=== PATIENT | male | born 1955 | race Caucasian/White ===

== ENCOUNTER → 2017-03-26 | Outpatient (CLI) | payer MEDICARE, BC ==
--- NOTE | 2017-03-28 17:43 | US ---
EXAMINATION TYPE: US MSK left shoulder DATE OF EXAM: 03/26/2017 2:33 PM COMPARISON: NONE CLINICAL HISTORY: 61-year-old male M25.512 PAIN LEFT SHOULDER. Pain for 2 months. LROM. No known inju ry. Abduction limited. PT not helpful. Painful to sleep on. Diabetic. TECHNIQUE: Multiple sonographic images of the left shoulder are obtained. FINDINGS: Some images suggest a short segment longitudinal split within the lung and biceps tendon within the u pper bicipital groove. There is mild tenosynovial fluid. Mild heterogeneous echotexture of the subscapularis tendon which remains intact. Moderate degenerative joint space narrowing with marginal spurring and capsular hypertrophy at the ac romioclavicular joint. There is diffuse thickening and heterogeneity of both destructive process Chavez and infraspinatus tendons. There is subtle volume loss along the mid to posterior supraspinatus tendon with irregular areas of h ypoechogenicity which appears to be contiguous with the overlying bursa. These irregular areas extend to the greater tuberosity footprint and some may also extend to the articular surface. Tear is estim ated to measure approximately 1 cm long and 9 mm AP dimension. No didier fluid distention of the subacromial/subdeltoid bursa. The posterior labrum appears satisfactory. No significant effusion within the posterior recess of the glenohumeral joint. Spinoglenoid groove is clear. No significant atrophy of the supraspinatus or infraspinatus muscle bellies. IMPRESSION: 1. Moderate diffuse rotator cuff tendinosis with a 10 x 9 mm high-grade bursal sided versus nondispla ann full-thickness tear of the mid to posterior supraspinatus tendon. No muscle atrophy. 2. There may be a short segment split tear of the long head biceps tendon in the upper bicipital groo ve. 3. Moderate AC joint osteoarthrosis.
== END | disposition home or self-care (01) ==
LOC: RADUSWWP 13:15
PROVIDERS: ATTEND Orthopaedic Surgery Sports Medicine
DX: M19.012 Primary osteoarthritis, left shoulder (principal); M67.814 Other specified disorders of tendon, left shoulder; M75.42 Impingement syndrome of left shoulder; E10.9 Type 1 diabetes mellitus without complications

== ENCOUNTER 2017-08-10 23:44 | Emergency (ER) | payer MEDICARE, BC ==
[2017-08-11 00:21] LABS: Glucose,Whole Blood 91 mg/dL (75-99)
[2017-08-11 00:48] LABS: Basophils # (A) 0.1 k/uL (0-0.2); Basophils % (A) 1 %; CHCM 34.2; Eosinophils # (A) 0.7 k/uL (0-0.7); Eosinophils % (A) 8 %; HCT 45.2 % (39.0-53.0); HDW 3.06; HGB 15.8 gm/dL (13.0-17.5); Luc # (Auto) 0.25; Luc % (Auto) 3; Lymphocytes # (A) 2.6 k/uL (1.0-4.8); Lymphocytes % (A) 30 %; MCH 31.8 pg (25.0-35.0); MCHC 34.9 g/dL (31.0-37.0); MCV 91.2 fL (80.0-100.0); Mean Platelet Volume 7.8; Monocytes # (A) 0.6 k/uL (0-1.0); Monocytes % (A) 7 %; Neutrophils # (A) 4.6 k/uL (1.3-7.7); Neutrophils % (A) 53 %; RBC 4.96 m/uL (4.30-5.90); RDW 13.9 % (11.5-15.5); WBC 8.7 k/uL (3.8-10.6); WBC (Perox) 8.77
[2017-08-11 00:58] LABS: ALT 53 U/L (21-72); AST 32 U/L (17-59); Alkaline Phosphatase 66 U/L (38-126); Anion Gap 12 mmol/L; Blood Urea Nitrogen 19 mg/dL (9-20); Calcium 9.5 mg/dL (8.4-10.2); Carbon Dioxide 23 mmol/L (22-30); Chloride 104 mmol/L (98-107); Glucose 89 mg/dL (74-99); Non-African American GFR(MDRD) >60 (>60 ml/min/1.73 sqM); Potassium 4.2 mmol/L (3.5-5.1); Sodium 139 mmol/L (137-145); Total Bilirubin 0.5 mg/dL (0.2-1.3); Total Protein 7.3 g/dL (6.3-8.2)
[2017-08-11 01:02] LABS: Partial Thromboplastin Time 24.8 sec (22.0-30.0)
[2017-08-11 01:16] LABS: Creatine Kinase 117 U/L (55-170)
[2017-08-11 01:20] LABS: Appearance,Urine Clear (Clear); Bilirubin,Urine Negative (Negative); Glucose,Urine (UA) Negative (Negative); Ketones,Urine Negative (Negative); Leukocyte Esterase,Urine Negative (Negative); Nitrite,Urine Negative (Negative); PH, Urine 5.5 (5.0-8.0); Protein,Urine Negative (Negative); Specific Gravity,Urine 1.001 (1.001-1.035); UA Billing (MACRO vs. MICRO) CHEM; Urobilinogen,Urine <2.0 mg/dL (<2.0)
[2017-08-11 01:28] LABS: Creatine Kinase MB 1.5 ng/mL (0.0-2.4); Troponin I <0.012 ng/mL (0.000-0.034)
--- NOTE | 2017-08-11 01:31 | XR ---
EXAMINATION TYPE: XR chest 2V DATE OF EXAM: 08/11/2017 COMPARISON: 09/20/2015 HISTORY: Hypertension. Altered mental status TECHNIQUE: Frontal and lateral views of the chest are obtained. FINDINGS: There is poor inspiration. There is linear density at the lung bases. There is no gross he art failure. There are sternal wires. Bony thorax appears intact. IMPRESSION: Inspiration appears worse than old exam. Atelectasis at the lung bases. No gross heart f ailure.
--- NOTE | 2017-08-11 01:44 | CT ---
EXAMINATION TYPE: CT brain wo con DATE OF EXAM: 08/11/2017 COMPARISON: To 114 HISTORY: Prior on synapse, hypertension and facial numbness 1090.40 CT DLP: 1090.40 mGycm Automated exposure control for dose reduction was used. FINDINGS: Ventricles have normal size. There is no mass effect nor midline shift. There is no sign of intracran ial hemorrhage. The calvarium is intact. IMPRESSION: NEGATIVE CT SCAN OF THE BRAIN. NO CHANGE COMPARED TO OLD EXAM.
--- NOTE | 2017-08-11 02:11 | ED ---
General Adult HPI - General Chief complaint: Neuro Symptoms/Deficit Stated complaint: high BP, face numbness Time Seen by Provider: 08/11/17 00:02 Source: patient, family, RN notes reviewed, old records reviewed Mode of arrival: ambulatory Limitations: no limitations - History of Present Illness Initial comments: 61-year-old male presents with a one-month history of generalized weakness, numbness on the top of his head, and intermittent amnesia. Patient was seen at [facility] proximal was 2 weeks ago the same symptoms. Patient's and daughter were frustrated with the care he received. They did not receive an answer for cause of his symptoms. Patient denies headache. States he has bandlike numbness or on the top of his head. He also reports bilateral tinnitus which is worse on the left. Complains of bilateral upper and lower extremity weakness. No chest pain or shortness of breath. No fever chills. No nausea vomiting or diarrhea. Patient states symptoms have been present for greater than 1 month. - Related Data Home Medications Medication Instructions Recorded Confirmed Atorvastatin [Lipitor] 80 mg PO HS 08/09/14 08/11/17 Isosorbide Mononitrate [Imdur] 30 mg PO DAILY 08/09/14 08/11/17 Metoprolol Tartrate [Lopressor] 50 mg PO BID 08/09/14 08/11/17 Nitroglycerin Sl Tabs [Nitrostat] 0.4 mg SUBLINGUAL Q5M PRN 08/09/14 08/11/17 Lisinopril [Zestril] 20 mg PO DAILY 09/20/15 08/11/17 Insulin Degludec [Tresiba 50 units INJ BID 03/26/16 08/11/17 Flextouch U-100] Triamterene/Hydrochlorothiazid 1 each PO DAILY 03/26/16 08/11/17 [Triamterene-Hctz 37.5-25 mg Cp] Aspirin 81 mg PO DAILY 08/11/17 08/11/17 Atorvastatin [Lipitor] 80 mg PO HS 08/11/17 08/11/17 glipiZIDE [Glucotrol] 5 mg PO BID 08/11/17 08/11/17 Previous Rx's Medication Instructions Recorded Pantoprazole Sodium [Protonix] 40 mg PO DAILY #30 tablet. 12/12/14 Allergies Allergy/AdvReac Type Severity Reaction Status Date / Time ciprofloxacin Allergy Rash/Hives Verified 08/11/17 00:01 fluticasone propionate Allergy Rash/Hives Verified 08/11/17 00:01 [From Flonase] metformin Allergy Rash/Hives Verified 08/11/17 00:01 metformin HCl Allergy Rash/Hives Verified 08/11/17 00:01 [From Glucophage] Review of Systems ROS Statement: Those systems with pertinent positive or pertinent negative responses have been documented in the HPI. ROS Other: All systems not noted in ROS Statement are negative. Past Medical History Past Medical History: Coronary Artery Disease (CAD), Diabetes Mellitus, GERD/ Reflux, Hyperlipidemia, Hypertension, Myocardial Infarction ([place]), Osteoarthritis (OA) Last Myocardial Infarction Date:: january History of Any Multi-Drug Resistant Organisms: None Reported Past Surgical History: Coronary Bypass/CABG, Hernia Repair, Orthopedic Surgery, Tonsillectomy Additional Past Surgical History / Comment(s): left hand, rt eye surgery, rt shoulder repair x2, bilat hernia repair, rt foot sx, colonoscopy Past Anesthesia/Blood Transfusion Reactions: No Reported Reaction Past Psychological History: No Psychological Hx Reported Smoking Status: Former smoker - Past Family History Mother Family Medical History: Diabetes Mellitus, Hypertension Father Additional Family Medical History / Comment(s): four way bypass General Exam Limitations: no limitations General appearance: alert, in no apparent distress Head exam: Present: atraumatic, normocephalic Eye exam: Present: normal appearance, PERRL, EOMI. Absent: scleral icterus ENT exam: Present: normal exam Neck exam: Present: normal inspection, full ROM. Absent: tenderness, meningismus Respiratory exam: Present: normal lung sounds bilaterally. Absent: respiratory distress, wheezes Cardiovascular Exam: Present: regular rate, normal rhythm GI/Abdominal exam: Present: soft. Absent: distended, tenderness Extremities exam: Present: normal inspection, normal capillary refill. Absent: pedal edema Neurological exam: Present: alert, oriented X3, CN II-XII intact. Absent: motor sensory deficit Psychiatric exam: Present: normal affect, normal mood Skin exam: Present: warm, dry, intact Course Vital Signs 08/10/17 08/11/17 08/11/17 23:58 01:11 02:18 Temperature 97.4 F L 98.1 F Pulse Rate 75 73 68 Respiratory 18 20 16 Rate Blood Pressure 196/83 142/70 132/70 O2 Sat by Pulse 97 100 99 Oximetry - Reevaluation(s) Reevaluation #1: 08/11/17 02:32 Patient is seen sitting at the edge of the bed, when the nurse entered the room , he flops to his back. EKG Findings - EKG Comments: EKG Findings:: EKG shows normal sinus rhythm with right bundle-branch block, ventricular rate 81, MI interval 190, QRS duration 166, QTC 490 Medical Decision Making - Medical Decision Making 61-year-old male with a one month history of intermittent amnesia, generalized weakness, and numbness on the top of his head. Patient had a stroke workup at [facility]. These records were reviewed. He was evaluated by neurology at that time. Patient is unable to get an MRI secondary to foreign body in his eye. Patient was encouraged to follow neurology after his admission. Symptoms are unchanged since the time of this evaluation. Patient' s vital signs are stable, he is well-appearing, no acute distress. Patient moves all 4 extremities symmetrically. He is weak throughout. However his exam is inconsistent. He is seen sitting at the edge of the bed without difficulty, and then flops to the bed when the nurse and his room. I personally reevaluated the patient and he was bouncing his legs with no difficulty. When asked to move his legs he provides only minimal effort. Laboratory studies are reviewed and are unremarkable. Head CT is normal. Chest x-ray shows poor effort but no acute findings. EKG shows right bundle branch block which is compared to old EKGs and unchanged. I discussed with the family at length plan for outpatient neurology follow-up. They are agreeable with this. Observation is discussed with the patient and his family. Diagnosis: Amnesia, general weakness - Lab Data Result diagrams: 08/11/17 00:00 08/11/17 00:00 Lab Results 08/11/17 08/11/17 08/11/17 Range/Units 00:00 00:00 00:00 WBC 8.7 (3.8-10.6) k/uL RBC 4.96 (4.30-5.90) m/uL Hgb 15.8 (13.0-17.5) gm/dL Hct 45.2 (39.0-53.0) % MCV 91.2 (80.0-100.0) fL MCH 31.8 (25.0-35.0) pg MCHC 34.9 (31.0-37.0) g/dL RDW 13.9 (11.5-15.5) % Plt Count 222 (150-450) k/uL Neutrophils % 53 % Lymphocytes % 30 % Monocytes % 7 % Eosinophils % 8 % Basophils % 1 % Neutrophils # 4.6 (1.3-7.7) k/uL Lymphocytes # 2.6 (1.0-4.8) k/uL Monocytes # 0.6 (0-1.0) k/uL Eosinophils # 0.7 (0-0.7) k/uL Basophils # 0.1 (0-0.2) k/uL PT (9.0-12.0) sec INR (<1.2) APTT (22.0-30.0) sec Sodium 139 (137-145) mmol/L Potassium 4.2 (3.5-5.1) mmol/L Chloride 104 (98-107) mmol/L Carbon Dioxide 23 (22-30) mmol/L Anion Gap 12 mmol/L BUN 19 (9-20) mg/dL Creatinine 1.20 (0.66-1.25) mg/dL Est GFR (MDRD) Af Amer >60 (>60 ml/min/1.73 sqM) Est GFR (MDRD) Non-Af >60 (>60 ml/min/1.73 sqM) Glucose 89 (74-99) mg/dL POC Glucose (mg/dL) (75-99) mg/dL POC Glu Digital Tech ID Calcium 9.5 (8.4-10.2) mg/dL Total Bilirubin 0.5 (0.2-1.3) mg/dL AST 32 (17-59) U/L ALT 53 (21-72) U/L Alkaline Phosphatase 66 (38-126) U/L Total Creatine Kinase 117 (55-170) U/L CK-MB (CK-2) 1.5 (0.0-2.4) ng/mL CK-MB (CK-2) Rel Index 1.3 Troponin I <0.012 (0.000-0.034) ng/mL Total Protein 7.3 (6.3-8.2) g/dL Albumin 4.3 (3.5-5.0) g/dL Urine Color Urine Appearance (Clear) Urine pH (5.0-8.0) Ur Specific Hiram (1.001-1.035) Urine Protein (Negative) Urine Glucose (UA) (Negative) Urine Ketones (Negative) Urine Blood (Negative) Urine Nitrite (Negative) Urine Bilirubin (Negative) Urine Urobilinogen (<2.0) mg/dL Ur Leukocyte Esterase (Negative) Urine Opiates Screen (NotDetected) Ur Oxycodone Screen (NotDetected) Urine Methadone Screen (NotDetected) Ur Propoxyphene Screen (NotDetected) Ur Barbiturates Screen (NotDetected) U Tricyclic Antidepress (NotDetected) Ur Phencyclidine Scrn (NotDetected) Ur Amphetamines Screen (NotDetected) U Methamphetamines Scrn (NotDetected) U Benzodiazepines Scrn (NotDetected) Urine Cocaine Screen (NotDetected) U Marijuana (THC) Screen (NotDetected) 08/11/17 08/11/17 08/11/17 Range/Units 00:00 00:05 01:06 WBC (3.8-10.6) k/uL RBC (4.30-5.90) m/uL Hgb (13.0-17.5) gm/dL Hct (39.0-53.0) % MCV (80.0-100.0) fL MCH (25.0-35.0) pg MCHC (31.0-37.0) g/dL RDW (11.5-15.5) % Plt Count (150-450) k/uL Neutrophils % % Lymphocytes % % Monocytes % % Eosinophils % % Basophils % % Neutrophils # (1.3-7.7) k/uL Lymphocytes # (1.0-4.8) k/uL Monocytes # (0-1.0) k/uL Eosinophils # (0-0.7) k/uL Basophils # (0-0.2) k/uL PT 10.0 (9.0-12.0) sec INR 1.0 (<1.2) APTT 24.8 (22.0-30.0) sec Sodium (137-145) mmol/L Potassium (3.5-5.1) mmol/L Chloride (98-107) mmol/L Carbon Dioxide (22-30) mmol/L Anion Gap mmol/L BUN (9-20) mg/dL Creatinine (0.66-1.25) mg/dL Est GFR (MDRD) Af Amer (>60 ml/min/1.73 sqM) Est GFR (MDRD) Non-Af (>60 ml/min/1.73 sqM) Glucose (74-99) mg/dL POC Glucose (mg/dL) 91 (75-99) mg/dL POC Glu Digital Tech ID Vanessa Tracy Calcium (8.4-10.2) mg/dL Total Bilirubin (0.2-1.3) mg/dL AST (17-59) U/L ALT (21-72) U/L Alkaline Phosphatase (38-126) U/L Total Creatine Kinase (55-170) U/L CK-MB (CK-2) (0.0-2.4) ng/mL CK-MB (CK-2) Rel Index Troponin I (0.000-0.034) ng/mL Total Protein (6.3-8.2) g/dL Albumin (3.5-5.0) g/dL Urine Color Colorless Urine Appearance Clear (Clear) Urine pH 5.5 (5.0-8.0) Ur Specific Hiram 1.001 (1.001-1.035) Urine Protein Negative (Negative) Urine Glucose (UA) Negative (Negative) Urine Ketones Negative (Negative) Urine Blood Negative (Negative) Urine Nitrite Negative (Negative) Urine Bilirubin Negative (Negative) Urine Urobilinogen <2.0 (<2.0) mg/dL Ur Leukocyte Esterase Negative (Negative) Urine Opiates Screen Not Detected (NotDetected) Ur Oxycodone Screen Not Detected (NotDetected) Urine Methadone Screen Not Detected (NotDetected) Ur Propoxyphene Screen Not Detected (NotDetected) Ur Barbiturates Screen Not Detected (NotDetected) U Tricyclic Antidepress Not Detected (NotDetected) Ur Phencyclidine Scrn Not Detected (NotDetected) Ur Amphetamines Screen Not Detected (NotDetected) U Methamphetamines Scrn Not Detected (NotDetected) U Benzodiazepines Scrn Not Detected (NotDetected) Urine Cocaine Screen Not Detected (NotDetected) U Marijuana (THC) Screen Not Detected (NotDetected) Disposition Clinical Impression: Amnesia Disposition: HOME SELF-CARE Condition: Good Instructions: Transient Global Amnesia (ED) Referrals: Marilia Sharma DO [Primary Care Provider] - 1-2 days Rafy Gordon MD [STAFF PHYSICIAN] - 1-2 days Time of Disposition: 02:11
[2017-08-11 02:20] VITALS: BP 132/70; PULSE 68; RESP 16; TEMP 98.1
== END 2017-08-11 02:25 | disposition home or self-care (01) ==
LOC: EC 23:44
DX: R41.3 Other amnesia (principal); R53.1 Weakness; R20.0 Anesthesia of skin; I25.10 Atherosclerotic heart disease of native coronary artery without angina pectoris; E11.9 Type 2 diabetes mellitus without complications; E78.5 Hyperlipidemia, unspecified; I10 Essential (primary) hypertension; I25.2 Old myocardial infarction; Z95.1 Presence of aortocoronary bypass graft; Z87.891 Personal history of nicotine dependence; Z79.4 Long term (current) use of insulin; Z79.82 Long term (current) use of aspirin; Z79.899 Other long term (current) drug therapy; Z88.1 Allergy status to other antibiotic agents; Z88.8 Allergy status to other drugs, medicaments and biological substances
CPT/HCPCS: 36415; 70450; 71020; 80053; 80306; 81003; 82550; 82553; 84484; 85025; 85610; 85730; 93005; 99285

== ENCOUNTER 2018-02-14 18:06 | Emergency (ER) | payer MEDICARE, BC ==
--- NOTE | 2018-02-14 18:40 | ED ---
General Adult HPI - General Chief complaint: Seizure Stated complaint: Seizure Time Seen by Provider: 02/14/18 18:26 Source: patient, EMS, RN notes reviewed, old records reviewed Mode of arrival: EMS Limitations: no limitations - History of Present Illness Initial comments: 62-year-old male presenting for evaluation of generalized shaking. Patient has history of tinnitus, he's been dealing with this for the past one year. He told his about this and that it has been bothering him and then he presented from the bedroom with generalized shaking. He was awake and alert during this episode. He states that the "left side of his brain is , and he believes that the right side today". Denies any complaints at the time of my evaluation. No headache. No vision changes. No focal weakness or numbness. No chest pain or abdominal pain. Patient's states that he has had some intermittent suicidal thoughts no plan. Patient currently denies any suicidal ideation. - Related Data Home Medications Medication Instructions Recorded Confirmed Atorvastatin [Lipitor] 80 mg PO HS 08/09/14 08/11/17 Isosorbide Mononitrate [Imdur] 30 mg PO DAILY 08/09/14 08/11/17 Metoprolol Tartrate [Lopressor] 50 mg PO BID 08/09/14 08/11/17 Nitroglycerin Sl Tabs [Nitrostat] 0.4 mg SUBLINGUAL Q5M PRN 08/09/14 08/11/17 Lisinopril [Zestril] 20 mg PO DAILY 09/20/15 08/11/17 Insulin Degludec [Tresiba 50 units INJ BID 03/26/16 08/11/17 Flextouch U-100] Triamterene/Hydrochlorothiazid 1 each PO DAILY 03/26/16 08/11/17 [Triamterene-Hctz 37.5-25 mg Cp] Aspirin 81 mg PO DAILY 08/11/17 08/11/17 Atorvastatin [Lipitor] 80 mg PO HS 08/11/17 08/11/17 glipiZIDE [Glucotrol] 5 mg PO BID 08/11/17 08/11/17 Previous Rx's Medication Instructions Recorded Pantoprazole Sodium [Protonix] 40 mg PO DAILY #30 tablet. 10/20/14 Allergies Allergy/AdvReac Type Severity Reaction Status Date / Time ciprofloxacin Allergy Rash/Hives Verified 02/14/18 18:17 fluticasone propionate Allergy Rash/Hives Verified 02/14/18 18:17 [From Flonase] metformin Allergy Rash/Hives Verified 02/14/18 18:17 metformin HCl Allergy Rash/Hives Verified 02/14/18 18:17 [From Glucophage] Review of Systems ROS Statement: Those systems with pertinent positive or pertinent negative responses have been documented in the HPI. ROS Other: All systems not noted in ROS Statement are negative. Past Medical History Past Medical History: Coronary Artery Disease (CAD), Diabetes Mellitus, GERD/ Reflux, Hyperlipidemia, Hypertension, Myocardial Infarction ([place]), Osteoarthritis (OA) Last Myocardial Infarction Date:: january History of Any Multi-Drug Resistant Organisms: None Reported Past Surgical History: Coronary Bypass/CABG, Hernia Repair, Orthopedic Surgery, Tonsillectomy Additional Past Surgical History / Comment(s): left hand, rt eye surgery, rt shoulder repair x2, bilat hernia repair, rt foot sx, colonoscopy Past Anesthesia/Blood Transfusion Reactions: No Reported Reaction Past Psychological History: No Psychological Hx Reported Smoking Status: Former smoker Past Alcohol Use History: None Reported Past Drug Use History: None Reported - Past Family History Mother Family Medical History: Diabetes Mellitus, Hypertension Father Additional Family Medical History / Comment(s): four way bypass General Exam Limitations: no limitations General appearance: alert, in no apparent distress Head exam: Present: atraumatic, normocephalic Eye exam: Present: normal appearance, PERRL, EOMI. Absent: nystagmus ENT exam: Present: normal exam, mucous membranes dry Respiratory exam: Present: normal lung sounds bilaterally. Absent: respiratory distress, wheezes Cardiovascular Exam: Present: regular rate, normal rhythm GI/Abdominal exam: Present: soft. Absent: distended, tenderness, guarding Extremities exam: Present: normal inspection, full ROM, tenderness. Absent: normal capillary refill, pedal edema Back exam: Present: normal inspection Neurological exam: Present: alert, oriented X3, CN II-XII intact. Absent: motor sensory deficit Psychiatric exam: Present: flat affect. Absent: suicidal ideation Skin exam: Present: warm, dry, intact. Absent: cyanosis, diaphoretic Course Vital Signs 02/14/18 02/14/18 02/14/18 18:10 18:25 19:41 Temperature 98 F Pulse Rate 72 65 68 Respiratory 15 18 16 Rate Blood Pressure 217/90 177/79 142/69 O2 Sat by Pulse 97 98 93 L Oximetry - Reevaluation(s) Reevaluation #1: 02/14/18 20:22 On reevaluation, neurologic exam continues to be nonfocal, vital signs are stable. Patient believes his symptoms may be due to teeth pushing up into his brain. He denies any auditory or visual hallucinations. He has been told to follow-up with neurology in the past, and his has wanted him to see a psychiatrist or therapist for several of these ongoing issues. Patient was evaluated in the emergency department by EPS nurse who gave the patient outpatient follow-up information. 02/14/18 20:58 EKG Findings - EKG Comments: EKG Findings:: EKG, normal sinus rhythm right bundle branch block rate of 66, WI interval 142, QRS duration 168, QTC 467, no significant change compared to EKG obtained in August 2017 Medical Decision Making - Medical Decision Making 62-year-old male presenting with generalized shaking and concern for seizure. Patient was awake and alert, he has no known seizure disorder. On examination patient is well-appearing, normal vital signs, nonfocal neurologic exam. Patient is frustrated with the ongoing nature of his symptoms. Uncertain if this episode today was related to focal seizure or partial seizure. Head CT is obtained, this is negative for acute intracranial pathology. CBC and CMP within normal limits. EKG shows normal sinus rhythm with right bundle. Patient is offered observation for neurology evaluation, he declines. He wishes to be discharged. He will return with worsening or changing symptoms. - Lab Data Result diagrams: 02/14/18 18:23 02/14/18 18:23 Lab Results 02/14/18 02/14/18 Range/Units 18:23 18:23 WBC 6.2 (3.8-10.6) k/uL RBC 4.80 (4.30-5.90) m/uL Hgb 14.9 (13.0-17.5) gm/dL Hct 42.6 (39.0-53.0) % MCV 88.6 (80.0-100.0) fL MCH 31.0 (25.0-35.0) pg MCHC 35.0 (31.0-37.0) g/dL RDW 13.3 (11.5-15.5) % Plt Count 199 (150-450) k/uL Neutrophils % 52 % Lymphocytes % 28 % Monocytes % 7 % Eosinophils % 9 % Basophils % 1 % Neutrophils # 3.2 (1.3-7.7) k/uL Lymphocytes # 1.7 (1.0-4.8) k/uL Monocytes # 0.5 (0-1.0) k/uL Eosinophils # 0.6 (0-0.7) k/uL Basophils # 0.0 (0-0.2) k/uL Sodium 143 (137-145) mmol/L Potassium 4.4 (3.5-5.1) mmol/L Chloride 104 (98-107) mmol/L Carbon Dioxide 26 (22-30) mmol/L Anion Gap 13 mmol/L BUN 23 H (9-20) mg/dL Creatinine 1.21 (0.66-1.25) mg/dL Est GFR (CKD-EPI)AfAm 74 (>60 ml/min/1.73 sqM) Est GFR (CKD-EPI)NonAf 64 (>60 ml/min/1.73 sqM) Glucose 84 (74-99) mg/dL Calcium 9.4 (8.4-10.2) mg/dL Total Bilirubin 0.4 (0.2-1.3) mg/dL AST 27 (17-59) U/L ALT 35 (21-72) U/L Alkaline Phosphatase 45 (38-126) U/L Total Protein 6.8 (6.3-8.2) g/dL Albumin 4.0 (3.5-5.0) g/dL Disposition Clinical Impression: Tremor Disposition: HOME SELF-CARE Condition: Good Instructions: Tremors (ED) Referrals: Marilia Sharma DO [Primary Care Provider] - 1-2 days Brittany Gordon MD [STAFF PHYSICIAN] - 1-2 days Time of Disposition: 21:05
[2018-02-14 18:55] LABS: Basophils % (A) 1 %; Eosinophils # (A) 0.6 k/uL (0-0.7); Eosinophils % (A) 9 %; HCT 42.6 % (39.0-53.0); HGB 14.9 gm/dL (13.0-17.5); Lymphocytes # (A) 1.7 k/uL (1.0-4.8); Lymphocytes % (A) 28 %; MCV 88.6 fL (80.0-100.0); Mean Platelet Volume 7.8; Monocytes # (A) 0.5 k/uL (0-1.0); Monocytes % (A) 7 %; Neutrophils # (A) 3.2 k/uL (1.3-7.7); Neutrophils % (A) 52 %; Platelet Count 199 k/uL (150-450); RDW 13.3 % (11.5-15.5); WBC 6.2 k/uL (3.8-10.6)
[2018-02-14 19:06] LABS: Calcium 9.4 mg/dL (8.4-10.2); Potassium 4.4 mmol/L (3.5-5.1); Total Bilirubin 0.4 mg/dL (0.2-1.3); Total Protein 6.8 g/dL (6.3-8.2)
--- NOTE | 2018-02-14 19:20 | CT ---
EXAMINATION TYPE: CT brain wo con DATE OF EXAM: 02/14/2018 COMPARISON: 08/11/2017 INDICATION: Seizure activity DLP: 1041.50 mGycm, Automated exposure control for dose reduction was used. CONTRAST: None CT of the brain is performed utilizing 3 mm thick sections through the posterior fossa and 3 mm thick sections through the remaining calvarium. Study is performed within 24 hours of arrival to the hosp [facility]. No abnormal hyperdensity is present to suggest an acute intracranial hemorrhage. No mass lesion is evident. No acute infarcts are evident. Ventricles and sulci are appropriate for the patient age. Paranasal sinuses and mastoid air cells within the [id number] are clear. IMPRESSIONS: 1. No acute intracranial process. 2. Exam is stable from 08/11/2017
[2018-02-14 21:33] VITALS: BP 135/63; PULSE 66; RESP 18; TEMP 97.3
== END 2018-02-14 21:33 | disposition home or self-care (01) ==
LOC: EC 18:06
DX: R25.1 Tremor, unspecified (principal); I25.10 Atherosclerotic heart disease of native coronary artery without angina pectoris; E11.9 Type 2 diabetes mellitus without complications; I10 Essential (primary) hypertension; I25.2 Old myocardial infarction; E78.5 Hyperlipidemia, unspecified; Z95.1 Presence of aortocoronary bypass graft; Z87.891 Personal history of nicotine dependence; Z79.4 Long term (current) use of insulin; Z79.82 Long term (current) use of aspirin; Z79.899 Other long term (current) drug therapy; Z88.1 Allergy status to other antibiotic agents; Z88.8 Allergy status to other drugs, medicaments and biological substances
CPT/HCPCS: 36415; 70450; 80053; 85025; 93005; 99285

== ENCOUNTER 2018-05-01 13:36 | Observation (INO) | payer MEDICARE, BC ==
[2018-05-01] MEDS ORDERED: NITROGLYCERIN OINT 1 INCH/GM PACKET TOPICAL STA (13:52)
[2018-05-01] MEDS ORDERED: ASPIRIN 81 MG PO STA (13:52)
--- NOTE | 2018-05-01 13:56 | ED ---
General Adult HPI - General Chief complaint: Chest Pain Stated complaint: Chest pain Time Seen by Provider: 05/01/18 13:45 Source: patient, EMS, RN notes reviewed, old records reviewed Mode of arrival: EMS Limitations: no limitations - History of Present Illness Initial comments: Patient is a pleasant 62-year-old male presenting to the emergency department with complaints of chest discomfort. Patient states symptoms started a couple of days ago. Symptoms worsened last night and then again this morning. Patient describes discomfort as pressure in the left chest. There is some associated dyspnea. Symptoms do worsen with exertion. Patient does have a history of cardiac problems however this feels different. No associated nausea or diaphoresis. Discomfort is currently rated 4/10. Patient was seen at [facility] and had reported negative troponin and transferred here for further evaluation. Patient states he has had some memory problems over the past year and a half. [facility] did also report that they did a computed tomography scan prior to transfer that was reported as negative. - Related Data Home Medications Medication Instructions Recorded Confirmed Isosorbide Mononitrate [Imdur] 30 mg PO DAILY 08/09/14 05/01/18 Nitroglycerin Sl Tabs [Nitrostat] 0.4 mg SUBLINGUAL Q5M PRN 08/09/14 05/01/18 Lisinopril [Zestril] 20 mg PO BID 09/20/15 05/01/18 Insulin Degludec [Tresiba 36 units SQ 03/26/16 05/01/18 Flextouch U-100] Aspirin 81 mg PO DAILY 08/11/17 05/01/18 Albuterol Inhaler [Ventolin Hfa 2 puff INHALATION RT-Q6H PRN 05/01/18 05/01/18 Inhaler] Cyanocobalamin (Vitamin B-12) 1,000 mcg PO DAILY 05/01/18 05/01/18 [Vitamin B-12] Docusate [Colace] 100 mg PO DAILY 05/01/18 05/01/18 Metoprolol Tartrate [Lopressor] 25 mg PO DAILY 05/01/18 05/01/18 Pyridoxine [Vitamin B-6] 50 mg PO DAILY 05/01/18 05/01/18 traZODone HCL 25 mg PO HS 05/01/18 05/01/18 Allergies Allergy/AdvReac Type Severity Reaction Status Date / Time ciprofloxacin Allergy Rash/Hives Verified 05/01/18 14:27 fluticasone propionate Allergy Rash/Hives Verified 05/01/18 14:27 [From Flonase] metformin Allergy Rash/Hives Verified 05/01/18 14:27 metformin HCl Allergy Rash/Hives Verified 05/01/18 14:27 [From Glucophage] Mushroom Allergy Unknown Verified 05/01/18 14:27 Review of Systems ROS Statement: Those systems with pertinent positive or pertinent negative responses have been documented in the HPI. ROS Other: All systems not noted in ROS Statement are negative. Constitutional: Denies: fever Eyes: Denies: eye pain ENT: Denies: ear pain Respiratory: Reports: dyspnea. Denies: cough Cardiovascular: Reports: chest pain Endocrine: Denies: fatigue Gastrointestinal: Denies: abdominal pain Genitourinary: Denies: dysuria Musculoskeletal: Denies: back pain Skin: Denies: rash Neurological: Reports: confusion. Denies: headache Past Medical History Past Medical History: Coronary Artery Disease (CAD), Diabetes Mellitus, GERD/ Reflux, Hyperlipidemia, Hypertension, Myocardial Infarction (VT), Osteoarthritis (OA) Last Myocardial Infarction Date:: january History of Any Multi-Drug Resistant Organisms: None Reported Past Surgical History: Coronary Bypass/CABG, Hernia Repair, Orthopedic Surgery, Tonsillectomy Additional Past Surgical History / Comment(s): left hand, rt eye surgery, rt shoulder repair x2, bilat hernia repair, rt foot sx, colonoscopy Past Anesthesia/Blood Transfusion Reactions: No Reported Reaction Past Psychological History: No Psychological Hx Reported Smoking Status: Former smoker Past Alcohol Use History: None Reported Past Drug Use History: None Reported - Past Family History Mother Family Medical History: Diabetes Mellitus, Hypertension Father Additional Family Medical History / Comment(s): four way bypass General Exam Limitations: no limitations General appearance: alert, in no apparent distress Head exam: Present: atraumatic Eye exam: Present: normal appearance, PERRL ENT exam: Present: normal oropharynx Neck exam: Present: normal inspection Respiratory exam: Present: normal lung sounds bilaterally. Absent: chest wall tenderness Cardiovascular Exam: Present: regular rate, normal rhythm Expanded Peripheral pulses: 2+: Radial (R), Radial (L), Dorsalis Pedis (R), Dorsalis Pedis (L) GI/Abdominal exam: Present: soft. Absent: tenderness Extremities exam: Present: normal inspection. Absent: pedal edema, calf tenderness Neurological exam: Present: alert, oriented X3, CN II-XII intact. Absent: motor sensory deficit Expanded Neurological exam: Present: protecting the airway Patient oriented to: Present: person, place, time Speech: Present: fluid speech Cranial nerves: EOM's Intact: Normal, Facial Sensation: Normal Motor strength exam: RUE: 5, LUE: 5, RLE: 5, LLE: 5 Eye Response: (4) open spontaneously Motor Response: (6) obeys commands Verbal Response: (5) oriented Psychiatric exam: Present: normal affect, normal mood Skin exam: Present: normal color Course Vital Signs 05/01/18 05/01/18 05/01/18 13:39 14:27 15:14 Temperature 97.7 F Pulse Rate 71 88 66 Respiratory 18 18 18 Rate Blood Pressure 143/74 146/68 146/68 O2 Sat by Pulse 98 96 98 Oximetry - Reevaluation(s) Reevaluation #1: 05/01/18 13:55 Chart reviewed from [facility]. EKG Findings - EKG Comments: EKG Findings:: Normal sinus rhythm 68. TN 146. QRS 168. QT 442. QTC 469. Normal axis. Right bundle branch block. No acute ST change. Medical Decision Making - Medical Decision Making Patient was updated on plan. Case was discussed in detail with Dr. coronel, who will admit for Dr. nicholson, who admits for Dr. Sharma. - Lab Data Lab Results 05/01/18 05/01/18 Range/Units 13:50 13:50 PT 10.3 (9.0-12.0) sec INR 1.1 (<1.2) APTT 24.9 (22.0-30.0) sec Total Creatine Kinase 64 (55-170) U/L CK-MB (CK-2) 0.7 (0.0-2.4) ng/mL CK-MB (CK-2) Rel Index 1.1 Troponin I <0.012 (0.000-0.034) ng/mL - Radiology Data Radiology results: image reviewed (Chest x-ray shows chronic changes. No acute cardiopulmonary process.) Disposition Clinical Impression: Chest pain Disposition: ADMITTED IP TO THIS HOSP Is patient prescribed a controlled substance at d/c from ED?: No Referrals: Marilia Sharma DO [Primary Care Provider] - 1-2 days Decision Time: 15:27
--- NOTE | 2018-05-01 14:41 | XR ---
EXAMINATION TYPE: XR chest 2V DATE OF EXAM: 05/01/2018 COMPARISON: 08/11/2017 HISTORY: 62-year-old male with chest pain TECHNIQUE: AP and lateral views FINDINGS: Heart normal size. Atherosclerotic arch calcifications. Diffuse interstitial prominence is unchanged. Median sternotomy wires are present. No consolidation or pleural effusion. IMPRESSION: Chronic changes, possible bronchitis or asthma. No acute cardiopulmonary process.
[2018-05-01 14:56] LABS: INR 1.1 (<1.2); Partial Thromboplastin Time 24.9 sec (22.0-30.0); Prothrombin Time 10.3 sec (9.0-12.0)
[2018-05-01 15:06] LABS: Creatine Kinase 64 U/L (55-170)
[2018-05-01 15:19] LABS: Creatine Kinase MB 0.7 ng/mL (0.0-2.4); Troponin I <0.012 ng/mL (0.000-0.034)
[2018-05-01] MEDS ORDERED: NITROGLYCERIN SL TABS 0.4 MG TAB SUBLINGUAL PRN (15:27)
[2018-05-01] MEDS ORDERED: TEMAZEPAM 15 MG CAP PO PRN (18:06)
[2018-05-01] MEDS ORDERED: ALBUTEROL NEBULIZED 2.5 MG/3 ML INHALATION PRN (18:06)
[2018-05-01] MEDS ORDERED: ALPRAZolam 0.25 MG TAB PO PRN (18:06)
[2018-05-01] MEDS ORDERED: HYDROcodone/APAP 5-325MG 1 EACH TAB PO PRN (18:06)
[2018-05-01 18:09] LABS: Glucose,Whole Blood 156 mg/dL (75-99)
--- NOTE | 2018-05-01 20:28 | P.CNNES ---
History of Present Illness Consult date: 05/01/18 Reason for Consult: Patient admitted for chest pain and altered mental status. History of Present Illness: This patient is a 62-year-old right-handed white male who apparently for the last 2 days has been suffering with recurrent chest pain. Patient states the pain was quite severe yesterday and was retrosternal in location. He decided to go to the local emergency room and was seen at [facility] for initial evaluation. He was given nitroglycerin which did seem to help somewhat but his chest pressure remained quite elevated. He was sent for a computed tomography scan of the brain at the hospital which came back negative for any acute changes. Patient does have a history of coronary artery bypass grafting which he underwent 5 vessel graft in 2008. He follows in the cardiology clinic with Dr. Cuevas. Apparently he was advised to come to [facility] for further cardiology evaluation and treatment. Patient was seen in the ER by Dr. Elder. He did seem to complain of memory difficulties to the ER physician. Apparently this is been ongoing for the past year. As noted his CAT scan of the brain done at the outside hospital was reviewed and is negative for any acute changes. Patient states he is also more confused because of his history of tinnitus involving both ears. He has been evaluated in the ENT clinic about 4 months ago and there was no further treatment that can be given. He has been evaluated at the [place] [facility] and they also have no further options for him. He was told he will have to live with this type of tinnitus as there is no specific treatment. The patient states that with the tinnitus he does becomes sometimes confused and disoriented. He is on medical disability and is limited on what he can and cannot do at home. He was treated for his chest pain with nitroglycerin patch and apparently did help relieve much of his chest pain symptoms but it took about 2 hours for him to feel the improvement. Patient is now been admitted and neurology has been consulted for further evaluation and recommendations. Review of Systems Constitutional: Denies chills, Denies fever Eyes: denies blurred vision, denies pain Ears: bilateral: tinnitus Ears, nose, mouth and throat: Denies headache, Denies sore throat Cardiovascular: Denies chest pain, Denies shortness of breath Respiratory: Denies cough Gastrointestinal: Denies abdominal pain, Denies diarrhea, Denies nausea, Denies vomiting Musculoskeletal: Denies myalgias Integumentary: Denies pruritus, Denies rash Neurological: Reports change in mentation, Reports confusion, Denies numbness, Denies weakness Psychiatric: Reports memory loss, Reports mood swings, Denies anxiety, Denies depression Endocrine: Denies fatigue, Denies weight change Past Medical History Past Medical History: Coronary Artery Disease (CAD), Diabetes Mellitus, GERD/ Reflux, Hyperlipidemia, Hypertension, Memory Impairment, Myocardial Infarction ( IA), Osteoarthritis (OA), Pneumonia Additional Past Medical History / Comment(s): PT STATES RINGING IN EARS FROM RECENT "BLOW TO THE EAR" R/T LOUD NOISE, STATES THIS IS WHEN HIS MEMORY PROBLEMS BEGAN WELL, PT STATES HE MAY HAVE HAD A CLOT IN HIS HEART ACCORDING TO DR. CUEVAS?? ALSO STATES RECENT 30LB WEIGHT LOSS Last Myocardial Infarction Date:: january History of Any Multi-Drug Resistant Organisms: None Reported Past Surgical History: Coronary Bypass/CABG, Hernia Repair, Orthopedic Surgery, Tonsillectomy Additional Past Surgical History / Comment(s): left hand, rt eye surgery, rt shoulder repair x2, bilat hernia repair, rt foot sx, colonoscopy, 5 VESSEL CABG IN 2009, LOST 4 FINGERS ON LEFT HAND AT 15 YEARS OF AGE. Past Anesthesia/Blood Transfusion Reactions: No Reported Reaction Past Psychological History: No Psychological Hx Reported Smoking Status: Former smoker Past Alcohol Use History: None Reported Additional Past Alcohol Use History / Comment(s): quit smoking 37 yrs ago Past Drug Use History: None Reported - Past Family History Mother Family Medical History: Diabetes Mellitus, Hypertension Father Additional Family Medical History / Comment(s): four way bypass Medications and Allergies Home Medications Medication Instructions Recorded Confirmed Type Isosorbide Mononitrate [Imdur] 30 mg PO DAILY 08/09/14 05/01/18 History Nitroglycerin Sl Tabs [Nitrostat] 0.4 mg SUBLINGUAL Q5M PRN 08/09/14 05/01/18 History Lisinopril [Zestril] 20 mg PO BID 09/20/15 05/01/18 History Insulin Degludec [Tresiba 36 units SQ HS 03/26/16 05/01/18 History Flextouch U-100] Aspirin 81 mg PO DAILY 08/11/17 05/01/18 History Albuterol Inhaler [Ventolin Hfa 2 puff INHALATION RT-Q6H PRN 05/01/18 05/01/18 History Inhaler] Cyanocobalamin (Vitamin B-12) 1,000 mcg PO DAILY 05/01/18 05/01/18 History [Vitamin B-12] Docusate [Colace] 100 mg PO DAILY 05/01/18 05/01/18 History Metoprolol Tartrate [Lopressor] 25 mg PO DAILY 05/01/18 05/01/18 History Pyridoxine [Vitamin B-6] 50 mg PO DAILY 05/01/18 05/01/18 History traZODone HCL 25 mg PO HS 05/01/18 05/01/18 History Allergies Allergy/AdvReac Type Severity Reaction Status Date / Time ciprofloxacin Allergy Rash/Hives Verified 05/01/18 14:27 fluticasone propionate Allergy Rash/Hives Verified 05/01/18 14:27 [From Flonase] metformin Allergy Rash/Hives Verified 05/01/18 14:27 metformin HCl Allergy Rash/Hives Verified 05/01/18 14:27 [From Glucophage] Mushroom Allergy Unknown Verified 05/01/18 14:27 Physical Examination - Vital Signs Vital Signs: Vital Signs Temp Pulse Pulse Resp BP BP Pulse Ox 05/01/18 16:31 97.9 F 68 16 153/76 93 L 05/01/18 15:14 66 18 146/68 98 05/01/18 14:27 88 18 146/68 96 05/01/18 13:39 97.7 F 71 18 143/74 98 Intake and Output 05/01/18 05/01/18 05/01/18 06:59 14:59 22:59 Other: Weight 72.575 kg 70.7 kg - Constitutional General appearance: average body habitus, cooperative - EENT EENT: PERRL, mucous membranes moist - Respiratory Respiratory: lungs clear, normal breath sounds - Cardiovascular Cardiovascular: regular rate, normal S1, normal S2 Extremities: no peripheral edema bilaterally - Gastrointestinal Gastrointestinal: normoactive bowel sounds - Integumentary Integumentary: normal - Neurologic Cranial nerve examination: PERRL, EOMI, VFF, V1/V2/V3 grossly intact, face symmetric, tongue midline, intact gag reflex, intact corneal reflex, normal palatal elevation Speech examination: intact Sensorimotor examination: intact Motor examination - right side: 4/5: biceps, triceps, wrist flexion, wrist extension, brand attendant, hip flexors, knee extensors, dorsiflexion, toe extension (EHL) , plantarflexion Motor examination - left side: 4/5: biceps, triceps, wrist flexion, wrist extension, brand attendant, hip flexors, knee extensors, dorsiflexion, toe extension (EHL) , plantarflexion Detailed sensory examination: intact Reflex and gait examination: intact Reflexes: 1+: ankle, bicep, knee, tricep - Musculoskeletal Musculoskeletal: no pain - Psychiatric Psychiatric: mood/affect appropriate, cooperative Results - Laboratory Findings Abnormal Lab Findings: Abnormal Labs 05/01/18 17:49 POC Glucose (mg/dL) 156 H Assessment and Plan (1) Altered mental status Current Visit: Yes Status: Acute Code(s): R41.82 - ALTERED MENTAL STATUS, UNSPECIFIED SNOMED Code(s): 527245974 (2) Bilateral tinnitus Current Visit: Yes Status: Acute Code(s): H93.13 - TINNITUS, BILATERAL SNOMED Code(s): 6627893122014 (3) Coronary artery disease involving coronary bypass graft of [place] heart Current Visit: Yes Status: Acute Code(s): I25.810 - ATHEROSCLEROSIS OF CABG W/O ANGINA PECTORIS SNOMED Code(s): 895932890 (4) Chest pain Current Visit: Yes Status: Acute Code(s): R07.9 - CHEST PAIN, UNSPECIFIED SNOMED Code(s): 02215973 Plan: This patient is a 62-year-old male being evaluated for acute onset of chest pain and altered mental status. Patient states he has been having difficulty with memory and cognition over the last year due to bilateral tinnitus. He has been evaluated in the ENT clinic by Dr. Garza and was sent to the [place] [facility]. There is no further intervention that can be done for him for treatment of the tinnitus as per the patient's recommendations. Patient states that when he gets tinnitus he becomes more confused and hard to concentrate on his day-to-day activities. He did undergo a computed tomography scan of the brain at [facility] which was reported completely normal with no acute changes. We have recommended a routine EEG for further evaluation. His neurological examination is otherwise nonfocal. We will continue to follow along with cardiology in regards to his chest pain symptoms. His overall prognosis at this time remains guarded. Time with Patient: Greater than 30
[2018-05-01] MEDS: INSULIN ASPART 100 UNIT/ML 1 ML 10 ML VIAL SQ SCH (20:29)
[2018-05-01 20:31] LABS: Glucose,Whole Blood 128 mg/dL (75-99)
[2018-05-01] MEDS: LISINOPRIL 20 MG TAB PO SCH (20:46)
[2018-05-01] MEDS ORDERED: INSULIN DETEMIR 100 UNIT/ML 10 ML VIAL SQ SCH (21:00)
[2018-05-01] MEDS ORDERED: traZODone HCL 50 MG TAB PO SCH (21:00)
[2018-05-01 21:03] LABS: Creatine Kinase 63 U/L (55-170)
[2018-05-01] MEDS: NITROGLYCERIN OINT 1 INCH/GM PACKET TOPICAL SCH (21:10)
[2018-05-01 21:13] LABS: Creatine Kinase MB 0.6 ng/mL (0.0-2.4); Troponin I <0.012 ng/mL (0.000-0.034)
[2018-05-02 02:15] LABS: Creatine Kinase 62 U/L (55-170)
[2018-05-02 02:28] LABS: Creatine Kinase MB 0.7 ng/mL (0.0-2.4); Troponin I <0.012 ng/mL (0.000-0.034)
[2018-05-02 06:58] LABS: Basophils # (A) 0.1 k/uL (0-0.2); Basophils % (A) 1 %; Eosinophils # (A) 0.6 k/uL (0-0.7); Eosinophils % (A) 9 %; HCT 44.6 % (39.0-53.0); HGB 15.6 gm/dL (13.0-17.5); Lymphocytes # (A) 1.7 k/uL (1.0-4.8); Lymphocytes % (A) 26 %; MCH 32.4 pg (25.0-35.0); MCHC 34.9 g/dL (31.0-37.0); MCV 92.7 fL (80.0-100.0); Mean Platelet Volume 7.6; Monocytes # (A) 0.4 k/uL (0-1.0); Monocytes % (A) 6 %; Neutrophils # (A) 3.9 k/uL (1.3-7.7); Neutrophils % (A) 57 %; Platelet Count 166 k/uL (150-450); RBC 4.81 m/uL (4.30-5.90); RDW 13.8 % (11.5-15.5); WBC 6.8 k/uL (3.8-10.6)
[2018-05-02 07:01] LABS: Glucose,Whole Blood 125 mg/dL (75-99)
[2018-05-02 07:12] LABS: Calcium 9.4 mg/dL (8.4-10.2)
[2018-05-02] MEDS ORDERED: PANTOPRAZOLE 40 MG TABLET PO SCH (07:30)
[2018-05-02] MEDS: INSULIN ASPART 100 UNIT/ML 1 ML 10 ML VIAL SQ SCH ×2 (08:02→14:20)
--- NOTE | 2018-05-02 08:07 | HP ---
HISTORY AND PHYSICAL DATE OF SERVICE: 05/01/2018 CHIEF COMPLAINT: Chest pain. HISTORY OF PRESENT ILLNESS: This 62-year-old gentleman with a past medical history of multiple medical problems including history of CAD, CABG, diabetes, GERD, hypertension, hyperlipidemia being followed by Dr. Sharma and as well as Dr. Armstrong in the outpatient setting had a CABG several years ago. The patient is complaining of left precordial pain, which is pressure type of pain which is mild to moderate in severity, radiating to the back, not associated with palpitation and sweating and patient came to [facility], admitted for further evaluation and treatment. The pain is mild to moderate intensity. Patient initially was sent to [facility] and the patient had negative troponin and was transferred here. There is no history of fever, rigors or chills at this time. The EKG which was scanned showed right bundle branch block. Dr. Gordon has seen the patient for some change in mental status and memory problems. PAST MEDICAL HISTORY: History of CAD, history of diabetes type 2, hypertension, hyperlipidemia, memory impairment, myocardial infarction, DJD and pneumonia, CAD, CABG. MEDICATIONS: Prior to admission include home medications include: 1.Vitamin B6 50 mg p.o. daily. 2. Nitrostat 0.4 mg sublingual p.r.n. 3. Insulin Degludec 36 units subcu q.h.s. 4. Colace 100 mg p.o. daily. 5. Ventolin HFA 2 puffs q.6h p.r.n. 6. Trazodone 25 mg q.h.s. 7. Vitamin B12 1000 mcg p.o. daily. 8. Lopressor 25 mg p.o. daily. 9. Zestril 20 mg p.o. b.i.d. 10.Imdur 30 mg. 11.Aspirin 81 mg p.o. daily. ALLERGIES: ARE CIPRO, FLUTICASONE, METFORMIN, MUSHROOMS. FAMILY HISTORY: History of diabetes mellitus, hypertension. SOCIAL HISTORY: Previous history of smoking. No history of current smoking or alcohol intake. REVIEW OF SYSTEMS: ENT: No diminished vision or diminished hearing. CARDIOVASCULAR as mentioned earlier. RESPIRATORY: No cough or hemoptysis. GI: No nausea or vomiting. : No dysuria or hematuria. NERVOUS SYSTEM: No numbness or weakness. ALLERGY/IMMUNOLOGY: No asthma or hayfever. MUSCULOSKELETAL: As mentioned earlier. HEMATOLOGY/ONCOLOGY: No history of anemia. ENDOCRINE: Diabetes. CONSTITUTIONAL: As mentioned earlier. DERMATOLOGY: Negative. RHEUMATOLOGY: Negative. PSYCHIATRIC: As mentioned earlier. PHYSICAL EXAMINATION: The patient is alert and oriented times three. Pulse 81, blood pressure 109/63, respiration 18, temperature 97.9, pulse ox 98% on room air. HEENT: Conjunctivae normal. Oral mucosa moist. NECK is no jugular venous distention. No carotid bruit. No thyroid enlargement. CARDIOVASCULAR S1-S2 muffled. No S3, no S4. RESPIRATORY: Breath sounds diminished in the bases. No rhonchi. No crackles. ABDOMEN: Soft, nontender. No mass palpable. LEGS: No edema and no swelling. NERVOUS SYSTEM: Higher functions as mentioned earlier. Moves all four limbs. No focal motor or sensory deficits. Lymphatics: No lymph nodes palpable in the neck, axillae or groin. SKIN: No ulcer, rash or bleeding. LABS: At this time shows glucose 140, other labs noted. ASSESSMENT: 1. Chest pain possible unstable angina. 2. History of coronary artery disease, coronary artery bypass grafting. 3. History of diabetes type 2. tinnitus rbbb in ekg 4. History of gastroesophageal reflux disease. 5. Hypertension. 6. Hyperlipidemia. 7. History of pneumonia. 8. History of hernia surgery. 9. History of nicotine dependence. RECOMMENDATIONS AND DISCUSSION: In this 62-year-old gentleman who presented with multiple complex medical issues , we will monitor the patient closely. Unstable angina protocol, rule out myocardial infarction. Closely follow with Cardiology. Possible stress test or other further evaluation. Resume the home medication. Monitor blood sugars closely. Prognosis guarded because of multiple complex medical issues. Discussed with the patient, understands and agrees. A copy of dictation being forwarded to Dr. Marilia Sharma who is the primary care physician. Further recommendations to follow. MMODL / IJN: [id number] / MTDD
[2018-05-02] MEDS: LISINOPRIL 20 MG TAB PO SCH (08:25)
[2018-05-02] MEDS ORDERED: METOPROLOL TARTRATE 25 MG TAB PO SCH (09:00)
[2018-05-02] MEDS ORDERED: ISOSORBIDE MONONITRATE ER 30 MG TAB.ER.24H PO SCH (09:00)
[2018-05-02] MEDS ORDERED: PYRIDOXINE 50 MG TAB PO SCH (09:00)
[2018-05-02] MEDS ORDERED: CYANOCOBALAMIN 500 MCG TAB PO SCH (09:00)
[2018-05-02] MEDS ORDERED: DOCUSATE 100 MG CAP PO SCH (09:00)
[2018-05-02] MEDS ORDERED: ASPIRIN 325 MG TAB PO SCH (09:00)
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
[2018-05-02 11:53] LABS: Glucose,Whole Blood 173 mg/dL (75-99)
[2018-05-02 12:11] VITALS: BP 145/70; PULSE 57; RESP 18; TEMP 97.4
[2018-05-02] MEDS: NITROGLYCERIN OINT 1 INCH/GM PACKET TOPICAL SCH (14:20)
--- NOTE | 2018-05-03 00:46 | DS ---
DISCHARGE SUMMARY DATE OF SERVICE: 05/02/2018. FINAL DIAGNOSES: 1. Chest pain, myocardial infarction ruled out, possible unstable angina. 2. History of coronary artery disease, coronary artery bypass grafting. 3. History of diabetes type 2. 5. Right bundle branch block on the EKG. 6. History of gastroesophageal reflux disease. 7. Hypertension. 8. Hyperlipidemia. 9. History of pneumonia. 10.History of hernia surgery. 11.History of nicotine dependence. DISCHARGE DISPOSITION: The patient is being discharged in stable condition with guarded prognosis. HISTORY OF PRESENT ILLNESS: This 62-year-old gentleman with past medical history of multiple medical problems, was admitted with chest pain. Myocardial infarction ruled out. Cardiology evaluated the patient and the patient had a recent stress test about 8 months ago. Cardiology recommended the patient to be discharged and follow up in the outpatient setting. On exam vitals are stable. Cardiovascular: S1, S2. Abdomen soft. Nervous system: Patient is asymptomatic. The patient is followed by Dr. Marilia Sharma in the outpatient setting. DISCHARGE ADVICE AND MEDICATIONS: 1. Discharge diet is cardiac diet. 2. Activity limited until followup. 3. Follow up with Dr. Marilia Sharma in 2-3 days. 4. Follow up with Cardiology as recommended. MEDICATIONS: Medications will be as follows: 1. Ventolin 2 puffs p.r.n. 2. Aspirin 81 mg p.o. daily. 3. Lipitor 10 mg q.h.s. 4. Vitamin B12 1000 mg p.o. daily. 5. Colace 100 mg p.o. daily. 6. Insulin Degludec 30 mL subcu q.h.s. 7. Imdur 30 mg p.o. daily. 8. Zestril 20 mg p.o. b.i.d. 9. Lopressor 25 mg. 10.Nitrostat 0.4 sublingual p.r.n. 11.Vitamin B6 50 mg p.o. daily. 12.Trazodone 25 mg p.o. q.h.s. Once again, the patient will be discharged in stable condition with guarded prognosis. MMODL / IJN: [id number] / MTDD
[2018-05-03 11:45] LABS: Hemoglobin A1C 6.5 % (4.0-6.0)
== END 2018-05-02 14:30 | disposition home or self-care (01) ==
LOC: EC 13:36 → 3OBS 15:28
PROVIDERS: ADMIT Internal Medicine; ATTEND Internal Medicine
DX: R07.89 Other chest pain (principal); R07.2 Precordial pain; H93.13 Tinnitus, bilateral; R06.02 Shortness of breath; R06.00 Dyspnea, unspecified; R41.82 Altered mental status, unspecified; E11.9 Type 2 diabetes mellitus without complications; I45.10 Unspecified right bundle-branch block; I10 Essential (primary) hypertension; E78.5 Hyperlipidemia, unspecified; K21.9 Gastro-esophageal reflux disease without esophagitis; I25.2 Old myocardial infarction; I25.10 Atherosclerotic heart disease of native coronary artery without angina pectoris; M19.90 Unspecified osteoarthritis, unspecified site; R41.3 Other amnesia; R63.4 Abnormal weight loss; Z91.19 Patient's noncompliance with other medical treatment and regimen; Z95.1 Presence of aortocoronary bypass graft; Z87.01 Personal history of pneumonia (recurrent); Z87.891 Personal history of nicotine dependence; Z79.899 Other long term (current) drug therapy; Z79.4 Long term (current) use of insulin; Z79.82 Long term (current) use of aspirin; Z88.1 Allergy status to other antibiotic agents; Z88.8 Allergy status to other drugs, medicaments and biological substances; Z91.018 Allergy to other foods
CPT/HCPCS: 99285 ×2; 36415; 94760; 93005; 80061; 80048; 82550 ×2; 82553 ×2; 84484 ×2; 85025; 85610; 85730; 83036; 71046; G0378 ×2

== ENCOUNTER 2018-05-06 22:05 | Observation (INO) | payer MEDICARE, BC ==
[2018-05-06] MEDS ORDERED: LORazepam 2 MG/ML INJ IV STA (22:24)
[2018-05-06 22:38] LABS: Basophils % (A) 0 %; Eosinophils # (A) 0.6 k/uL (0-0.7); Eosinophils % (A) 9 %; HCT 40.4 % (39.0-53.0); HGB 13.7 gm/dL (13.0-17.5); Lymphocytes # (A) 2.2 k/uL (1.0-4.8); Lymphocytes % (A) 32 %; MCH 30.9 pg (25.0-35.0); MCHC 33.9 g/dL (31.0-37.0); MCV 91.2 fL (80.0-100.0); Mean Platelet Volume 7.4; Monocytes # (A) 0.4 k/uL (0-1.0); Monocytes % (A) 6 %; Neutrophils # (A) 3.5 k/uL (1.3-7.7); Neutrophils % (A) 52 %; Platelet Count 189 k/uL (150-450); RBC 4.43 m/uL (4.30-5.90); RDW 12.9 % (11.5-15.5); WBC 6.8 k/uL (3.8-10.6)
[2018-05-06 22:53] LABS: Albumin 3.8 g/dL (3.5-5.0); Calcium 8.6 mg/dL (8.4-10.2); Potassium 4.4 mmol/L (3.5-5.1); Total Bilirubin 0.6 mg/dL (0.2-1.3)
--- NOTE | 2018-05-06 23:17 | CT ---
EXAMINATION TYPE: CT brain wo con DATE OF EXAM: 05/06/2018 COMPARISON: 02/14/2018 HISTORY: seizure today CT DLP: 1108.40 mGycm Automated exposure control for dose reduction was used. FINDINGS: There is some cerebral cortical atrophy. There is no mass effect nor midline shift. There is no sign of intracranial hemorrhage. The calvarium is intact. IMPRESSION: MINIMAL ATROPHY. OTHERWISE NEGATIVE CT SCAN OF THE BRAIN. NO CHANGE.
--- NOTE | 2018-05-07 00:06 | ED ---
General Adult HPI - General Chief complaint: Seizure Stated complaint: Seizure Time Seen by Provider: 05/06/18 22:13 Source: EMS Mode of arrival: EMS - History of Present Illness Initial comments: 62 years old male brought in by ambulance family felt that he had a seizure today on arrival I feel that the he was quite confused but I'm not sure how different is saying he was from his baseline no much review of system is available from him. Review of system is not quite term unreliable I believe but on arrival he did see term post ictal history eyes were open but he wouldn' t follow any commands he looked confused then later had a chest WITH the and she said that his memory has been quite heavily affect. He is not able to remember anything him other times he doesn't talk much - Related Data Home Medications Medication Instructions Recorded Confirmed Isosorbide Mononitrate [Imdur] 30 mg PO DAILY 08/09/14 05/06/18 Nitroglycerin Sl Tabs [Nitrostat] 0.4 mg SUBLINGUAL Q5M PRN 08/09/14 05/06/18 Lisinopril [Zestril] 20 mg PO BID 09/20/15 05/06/18 Insulin Degludec [Tresiba 36 units SQ HS 03/26/16 05/06/18 Flextouch U-100] Aspirin 81 mg PO DAILY 08/11/17 05/06/18 Albuterol Inhaler [Ventolin Hfa 2 puff INHALATION RT-Q6H PRN 05/01/18 05/06/18 Inhaler] Cyanocobalamin (Vitamin B-12) 1,000 mcg PO DAILY 05/01/18 05/06/18 [Vitamin B-12] Docusate [Colace] 100 mg PO DAILY 05/01/18 05/06/18 Metoprolol Tartrate [Lopressor] 25 mg PO BID 05/01/18 05/06/18 Pyridoxine [Vitamin B-6] 100 mg PO DAILY 05/01/18 05/06/18 traZODone HCL 25 mg PO HS 05/01/18 05/06/18 Cholecalciferol [Vitamin D3] 1,000 unit PO DAILY 05/06/18 05/06/18 Previous Rx's Medication Instructions Recorded Atorvastatin Calcium [Lipitor] 10 mg PO HS #30 tab 05/02/18 Allergies Allergy/AdvReac Type Severity Reaction Status Date / Time ciprofloxacin Allergy Rash/Hives Verified 05/06/18 22:19 fluticasone propionate Allergy Rash/Hives Verified 05/06/18 22:19 [From Flonase] metformin Allergy Rash/Hives Verified 05/06/18 22:19 metformin HCl Allergy Rash/Hives Verified 05/06/18 22:19 [From Glucophage] Mushroom Allergy Unknown Verified 05/06/18 22:19 Review of Systems ROS Statement: Those systems with pertinent positive or pertinent negative responses have been documented in the HPI. ROS Other: All systems not noted in ROS Statement are negative. Past Medical History Past Medical History: Coronary Artery Disease (CAD), Diabetes Mellitus, GERD/ Reflux, Hyperlipidemia, Hypertension, Memory Impairment, Myocardial Infarction ( [place]), Osteoarthritis (OA), Pneumonia, Seizure Disorder Additional Past Medical History / Comment(s): PT STATES RINGING IN EARS FROM RECENT "BLOW TO THE EAR" R/T LOUD NOISE, STATES THIS IS WHEN HIS MEMORY PROBLEMS BEGAN WELL, PT STATES HE MAY HAVE HAD A CLOT IN HIS HEART ACCORDING TO DR. CUEVAS?? ALSO STATES RECENT 30LB WEIGHT LOSS Last Myocardial Infarction Date:: january History of Any Multi-Drug Resistant Organisms: None Reported Past Surgical History: Coronary Bypass/CABG, Hernia Repair, Orthopedic Surgery, Tonsillectomy Additional Past Surgical History / Comment(s): left hand, rt eye surgery, rt shoulder repair x2, bilat hernia repair, rt foot sx, colonoscopy, 5 VESSEL CABG IN 2009, LOST 4 FINGERS ON LEFT HAND AT 15 YEARS OF AGE. Past Anesthesia/Blood Transfusion Reactions: No Reported Reaction Past Psychological History: No Psychological Hx Reported Smoking Status: Former smoker Past Alcohol Use History: None Reported Past Drug Use History: None Reported - Past Family History Mother Family Medical History: Diabetes Mellitus, Hypertension Father Additional Family Medical History / Comment(s): four way bypass General Exam - General Exam Comments Initial Comments: General: The patient is awake and seems postictal eyes open but not following the commands Skin: Skin is warm and dry and no rashes or lesions are noted. Eye: Pupils are equal, round and reactive to light, extra-ocular movements are intact; there is normal conjunctiva bilaterally. Ears, nose, mouth and throat: Noticed some inflammation around the premolar area. Neck: The neck is supple, there is no tenderness or JVD. Cardiovascular: There is a regular rate and rhythm. No murmur, rub or gallop is appreciated. Respiratory: To auscultation bilateral, no wheezing no rhonchi no distress respiratory morrow noticed Gastrointestinal: Soft, non-distended, non-tender abdomen without masses or organomegaly noted. There is no rebound or guarding present. Bowel sounds are unremarkable. Back: There is no tenderness to palpation in the midline. There is no obvious deformity. Musculoskeletal: Normal ROM, no tenderness, There is no pedal edema. There is no calf tenderness or swelling. No cords were appreciated. Neurological: CN II-XII intact, Cranial nerves III through XII are intact. There are no obvious motor or sensory deficits. Coordination appears grossly intact. Speech is normal. Psychiatric: Cooperative, appropriate mood & affect, normal judgment. Course Vital Signs 05/06/18 22:08 Temperature 97.4 F L Pulse Rate 61 Respiratory 18 Rate Blood Pressure 161/65 O2 Sat by Pulse 97 Oximetry CBC, CMP are unremarkable except mild mildly elevated creatinine of 1.[address] is normal, patient still looks post ictal he is confused family feels that he is more confused than usual today and High witnessed a postictal stage which was quite prolonged was almost 2 hours ago at an admit him observation consult neurology Medical Decision Making - Lab Data Result diagrams: 05/06/18 22:27 05/06/18 22:27 Lab Results 05/06/18 05/06/18 Range/Units 22:27 22:27 WBC 6.8 (3.8-10.6) k/uL RBC 4.43 (4.30-5.90) m/uL Hgb 13.7 (13.0-17.5) gm/dL Hct 40.4 (39.0-53.0) % MCV 91.2 (80.0-100.0) fL MCH 30.9 (25.0-35.0) pg MCHC 33.9 (31.0-37.0) g/dL RDW 12.9 (11.5-15.5) % Plt Count 189 (150-450) k/uL Neutrophils % 52 % Lymphocytes % 32 % Monocytes % 6 % Eosinophils % 9 % Basophils % 0 % Neutrophils # 3.5 (1.3-7.7) k/uL Lymphocytes # 2.2 (1.0-4.8) k/uL Monocytes # 0.4 (0-1.0) k/uL Eosinophils # 0.6 (0-0.7) k/uL Basophils # 0.0 (0-0.2) k/uL Sodium 135 L (137-145) mmol/L Potassium 4.4 (3.5-5.1) mmol/L Chloride 99 (98-107) mmol/L Carbon Dioxide 25 (22-30) mmol/L Anion Gap 11 mmol/L BUN 29 H (9-20) mg/dL Creatinine 1.30 H (0.66-1.25) mg/dL Est GFR (CKD-EPI)AfAm 67 (>60 ml/min/1.73 sqM) Est GFR (CKD-EPI)NonAf 58 (>60 ml/min/1.73 sqM) Glucose 134 H (74-99) mg/dL Calcium 8.6 (8.4-10.2) mg/dL Total Bilirubin 0.6 (0.2-1.3) mg/dL AST 24 (17-59) U/L ALT 31 (21-72) U/L Alkaline Phosphatase 39 (38-126) U/L Total Protein 6.0 L (6.3-8.2) g/dL Albumin 3.8 (3.5-5.0) g/dL Disposition Clinical Impression: Seizure disorder Disposition: ADMITTED IP TO THIS HOSP Condition: Good Referrals: Marilia Sharma DO [Primary Care Provider] - 1-2 days
[2018-05-07] MEDS ORDERED: ONDANSETRON 4 MG/2 ML VIAL IVP PRN (00:15)
[2018-05-07] MEDS ORDERED: NALOXONE 0.4 MG/ML 1 ML VIAL IV PRN (00:15)
[2018-05-07] MEDS ORDERED: NITROGLYCERIN SL TABS 0.4 MG TAB SUBLINGUAL PRN (00:18)
[2018-05-07] MEDS ORDERED: ALBUTEROL NEBULIZED 2.5 MG/3 ML INHALATION PRN (00:18)
[2018-05-07 00:19] LABS: Appearance,Urine Clear (Clear); Bilirubin,Urine Negative (Negative); Blood,Urine Negative (Negative); Color,Urine Light Yellow; Glucose,Urine (UA) Negative (Negative); Ketones,Urine Negative (Negative); Leukocyte Esterase,Urine Negative (Negative); Nitrite,Urine Negative (Negative); PH, Urine 5.5 (5.0-8.0); Protein,Urine Negative (Negative); Specific Gravity,Urine 1.005 (1.001-1.035); Urobilinogen,Urine <2.0 mg/dL (<2.0)
[2018-05-07] MEDS ORDERED: AMOXIC-POT CLAV 875-125MG 1 EACH TAB PO STA (00:19)
[2018-05-07 00:34] LABS: Amphetamine Screen,Urine Not Detected (NotDetected); Barbiturate Screen,Urine Not Detected (NotDetected); Benzodiazepines Screen,Urine Not Detected (NotDetected); Cocaine Screen,Urine Not Detected (NotDetected); Methadone Screen, Urine Not Detected (NotDetected); Opiate Screen,Urine Not Detected (NotDetected); Oxycodone Screen, Urine Not Detected (NotDetected); Phencyclidine Screen,Urine Not Detected (NotDetected); Tricyclic Antidepressant,Urine Not Detected (NotDetected); Urn Cannabinoid Scrn Not Detected (NotDetected)
--- NOTE | 2018-05-07 01:35 | XR ---
EXAMINATION TYPE: XR KUB DATE OF EXAM: 05/07/2018 COMPARISON: 08/09/2014 HISTORY: Abdominal pain TECHNIQUE: 2 views FINDINGS: Supine views of the abdomen show no sign of intestinal obstruction or pneumoperitoneum. Fec al pattern is normal. There is a 1 mm calcification over the left renal pelvis. IMPRESSION: Nonacute abdomen. No change compared to old exam.
[2018-05-07 07:20] LABS: Glucose,Whole Blood 118 mg/dL (75-99)
[2018-05-07] MEDS: METOPROLOL TARTRATE 25 MG TAB PO SCH ×2 (07:52→23:33)
[2018-05-07] MEDS: ISOSORBIDE MONONITRATE ER 30 MG TAB.ER.24H PO SCH (07:52)
[2018-05-07] MEDS: DOCUSATE 100 MG CAP PO SCH (07:52)
[2018-05-07] MEDS: PYRIDOXINE 50 MG TAB PO SCH (07:52)
[2018-05-07] MEDS: CHOLECALCIFEROL 1,000 UNIT TAB PO SCH (07:52)
[2018-05-07] MEDS: CYANOCOBALAMIN 500 MCG TAB PO SCH (07:52)
[2018-05-07] MEDS: AMOXIC-POT CLAV 875-125MG 1 EACH TAB PO SCH ×2 (07:52→23:34)
[2018-05-07] MEDS: ASPIRIN 81 MG PO SCH (07:52)
[2018-05-07] MEDS ORDERED: LISINOPRIL 20 MG TAB PO SCH (09:00)
[2018-05-07 09:14] VITALS: BMI 26.6
[2018-05-07 12:19] LABS: Glucose,Whole Blood 129 mg/dL (75-99)
[2018-05-07] MEDS: SODIUM CHLORIDE 0.9% 1,000 ML IV SCH (15:19)
--- NOTE | 2018-05-07 15:44 | P.HPIM ---
History of Present Illness 62-year-old gentleman was sent in here for possibly a seizure patient appears to have some [id number] dementia. Patient although is able to provide good history to me. Family is not available at this time. Patient is alert oriented times close to 3. Patient denied any fever chills nausea vomiting abdominal pain. Patient was recently discharged from the hospital after he was evaluated for chest pain. I'm unable to reach any of the family members at this time. Patient apparently was confused yesterday. There are no signs or symptoms of sepsis patient complains about fullness in the ears and ringing sensation in the ears patient is already in Augmentin from his last admission which will be continued. Neurology was consulted and will obtain a sleep and awake EEG and if that is negative patient probably can be discharged without any antiseizure medications. Review of Systems REVIEW OF SYSTEMS: CONSTITUTIONAL: No fever, no malaise, no fatigue. HEENT: No recent visual problems. Ringing in the ears as mentioned above. Denied any sore throat. CARDIOVASCULAR: No chest pain, orthopnea, PND, no palpitations, no syncope. PULMONARY: No shortness of breath, no cough, no hemoptysis. GASTROINTESTINAL: No diarrhea, no nausea, no vomiting, no abdominal pain. Normoactive bowel sounds. NEUROLOGICAL: No headaches, no weakness, no numbness. HEMATOLOGICAL: Denies any bleeding or petechiae. GENITOURINARY: Denies any burning micturition, frequency, or urgency. MUSCULOSKELETAL/RHEUMATOLOGICAL: Denies any joint pain, swelling, or any muscle pain. ENDOCRINE: Denies any polyuria or polydipsia. The rest of the 14-point review of systems is negative. Past Medical History Past Medical History: Coronary Artery Disease (CAD), Diabetes Mellitus, GERD/ Reflux, Hyperlipidemia, Hypertension, Memory Impairment, Myocardial Infarction ( [place]), Osteoarthritis (OA), Pneumonia, Seizure Disorder Additional Past Medical History / Comment(s): PT STATES RINGING IN EARS FROM RECENT "BLOW TO THE EAR" R/T LOUD NOISE, STATES THIS IS WHEN HIS MEMORY PROBLEMS BEGAN WELL, PT STATES HE MAY HAVE HAD A CLOT IN HIS HEART ACCORDING TO DR. CUEVAS?? ALSO STATES RECENT 30LB WEIGHT LOSS Last Myocardial Infarction Date:: january History of Any Multi-Drug Resistant Organisms: None Reported Past Surgical History: Coronary Bypass/CABG, Hernia Repair, Orthopedic Surgery, Tonsillectomy Additional Past Surgical History / Comment(s): left hand, rt eye surgery, rt shoulder repair x2, bilat hernia repair, rt foot sx, colonoscopy, 5 VESSEL CABG IN 2009, LOST 4 FINGERS ON LEFT HAND AT 15 YEARS OF AGE. Past Anesthesia/Blood Transfusion Reactions: No Reported Reaction Past Psychological History: No Psychological Hx Reported Smoking Status: Former smoker Past Alcohol Use History: None Reported Additional Past Alcohol Use History / Comment(s): quit smoking 37 yrs ago Past Drug Use History: None Reported - Past Family History Mother Family Medical History: Diabetes Mellitus, Hypertension Father Additional Family Medical History / Comment(s): four way bypass Medications and Allergies Home Medications Medication Instructions Recorded Confirmed Type Isosorbide Mononitrate [Imdur] 30 mg PO DAILY 08/09/14 05/06/18 History Nitroglycerin Sl Tabs [Nitrostat] 0.4 mg SUBLINGUAL Q5M PRN 08/09/14 05/06/18 History Lisinopril [Zestril] 20 mg PO BID 09/20/15 05/06/18 History Insulin Degludec [Tresiba 36 units SQ HS 03/26/16 05/06/18 History Flextouch U-100] Aspirin 81 mg PO DAILY 08/11/17 05/06/18 History Albuterol Inhaler [Ventolin Hfa 2 puff INHALATION RT-Q6H PRN 05/01/18 05/06/18 History Inhaler] Cyanocobalamin (Vitamin B-12) 1,000 mcg PO DAILY 05/01/18 05/06/18 History [Vitamin B-12] Docusate [Colace] 100 mg PO DAILY 05/01/18 05/06/18 History Metoprolol Tartrate [Lopressor] 25 mg PO BID 05/01/18 05/06/18 History Pyridoxine [Vitamin B-6] 100 mg PO DAILY 05/01/18 05/06/18 History traZODone HCL 25 mg PO HS 05/01/18 05/06/18 History Atorvastatin Calcium [Lipitor] 10 mg PO HS #30 tab 05/02/18 05/06/18 Rx Cholecalciferol [Vitamin D3] 1,000 unit PO DAILY 05/06/18 05/06/18 History Allergies Allergy/AdvReac Type Severity Reaction Status Date / Time ciprofloxacin Allergy Rash/Hives Verified 05/06/18 22:19 fluticasone propionate Allergy Rash/Hives Verified 05/06/18 22:19 [From Flonase] metformin Allergy Rash/Hives Verified 05/06/18 22:19 metformin HCl Allergy Rash/Hives Verified 05/06/18 22:19 [From Glucophage] Mushroom Allergy Unknown Verified 05/06/18 22:19 Physical Exam Vitals: Vital Signs Temp Pulse Pulse Resp BP BP Pulse Ox 05/07/18 08:15 97 05/07/18 06:19 97.7 F 61 16 137/73 94 L 05/07/18 02:22 97.6 F 52 L 20 117/64 95 05/07/18 00:14 56 L 18 116/62 94 L 05/06/18 23:14 58 L 18 133/64 97 05/06/18 22:08 97.4 F L 61 18 161/65 97 Intake and Output 05/07/18 05/07/18 05/07/18 06:59 14:59 22:59 Intake Total 480 Balance 480 Intake: Oral 480 Other: Voiding Method Toilet # Voids 2 3 # Bowel Movements 0 Weight 79.379 kg PHYSICAL EXAMINATION: GENERAL: The patient is alert and oriented x3, not in any acute distress. Well developed, well nourished. HEENT: Pupils are round and equally reacting to light. EOMI. No scleral icterus. No conjunctival pallor. Normocephalic, atraumatic. No pharyngeal erythema. No thyromegaly. CARDIOVASCULAR: S1 and S2 present. No murmurs, rubs, or gallops. PULMONARY: Chest is clear to auscultation, no wheezing or crackles. ABDOMEN: Soft, nontender, nondistended, normoactive bowel sounds. No palpable organomegaly. MUSCULOSKELETAL: No joint swelling or deformity. EXTREMITIES: No cyanosis, clubbing, or pedal edema. NEUROLOGICAL: Gross neurological examination did not reveal any focal deficits. SKIN: No rashes. Results CBC & Chem 7: 05/06/18 22:27 05/06/18 22:27 Labs: Abnormal Lab Results - Last 24 Hours (Table) 05/06/18 05/07/18 05/07/18 Range/Units 22:27 07:14 12:14 Sodium 135 L (137-145) mmol/L BUN 29 H (9-20) mg/dL Creatinine 1.30 H (0.66-1.25) mg/dL Glucose 134 H (74-99) mg/dL POC Glucose (mg/dL) 118 H 129 H (75-99) mg/dL Total Protein 6.0 L (6.3-8.2) g/dL Thrombosis Risk Factor Assmnt - Choose All That Apply Any of the Below Risk Factors Present?: Yes Each Factor Represents 1 point: Obesity (BMI >25) Other Risk Factors: Yes Each Risk Factor Represents 2 Points: Age 61-74 years Other congenital or acquired thrombophilia - If yes, enter type in comment: No Thrombosis Risk Factor Assessment Total Risk Factor Score: 3 Thrombosis Risk Factor Assessment Level: Moderate Risk Assessment and Plan Plan: -Altered mental status and possibility of seizure: Patient mental status improved now when I valid the patient. Patient is bit dehydrated beyond which I do not see any reason for toxic and metabolic encephalopathy. Patient was started on IV fluids hold off on lisinopril. Patient baseline creatinine is around 1.2. Now around 1.3. Patient will be evaluated for seizure disorder sleep and awake EEG will be a obtained. Seizure precautions. -Type 2 diabetes mellitus patient will be resumed on home regimen depending on the blood sugars here will titrate the insulin -Gastric esophageal reflux disease -Hypertension -Moderate dementia: Dementia of Alzheimer's type
--- NOTE | 2018-05-07 17:15 | EEG ---
ELECTROENCEPHALOGRAM REPORT DATE OF SERVICE: 05/07/2018 REASON FOR TESTING: Seizure. DESCRIPTION OF THE PROCEDURE: This EEG was performed using a 21-channel digital electroencephalograph, following international 10-20 system. DESCRIPTION OF THE RECORDING: From the beginning of the tracing, and with the patient's eyes closed, the background rhythm was mostly consisting of 8 Hz alpha frequency in the posterior occipital leads. No obvious asymmetry is seen. Frequent muscle and occasional lead artifacts are seen. Photic stimulation was performed with a minimal driving response seen. No pathological waves were elicited. Hyperventilation was not performed. The patient remains awake throughout the tracing. No epileptiform discharges were seen. His EKG lead showed a regular rate and rhythm. INTERPRETATION: This awake EEG can be considered within normal limits. There was no asymmetry seen. No epileptiform discharges were noticed. The absence of epileptiform discharges does not rule out the diagnosis of epilepsy; therefore clinical correlation is recommended. MMJOHNL / IJLindsay: [id number] /
[2018-05-07 17:48] LABS: Glucose,Whole Blood 163 mg/dL (75-99)
[2018-05-07 18:46] LABS: Hemoglobin A1C 6.4 % (4.0-6.0)
--- NOTE | 2018-05-07 20:23 | P.CNNES ---
History of Present Illness Consult date: 05/07/18 Requesting physician: Antoni Waddell Reason for Consult: Seizure History of Present Illness: Patient is a pleasant 62-year-old male who is being evaluated by the neurology service on 05/07/2018 per the request of Dr. Waddell for possible seizure activity. Patient was recently discharged from the hospital after his being evaluated for chest pain. Patient's is at the bedside and is not a reliable historian. Patient is not a reliable historian. states patient was confused yesterday at home and started shaking his whole body. She states he would shake at 5 minute intervals for approximately 30 minutes. Patient was brought to [facility] via ambulance for further evaluation. states patient was seen by Dr. Gordon approximately 2 months ago for the same thing. No seizure medication was started. No seizure activity has been witnessed except by the . Patient seemed to be post ictal on admission to emergency room. Patient does state loss of time. He denies any tongue biting or loss of sphincter control. Patient had CT of the brain done on admission which shows minimal atrophy and no sign of intracranial hemorrhage. EEG was done and is normal. Vital signs on admission were temperature 97.4 pulse 61, respiratory rate 18, blood pressure 161/65, and O2 saturation was 97% on room air. Labs on admission showed BUN 29 with creatinine of 1.3. At the time of my evaluation, patient's resting comfortably in bed and appears to be in no acute distress. Review of Systems REVIEW OF SYSTEMS: Otherwise unremarkable and noncontributory. Past Medical History Past Medical History: Coronary Artery Disease (CAD), Diabetes Mellitus, GERD/ Reflux, Hyperlipidemia, Hypertension, Memory Impairment, Myocardial Infarction ( [place]), Osteoarthritis (OA), Pneumonia, Seizure Disorder Additional Past Medical History / Comment(s): PT STATES RINGING IN EARS FROM RECENT "BLOW TO THE EAR" R/T LOUD NOISE, STATES THIS IS WHEN HIS MEMORY PROBLEMS BEGAN WELL, PT STATES HE MAY HAVE HAD A CLOT IN HIS HEART ACCORDING TO DR. CUEVAS?? ALSO STATES RECENT 30LB WEIGHT LOSS Last Myocardial Infarction Date:: january History of Any Multi-Drug Resistant Organisms: None Reported Past Surgical History: Coronary Bypass/CABG, Hernia Repair, Orthopedic Surgery, Tonsillectomy Additional Past Surgical History / Comment(s): left hand, rt eye surgery, rt shoulder repair x2, bilat hernia repair, rt foot sx, colonoscopy, 5 VESSEL CABG IN 2009, LOST 4 FINGERS ON LEFT HAND AT 15 YEARS OF AGE. Past Anesthesia/Blood Transfusion Reactions: No Reported Reaction Past Psychological History: No Psychological Hx Reported Smoking Status: Former smoker Past Alcohol Use History: None Reported Additional Past Alcohol Use History / Comment(s): quit smoking 37 yrs ago Past Drug Use History: None Reported - Past Family History Mother Family Medical History: Diabetes Mellitus, Hypertension Father Additional Family Medical History / Comment(s): four way bypass Medications and Allergies Home Medications Medication Instructions Recorded Confirmed Type Isosorbide Mononitrate [Imdur] 30 mg PO DAILY 08/09/14 05/06/18 History Nitroglycerin Sl Tabs [Nitrostat] 0.4 mg SUBLINGUAL Q5M PRN 08/09/14 05/06/18 History Lisinopril [Zestril] 20 mg PO BID 09/20/15 05/06/18 History Insulin Degludec [Tresiba 36 units SQ HS 03/26/16 05/06/18 History Flextouch U-100] Aspirin 81 mg PO DAILY 08/11/17 05/06/18 History Albuterol Inhaler [Ventolin Hfa 2 puff INHALATION RT-Q6H PRN 05/01/18 05/06/18 History Inhaler] Cyanocobalamin (Vitamin B-12) 1,000 mcg PO DAILY 05/01/18 05/06/18 History [Vitamin B-12] Docusate [Colace] 100 mg PO DAILY 05/01/18 05/06/18 History Metoprolol Tartrate [Lopressor] 25 mg PO BID 05/01/18 05/06/18 History Pyridoxine [Vitamin B-6] 100 mg PO DAILY 05/01/18 05/06/18 History traZODone HCL 25 mg PO HS 05/01/18 05/06/18 History Atorvastatin Calcium [Lipitor] 10 mg PO HS #30 tab 05/02/18 05/06/18 Rx Cholecalciferol [Vitamin D3] 1,000 unit PO DAILY 05/06/18 05/06/18 History Allergies Allergy/AdvReac Type Severity Reaction Status Date / Time ciprofloxacin Allergy Rash/Hives Verified 05/06/18 22:19 fluticasone propionate Allergy Rash/Hives Verified 05/06/18 22:19 [From Flonase] metformin Allergy Rash/Hives Verified 05/06/18 22:19 metformin HCl Allergy Rash/Hives Verified 05/06/18 22:19 [From Glucophage] Mushroom Allergy Unknown Verified 05/06/18 22:19 Physical Examination - Vital Signs Vital Signs: Vital Signs Temp Pulse Pulse Resp BP BP BP 05/07/18 15:00 96.6 F L 70 18 101/47 05/07/18 08:15 05/07/18 06:19 97.7 F 61 16 137/73 05/07/18 02:22 97.6 F 52 L 20 117/64 05/07/18 00:14 56 L 18 116/62 05/06/18 23:14 58 L 18 133/64 05/06/18 22:08 97.4 F L 61 18 161/65 Pulse Ox 05/07/18 15:00 95 05/07/18 08:15 97 05/07/18 06:19 94 L 05/07/18 02:22 95 05/07/18 00:14 94 L 05/06/18 23:14 97 05/06/18 22:08 97 Intake and Output 05/07/18 05/07/18 05/07/18 06:59 14:59 22:59 Intake Total 480 Balance 480 Intake: Oral 480 Other: Voiding Method Toilet # Voids 2 3 # Bowel Movements 0 Weight 79.379 kg PHYSICAL EXAM: GENERAL APPEARANCE: Patient is a well-developed, male who appears to be in no acute distress. HEENT: Normocephalic, atraumatic, no facial asymmetry is seen. Neck is supple with no masses felt. CARDIOVASCULAR: Regular rate and rhythm. ABDOMEN: Nontender, nondistended. EXTREMITIES: Show no edema or clubbing. NEUROLOGICAL EXAM: Patient is awake, alert, and oriented 3. Speech and language are normal. Strength is full in all 4 extremities. Sensory exam to light touch is normal in all 4 extremities. No facial asymmetry seen on cranial nerve testing. No tremors or seizure-like activity noted. Results - Laboratory Findings CBC and BMP: 05/06/18 22:27 05/06/18 22:27 Abnormal Lab Findings: Abnormal Labs 05/06/18 05/07/18 05/07/18 22:27 07:14 12:14 Sodium 135 L BUN 29 H Creatinine 1.30 H Glucose 134 H POC Glucose (mg/dL) 118 H 129 H Total Protein 6.0 L 05/07/18 17:24 Sodium BUN Creatinine Glucose POC Glucose (mg/dL) 163 H Total Protein Assessment and Plan Plan: Impression: 1. Seizure disorder 2. Renal insufficiency 3. Diabetes mellitus 4. Hypertension 5. Dementia Recommendation: It is not clear if patient had a true tonic-clonic seizure but it is concerning that he has a loss of time. This is the second episode of reported seizure. Questionable postictal state per emergency room notes. Patient denies tongue biting or loss of sphincter control. Patient does not have history of seizures. Computed tomography scan was unremarkable. EEG was normal. No further seizure activity was noted since admission. Patient does follow as an outpatient with Dr. Gordon. Patient does report history of Parkinson's disease in his family. Patient may need workup for Parkinson's dementia as an outpatient. Patient is on trazodone in the home setting and I recommend to discontinue trazodone as this may contribute to seizure activity. Because this is his second episode, I will start the patient on Depakote 500 mg twice a day. I recommend IV fluids for his renal insufficiency. Continue neurological checks. Continue seizure precautions. Continue medical management. Patient needs to follow-up with Dr. Gordon on discharge. Patient is stable for discharge from a neurological standpoint. I will continue to follow with you. Further recommendations to follow. Thank you for allowing me to participate in the care of your patient. Feel free to call with any questions or concerns.
[2018-05-07] MEDS ORDERED: traZODone HCL 50 MG TAB PO SCH (21:00)
[2018-05-07] MEDS ORDERED: ATORVASTATIN 10 MG TAB PO SCH (21:00)
[2018-05-07] MEDS ORDERED: INSULIN DETEMIR 100 UNIT/ML 10 ML VIAL SQ SCH (21:00)
[2018-05-07 21:38] LABS: Glucose,Whole Blood 126 mg/dL (75-99)
[2018-05-07] MEDS: DIVALPROEX 500 MG TABLET.DR PO SCH (23:34)
[2018-05-08] MEDS: SODIUM CHLORIDE 0.9% 1,000 ML IV SCH ×2 (00:50→09:04)
[2018-05-08 07:11] LABS: Glucose,Whole Blood 81 mg/dL (75-99)
[2018-05-08] MEDS: ISOSORBIDE MONONITRATE ER 30 MG TAB.ER.24H PO SCH (09:03)
[2018-05-08] MEDS: DIVALPROEX 500 MG TABLET.DR PO SCH (09:03)
[2018-05-08] MEDS: PYRIDOXINE 50 MG TAB PO SCH (09:03)
[2018-05-08] MEDS: ASPIRIN 81 MG PO SCH (09:03)
[2018-05-08] MEDS: CYANOCOBALAMIN 500 MCG TAB PO SCH (09:03)
[2018-05-08] MEDS: DOCUSATE 100 MG CAP PO SCH (09:03)
[2018-05-08] MEDS: CHOLECALCIFEROL 1,000 UNIT TAB PO SCH (09:03)
[2018-05-08] MEDS: METOPROLOL TARTRATE 25 MG TAB PO SCH (09:03)
[2018-05-08] MEDS: AMOXIC-POT CLAV 875-125MG 1 EACH TAB PO SCH (09:03)
[2018-05-08 13:02] LABS: Glucose,Whole Blood 120 mg/dL (75-99)
[2018-05-08 14:59] LABS: Calcium 8.7 mg/dL (8.4-10.2); Potassium 4.7 mmol/L (3.5-5.1)
[2018-05-08 15:50] VITALS: BP 119/55; PULSE 63; RESP 16; TEMP 98.6
--- NOTE | 2018-05-16 23:47 | DS ---
DISCHARGE SUMMARY DATE OF ADMISSION: 05/07/2018. DATE OF DISCHARGE: 05/08/2018. FINAL DIAGNOSES: 1. 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 2. Coronary artery disease with prior history of coronary bypass. 3. Diabetes mellitus type 2. 4. Gastroesophageal reflux disease. 5. Hyperlipidemia. 6. Essential hypertension. 7. Primary osteoarthritis. HOSPITAL COURSE: This patient presented what appeared to be tonic-clonic seizure. Seen by Dr. Pinto. The patient has followed with Dr. Gordon in the past. It is not entirely clear at this point if this was a seizure or not, but the patient was put on Depakote and will be followed by Dr. Matos who will make a further determination. On examination, lungs are clear. Cardiovascular, 1st and 2nd sounds normal. Consultation with Dr. Pinto. CT scan of the brain, minimal atrophy. DISCHARGE MEDICATIONS: 1. Imdur 30 mg a day. 2. Nitrostat 0.4 sublingual every 5 p.r.n. 3. Zestril 20 mg p.o. b.i.d. 4. Tresiba 36 units subcu at bedtime. 5. Aspirin 81 mg a day. 6. Ventolin HFA 2 puffs every 6 hours p.r.n. 7. Vitamin B12, 1000 mcg p.o. daily. 8. Lopressor 25 p.o. b.i.d. 9. Vitamin B6, 100 mg p.o. daily. 10.Trazodone 25 mg at bedtime. 11.Lipitor 10 mg at bedtime. 12.Vitamin D3, 1000 units p.o. daily. 13.Depakote 500 mg p.o. b.i.d. FOLLOWUP: 1. Follow up with Dr. Meera Gordon in 1 week. 2. Follow up with Dr. Marilia Sharma in 3 days. DISCHARGE INSTRUCTIONS: 1. No driving. 2. Seizure precautions. MMODL / IJN: [id number] /
== END 2018-05-08 16:17 | disposition home or self-care (01) ==
LOC: EC 22:05 → 4MS4W 05-07 00:15
PROVIDERS: ADMIT Hospitalist; ATTEND Hospitalist
DX: R41.82 Altered mental status, unspecified (principal); E86.0 Dehydration; G40.909 Epilepsy, unspecified, not intractable, without status epilepticus; G30.9 Alzheimer's disease, unspecified; F02.80 Dementia in other diseases classified elsewhere, unspecified severity, without behavioral disturbance, psychotic disturbance, mood disturbance, and anxiety; K21.9 Gastro-esophageal reflux disease without esophagitis; I25.10 Atherosclerotic heart disease of native coronary artery without angina pectoris; I10 Essential (primary) hypertension; E78.5 Hyperlipidemia, unspecified; E11.9 Type 2 diabetes mellitus without complications; M19.90 Unspecified osteoarthritis, unspecified site; H93.13 Tinnitus, bilateral; E66.9 Obesity, unspecified; Z68.26 Body mass index [BMI] 26.0-26.9, adult; N28.9 Disorder of kidney and ureter, unspecified; I25.2 Old myocardial infarction; Z79.4 Long term (current) use of insulin; Z79.82 Long term (current) use of aspirin; Z79.899 Other long term (current) drug therapy; Z95.1 Presence of aortocoronary bypass graft; Z87.01 Personal history of pneumonia (recurrent); Z87.891 Personal history of nicotine dependence; Z88.1 Allergy status to other antibiotic agents; Z88.8 Allergy status to other drugs, medicaments and biological substances; Z91.018 Allergy to other foods; Z83.3 Family history of diabetes mellitus; Z82.49 Family history of ischemic heart disease and other diseases of the circulatory system
CPT/HCPCS: 36415; 70450; 74018; 80048; 80053; 80306; 81003; 83036; 85025; 93005; 94760; 95816; 96361; 96374; 99285

== ENCOUNTER → 2019-07-27 | Outpatient (CLI) | payer MEDICARE, BC ==
[2019-07-27 17:31] LABS: African American GFR (CKD) 61.1 (60.0-200.0); Albumin 4.4 g/dL (3.80-4.90); Albumin/Globulin Ratio 2.2 (1.60-3.17); Anion Gap 8.4 mmol/L (4.00-12.00); BUN/Creat Ratio 12.86 Ratio (12.00-20.00); Calcium 9.2 mg/dL (8.7-10.3); Carbon Dioxide 26.6 mmol/L (21.6-31.8); LDL Cholesterol,Calculated 68.8 mg/dL (0.0-131.0); Potassium 4.8 mmol/L (3.5-5.5); Total Bilirubin 0.6 mg/dL (0.3-1.2); Total Protein 6.4 g/dL (6.2-8.2); VLDL Calculation 51.2 mg/dL (5.00-40.00)
== END | disposition home or self-care (01) ==
LOC: LABWHC1 08:17
PROVIDERS: ATTEND Internal Medicine Endocrinology, Diabetes & Metabolism
DX: E11.65 Type 2 diabetes mellitus with hyperglycemia (principal)
CPT/HCPCS: 36415; 80053; 80061; 82043; 82570; 83036; 84443

== ENCOUNTER 2021-01-28 06:02 | Day surgery (SDC) | payer MEDICARE, OTHER ==
[2021-01-24 10:50] VITALS: BMI 29.2
[~2021-01-28 06:02] MED LIST: ALPRAZolam 0.25 MG TAB PO PRN; ALPRAZolam 0.5 MG TAB PO PRN; NITROGLYCERIN SL TABS 0.4 MG TAB SUBLINGUAL PRN; SODIUM CHLORIDE 0.9% 1,000 ML in EMPTY BAG 1 BAG IV ONE
[2021-01-28] MEDS ORDERED: SODIUM CHLORIDE 0.9% 1,000 ML IV ONE (06:37)
[2021-01-28] MEDS ORDERED: ASPIRIN 325 MG TAB PO ONE (07:00)
[2021-01-28] MEDS ORDERED: ATORVASTATIN 80 MG TAB PO ONE (07:00)
[2021-01-28 07:03] LABS: Glucose,Whole Blood 161 mg/dL (75-99)
[2021-01-28 07:10] LABS: Basophils # (A) 0.1 k/uL (0-0.2); Basophils % (A) 1 %; Eosinophils # (A) 0.6 k/uL (0-0.7); Eosinophils % (A) 7 %; HCT 42.4 % (39.0-53.0); HGB 14.8 gm/dL (13.0-17.5); Lymphocytes # (A) 2.3 k/uL (1.0-4.8); Lymphocytes % (A) 27 %; MCH 32.7 pg (25.0-35.0); MCHC 34.9 g/dL (31.0-37.0); MCV 93.7 fL (80.0-100.0); Mean Platelet Volume 7.9; Monocytes # (A) 0.7 k/uL (0-1.0); Monocytes % (A) 8 %; Neutrophils # (A) 4.7 k/uL (1.3-7.7); Neutrophils % (A) 55 %; Platelet Count 203 k/uL (150-450); RBC 4.53 m/uL (4.30-5.90); WBC 8.5 k/uL (3.8-10.6)
[2021-01-28] MEDS ORDERED: fentaNYL (PF) 50 MCG/ML 2 ML AMP ONE (07:12)
[2021-01-28] MEDS ORDERED: LIDOCAINE 1% INJ 10MG/ML (20 ML MDV) ONE (07:12)
[2021-01-28 07:19] LABS: Calcium 9.2 mg/dL (8.4-10.2); Potassium 4.5 mmol/L (3.5-5.1)
[2021-01-28] MEDS ORDERED: fentaNYL (PF) 50 MCG/ML 2 ML AMP IV ONE (07:40)
[2021-01-28] MEDS ORDERED: MIDAZOLAM 2 MG/2 ML VIAL IV ONE (07:40)
[2021-01-28] MEDS ORDERED: LIDOCAINE 1% INJ 10MG/ML (20 ML MDV) SQ ONE (07:44)
[2021-01-28] MEDS ORDERED: BIVALIRUDIN BOLUS 250 MG/50 ML IV ONE (08:39)
[2021-01-28] MEDS ORDERED: niCARdipine 25 MG/10 ML VIAL ONE (08:39)
[2021-01-28] MEDS ORDERED: CLOPIDOGREL 75 MG TAB ONE (08:41)
[2021-01-28] MEDS ORDERED: BIVALIRUDIN 250 MG in SODIUM CHLORIDE 0.9% 50 ML IV ONE (08:41)
[2021-01-28] MEDS ORDERED: niCARdipine Syringe (1,000 mcg/10 mL) INTRACORON ONE (08:42)
[2021-01-28] MEDS ORDERED: CLOPIDOGREL 75 MG TAB PO ONE (08:43)
[2021-01-28] MEDS ORDERED: HEPARIN SODIUM 1,000 UN/ML (10ML VL) ONE (08:49)
[2021-01-28] MEDS ORDERED: NITROGLYCERIN SL TABS 0.4 MG TAB SUBLINGUAL PRN (09:31)
[2021-01-28] MEDS ORDERED: ALBUTEROL HFA INHALER INHALATION PRN (09:31)
[2021-01-28] MEDS ORDERED: HYDROmorphone 0.5 MG/0.5 ML SYRINGE IVP PRN (09:40)
[2021-01-28] MEDS ORDERED: ATROPINE SULFATE 0.1 MG/ML 10ML SYRINGE IV PRN (09:40)
[2021-01-28] MEDS ORDERED: ZOLPIDEM 5 MG TAB PO PRN (09:40)
[2021-01-28] MEDS ORDERED: HYDROcodone/APAP 5-325MG 1 EACH TAB PO PRN (09:40)
[2021-01-28] MEDS ORDERED: MAG HYDROX/AL HYDROX/SIMETH 30 ML CUP PO PRN (09:40)
[2021-01-28] MEDS ORDERED: RX INFO: IV CONTRAST WAS GIVEN 1 EACH MISC MISCELLANE PRN (09:40)
[2021-01-28] MEDS: SODIUM CHLORIDE 0.9% 1,000 ML IV SCH ×2 (10:10→20:23)
--- NOTE | 2021-01-28 10:47 | CC ---
CARDIAC CATHETERIZATION REPORT INDICATION: Unstable angina. PROCEDURE NOTE: After obtaining informed consent, left heart catheterization, coronary angiogram and selective injection of the bypass grafts was performed via the right femoral artery using standard Malathi catheters. Patient tolerated the procedure well without any obvious immediate complications. Patient received moderate conscious sedation. Total sedation time was 28 minutes. FINDINGS: 1. HEMODYNAMICS: Left ventricular end-diastolic pressure is 16 mm. There is no significant gradient across the aortic valve. 2. LEFT VENTRICULOGRAM: Left ventriculogram is not performed. 3. ANGIOGRAPHIC DATA: Left main coronary artery has a significant stenosis in the distal left main. It divides into LAD and circumflex coronary artery. LAD appears occluded. The circumflex coronary artery shows a 70% to 80% proximal stenosis. Right coronary artery is totally occluded in the proximal part. SELECTIVE INJECTION OF THE BYPASS GRAFTS: 1. SILVER to LAD appears patent. Proximal and distal anastomotic sites are free of significant disease. [place] LAD is free of significant stenotic lesion. 2. Radial artery graft to OM 1 appears occluded. 3. Venous graft to OM 3 appears patent and it is supplying the entire circumflex coronary artery territory. 4. Venous graft to diagonal appears patent. The proximal and distal anastomotic sites are free of significant disease. Middle portion of the graft shows a 70% focal stenosis. 5. Venous graft to the PDA appears patent. Proximal and distal anastomotic sites are free of disease and the body of the graft is free of significant disease. CONCLUSIONS: 1. [place] 3-vessel coronary artery disease as described above. 2. Patent SILVER to LAD, patent venous graft to diagonal, OM 3 and PDA. 3. A 70% stenosis involving the venous graft to the diagonal. 4. Occluded radial artery graft to OM 1. PLAN: Angiographic data was reviewed by Dr. Bowman the on-call salesperson recreational vehicles who will attempt angioplasty of the venous graft to the diagonal. MMODL / IJN: [id number] /
--- NOTE | 2021-01-28 10:53 | LTR ---
January 28, 2021 Re: Jose Eduardo Fariaser Dear Dr. Shamra: I performed cardiac catheterization on Jose Eduardo Rodriguez. A detailed catheterization note is enclosed for your records. In brief, the cardiac catheterization revealed [place] 3 vessel coronary artery disease with an occluded radial artery graft to OM 1 and significant stenosis involving venous graft to the diagonal. The patient will undergo angioplasty of the diagonal graft and hopefully will be discharged home tomorrow. Thank you for giving me the privilege to participate in the care of this pleasant gentleman. Sincerely, MD OLMAN Haro / MAYELA: [id number] /
--- NOTE | 2021-01-28 15:21 | PTCA ---
PERCUTANEOUSTRANS CORORONARY ANGIOGRAPHY DATE OF SERVICE: 01/28/2021 PERFORMING PHYSICIAN: Jax Bowman M.D. PROCEDURE PERFORMED: Successful stenting of the saphenous vein graft to diagonal using a 3.25 x 12 mm Xience drug-eluting stent with good angiographic results and reduction of stenosis from 80% to 10%. INDICATION: This is a 65-year-old gentleman who sees Dr. Armstrong in the office on a regular basis. He was experiencing symptoms of chest discomfort concerning for angina. He underwent a heart catheterization by Dr. Armstrong and that revealed severe triple-vessel CAD with severe disease involving the SVG to diagonal. APPROACH: Right common femoral artery. COMPLICATIONS: None. LEVEL OF SEDATION: Moderate, with sedation length of 15 minutes. PROCEDURE DESCRIPTION: Please refer to diagnostic heart catheterization that was performed by Dr. Armstrong. Anticoagulation was achieved with Angiomax with bolus and drip per protocol. After that, I did engage the SVG to diagonal using a left bypass guide. I did wire it using a run-through wire. I did direct stenting of the lesion using a 3.25 x 12 mm Xience drug-eluting stent where the stent was positioned under fluoroscopic guidance and deployed under 16 atmospheres for 20 seconds. The following angiogram showed good angiographic results and the procedure was completed without any complication. POST-PROCEDURE MANAGEMENT: 1. Dual anti-platelet therapy. 2. Risk factor modifications. 3. Aggressive cholesterol control. 4. Follow up with the patient. MMODL / IJN: [id number] /
[2021-01-28] MEDS: glipiZIDE 10 MG TAB PO SCH (20:17)
[2021-01-28] MEDS: METOPROLOL TARTRATE 50 MG TAB PO SCH (20:17)
[2021-01-28] MEDS: DIVALPROEX 500 MG TABLET.DR PO SCH (20:17)
[2021-01-28] MEDS: lisinopriL 20 MG TAB PO SCH (20:17)
[2021-01-28 20:44] LABS: Glucose,Whole Blood 266 mg/dL (75-99)
[2021-01-28] MEDS ORDERED: ATORVASTATIN 40 MG TAB PO SCH (21:00)
[2021-01-28] MEDS ORDERED: traZODone HCL 100 MG TAB PO SCH (21:00)
[2021-01-29 05:01] VITALS: RESP 18
[2021-01-29 06:15] LABS: Glucose,Whole Blood 141 mg/dL (75-99)
[2021-01-29] MEDS ORDERED: LEVOTHYROXINE 112 MCG TAB PO SCH (06:30)
[2021-01-29 08:01] LABS: Calcium 8.6 mg/dL (8.4-10.2); Potassium 4.3 mmol/L (3.5-5.1)
[2021-01-29 08:23] LABS: Basophils % (A) 1 %; Eosinophils # (A) 0.3 k/uL (0-0.7); Eosinophils % (A) 5 %; HCT 39.3 % (39.0-53.0); HGB 13.4 gm/dL (13.0-17.5); Lymphocytes # (A) 0.9 k/uL (1.0-4.8); Lymphocytes % (A) 15 %; MCHC 34.1 g/dL (31.0-37.0); MCV 93.7 fL (80.0-100.0); Mean Platelet Volume 8.2; Monocytes # (A) 0.6 k/uL (0-1.0); Monocytes % (A) 10 %; Neutrophils # (A) 3.9 k/uL (1.3-7.7); Neutrophils % (A) 68 %; Platelet Count 156 k/uL (150-450); RDW 13.6 % (11.5-15.5); WBC 5.8 k/uL (3.8-10.6)
[2021-01-29] MEDS: lisinopriL 20 MG TAB PO SCH (08:29)
[2021-01-29] MEDS: METOPROLOL TARTRATE 50 MG TAB PO SCH (08:29)
[2021-01-29] MEDS: glipiZIDE 10 MG TAB PO SCH (08:29)
[2021-01-29] MEDS: DIVALPROEX 500 MG TABLET.DR PO SCH (08:29)
[2021-01-29] MEDS ORDERED: ASPIRIN 81 MG PO SCH (09:00)
[2021-01-29] MEDS ORDERED: CLOPIDOGREL 75 MG TAB PO SCH (09:00)
--- NOTE | 2021-01-29 10:52 | DS ---
DISCHARGE SUMMARY DATE OF ADMISSION: 01/28/2021 DATE OF DISCHARGE: 01/29/2021 FINAL DIAGNOSIS: Unstable angina. PROCEDURES PERFORMED: 1. Left heart catheterization. 2. Angioplasty with stent placement of venous graft to the diagonal. HOSPITAL COURSE: This is a 65-year-old gentleman with history of known coronary artery disease, status post prior bypass surgery, who presented to [facility] with unstable angina and was to undergo cardiac catheterization. On the cardiac catheterization I performed, his bypass graft to OM 1 branch was occluded and he had a significant stenosis in the graft to the diagonal for which he underwent angioplasty with stent placement. He has had a fairly uneventful course in the hospital. At the time of my evaluation this morning, he appears comfortable at rest. Blood pressure is elevated, but he just got his morning medications. Otherwise, vital signs are stable. O2 saturation is 96% on room air. There is no jugular venous distention. Chest is clear to auscultation. Heart exam reveals first and second heart sounds. No gallop. Abdomen is soft. Examination of extremities did not reveal any edema. Right groin exam is free of bleeding, bruit, hematoma. Foot pulses are intact. EKG showed sinus rhythm with right bundle branch block. LABS: Labs show that the hemoglobin is 13.4, potassium is 4.3, creatinine is 1.2. DISCHARGE MEDICATIONS: Discharge medications include: 1. Lopressor 50 b.i.d. 2. Imdur 30 daily. 3. Lipitor 40 daily. 4. Zestril 20 b.i.d. 5. Glucotrol. 6. Trazodone. 7. Aspirin. 8. Albuterol. 9. Sublingual nitroglycerin. 10.Plavix 75 mg daily. FOLLOWUP: He will be followed up in my office in a week's time. MMODL / IJN: [id number] /
[2021-01-29 11:26] LABS: Glucose,Whole Blood 222 mg/dL (75-99)
[2021-01-29 12:21] VITALS: BP 171/72; PULSE 69; TEMP 98
== END 2021-01-29 12:21 | disposition home or self-care (01) ==
LOC: CATHCVL 06:02 → 3SCARD 08:46 → CATHCVL 01-29 12:21
PROVIDERS: ATTEND Internal Medicine Cardiovascular Disease
DX: I25.110 Atherosclerotic heart disease of native coronary artery with unstable angina pectoris (principal); I25.720 Atherosclerosis of autologous artery coronary artery bypass graft(s) with unstable angina pectoris; I10 Essential (primary) hypertension; E11.9 Type 2 diabetes mellitus without complications; E78.2 Mixed hyperlipidemia; Z72.0 Tobacco use; Z79.84 Long term (current) use of oral hypoglycemic drugs; Z79.82 Long term (current) use of aspirin; Z79.890 Hormone replacement therapy; Z79.899 Other long term (current) drug therapy; Z88.1 Allergy status to other antibiotic agents; Z88.8 Allergy status to other drugs, medicaments and biological substances
CPT/HCPCS: 93459; 80048 ×2; 85025 ×2; C9604; C1769 ×4; C1887; C1894; C1874; J2250; J2001; J3010; J0583

== ENCOUNTER 2021-05-23 18:28 | Observation (INO) | payer MEDICARE, OTHER ==
[2021-05-23] MEDS ORDERED: ASPIRIN 81 MG PO STA (19:05)
[2021-05-23] MEDS: MORPHINE SULFATE 4 MG/ML SYRINGE IV STA ×2 (19:40→19:47)
[2021-05-23] MEDS ORDERED: MORPHINE SULFATE 4 MG/ML SYRINGE IVP STA (19:41)
--- NOTE | 2021-05-23 19:43 | XR ---
EXAMINATION TYPE: XR chest 1V portable DATE OF EXAM: 05/23/2021 COMPARISON: 05/01/2018 HISTORY: Chest pain TECHNIQUE: FINDINGS: There is some minimal linear density left lung base. There are sternal wires. There is no h eart failure. Chest leads. IMPRESSION: There is some mild subsegmental atelectasis left lung base that appears new compared to o ld exam. No heart failure.
[2021-05-23 19:47] LABS: Basophils # (A) 0.1 k/uL (0-0.2); Basophils % (A) 1 %; Eosinophils # (A) 0.4 k/uL (0-0.7); Eosinophils % (A) 5 %; HCT 40.1 % (39.0-53.0); HGB 14.2 gm/dL (13.0-17.5); Lymphocytes % (A) 23 %; MCH 31.9 pg (25.0-35.0); MCHC 35.3 g/dL (31.0-37.0); MCV 90.2 fL (80.0-100.0); Mean Platelet Volume 8.4; Monocytes # (A) 0.6 k/uL (0-1.0); Monocytes % (A) 7 %; Neutrophils # (A) 5.3 k/uL (1.3-7.7); Neutrophils % (A) 61 %; Platelet Count 228 k/uL (150-450); RBC 4.45 m/uL (4.30-5.90); RDW 13.2 % (11.5-15.5); WBC 8.6 k/uL (3.8-10.6)
[2021-05-23 19:58] LABS: Albumin 4.1 g/dL (3.5-5.0); Calcium 9.4 mg/dL (8.4-10.2); Magnesium 1.9 mg/dL (1.6-2.3); Potassium 4.3 mmol/L (3.5-5.1); Total Bilirubin 0.4 mg/dL (0.2-1.3); Total Protein 6.5 g/dL (6.3-8.2)
--- NOTE | 2021-05-23 19:58 | ED ---
General Adult HPI - General Chief complaint: Chest Pain Stated complaint: Chest pain, head pain Time Seen by Provider: 05/23/21 19:05 Source: patient, family, RN notes reviewed, old records reviewed Mode of arrival: wheelchair Limitations: physical limitation - History of Present Illness Initial comments: Patient is a 65-year-old male with past medical history remarkable for CAD, chest pain, hypertension, prior coronary bypass surgery, VA, seizures, thyroid disorder who just discharged from an outside hospital for a TIA yesterday who presents emergency Department complaining of acute onset of substernal chest pain as well as lower sternal chest pain with radiation to the back that is improving. This started approximately one hour ago. She states he also had back pain bad earlier today. He does not know what his blood pressure was yesterday when he presented to the hospital for TIA. Yesterday he was unable to communicate and had weakness generally, that self resolved. Currently has no symptoms and denies any weakness or numbness. Denies any abdominal pain otherwise. Denies any nausea or vomiting. Denies any urinary complaints. De nies any headache, blurry vision. He is hard of hearing. He denies any fevers, chills, cough. He otherwise has no acute complaints at this time. Discussed the pain as a sharp sensation that is resolving on its own. He endorses no acute complaints at this time. Patient presents for his chest pain. He previously was a persistent alcohol user, however he is since quit. - Related Data Home Medications Medication Instructions Recorded Confirmed Isosorbide Mononitrate [Imdur] 30 mg PO DAILY 08/09/14 05/23/21 Nitroglycerin Sl Tabs [Nitrostat] 0.4 mg SUBLINGUAL Q5M PRN 08/09/14 05/23/21 lisinopriL [Zestril] 20 mg PO BID 09/20/15 05/23/21 Aspirin 81 mg PO DAILY 08/11/17 05/23/21 Metoprolol Tartrate [Lopressor] 25 mg PO BID 05/01/18 05/23/21 traZODone HCL 100 mg PO HS 05/01/18 05/23/21 Levothyroxine Sodium [Synthroid] 112 mcg PO DAILY 01/24/21 05/23/21 glipiZIDE [Glucotrol] 10 mg PO BID 01/24/21 05/23/21 Atorvastatin Calcium [Lipitor] 10 mg PO DAILY 05/23/21 05/23/21 Previous Rx's Medication Instructions Recorded Clopidogrel [Plavix] 75 mg PO DAILY tab 01/29/21 Allergies Allergy/AdvReac Type Severity Reaction Status Date / Time ciprofloxacin Allergy Rash/Hives Verified 05/23/21 20:18 fluticasone propionate Allergy Rash/Hives Verified 05/23/21 20:18 [From Flonase] metformin Allergy Rash/Hives Verified 05/23/21 20:18 metformin HCl Allergy Rash/Hives Verified 05/23/21 20:18 [From Glucophage] Review of Systems ROS Statement: Those systems with pertinent positive or pertinent negative responses have been documented in the HPI. Review of Systems: CONST: Denies fever EYES: Denies blurry vision ENT: Denies nasal congestion C/V: Endorses chest pain RESP: Denies shortness of breath GI: Endorses epigastric abdominal pain : Denies dysuria SKIN: Denies rash. MSK: Denies joint pain. NEURO: Denies headache ROS Other: All systems not noted in ROS Statement are negative. Past Medical History Past Medical History: Asthma, Coronary Artery Disease (CAD), Chest Pain / Angina, Diabetes Mellitus, GERD/Reflux, Hearing Disorder / Deafness, Hyperlipidemia, Hypertension, Memory Impairment, Myocardial Infarction (VA), Osteoarthritis (OA), Pneumonia, Seizure Disorder, Thyroid Disorder Additional Past Medical History / Comment(s): tinnitus, recent chest pain & admission to [facility] on Thursday, last seizures 3-4 yrs ago Last Myocardial Infarction Date:: january History of Any Multi-Drug Resistant Organisms: None Reported Past Surgical History: Coronary Bypass/CABG, Heart Catheterization With Stent, Hernia Repair, Orthopedic Surgery, Tonsillectomy Additional Past Surgical History / Comment(s): left hand, rt eye surgery, rt shoulder repair x2, bilat hernia repair, rt foot sx, colonoscopy, 5 VESSEL CABG IN 2009, LOST 4 FINGERS ON LEFT HAND AT 15 YEARS OF AGE, arthroscopic right knee surg. Past Anesthesia/Blood Transfusion Reactions: No Reported Reaction Past Psychological History: No Psychological Hx Reported Smoking Status: Former smoker Past Alcohol Use History: None Reported Past Drug Use History: None Reported - Past Family History Mother Family Medical History: Diabetes Mellitus, Hypertension Father Additional Family Medical History / Comment(s): four way bypass General Exam - General Exam Comments Initial Comments: General: Appears in mild distress secondary to chest pain. HEAD: Normal with no signs of head trauma. EYES: PERRLA, EOMI, conjunctiva normal, no discharge. ENT: Hearing grossly intact, normal oropharynx. RESPIRATORY: Clear breath sounds bilaterally. No wheezes, rales, or rhonchi. C/V: Regular rate and rhythm. S1 and S2 auscultated, no edema, peripheral pulses 2+ and intact throughout. patient has reproducible inferius substernal chest pain to palpation. ABD: Abdomen soft, nondistended. Patient is tender to palpation epigastric region. He has no CVA tenderness to percussion. There is no guarding. There are no peritoneal signs. EXT: Normal range of motion, no obvious deformity SKIN: No rashes or lesions observed on exposed skin. NEURO: Alert and oriented 4. Cranial nerves II through XII are intact except for chronic hearing loss. No focal sensory or strength deficits. Limitations: physical limitation Course Vital Signs 05/23/21 05/23/21 05/23/21 18:34 19:22 21:17 Temperature 97.9 F Pulse Rate 72 72 67 Respiratory 20 12 18 Rate Blood Pressure 138/69 119/71 119/64 O2 Sat by Pulse 97 100 94 L Oximetry Medical Decision Making - Medical Decision Making Based on the patient's presentation and physical exam, I'm concerned for possible cardiac etiology for his current symptoms, but cannot rule out the possibility of abdominal etiology either. Due to his chest pain with radiation to the back, as well as his recent TIA yesterday, I am highly concerned for possible aortic dissection. Therefore CTA of the thorax and abdomen will be ordered in addition to a cardiac and abdominal pain workup. Chest x-ray and EKG will be obtained. She'll be admission and IV morphine as well as aspirin for pain management. He'll be connected to continuous cardiac monitoring while he is here in the emergency department. Patient was in agreement with this plan. Patient's EKG shows no acute changes. There is a chronic right bundle branch block. Patient's chest x-ray reveals mild atelectasis but no acute cardiac primary process otherwise. CTA revealed cholelithiasis, with 50% stenosis of the superior mesenteric artery however no arterial aneurysm or dissection. After studies were remarkable for a negative troponin, as well as an elevated lipase of 308. The remainder of his labs are unremarkable. Reevaluation, patient's chest pain is improved. He is still complaining however of mild chest pain as well as epigastric abdominal pain. He denies any nausea. I did expand him that due to his cardiac history, with a heart score that is elevated, I would like him into cardiac observations to telemetry bed to changes troponins. He was in agreement with this plan. I spoke with the admitting physician, Dr. Chao, who was in agreement this plan. He requested that I consult GI for spank otitis as well as cardiology for his chest pain. Consults were placed to be evaluated in the morning by on-call GI as well as the patient's tower air traffic control specialist, Dr. Armstrong. Patient was therefore a dmitted to observation on telemetry in serious condition. - Lab Data Result diagrams: 05/23/21 19:12 05/23/21 19:12 Lab Results 05/23/21 05/23/21 05/23/21 Range/Units 19:12 19:12 19:12 WBC 8.6 (3.8-10.6) k/uL RBC 4.45 (4.30-5.90) m/uL Hgb 14.2 (13.0-17.5) gm/dL Hct 40.1 (39.0-53.0) % MCV 90.2 (80.0-100.0) fL MCH 31.9 (25.0-35.0) pg MCHC 35.3 (31.0-37.0) g/dL RDW 13.2 (11.5-15.5) % Plt Count 228 (150-450) k/uL MPV 8.4 Neutrophils % 61 % Lymphocytes % 23 % Monocytes % 7 % Eosinophils % 5 % Basophils % 1 % Neutrophils # 5.3 (1.3-7.7) k/uL Lymphocytes # 2.0 (1.0-4.8) k/uL Monocytes # 0.6 (0-1.0) k/uL Eosinophils # 0.4 (0-0.7) k/uL Basophils # 0.1 (0-0.2) k/uL PT 10.3 (9.0-12.0) sec INR 1.0 (<1.2) APTT 24.0 (22.0-30.0) sec Sodium 136 L (137-145) mmol/L Potassium 4.3 (3.5-5.1) mmol/L Chloride 105 (98-107) mmol/L Carbon Dioxide 21 L (22-30) mmol/L Anion Gap 10 mmol/L BUN 19 (9-20) mg/dL Creatinine 1.24 (0.66-1.25) mg/dL Est GFR (CKD-EPI)AfAm 70 (>60 ml/min/1.73 sqM) Est GFR (CKD-EPI)NonAf 61 (>60 ml/min/1.73 sqM) Glucose 181 H (74-99) mg/dL Calcium 9.4 (8.4-10.2) mg/dL Magnesium 1.9 (1.6-2.3) mg/dL Total Bilirubin 0.4 (0.2-1.3) mg/dL AST 30 (17-59) U/L ALT 24 (4-49) U/L Alkaline Phosphatase 54 (38-126) U/L Troponin I (0.000-0.034) ng/mL Total Protein 6.5 (6.3-8.2) g/dL Albumin 4.1 (3.5-5.0) g/dL Lipase 308 H (23-300) U/L 05/23/21 Range/Units 19:12 WBC (3.8-10.6) k/uL RBC (4.30-5.90) m/uL Hgb (13.0-17.5) gm/dL Hct (39.0-53.0) % MCV (80.0-100.0) fL MCH (25.0-35.0) pg MCHC (31.0-37.0) g/dL RDW (11.5-15.5) % Plt Count (150-450) k/uL MPV Neutrophils % % Lymphocytes % % Monocytes % % Eosinophils % % Basophils % % Neutrophils # (1.3-7.7) k/uL Lymphocytes # (1.0-4.8) k/uL Monocytes # (0-1.0) k/uL Eosinophils # (0-0.7) k/uL Basophils # (0-0.2) k/uL PT (9.0-12.0) sec INR (<1.2) APTT (22.0-30.0) sec Sodium (137-145) mmol/L Potassium (3.5-5.1) mmol/L Chloride (98-107) mmol/L Carbon Dioxide (22-30) mmol/L Anion Gap mmol/L BUN (9-20) mg/dL Creatinine (0.66-1.25) mg/dL Est GFR (CKD-EPI)AfAm (>60 ml/min/1.73 sqM) Est GFR (CKD-EPI)NonAf (>60 ml/min/1.73 sqM) Glucose (74-99) mg/dL Calcium (8.4-10.2) mg/dL Magnesium (1.6-2.3) mg/dL Total Bilirubin (0.2-1.3) mg/dL AST (17-59) U/L ALT (4-49) U/L Alkaline Phosphatase (38-126) U/L Troponin I <0.012 (0.000-0.034) ng/mL Total Protein (6.3-8.2) g/dL Albumin (3.5-5.0) g/dL Lipase (23-300) U/L - EKG Data -: EKG Interpreted by Me EKG Comments: 12-lead Electrocardiogram Interpretation Note EKG was reviewed and interpreted by myself. 12-lead ECG performed at 1846 is interpreted by me as revealing normal sinus rhythm with a chronic right bundle branch block at a rate of 66 beats per minute. [place] is normal. AL interval is AN 64 ms, QRS duration is 170 ms, QTc is 457 ms.. There are chronic T-wave inversions seen in the leads V1 and V2.. He has a chronic right bundle branch block.. By my interpretation this EKG is non-diagnostic for acute ischemia. On comparison to prior EKGs, this EKG is remarkable for similar without any acute changes. Disposition Clinical Impression: Chest pain of unknown etiology, Pancreatitis, chronic, Bilateral tinnitus Disposition: ADMITTED IP TO THIS HOSP Condition: Serious
[2021-05-23 20:00] LABS: Prothrombin Time 10.3 sec (9.0-12.0)
--- NOTE | 2021-05-23 20:13 | CT ---
EXAMINATION TYPE: CT angio thor/abd pel aorta DATE OF EXAM: 05/23/2021 COMPARISON: None HISTORY: Chest pain, head pain concern for dissection CT DLP: 1078.2 mGycm Automated exposure control for dose reduction was used. CONTRAST: Performed with IV Contrast, patient injected with 100 mL of Isovue 370. Images obtained from the thoracic inlet to the diaphragm with no contrast. Images obtained from the t horacic inlet to the floor the pelvis with IV contrast. There are 3-D post processed images. There is some interstitial density in subsegmental atelectasis posterior lung bases. There is no pleu ral effusion. Heart appears normal. There is no pericardial effusion. There are multiple calcified gallstones. Liver spleen pancreas stomach appear intact. The bile ducts are not dilated. There is no adrenal mass. Kidneys show satisfactory contrast opacification. There is no hydronephrosi s. There is some fullness of the left ureter. I see no ureteral calculus. Bladder has high attenuatio n consistent with previous contrast. There is no pelvic mass. There is no free fluid in the pelvis. Thoracic aorta is atheromatous. There is no thoracic aortic aneurysm. The ascending aorta measures 3. 1 cm. I see no filling defects in the pulmonary arteries. There is contrast opacification of the abdominal aorta without evidence of aneurysm. There is variabl e plaque formation. There is arterial flow in the celiac artery and superior mesenteric artery. There is arterial flow in the renal and iliac and femoral arteries. There is moderate plaque at the origin of the superior mesenteric artery and approximate 50% stenosis. There is no evidence of arterial dis section. Appendix is posterior and appears normal. There is no mesenteric edema. There is no ascites or free air. There is no evidence of a bowel obstru ction. The thoracic and lumbar vertebra appear intact without evidence of compression fracture. There are st ernal wires. The bony pelvis and hip joints are intact. IMPRESSION: Atherosclerotic vascular disease. 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 No arterial aneurysm or dissection. No evidence of pulmonary embolism. Interstitial infiltrates and atelectasis a t the lung bases. No suspicious pulmonary mass. Cholelithiasis.
[2021-05-23] MEDS ORDERED: NITROGLYCERIN SL TABS 0.4 MG TAB SUBLINGUAL PRN (21:11)
[2021-05-23] MEDS ORDERED: MAGNESIUM HYDROXIDE 2,400 MG/10 ML CUP PO PRN (21:12)
[2021-05-23] MEDS ORDERED: ONDANSETRON 4 MG/2 ML VIAL IVP PRN (21:12)
[2021-05-23] MEDS ORDERED: MELATONIN 3 MG TABLET PO PRN (21:12)
[2021-05-23] MEDS ORDERED: NALOXONE 0.4 MG/ML 1 ML VIAL IV PRN ×2 (21:12→21:16)
[2021-05-23] MEDS ORDERED: MAG HYDROX/AL HYDROX/SIMETH 30 ML CUP PO PRN (21:12)
[2021-05-23] MEDS ORDERED: LACTULOSE 20 GM/30 ML CUP PO PRN (21:12)
[2021-05-23] MEDS ORDERED: ALPRAZolam 0.25 MG TAB PO PRN (21:12)
[2021-05-23] MEDS ORDERED: CALCIUM CARBONATE 500 MG CHEWABLE PO PRN (21:12)
[2021-05-23] MEDS ORDERED: ACETAMINOPHEN TAB 325 MG TAB PO PRN (21:12)
[2021-05-23] MEDS ORDERED: traZODone HCL 50 MG TAB PO SCH (21:15)
[2021-05-23] MEDS ORDERED: MORPHINE SULFATE 4 MG/ML SYRINGE IV PRN (21:16)
[2021-05-23 22:21] LABS: Glucose,Whole Blood 128 mg/dL (75-99)
[2021-05-23] MEDS: INSULIN ASPART (NovoLOG) 100 UNIT/ML VIAL SQ SCH (22:25)
[2021-05-23] MEDS: METOPROLOL TARTRATE 25 MG TAB PO SCH (22:32)
[2021-05-23] MEDS: lisinopriL 20 MG TAB PO SCH (22:32)
[2021-05-24] MEDS ORDERED: LEVOTHYROXINE 112 MCG TAB PO SCH (06:30)
[2021-05-24 06:44] LABS: Glucose,Whole Blood 141 mg/dL (75-99)
[2021-05-24] MEDS: INSULIN ASPART (NovoLOG) 100 UNIT/ML VIAL SQ SCH ×2 (06:52→11:40)
[2021-05-24] MEDS ORDERED: CLOPIDOGREL 75 MG TAB PO SCH (09:00)
[2021-05-24] MEDS ORDERED: ASPIRIN 81 MG PO SCH (09:00)
[2021-05-24] MEDS ORDERED: glipiZIDE 10 MG TAB PO SCH (09:00)
[2021-05-24] MEDS ORDERED: ISOSORBIDE MONONITRATE ER 30 MG TAB.ER.24H PO SCH (09:00)
[2021-05-24] MEDS ORDERED: ATORVASTATIN 10 MG TAB PO SCH (09:00)
[2021-05-24] MEDS: METOPROLOL TARTRATE 25 MG TAB PO SCH (09:54)
[2021-05-24] MEDS: lisinopriL 20 MG TAB PO SCH (09:54)
--- NOTE | 2021-05-24 10:36 | P.CRDCN ---
History of Present Illness History of present illness: HISTORY OF PRESENTING ILLNESS This is a pleasant 65-year-old male past medical history significant for coronary artery disease status post bypass grafting with SILVER to LAD, SVG to diagonal, OM1, OM 3 and PDA in 2008, diabetes mellitus, hypertension and dyslipidemia. He follows in the office with Dr. Armstrong. We have been asked to see in consultation for chest pain. According to the patient he was just discharged from [facility] secondary to a suspected TIA. He was dis charged on . His initial presenting symptoms at that time were inability to talk and facial numbness. After arriving home on he was sitting down doing nothing in particular when he felt a pressure in the left precordial region prompting him to come to the hospital for further evaluation. There was no radiation to the back, neck, arm or jaw. He had no associated shortness of breath, dizziness, palpitations, nausea, vomiting or diaphoresis. He is currently chest pain-free. DIAGNOSTICS EKG reveals sinus mechanism with right bundle branch block. Telemetry tracings indicate sinus mechanism. Chest xray mild subsegmental atelectasis at the left lung base with no overt heart failure. CT of the thoracic aorta reveals atherosclerotic vascular disease with a 50% stenosis of the mesenteric artery, no aneurysm or dissection, no PE and no suspicious pulmonary mass. Laboratory reviewed, CBC unremarkable, sodium 136, potassium 4.3, creatinine 1.24, magnesium 1.9, cardiac enzymes negative 3. Current cardiac medications include aspirin 81 mg daily, Plavix 75 mg daily, Imdur 30 mg daily, lisinopril 20 mg twice a day, atorvastatin 10 mg daily and Lopressor 25 mg twice a day. Most recent echocardiogram obtained in the office November 2020 revealed preserved LV systolic function with ejection fraction 55% with mild tricuspid regurgitation and mildly elevated RVSP at 38 mmHg. Most recent stress test performed in the office October 2020 with a Lexiscan stress test that was negative for reversible cardiac ischemia. Most recent catheterization performed in 2013 revealed [place] multivessel disease with a patent SILVER to LAD, patent SVG to diet, OM1, OM 3 and PDA. REVIEW OF SYSTEMS At the time of my exam: CONSTITUTIONAL: Denies fever or chills. CARDIOVASCULAR: Denies chest pain, shortness of breath, orthopnea, PND or palpitations. RESPIRATORY: Denies cough. GASTROINTESTINAL: Denies abdominal pain, diarrhea, constipation, nausea or vomiting. MUSCULOSKELETAL: Denies myalgias. NEUROLOGIC: Denies numbness, tingling, headacbe or weakness. ENDOCRINE: Denies fatigue, weight change, polydipsia or polyurina. GENITOURINARY: Denies burning, hematuria or urgency with micturation. HEMATOLOGIC: Denies history of anemia or bleeding. PHYSICAL EXAMINATION Blood pressure 131/68 heart rate 67 afebrile and maintaining oxygen saturation on room air. CONSTITUTIONAL: No apparent distress. HEENT: Head is normocephalic. Pupils are equal, round. Sclerae anicteric. Mucous membranes of the mouth are moist. No JVD. No carotid bruit. CHEST EXAMINATION: Lungs are clear to auscultation. No chest wall tenderness is noted on palpation or with deep breathing. HEART EXAMINATION: Regular rate and rhythm. S1, S2 heard. No murmurs, gallops or rub. ABDOMEN: Soft, nontender. Positive bowel sounds. EXTREMITIES: 2+ peripheral pulses, no lower extremity edema and no calf tenderness. NEUROLOGIC EXAMINATION: Patient is awake, alert and oriented x3. ASSESSMENT Chest pain Recent TIA Coronary artery disease status post bypass grafting Diabetes mellitus Hypertension Dyslipidemia PLAN An acute coronary event has been ruled out. Recent stress testing in the office was unremarkable and negative for reversibility. No EKG evidence of ischemia. He is appropriately medically managed, continue current cardiac medications. Stable for discharge from a cardiac perspective, follow-up in the office with Dr. Armstrong upon discharge. Thank you kindly for this consultation. Nurse Practitioner note has been reviewed, I agree with a documented findings and plan of care. Patient was seen and examined. Past Medical History Past Medical History: Asthma, Coronary Artery Disease (CAD), Chest Pain / Angina, Diabetes Mellitus, GERD/Reflux, Hearing Disorder / Deafness, Hyperlipidemia, Hypertension, Memory Impairment, Myocardial Infarction ([place]), Osteoarthritis (OA), Pneumonia, Seizure Disorder, Thyroid Disorder Additional Past Medical History / Comment(s): tinnitus, recent chest pain & admission to [facility] on Thursday, last seizures 3-4 yrs ago Last Myocardial Infarction Date:: january History of Any Multi-Drug Resistant Organisms: None Reported Past Surgical History: Coronary Bypass/CABG, Heart Catheterization With Stent, Hernia Repair, Orthopedic Surgery, Tonsillectomy Additional Past Surgical History / Comment(s): left hand, rt eye surgery, rt shoulder repair x2, bilat hernia repair, rt foot sx, colonoscopy, 5 VESSEL CABG IN 2009, LOST 4 FINGERS ON LEFT HAND AT 15 YEARS OF AGE, arthroscopic right knee surg. Past Anesthesia/Blood Transfusion Reactions: No Reported Reaction Date of Last Stent Placement:: 2020 Past Psychological History: No Psychological Hx Reported Smoking Status: Former smoker Past Alcohol Use History: None Reported Additional Past Alcohol Use History / Comment(s): quit smoking 37 yrs ago Past Drug Use History: None Reported - Past Family History Mother Family Medical History: Diabetes Mellitus, Hypertension Father Additional Family Medical History / Comment(s): four way bypass Medications and Allergies Home Medications Medication Instructions Recorded Confirmed Type Isosorbide Mononitrate [Imdur] 30 mg PO DAILY 08/09/14 05/23/21 History Nitroglycerin Sl Tabs [Nitrostat] 0.4 mg SUBLINGUAL Q5M PRN 08/09/14 05/23/21 History lisinopriL [Zestril] 20 mg PO BID 09/20/15 05/23/21 History Aspirin 81 mg PO DAILY 08/11/17 05/23/21 History Metoprolol Tartrate [Lopressor] 25 mg PO BID 05/01/18 05/23/21 History traZODone HCL 100 mg PO HS 05/01/18 05/23/21 History Levothyroxine Sodium [Synthroid] 112 mcg PO DAILY 01/24/21 05/23/21 History glipiZIDE [Glucotrol] 10 mg PO BID 01/24/21 05/23/21 History Clopidogrel [Plavix] 75 mg PO DAILY tab 01/29/21 05/23/21 Rx Atorvastatin Calcium [Lipitor] 10 mg PO DAILY 05/23/21 05/23/21 History Allergies Allergy/AdvReac Type Severity Reaction Status Date / Time ciprofloxacin Allergy Rash/Hives Verified 05/23/21 20:18 fluticasone propionate Allergy Rash/Hives Verified 05/23/21 20:18 [From Flonase] metformin Allergy Rash/Hives Verified 05/23/21 20:18 metformin HCl Allergy Rash/Hives Verified 05/23/21 20:18 [From Glucophage] Physical Exam Vitals: Vital Signs Temp Pulse Pulse Resp BP BP Pulse Ox 05/24/21 07:36 97.3 F L 71 18 112/72 98 05/24/21 02:00 96.9 F L 57 L 16 114/57 95 05/24/21 00:06 59 L 16 132/64 95 05/23/21 23:25 60 18 118/67 93 L 05/23/21 21:17 67 18 119/64 94 L 05/23/21 19:22 72 12 119/71 100 05/23/21 18:34 97.9 F 72 20 138/69 97 Intake and Output 05/23/21 05/24/21 05/24/21 22:59 06:59 14:59 Other: Weight 77.111 kg 77.111 kg Results 05/23/21 19:12 05/23/21 19:12 Cardiac Enzymes 05/23/21 05/23/21 05/23/21 Range/Units 19:12 19:12 22:20 AST 30 (17-59) U/L Troponin I <0.012 <0.012 (0.000-0.034) ng/mL 05/24/21 Range/Units 01:07 AST (17-59) U/L Troponin I <0.012 (0.000-0.034) ng/mL Coagulation 05/23/21 Range/Units 19:12 PT 10.3 (9.0-12.0) sec APTT 24.0 (22.0-30.0) sec CBC 05/23/21 Range/Units 19:12 WBC 8.6 (3.8-10.6) k/uL RBC 4.45 (4.30-5.90) m/uL Hgb 14.2 (13.0-17.5) gm/dL Hct 40.1 (39.0-53.0) % Plt Count 228 (150-450) k/uL Comprehensive Metabolic Panel 05/23/21 Range/Units 19:12 Sodium 136 L (137-145) mmol/L Potassium 4.3 (3.5-5.1) mmol/L Chloride 105 (98-107) mmol/L Carbon Dioxide 21 L (22-30) mmol/L BUN 19 (9-20) mg/dL Creatinine 1.24 (0.66-1.25) mg/dL Glucose 181 H (74-99) mg/dL Calcium 9.4 (8.4-10.2) mg/dL AST 30 (17-59) U/L ALT 24 (4-49) U/L Alkaline Phosphatase 54 (38-126) U/L Total Protein 6.5 (6.3-8.2) g/dL Albumin 4.1 (3.5-5.0) g/dL Current Medications Generic Name Dose Route Start Last Admin Trade Name Freq PRN Reason Stop Dose Admin Acetaminophen 650 mg 05/23/21 21:12 Acetaminophen Tab 325 Mg Tab PO Q6HR PRN Mild Pain or Fever > 100.5 Al Hydroxide/Mg Hydroxide 15 ml 05/23/21 21:12 Mag Hydrox/Al Hydrox/Simeth 30 Ml Cup PO Q6HR PRN Indigestion Alprazolam 0.25 mg 05/23/21 21:12 Alprazolam 0.25 Mg Tab PO Q6HR PRN Anxiety Aspirin 81 mg 05/24/21 09:00 Aspirin 81 Mg PO DAILY [facility] Atorvastatin Calcium 10 mg 05/24/21 09:00 Atorvastatin 10 Mg Tab PO DAILY [facility] Calcium Carbonate/Glycine 1,000 mg 05/23/21 21:12 Calcium Carbonate 500 Mg Chewable PO Q4HR PRN Dyspepsia Clopidogrel Bisulfate 75 mg 05/24/21 09:00 Clopidogrel 75 Mg Tab PO DAILY [facility] Glipizide 10 mg 05/24/21 09:00 Glipizide 10 Mg Tab PO BID [facility] Insulin Aspart 0 unit 05/23/21 21:15 05/24/21 06:52 Insulin Aspart (Novolog) 100 Unit/Ml Vial SQ Not Given ACHS [facility] Protocol Isosorbide Mononitrate 30 mg 05/24/21 09:00 Isosorbide Mononitrate Er 30 Mg Tab.Er.24h PO DAILY [facility] Lactulose 20 gm 05/23/21 21:12 Lactulose 20 Gm/30 Ml Cup PO DAILY PRN Constipation Levothyroxine Sodium 112 mcg 05/24/21 06:30 05/24/21 07:30 Levothyroxine 112 Mcg Tab PO 112 mcg DAILY@0630 [facility] Administration Lisinopril 20 mg 05/23/21 21:15 05/23/21 22:32 Lisinopril 20 Mg Tab PO 20 mg BID JEVON Administration Magnesium Hydroxide 2,400 mg 05/23/21 21:12 Magnesium Hydroxide 2,400 Mg/10 Ml Cup PO DAILY PRN Constipation Melatonin 3 mg 05/23/21 21:12 Melatonin 3 Mg Tablet PO HS PRN Insomnia Metoprolol Tartrate 25 mg 05/23/21 21:15 05/23/21 22:32 Metoprolol Tartrate 25 Mg Tab PO 25 mg BID JEVON Administration Morphine Sulfate 4 mg 05/23/21 21:16 Morphine Sulfate 4 Mg/Ml Syringe IV Q4HR PRN Severe Pain Naloxone HCl 0.2 mg 05/23/21 21:12 Naloxone 0.4 Mg/Ml 1 Ml Vial IV Q2M PRN Opioid Reversal Naloxone HCl 0.2 mg 05/23/21 21:16 Naloxone 0.4 Mg/Ml 1 Ml Vial IV Q2M PRN Opioid Reversal Nitroglycerin 0.4 mg 05/23/21 21:11 Nitroglycerin Sl Tabs 0.4 Mg Tab SUBLINGUAL Q5M PRN Chest Pain Ondansetron HCl 4 mg 05/23/21 21:12 Ondansetron 4 Mg/2 Ml Vial IVP Q8HR PRN Nausea And Vomiting Trazodone HCl 100 mg 05/23/21 21:15 05/23/21 22:32 Trazodone Hcl 50 Mg Tab PO 100 mg HS JEVON Administration Intake and Output 05/23/21 05/24/21 05/24/21 22:59 06:59 14:59 Other: Weight 77.111 kg 77.111 kg 05/23/21 19:12 05/23/21 19:12
[2021-05-24 11:39] LABS: Glucose,Whole Blood 278 mg/dL (75-99)
[2021-05-24 12:04] VITALS: RESP 17
[2021-05-24 13:49] LABS: Glucose,Whole Blood 226 mg/dL (75-99)
[2021-05-24 14:01] LABS: Chol/HDL Ratio 6.14
[2021-05-24 14:54] VITALS: BP 167/81; PULSE 56; TEMP 97.6
--- NOTE | 2021-05-24 20:40 | P.HPIM ---
History of Present Illness H&P Date: 05/24/21 Chief Complaint: Chest pain History of presenting complaint: This is a pleasant 65-year-old patient who follows with . [employer] is Dr. Cristin Díaz. Patient 2 days ago had presented to [facility], and he was diagnosed with a TIA. Was transferred to [facility]. He was diagnosed and discharge her the diagnoses of mini stroke. Patient came home. His symptoms had been started drinking, confused, weak in the arms and legs. Upon coming home patient developed central chest pressure in the middle distal sternum and is somebody was sitting that. No radiation. No dizziness, lightheadedness. No perspiration. Patient was short of breath. Symptoms lasted for good 12 hours. Upon arrival to the ER he was given 4 baby aspirin and then the pain currently settled down.. In January of this year, patient underwent a cardiac catheterization followed by successful stenting of the SVG to diagonal with a drug-eluting stent. Patient's had no other cardiac symptoms since then. Not too long ago patient also apparently had a stress test. That was apparently negative. This morning patient is symptom free. Laying in bed. at the bedside. Review of systems: GEN.: Tired EYES: None HEENT: Slight hard of hearing NECK: None RESPIRATORY: As above CARDIOVASCULAR: As above GASTROINTESTINAL: Heartburn GENITOURINARY: None MUSCULOSKELETAL: Joint pains LYMPHATICS: None HEMATOLOGICAL: None PSYCHIATRY: None NEUROLOGICAL: None Past medical history to include: Asthma, coronary artery disease with stent last one being January 2021, diabetes m ellitus, GERD, hard of hearing, hypertension, hyperlipidemia, mild cognitive impairment, osteoarthritis, seizure disorder, hypothyroid, tinnitus. Last seizure was about 3-4 years ago. Patient is also had a previous coronary bypass. Social history: . Stopped smoking 37 years ago. No alcohol. Family history: Hypertension, diabetes, coronary bypass Physical examination: VITAL SIGNS: 97.9, 72, 20, 1 38 /69, 97% room air GENERAL: BMI 29.2, reclining in bed, comfortable. EYES: Pupils equal. Conjunctiva normal. HEENT: External appearance of nose and ears normal, oral cavity grossly normal. NECK: JVD not raised; masses not palpable. HEART: First and second heart sounds are normal; no edema. LUNGS: Respiratory rate normal; clear to auscultation. ABDOMEN: Soft, nontender, liver spleen not palpable, no masses palpable. PSYCH: Alert and oriented x3; mood and affect normal. MUSCULAR skeletal: Evidence of OA. Distal part of the left forefingers lost at the age of 15 excluding the thumb NEUROLOGICAL: Cranial nerves grossly intact; no facial asymmetry, power and sensation grossly intact. LYMPHATICS: No lymph nodes palpable in the axilla and neck INVESTIGATIONS, reviewed in the clinical context: WBC 8.6 hemoglobin 14.2 platelets 228 potassium 4.3 creatinine 1.24 Troponin I: Less than 0.0123 LDL 53 EKG tracing personally reviewed by me-normal sinus rhythm, right bundle taylor block Chest x-ray film personally reviewed by me-no obvious infiltrate CT angiogram of the thorax, abdomen, pelvis, and aotra: Atherosclerotic vascular disease. No PE. No arterial aneurysm. Or dissection. Gallstones Assessment plan: -Central chest pressure lasting for 2 hours on and like summary sitting on the chest. Associated with shortness of breath. Troponin is negative. EKG unremarkable. Possible unstable angina. Note patient had a negative stress test not too long ago. -Coronary artery disease with stent in January 2021 Continue with Lopressor, Lipitor, Zestril, nitrates,, aspirin, Plavix -Diabetes mellitus type 2, on oral hypoglycemic Continue Glucotrol. Follow Accu-Cheks -GERD Pepcid when necessary -Hard of hearing -Hyperlipidemia Lipitor -Essential hypertension Lopressor, Zestril -Mild cognitive impairment -Primary osteoarthritis Pain medications as needed -Epilepsy disorder with the last episode about 3-4 years ago Patient not any seizure medications Home medications resumed. Follow Accu-Cheks. Cardiology was consulted. Care was discussed with the patient and family at the bedside. Past Medical History Past Medical History: Asthma, Coronary Artery Disease (CAD), Chest Pain / Angina, Diabetes Mellitus, GERD/Reflux, Hearing Disorder / Deafness, Hyperlipidemia, Hypertension, Memory Impairment, Myocardial Infarction ([place]), Osteoarthritis ([place]), Pneumonia, Seizure Disorder, Thyroid Disorder Additional Past Medical History / Comment(s): tinnitus, recent chest pain & admission to [facility] on Thursday, last seizures 3-4 yrs ago Last Myocardial Infarction Date:: january History of Any Multi-Drug Resistant Organisms: None Reported Past Surgical History: Coronary Bypass/CABG, Heart Catheterization With Stent, Hernia Repair, Orthopedic Surgery, Tonsillectomy Additional Past Surgical History / Comment(s): left hand, rt eye surgery, rt shoulder repair x2, bilat hernia repair, rt foot sx, colonoscopy, 5 VESSEL CABG IN 2009, LOST 4 FINGERS ON LEFT HAND AT 15 YEARS OF AGE, arthroscopic right knee surg. Past Anesthesia/Blood Transfusion Reactions: No Reported Reaction Date of Last Stent Placement:: 2020 Past Psychological History: No Psychological Hx Reported Smoking Status: Former smoker Past Alcohol Use History: None Reported Additional Past Alcohol Use History / Comment(s): quit smoking 37 yrs ago Past Drug Use History: None Reported - Past Family History Mother Family Medical History: Diabetes Mellitus, Hypertension Father Additional Family Medical History / Comment(s): four way bypass Medications and Allergies Home Medications Medication Instructions Recorded Confirmed Type Isosorbide Mononitrate [Imdur] 30 mg PO DAILY 08/09/14 05/23/21 History Nitroglycerin Sl Tabs [Nitrostat] 0.4 mg SUBLINGUAL Q5M PRN 08/09/14 05/23/21 History lisinopriL [Zestril] 20 mg PO BID 09/20/15 05/23/21 History Aspirin 81 mg PO DAILY 08/11/17 05/23/21 History Metoprolol Tartrate [Lopressor] 25 mg PO BID 05/01/18 05/23/21 History traZODone HCL 100 mg PO HS 05/01/18 05/23/21 History Levothyroxine Sodium [Synthroid] 112 mcg PO DAILY 01/24/21 05/23/21 History glipiZIDE [Glucotrol] 10 mg PO BID 01/24/21 05/23/21 History Clopidogrel [Plavix] 75 mg PO DAILY tab 01/29/21 05/23/21 Rx Atorvastatin Calcium [Lipitor] 10 mg PO DAILY 05/23/21 05/23/21 History Allergies Allergy/AdvReac Type Severity Reaction Status Date / Time ciprofloxacin Allergy Rash/Hives Verified 05/23/21 20:18 fluticasone propionate Allergy Rash/Hives Verified 05/23/21 20:18 [From Flonase] metformin Allergy Rash/Hives Verified 05/23/21 20:18 metformin HCl Allergy Rash/Hives Verified 05/23/21 20:18 [From Glucophage] Physical Exam Vitals: Vital Signs Temp Pulse Pulse Resp BP BP Pulse Ox 05/24/21 09:52 67 18 131/68 96 05/24/21 07:36 97.3 F L 71 18 112/72 98 05/24/21 02:00 96.9 F L 57 L 16 114/57 95 05/24/21 00:06 59 L 16 132/64 95 05/23/21 23:25 60 18 118/67 93 L 05/23/21 21:17 67 18 119/64 94 L 05/23/21 19:22 72 12 119/71 100 05/23/21 18:34 97.9 F 72 20 138/69 97 Intake and Output 05/23/21 05/24/21 05/24/21 22:59 06:59 14:59 Other: Weight 77.111 kg 77.111 kg Results CBC & Chem 7: 05/23/21 19:12 05/23/21 19:12 Labs: Abnormal Lab Results - Last 24 Hours (Table) 05/23/21 05/23/21 05/24/21 Range/Units 19:12 22:20 06:43 Sodium 136 L (137-145) mmol/L Carbon Dioxide 21 L (22-30) mmol/L Glucose 181 H (74-99) mg/dL POC Glucose (mg/dL) 128 H 141 H (75-99) mg/dL Lipase 308 H (23-300) U/L Thrombosis Risk Factor Assmnt - Choose All That Apply Any of the Below Risk Factors Present?: Yes Each Factor Represents 1 point: Obesity (BMI >25) Other Risk Factors: Yes Each Risk Factor Represents 2 Points: Age 61-74 years Thrombosis Risk Factor Assessment Total Risk Factor Score: 3 Thrombosis Risk Factor Assessment Level: Moderate Risk
--- NOTE | 2021-05-24 20:44 | P.DS ---
Providers Date of admission: 05/23/21 21:19 Expected date of discharge: 05/24/21 Attending physician: Jaspal Chao Consults: 05/23/21 21:16 Consult Physician Stat Consulting Provider: Hola Armstrong Consult Reason/Comments: chest pain Do you want consulting provider notified?: Yes, Notify in am Consult Physician Stat Consulting Provider: Elizabeth Armstrong Consult Reason/Comments: pancreatitis Do you want consulting provider notified?: Yes, Notify in am Primary care physician: Marilia Sharma [place] [facility] Course: Chief Complaint: Chest pain History of presenting complaint: This is a pleasant 65-year-old patient who follows with . Choke Reamer is Dr. Cristin Díaz. Patient 2 days ago had presented to [facility], and he was diagnosed with a TIA. Was transferred to [facility]. He was diagnosed and discharge her the diagnoses of mini stroke. Patient came home. His symptoms had been started drinking, confused, weak in the arms and legs. Upon coming home patient developed central chest pressure in the middle distal sternum and is somebody was sitting that. No radiation. No dizziness, lightheadedness. No perspiration. Patient was short of breath. Symptoms lasted for good 12 hours. Upon arrival to the ER he was given 4 baby aspirin and then the pain currently settled down.. In January of this year, patient un derwent a cardiac catheterization followed by successful stenting of the SVG to diagonal with a drug-eluting stent. Patient's had no other cardiac symptoms since then. Not too long ago patient also apparently had a stress test. That was apparently negative. This morning patient is symptom free. Laying in bed. at the bedside. Troponin is negative. EKG unremarkable. Patient had a [facility] test [facility] in October 2020 with a negative x-ray can stress test. Patient was cleared by cardiology to go home. Also seen by Dr. Chacon from GI and cleared to go home. Consultation: Dr. Marlon Pickard from cardiology Dr. arias from GI Past medical history to include: Asthma, coronary artery disease with stent last one being January 2021, diabetes mellitus, GERD, hard of hearing, hypertension, hyperlipidemia, mild cognitive impairment, osteoarthritis, seizure disorder, hypothyroid, tinnitus. Last seizure was about 3-4 years ago. Patient is also had a previous coronary bypass. Social history: . Stopped smoking 37 years ago. No alcohol. Family history: Hypertension, diabetes, coronary bypass Physical examination: VITAL SIGNS: 97.6, 56, 17, 167 was 81, 98% room air GENERAL: BMI 29.2, reclining in bed, comfortable. EYES: Pupils equal. Conjunctiva normal. HEENT: External appearance of nose and ears normal, oral cavity grossly normal. NECK: JVD not raised; masses not palpable. HEART: First and second heart sounds are normal; no edema. LUNGS: Respiratory rate normal; clear to auscultation. ABDOMEN: Soft, nontender, liver spleen not palpable, no masses palpable. PSYCH: Alert and oriented x3; mood and affect normal. MUSCULAR skeletal: Evidence of OA. Distal part of the left forefingers lost at the age of 15 excluding the thumb NEUROLOGICAL: Cranial nerves grossly intact; no facial asymmetry, power and sensation grossly intact. LYMPHATICS: No lymph nodes palpable in the axilla and neck INVESTIGATIONS, reviewed in the clinical context: WBC 8.6 hemoglobin 14.2 platelets 228 potassium 4.3 creatinine 1.24 Troponin I: Less than 0.0123 LDL 53 EKG tracing personally reviewed by me-normal sinus rhythm, right bundle taylor block Chest x-ray film personally reviewed by me-no obvious infiltrate CT angiogram of the thorax, abdomen, pelvis, and aotra: Atherosclerotic vascular disease. No PE. No arterial aneurysm. Or dissection. Gallstones Assessment plan: -Central chest pressure lasting for 2 hours on and like summary sitting on the chest. Associated with shortness of breath. Troponin is negative. EKG unrema rkable. Seen by currently. Cleared for discharge. No further change in medications. Patient followed by Dr. Cristin Díaz -Coronary artery disease with stent in January 2021 Continue with Lopressor, Lipitor, Zestril, nitrates,, aspirin, Plavix -Diabetes mellitus type 2, on oral hypoglycemic Continue Glucotrol. Follow Accu-Cheks -GERD Pepcid when necessary -Hard of hearing -Hyperlipidemia Lipitor -Essential hypertension Lopressor, Zestril -Mild cognitive impairment -Primary osteoarthritis Pain medications as needed -Epilepsy disorder with the last episode about 3-4 years ago Patient not any seizure medications Disposition: Home Plan - Discharge Summary Discharge Rx Participant: No New Discharge Prescriptions: Continue Nitroglycerin Sl Tabs [Nitrostat] 0.4 mg SUBLINGUAL Q5M PRN PRN Reason: Chest Pain Isosorbide Mononitrate [Imdur] 30 mg PO DAILY lisinopriL [Zestril] 20 mg PO BID Aspirin 81 mg PO DAILY traZODone HCL 100 mg PO HS Metoprolol Tartrate [Lopressor] 25 mg PO BID glipiZIDE [Glucotrol] 10 mg PO BID Levothyroxine Sodium [Synthroid] 112 mcg PO DAILY Clopidogrel [Plavix] 75 mg PO DAILY tab Atorvastatin Calcium [Lipitor] 10 mg PO DAILY Discharge Medication List Isosorbide Mononitrate [Imdur] 30 mg PO DAILY 08/09/14 [History] Nitroglycerin Sl Tabs [Nitrostat] 0.4 mg SUBLINGUAL Q5M PRN 08/09/14 [History] lisinopriL [Zestril] 20 mg PO BID 09/20/15 [History] Aspirin 81 mg PO DAILY 08/11/17 [History] Metoprolol Tartrate [Lopressor] 25 mg PO BID 05/01/18 [History] traZODone HCL 100 mg PO HS 05/01/18 [History] Levothyroxine Sodium [Synthroid] 112 mcg PO DAILY 01/24/21 [History] glipiZIDE [Glucotrol] 10 mg PO BID 01/24/21 [History] Clopidogrel [Plavix] 75 mg PO DAILY tab 01/29/21 [Rx] Atorvastatin Calcium [Lipitor] 10 mg PO DAILY 05/23/21 [History] Follow up Appointment(s)/Referral(s): Marilia Sharma DO [Primary Care Provider] - 1-2 days Hola Armstrong MD [STAFF PHYSICIAN] - 2 Weeks Patient Instructions/Handouts: Pancreatitis (GEN), Clear Liquid Diet (GEN) Discharge Disposition: HOME SELF-CARE
== END 2021-05-24 16:12 | disposition home or self-care (01) ==
LOC: EC 18:28 → 6NMEDSUR 21:19
PROVIDERS: ADMIT Hospitalist; ATTEND Hospitalist
DX: R07.89 Other chest pain (principal); K86.1 Other chronic pancreatitis; I10 Essential (primary) hypertension; I25.810 Atherosclerosis of coronary artery bypass graft(s) without angina pectoris; I70.0 Atherosclerosis of aorta; K55.1 Chronic vascular disorders of intestine; K80.20 Calculus of gallbladder without cholecystitis without obstruction; E11.9 Type 2 diabetes mellitus without complications; G31.84 Mild cognitive impairment of uncertain or unknown etiology; E03.9 Hypothyroidism, unspecified; M19.91 Primary osteoarthritis, unspecified site; I07.1 Rheumatic tricuspid insufficiency; I45.10 Unspecified right bundle-branch block; G40.909 Epilepsy, unspecified, not intractable, without status epilepticus; J98.11 Atelectasis; H93.13 Tinnitus, bilateral; J45.909 Unspecified asthma, uncomplicated; E78.5 Hyperlipidemia, unspecified; I25.2 Old myocardial infarction; H91.90 Unspecified hearing loss, unspecified ear; K21.9 Gastro-esophageal reflux disease without esophagitis; E66.9 Obesity, unspecified; Z68.29 Body mass index [BMI] 29.0-29.9, adult; Z79.82 Long term (current) use of aspirin; Z79.84 Long term (current) use of oral hypoglycemic drugs; Z79.890 Hormone replacement therapy; Z79.02 Long term (current) use of antithrombotics/antiplatelets; Z79.899 Other long term (current) drug therapy; Z88.1 Allergy status to other antibiotic agents; Z88.8 Allergy status to other drugs, medicaments and biological substances; Z87.891 Personal history of nicotine dependence; Z95.1 Presence of aortocoronary bypass graft; Z86.73 Personal history of transient ischemic attack (TIA), and cerebral infarction without residual deficits; Z87.01 Personal history of pneumonia (recurrent); Z95.5 Presence of coronary angioplasty implant and graft; Z89.022 Acquired absence of left finger(s); Z98.890 Other specified postprocedural states; Z82.49 Family history of ischemic heart disease and other diseases of the circulatory system; Z83.3 Family history of diabetes mellitus
CPT/HCPCS: 99285; 36415; 93005; 80061; 80053; 83690; 83735; 84484 ×2; 85025; 85610; 85730; 71045; 71275; 74174; G0378 ×2; Q9967

== ENCOUNTER 2021-06-11 12:39 | Observation (INO) | payer MEDICARE, OTHER ==
[2021-06-11] MEDS ORDERED: SODIUM CHLORIDE 0.9% 500 ML 500 ML IV STA (13:35)
[2021-06-11] MEDS ORDERED: ONDANSETRON 4 MG/2 ML VIAL IVP STA (13:35)
--- NOTE | 2021-06-11 13:42 | ED ---
Abdominal Pain HPI - General Chief Complaint: Abdominal Pain Stated Complaint: vomiting Source: patient, family, RN notes reviewed, old records reviewed Mode of arrival: wheelchair Limitations: no limitations - History of Present Illness Initial Comments: 65-year-old white male alert and oriented 4, presents to the emergency room with 2 family members. Patient states he's been having abdominal pain for over 3 weeks and has been seen by Dr. Díaz on Thursday and told that they need to schedule an appointment for endoscopy. Patient was told that it is not his gallbladder and he is not pancreatitis. He has had multiple CAT scans per family here and at [facility] 2 weeks ago. They do have an appointment with Dr. Flores July 05. Patient states that the pain has been significantly worse today. He is nauseated but no current vomiting. He has no fevers. He states that the pain goes into his chest and also makes him feel short of breath. Family states that he has had black stools in the past. MD Complaint: abdominal pain (3) Location: LUQ, LLQ Severity: severe Severity scale (1-10): 10 Quality: fullness Consistency: constant Improves With: nothing Worsens With: other (Palpation) - Related Data Home Medications Medication Instructions Recorded Confirmed Isosorbide Mononitrate [Imdur] 30 mg PO DAILY 08/09/14 06/11/21 Nitroglycerin Sl Tabs [Nitrostat] 0.4 mg SUBLINGUAL Q5M PRN 08/09/14 06/11/21 lisinopriL [Zestril] 20 mg PO BID 09/20/15 06/11/21 Aspirin 81 mg PO DAILY 08/11/17 06/11/21 Metoprolol Tartrate [Lopressor] 25 mg PO BID 05/01/18 06/11/21 Levothyroxine Sodium [Synthroid] 112 mcg PO DAILY 01/24/21 06/11/21 glipiZIDE [Glucotrol] 10 mg PO BID 01/24/21 06/11/21 Atorvastatin Calcium [Lipitor] 10 mg PO HS 05/23/21 06/11/21 Cholecalciferol [Vitamin D3 (25 25 mcg PO DAILY 06/11/21 06/11/21 Mcg = 1000 Iu)] Escitalopram [Lexapro] 10 mg PO DAILY 06/11/21 06/11/21 [place]-3 Fatty Acids/Fish Oil [Fish 1 cap PO DAILY 06/11/21 06/11/21 Oil 1,000 mg Softgel] Pantoprazole Sodium 40 mg PO DAILY 06/11/21 06/11/21 Vitamin B Complex 1 cap PO DAILY 06/11/21 06/11/21 hydrOXYzine HCL [Atarax] 50 mg PO HS PRN 06/11/21 06/11/21 traZODone HCL 100 mg PO HS 06/11/21 06/11/21 Previous Rx's Medication Instructions Recorded Clopidogrel [Plavix] 75 mg PO DAILY tab 01/29/21 Allergies Allergy/AdvReac Type Severity Reaction Status Date / Time ciprofloxacin Allergy Rash/Hives Verified 06/11/21 13:16 fluticasone propionate Allergy Rash/Hives Verified 06/11/21 13:16 [From Flonase] metformin Allergy Rash/Hives Verified 06/11/21 13:16 metformin HCl Allergy Rash/Hives Verified 06/11/21 13:16 [From Glucophage] morphine Allergy Unknown Verified 06/11/21 13:16 Review of Systems ROS Statement: Those systems with pertinent positive or pertinent negative responses have been documented in the HPI. ROS Other: All systems not noted in ROS Statement are negative. Past Medical History Past Medical History: Asthma, Coronary Artery Disease (CAD), Chest Pain / Angina, Diabetes Mellitus, GERD/Reflux, Hearing Disorder / Deafness, Hyperlipidemia, Hypertension, Memory Impairment, Myocardial Infarction ([place]), Osteoarthritis (OA), Pneumonia, Seizure Disorder, Thyroid Disorder Additional Past Medical History / Comment(s): tinnitus, recent chest pain & admission to [facility] on Thursday, last seizures 3-4 yrs ago Last Myocardial Infarction Date:: january History of Any Multi-Drug Resistant Organisms: None Reported Past Surgical History: Coronary Bypass/CABG, Heart Catheterization With Stent, Hernia Repair, Orthopedic Surgery, Tonsillectomy Additional Past Surgical History / Comment(s): left hand, rt eye surgery, rt shoulder repair x2, bilat hernia repair, rt foot sx, colonoscopy, 5 VESSEL CABG IN 2008, LOST 4 FINGERS ON LEFT HAND AT 15 YEARS OF AGE, arthroscopic right knee surg. Past Anesthesia/Blood Transfusion Reactions: No Reported Reaction Date of Last Stent Placement:: 2020 Past Psychological History: No Psychological Hx Reported Smoking Status: Former smoker Past Alcohol Use History: None Reported Past Drug Use History: None Reported - Past Family History Mother Family Medical History: Diabetes Mellitus, Hypertension Father Additional Family Medical History / Comment(s): four way bypass General Exam Limitations: no limitations General appearance: alert, in no apparent distress Head exam: Present: atraumatic, normocephalic, normal inspection Eye exam: Present: normal appearance, PERRL, EOMI. Absent: scleral icterus, conjunctival injection, periorbital swelling ENT exam: Present: normal exam, normal oropharynx, mucous membranes moist Neck exam: Present: normal inspection, full ROM. Absent: tenderness, meningismus, lymphadenopathy, thyromegaly Respiratory exam: Present: normal lung sounds bilaterally. Absent: respiratory distress, wheezes, rales, rhonchi, stridor, chest wall tenderness, accessory mu scle use, decreased breath sounds, prolonged expiratory Cardiovascular Exam: Present: regular rate, normal rhythm, normal heart sounds. Absent: systolic murmur, diastolic murmur, rubs, gallop, clicks GI/Abdominal exam: Present: soft, tenderness, normal bowel sounds. Absent: guarding, rebound, rigid, mass, pulsatile mass, hernia Extremities exam: Present: normal inspection, full ROM, normal capillary refill. Absent: tenderness, pedal edema, joint swelling, calf tenderness Back exam: Present: full ROM. Absent: tenderness, CVA tenderness (R), CVA tenderness (L), muscle spasm, paraspinal tenderness, vertebral tenderness Neurological exam: Present: alert, oriented X3, CN II-XII intact Psychiatric exam: Present: normal affect, normal mood Skin exam: Present: warm, dry, intact, normal color. Absent: rash, cyanosis, diaphoretic, erythema, petechiae, pallor, mottled Course Vital Signs 06/11/21 06/11/21 13:12 16:06 Temperature 97.8 F Pulse Rate 63 65 Respiratory 18 18 Rate Blood Pressure 148/78 148/62 O2 Sat by Pulse 98 96 Oximetry Medical Decision Making - Medical Decision Making X-ray KUB shows no evidence of free air or bowel obstruction, there is mild stool burden. There is a 2 mm calcification in the left paramedian mid abdomen unchanged from 2018. Coils in the left lower pelvs from prior mesh repair. Case discussed with Dr. Schmid. Patient will be admitted with persistent abdominal pain. He has been seen in multiple emergency rooms for this same complaint of abdominal pain in the past month. He states his appointment with Dr. Flores isn't until July 05. Family concerned about increasing pain. - Lab Data Result diagrams: 06/11/21 13:53 06/11/21 13:53 Lab Results 06/11/21 06/11/21 06/11/21 Range/Units 13:53 13:53 13:53 WBC 6.1 (3.8-10.6) k/uL RBC 4.55 (4.30-5.90) m/uL Hgb 14.6 (13.0-17.5) gm/dL Hct 42.3 (39.0-53.0) % MCV 93.1 (80.0-100.0) fL MCH 32.2 (25.0-35.0) pg MCHC 34.6 (31.0-37.0) g/dL RDW 13.5 (11.5-15.5) % Plt Count 208 (150-450) k/uL MPV 8.9 Neutrophils % 51 % Lymphocytes % 29 % Monocytes % 9 % Eosinophils % 8 % Basophils % 1 % Neutrophils # 3.1 (1.3-7.7) k/uL Lymphocytes # 1.8 (1.0-4.8) k/uL Monocytes # 0.5 (0-1.0) k/uL Eosinophils # 0.5 (0-0.7) k/uL Basophils # 0.1 (0-0.2) k/uL Sodium 138 (137-145) mmol/L Potassium 4.5 (3.5-5.1) mmol/L Chloride 105 (98-107) mmol/L Carbon Dioxide 26 (22-30) mmol/L Anion Gap 7 mmol/L BUN 14 (9-20) mg/dL Creatinine 1.04 (0.66-1.25) mg/dL Est GFR (CKD-EPI)AfAm 87 (>60 ml/min/1.73 sqM) Est GFR (CKD-EPI)NonAf 75 (>60 ml/min/1.73 sqM) Glucose 110 H (74-99) mg/dL POC Glucose (mg/dL) (75-99) mg/dL POC Glu Sports Medicine Coordinator ID Calcium 9.4 (8.4-10.2) mg/dL Total Bilirubin 0.5 (0.2-1.3) mg/dL AST 27 (17-59) U/L ALT 21 (4-49) U/L Alkaline Phosphatase 42 (38-126) U/L Troponin I (0.000-0.034) ng/mL Total Protein 6.7 (6.3-8.2) g/dL Albumin 4.1 (3.5-5.0) g/dL Amylase 97 (30-110) U/L Lipase 269 (23-300) U/L Urine Color Light Yellow Urine Appearance Clear (Clear) Urine pH 5.5 (5.0-8.0) Ur Specific [place] 1.005 (1.001-1.035) Urine Protein Negative (Negative) Urine Glucose (UA) Trace H (Negative) Urine Ketones Negative (Negative) Urine Blood Negative (Negative) Urine Nitrite Negative (Negative) Urine Bilirubin Negative (Negative) Urine Urobilinogen <2.0 (<2.0) mg/dL Ur Leukocyte Esterase Negative (Negative) 06/11/21 06/11/21 Range/Units 13:53 17:02 WBC (3.8-10.6) k/uL RBC (4.30-5.90) m/uL Hgb (13.0-17.5) gm/dL Hct (39.0-53.0) % MCV (80.0-100.0) fL MCH (25.0-35.0) pg MCHC (31.0-37.0) g/dL RDW (11.5-15.5) % Plt Count (150-450) k/uL MPV Neutrophils % % Lymphocytes % % Monocytes % % Eosinophils % % Basophils % % Neutrophils # (1.3-7.7) k/uL Lymphocytes # (1.0-4.8) k/uL Monocytes # (0-1.0) k/uL Eosinophils # (0-0.7) k/uL Basophils # (0-0.2) k/uL Sodium (137-145) mmol/L Potassium (3.5-5.1) mmol/L Chloride (98-107) mmol/L Carbon Dioxide (22-30) mmol/L Anion Gap mmol/L BUN (9-20) mg/dL Creatinine (0.66-1.25) mg/dL Est GFR (CKD-EPI)AfAm (>60 ml/min/1.73 sqM) Est GFR (CKD-EPI)NonAf (>60 ml/min/1.73 sqM) Glucose (74-99) mg/dL POC Glucose (mg/dL) 66 L (75-99) mg/dL POC Glu Sports Medicine Coordinator ID Janice Moffett Calcium (8.4-10.2) mg/dL Total Bilirubin (0.2-1.3) mg/dL AST (17-59) U/L ALT (4-49) U/L Alkaline Phosphatase (38-126) U/L Troponin I <0.012 (0.000-0.034) ng/mL Total Protein (6.3-8.2) g/dL Albumin (3.5-5.0) g/dL Amylase (30-110) U/L Lipase (23-300) U/L Urine Color Urine Appearance (Clear) Urine pH (5.0-8.0) Ur Specific [place] (1.001-1.035) Urine Protein (Negative) Urine Glucose (UA) (Negative) Urine Ketones (Negative) Urine Blood (Negative) Urine Nitrite (Negative) Urine Bilirubin (Negative) Urine Urobilinogen (<2.0) mg/dL Ur Leukocyte Esterase (Negative) - EKG Data EKG shows normal: sinus rhythm (Ventricular rate of 55, MN interval 0.16, QRS of 0.172, QT sees 0.443) When compared to previous EKG there are: no significant change (05/23/2021) Disposition Clinical Impression: Abdominal pain Disposition: ADMITTED IP TO THIS [facility] Referrals: Marilia Sharma DO [Primary Care Provider] - 1-2 days Decision Date: 06/11/21 Decision Time: 17:09
--- NOTE | 2021-06-11 14:06 | XR ---
EXAMINATION TYPE: XR KUB DATE OF EXAM: 06/11/2021 Comparison: 05/07/2018 Clinical History: 65-year-old male abdominal pain Findings: Lung bases are clear. And median sternotomy wires and post-CABG clips. No evidence for free intraperitoneal air. No dilated small bowel or air-fluid levels. Scattered mild stool burden. Coils in the lower left side of the pelvis from prior mesh repair. Punctate 2 mm calcification left paramedian mid abdomen unchanged from 2018 and probably vascular. Impression: No evidence for free air or bowel obstruction. Mild scattered stool burden.
[2021-06-11 14:11] LABS: Appearance,Urine Clear (Clear); Bilirubin,Urine Negative (Negative); Blood,Urine Negative (Negative); Color,Urine Light Yellow; Glucose,Urine (UA) Trace (Negative); Ketones,Urine Negative (Negative); Leukocyte Esterase,Urine Negative (Negative); Nitrite,Urine Negative (Negative); PH, Urine 5.5 (5.0-8.0); Protein,Urine Negative (Negative); Specific Gravity,Urine 1.005 (1.001-1.035); Urobilinogen,Urine <2.0 mg/dL (<2.0)
[2021-06-11 14:14] LABS: Basophils # (A) 0.1 k/uL (0-0.2); Basophils % (A) 1 %; Eosinophils # (A) 0.5 k/uL (0-0.7); Eosinophils % (A) 8 %; HCT 42.3 % (39.0-53.0); HGB 14.6 gm/dL (13.0-17.5); Lymphocytes # (A) 1.8 k/uL (1.0-4.8); Lymphocytes % (A) 29 %; MCH 32.2 pg (25.0-35.0); MCHC 34.6 g/dL (31.0-37.0); MCV 93.1 fL (80.0-100.0); Mean Platelet Volume 8.9; Monocytes # (A) 0.5 k/uL (0-1.0); Monocytes % (A) 9 %; Neutrophils # (A) 3.1 k/uL (1.3-7.7); Neutrophils % (A) 51 %; Platelet Count 208 k/uL (150-450); RBC 4.55 m/uL (4.30-5.90); RDW 13.5 % (11.5-15.5); WBC 6.1 k/uL (3.8-10.6)
[2021-06-11 14:21] LABS: Albumin 4.1 g/dL (3.5-5.0); Calcium 9.4 mg/dL (8.4-10.2); Potassium 4.5 mmol/L (3.5-5.1); Total Bilirubin 0.5 mg/dL (0.2-1.3); Total Protein 6.7 g/dL (6.3-8.2)
[2021-06-11] MEDS ORDERED: LACTULOSE 20 GM/30 ML CUP PO ONE (15:44)
[2021-06-11] MEDS ORDERED: fentaNYL (PF) 50 MCG/ML 2 ML AMP IVP STA (16:01)
[2021-06-11] MEDS ORDERED: NALOXONE 0.4 MG/ML 1 ML VIAL IV PRN (16:10)
[2021-06-11] MEDS ORDERED: ACETAMINOPHEN TAB 325 MG TAB PO PRN (16:10)
[2021-06-11 17:03] LABS: Glucose,Whole Blood 66 mg/dL (75-99)
[2021-06-11] MEDS ORDERED: DEXTROSE 50% SYRINGE 50 ML IVP STA (17:05)
[2021-06-11 18:14] LABS: Glucose,Whole Blood 113 mg/dL (75-99)
[2021-06-11] MEDS: SODIUM CHLORIDE 0.9% 1,000 ML IV SCH (18:15)
[2021-06-11] MEDS ORDERED: NITROGLYCERIN SL TABS 0.4 MG TAB SUBLINGUAL PRN (18:33)
[2021-06-11] MEDS ORDERED: hydrOXYzine HCL 25 MG TAB PO PRN (18:33)
[2021-06-11] MEDS ORDERED: MAG HYDROX/AL HYDROX/SIMETH 30 ML CUP PO PRN (18:34)
[2021-06-11] MEDS ORDERED: MELATONIN 3 MG TABLET PO PRN (18:34)
[2021-06-11] MEDS ORDERED: ALPRAZolam 0.25 MG TAB PO PRN (18:34)
[2021-06-11] MEDS ORDERED: CALCIUM CARBONATE 500 MG CHEWABLE PO PRN (18:34)
[2021-06-11 19:18] LABS: Glucose,Whole Blood 104 mg/dL (75-99)
[2021-06-11] MEDS ORDERED: ATORVASTATIN 10 MG TAB PO SCH (21:00)
[2021-06-11] MEDS ORDERED: traZODone HCL 100 MG TAB PO SCH (21:00)
[2021-06-11 21:16] LABS: Glucose,Whole Blood 134 mg/dL (75-99)
[2021-06-11] MEDS: INSULIN ASPART (NovoLOG) 100 UNIT/ML VIAL SQ SCH (21:23)
[2021-06-11] MEDS: METOPROLOL TARTRATE 25 MG TAB PO SCH (21:23)
[2021-06-11] MEDS: lisinopriL 20 MG TAB PO SCH (21:23)
--- NOTE | 2021-06-11 22:05 | P.HPIM ---
History of Present Illness H&P Date: 06/11/21 Chief Complaint: Abdominal pain History of presenting complaint: This is a pleasant 65-year-old patient who follows with . Ground Crewman is Dr. Cristin Armstrong. In January of this year, patient underwent a cardiac catheterization followed by successful stenting of the SVG to diagonal with a drug-eluting stent. Patient now presents with left-sided abdominal pain discomfort. Feels a fullness. For a few hours. Some nausea. Patient been complaining of hard stools. Had a hard stool this morning. Appetite is okay. Review of systems: GEN.: Tired EYES: None HEENT: Slight hard of hearing NECK: None RESPIRATORY: As above CARDIOVASCULAR: As above GASTROINTESTINAL: Heartburn, as above GENITOURINARY: None MUSCULOSKELETAL: Joint pains LYMPHATICS: None HEMATOLOGICAL: None PSYCHIATRY: None NEUROLOGICAL: None Past medical history to include: Asthma, coronary artery disease with stent last one being January 2021, diabetes mellitus, GERD, hard of hearing, hypertension, hyperlipidemia, mild cognitive impairment, osteoarthritis, seizure disorder, hypothyroid, tinnitus. Last seizure was about 3-4 years ago. coronary bypass. Social history: . Stopped smoking 37 years ago. No alcohol. Family history: Hypertension, diabetes, coronary bypass Physical examination: VITAL SIGNS: 97.8, 63, 18, 148/78, 98% room air GENERAL: BMI 28.5, reclining in bed, comfortable EYES: Pupils equal. Conjunctiva normal. HEENT: External appearance of nose and ears normal, oral cavity grossly normal. NECK: JVD not raised; masses not palpable. HEART: First and second heart sounds are normal; no edema. LUNGS: Respiratory rate normal; clear to auscultation. ABDOMEN: Soft, minimal left-sided tenderness, no guarding rigidity, liver spleen not palpable, no masses palpable. PSYCH: Alert and oriented x3; mood and affect normal. MUSCULAR skeletal: Evidence of OA. Distal part of the left forefingers lost at the age of 15 excluding the thumb NEUROLOGICAL: Cranial nerves grossly intact; no facial asymmetry, power and sensation grossly intact. LYMPHATICS: No lymph nodes palpable in the axilla and neck INVESTIGATIONS, reviewed in the clinical context: White count 6.1 hemoglobin 14.6 platelets 208 potassium 4.5 creatinine 1.04 amylase 97 lipase 269 UA unremarkable EKG tracing personally reviewed by me-sinus rhythm. 55, right bundle branch block KUB x-ray/personally reviewed by me: Some stool burden CT angiogram of the thorax, abdomen, pelvis, and aotra: Atherosclerotic vascular disease. No PE. No arterial aneurysm. Or dissection. Gallstones Assessment plan: -Left-sided acute abdominal pain. No fever. Appetite fair. Patient denies having hard stools. Likely from constipation. Add Metamucil twice daily. High-fiber diet -Coronary artery disease with stent in January 2021 Lopressor, Lipitor, Zestril, nitrates,, aspirin, Plavix -Diabetes mellitus type 2, on oral hypoglycemic Continue Glucotrol. Follow Accu-Cheks -GERD Pepcid when necessary -Hard of hearing -Hyperlipidemia Lipitor -Essential hypertension Lopressor, Zestril -Mild cognitive impairment -Primary osteoarthritis Pain medications as needed -Epilepsy disorder with the last episode about 3-4 years ago Patient not any seizure medications Care was discussed with the patient. Add Metamucil. High-fiber diet. Follow Accu-Cheks Past Medical History Past Medical History: Asthma, Coronary Artery Disease (CAD), Chest Pain / Angina, Diabetes Mellitus, GERD/Reflux, Hearing Disorder / Deafness, Hyperlipidemia, Hypertension, Memory Impairment, Myocardial Infarction ([place]), Osteoarthritis (OA), Pneumonia, Seizure Disorder, Thyroid Disorder Additional Past Medical History / Comment(s): tinnitus, recent chest pain & admission to [facility] on Thursday, last seizures 3-4 yrs ago Last Myocardial Infarction Date:: january History of Any Multi-Drug Resistant Organisms: None Reported Past Surgical History: Coronary Bypass/CABG, Heart Catheterization With Stent, Hernia Repair, Orthopedic Surgery, Tonsillectomy Additional Past Surgical History / Comment(s): left hand, rt eye surgery, rt shoulder repair x2, bilat hernia repair, rt foot sx, colonoscopy, 5 VESSEL CABG IN 2008, LOST 4 FINGERS ON LEFT HAND AT 15 YEARS OF AGE, arthroscopic right knee surg. Past Anesthesia/Blood Transfusion Reactions: No Reported Reaction Date of Last Stent Placement:: 2020 Past Psychological History: No Psychological Hx Reported Smoking Status: Former smoker Past Alcohol Use History: None Reported Past Drug Use History: None Reported - Past Family History Mother Family Medical History: Diabetes Mellitus, Hypertension Father Additional Family Medical History / Comment(s): four way bypass Medications and Allergies Home Medications Medication Instructions Recorded Confirmed Type Isosorbide Mononitrate [Imdur] 30 mg PO DAILY 08/09/14 06/11/21 History Nitroglycerin Sl Tabs [Nitrostat] 0.4 mg SUBLINGUAL Q5M PRN 08/09/14 06/11/21 History lisinopriL [Zestril] 20 mg PO BID 09/20/15 06/11/21 History Aspirin 81 mg PO DAILY 08/11/17 06/11/21 History Metoprolol Tartrate [Lopressor] 25 mg PO BID 05/01/18 06/11/21 History Levothyroxine Sodium [Synthroid] 112 mcg PO DAILY 01/24/21 06/11/21 History glipiZIDE [Glucotrol] 10 mg PO BID 01/24/21 06/11/21 History Clopidogrel [Plavix] 75 mg PO DAILY tab 01/29/21 06/11/21 Rx Atorvastatin Calcium [Lipitor] 10 mg PO HS 05/23/21 06/11/21 History Cholecalciferol [Vitamin D3 (25 25 mcg PO DAILY 06/11/21 06/11/21 History Mcg = 1000 Iu)] Escitalopram [Lexapro] 10 mg PO DAILY 06/11/21 06/11/21 History [place]-3 Fatty Acids/Fish Oil [Fish 1 cap PO DAILY 06/11/21 06/11/21 History Oil 1,000 mg Softgel] Pantoprazole Sodium 40 mg PO DAILY 06/11/21 06/11/21 History Vitamin B Complex 1 cap PO DAILY 06/11/21 06/11/21 History hydrOXYzine HCL [Atarax] 50 mg PO HS PRN 06/11/21 06/11/21 History traZODone HCL 100 mg PO HS 06/11/21 06/11/21 History Allergies Allergy/AdvReac Type Severity Reaction Status Date / Time ciprofloxacin Allergy Rash/Hives Verified 06/11/21 13:16 fluticasone propionate Allergy Rash/Hives Verified 06/11/21 13:16 [From Flonase] metformin Allergy Rash/Hives Verified 06/11/21 13:16 metformin HCl Allergy Rash/Hives Verified 06/11/21 13:16 [From Glucophage] morphine Allergy Unknown Verified 06/11/21 13:16 Physical Exam Vitals: Vital Signs Temp Pulse Resp BP Pulse Ox 06/11/21 16:06 65 18 148/62 96 06/11/21 13:12 97.8 F 63 18 148/78 98 Intake and Output 06/11/21 06/11/21 06/11/21 06:59 14:59 22:59 Other: Weight 75.296 kg Results CBC & Chem 7: 06/11/21 13:53 06/11/21 13:53 Labs: Abnormal Lab Results - Last 24 Hours (Table) 06/11/21 06/11/21 06/11/21 Range/Units 13:53 13:53 17:02 Glucose 110 H (74-99) mg/dL POC Glucose (mg/dL) 66 L (75-99) mg/dL Urine Glucose (UA) Trace H (Negative) 06/11/21 06/11/21 06/11/21 Range/Units 18:13 19:16 21:15 Glucose (74-99) mg/dL POC Glucose (mg/dL) 113 H 104 H 134 H (75-99) mg/dL Urine Glucose (UA) (Negative)
[2021-06-11] MEDS ORDERED: ENOXAPARIN 40 MG/0.4 ML SYRINGE SQ SCH (22:15)
[2021-06-11 23:04] LABS: Glucose,Whole Blood 103 mg/dL (75-99)
[2021-06-12] MEDS: PSYLLIUM HUSK 100% 6 GM PACKET PO SCH ×2 (01:01→09:21)
[2021-06-12] MEDS: SODIUM CHLORIDE 0.9% 1,000 ML IV SCH (05:39)
[2021-06-12] MEDS ORDERED: LEVOTHYROXINE 112 MCG TAB PO SCH (06:30)
[2021-06-12 07:25] LABS: Glucose,Whole Blood 96 mg/dL (75-99)
[2021-06-12] MEDS: INSULIN ASPART (NovoLOG) 100 UNIT/ML VIAL SQ SCH ×2 (07:44→12:52)
[2021-06-12] MEDS ORDERED: ISOSORBIDE MONONITRATE ER 30 MG TAB.ER.24H PO SCH (09:00)
[2021-06-12] MEDS ORDERED: ESCITALOPRAM 10 MG TAB PO SCH (09:00)
[2021-06-12] MEDS ORDERED: PANTOPRAZOLE 40 MG TABLET PO SCH (09:00)
[2021-06-12] MEDS ORDERED: CLOPIDOGREL 75 MG TAB PO SCH (09:00)
[2021-06-12] MEDS ORDERED: ASPIRIN 81 MG PO SCH (09:00)
[2021-06-12] MEDS: METOPROLOL TARTRATE 25 MG TAB PO SCH (09:20)
[2021-06-12] MEDS: lisinopriL 20 MG TAB PO SCH (09:20)
[2021-06-12 11:57] LABS: Glucose,Whole Blood 133 mg/dL (75-99)
[2021-06-12 14:26] VITALS: BP 132/71; PULSE 58; RESP 16; TEMP 97.7
--- NOTE | 2021-06-12 18:26 | P.DS ---
Providers Date of admission: 06/11/21 16:11 Expected date of discharge: 06/12/21 Attending physician: Jaspal Chao Primary care physician: Marilia Sharma [facility] Course: Chief Complaint: Abdominal pain History of presenting complaint: This is a pleasant 65-year-old patient who follows with . 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 Cristin Armstrong. In January of this year, patient underwent a cardiac catheterization followed by successful stenting of the SVG to diagonal with a drug-eluting stent. Patient now presents with left-sided abdominal pain discomfort. Feels a fullness. For a few hours. Some nausea. Patient been complaining of hard stools. Had a hard stool this morning. Appetite is okay. Patient is felt to have symptoms from constipation. From having hard stools. Patient did have a bowel movement. Metamucil added. Told to increase fluid intake. No white count or fever. June 12: Patient feeling well. Diet advanced. Discussed with the patient. Follow-up outpatient with GI if needed. Past medical history to include: Asthma, coronary artery disease with stent last one being January 2021, diabetes mellitus, GERD, hard of hearing, hypertension, hyperlipidemia, mild cognitive impairment, osteoarthritis, seizure disorder, hypothyroid, tinnitus. Last seizure was about 3-4 years ago. coronary bypass. Social history: . Stopped smoking 37 years ago. No alcohol. Family history: Hypertension, diabetes, coronary bypass Physical examination: VITAL SIGNS: 97.7, 58, 16, 132/71, 97% room air GENERAL: BMI 28.5, reclining in bed, comfortable EYES: Pupils equal. Conjunctiva normal. HEENT: External appearance of nose and ears normal, oral cavity grossly normal. NECK: JVD not raised; masses not palpable. HEART: First and second heart sounds are normal; no edema. LUNGS: Respiratory rate normal; clear to auscultation. ABDOMEN: Soft, no tenderness, no guarding rigidity, liver spleen not palpable, no masses palpable. PSYCH: Alert and oriented x3; mood and affect normal. MUSCULAR skeletal: Evidence of OA. Distal part of the left forefingers lost at the age of 15 excluding the thumb INVESTIGATIONS, reviewed in the clinical context: White count 6.1 hemoglobin 14.6 platelets 208 potassium 4.5 creatinine 1.04 amylase 97 lipase 269 UA unremarkable EKG tracing personally reviewed by nc-sinus rhythm. 55, right bundle branch block KUB x-ray/personally reviewed by me: Some stool burden CT angiogram of the thorax, abdomen, pelvis, and aotra: Atherosclerotic vascular disease. No PE. No arterial aneurysm. Or dissection. Gallstones Assessment plan: -Left-sided acute abdominal pain. from constipation. Metamucil twice daily. High-fiber diet. -Coronary artery disease with stent in January 2021 Lopressor, Lipitor, Zestril, nitrates,, aspirin, Plavix -Diabetes mellitus type 2, on oral hypoglycemic Continue Glucotrol. Follow Accu-Cheks -GERD Pepcid when necessary -Hard of hearing -Hyperlipidemia Lipitor -Essential hypertension Lopressor, Zestril -Mild cognitive impairment -Primary osteoarthritis Pain medications as needed -Epilepsy disorder with the last episode about 3-4 years ago Patient not any seizure medications Disposition: Home Plan - Discharge Summary Discharge Rx Participant: No New Discharge Prescriptions: New Psyllium Husk 100% [Metamucil Packet] 6 gm PO BID #60 packet Continue Nitroglycerin Sl Tabs [Nitrostat] 0.4 mg SUBLINGUAL Q5M PRN PRN Reason: Chest Pain Isosorbide Mononitrate [Imdur] 30 mg PO DAILY lisinopriL [Zestril] 20 mg PO BID Aspirin 81 mg PO DAILY Metoprolol Tartrate [Lopressor] 25 mg PO BID glipiZIDE [Glucotrol] 10 mg PO BID Levothyroxine Sodium [Synthroid] 112 mcg PO DAILY Clopidogrel [Plavix] 75 mg PO DAILY tab Atorvastatin Calcium [Lipitor] 10 mg PO HS hydrOXYzine HCL [Atarax] 50 mg PO HS PRN PRN Reason: Anxiety Bailey-3 Fatty Acids/Fish Oil [Fish Oil 1,000 mg Softgel] 1 cap PO DAILY Escitalopram [Lexapro] 10 mg PO DAILY Cholecalciferol [Vitamin D3 (25 Mcg = 1000 Iu)] 25 mcg PO DAILY Vitamin B Complex 1 cap PO DAILY traZODone HCL 100 mg PO HS Pantoprazole Sodium 40 mg PO DAILY Discharge Medication List Isosorbide Mononitrate [Imdur] 30 mg PO DAILY 08/09/14 [History] Nitroglycerin Sl Tabs [Nitrostat] 0.4 mg SUBLINGUAL Q5M PRN 08/09/14 [History] lisinopriL [Zestril] 20 mg PO BID 09/20/15 [History] Aspirin 81 mg PO DAILY 08/11/17 [History] Metoprolol Tartrate [Lopressor] 25 mg PO BID 05/01/18 [History] Levothyroxine Sodium [Synthroid] 112 mcg PO DAILY 01/24/21 [History] glipiZIDE [Glucotrol] 10 mg PO BID 01/24/21 [History] Clopidogrel [Plavix] 75 mg PO DAILY tab 01/29/21 [Rx] Atorvastatin Calcium [Lipitor] 10 mg PO HS 05/23/21 [History] Cholecalciferol [Vitamin D3 (25 Mcg = 1000 Iu)] 25 mcg PO DAILY 06/11/21 [History] Escitalopram [Lexapro] 10 mg PO DAILY 06/11/21 [History] Bailey-3 Fatty Acids/Fish Oil [Fish Oil 1,000 mg Softgel] 1 cap PO DAILY 06/11/21 [History] Pantoprazole Sodium 40 mg PO DAILY 06/11/21 [History] Vitamin B Complex 1 cap PO DAILY 06/11/21 [History] hydrOXYzine HCL [Atarax] 50 mg PO HS PRN 06/11/21 [History] traZODone HCL 100 mg PO HS 06/11/21 [History] Psyllium Husk 100% [Metamucil Packet] 6 gm PO BID #60 packet 06/12/21 [Rx] Follow up Appointment(s)/Referral(s): Marilia Sharma DO [Primary Care Provider] - 1-2 days Patient Instructions/Handouts: High Fiber Diet (GEN) Activity/Diet/Wound Care/Special Instructions: high fiber diet Discharge Disposition: HOME SELF-CARE
== END 2021-06-12 15:27 | disposition home or self-care (01) ==
LOC: EC 12:39 → 6NMEDSUR 16:11
PROVIDERS: ADMIT Hospitalist; ATTEND Hospitalist
DX: K59.00 Constipation, unspecified (principal); I25.10 Atherosclerotic heart disease of native coronary artery without angina pectoris; E11.9 Type 2 diabetes mellitus without complications; Z79.84 Long term (current) use of oral hypoglycemic drugs; K21.9 Gastro-esophageal reflux disease without esophagitis; H91.90 Unspecified hearing loss, unspecified ear; E78.5 Hyperlipidemia, unspecified; I10 Essential (primary) hypertension; G31.84 Mild cognitive impairment of uncertain or unknown etiology; G40.909 Epilepsy, unspecified, not intractable, without status epilepticus; E03.9 Hypothyroidism, unspecified; H93.19 Tinnitus, unspecified ear; I25.2 Old myocardial infarction; J45.909 Unspecified asthma, uncomplicated; M19.90 Unspecified osteoarthritis, unspecified site; Z87.01 Personal history of pneumonia (recurrent); Z79.02 Long term (current) use of antithrombotics/antiplatelets; Z79.82 Long term (current) use of aspirin; Z79.890 Hormone replacement therapy; Z79.899 Other long term (current) drug therapy; Z88.5 Allergy status to narcotic agent; Z88.1 Allergy status to other antibiotic agents; Z89.022 Acquired absence of left finger(s); Z88.8 Allergy status to other drugs, medicaments and biological substances; Z87.891 Personal history of nicotine dependence; Z95.1 Presence of aortocoronary bypass graft; Z95.5 Presence of coronary angioplasty implant and graft; Z83.3 Family history of diabetes mellitus; Z82.49 Family history of ischemic heart disease and other diseases of the circulatory system
CPT/HCPCS: 96372; 96361; 96374; 99284; 36415; 93005; 80053; 82150; 83690; 84484; 85025; 81003; 74018; G0378 ×2; J2405; J1650

== ENCOUNTER 2021-07-05 06:02 | Day surgery (SDC) | payer MEDICARE, OTHER ==
[2021-07-04 09:14] VITALS: BMI 28.5
[~2021-07-05 06:02] MED LIST changes: -ALPRAZolam 0.25 MG TAB PO PRN; -ALPRAZolam 0.5 MG TAB PO PRN; +LACTATED RINGERS 1,000 ML IV SCH; +LIDOCAINE 1% (10MG/ML) FOR IV START INTRADERMA PRN; -NITROGLYCERIN SL TABS 0.4 MG TAB SUBLINGUAL PRN; -SODIUM CHLORIDE 0.9% 1,000 ML in EMPTY BAG 1 BAG IV ONE
[2021-07-05 06:57] VITALS: RESP 18; TEMP 96.7
[2021-07-05] MEDS ORDERED: PROPOFOL 10 MG/ML 20 ML VIAL IV ONE (07:01)
[2021-07-05 07:13] LABS: Glucose,Whole Blood 116 mg/dL (75-99)
--- NOTE | 2021-07-05 07:13 | P.PCN ---
Date of Procedure: 07/05/21 Procedure(s) Performed: BRIEF HISTORY: Patient is a 65-year-old, pleasant, white male scheduled for an upper endoscopy as a part of evaluation of intermittent black tarry stools for the last 6 weeks duration. He has been taking Aleve on an off for the last 3 months for shoulder pain. Has coronary artery disease and stent placement and March of this year and is been on aspirin and Plavix. PROCEDURE PERFORMED: Esophagogastroduodenoscopy with biopsy. PREOPERATIVE DIAGNOSIS: Epigastric pain and melena of 3 weeks' duration. IV sedation per anesthesia. PROCEDURE: After informed consent was obtained, the patient was brought into the endoscopy unit. IV sedation was administered by Anesthesia under continuous monitoring. Initially the Olympus GIF-140 video endoscope was inserted into the mouth. Esophagus intubated without any difficulty. It was gradually advanced into the stomach and duodenum and carefully examined. The bulb and the second part of the duodenum appeared normal. The scope at this time was withdrawn to the stomach, adequately insufflated with air, and upon careful examination, mucosa of the antrum, had erosive gastritis and biopsies were done from this area. The body, cardia and the fundus appeared normal. The scope was then withdrawn into the esophagus. The GE junction was located at 39 cm from the incisors. Small sliding-type well hernia noted The esophagus appeared normal. There were no erosions or ulcerations seen and the patient tolerated the procedure well. IMPRESSION: 1. Antral erosive gastritis. 2. No evidence of peptic ulcer disease. 3. Small hiatal hernia RECOMMENDATIONS: The findings of this examination were discussed with the patient as his family. He was advised to follow with the biopsy results. In the meantime he will continue on Protonix 40 mg daily and he was advised to resume aspirin and Plavix today..
[2021-07-05 07:38] VITALS: BP 136/88; PULSE 66
== END 2021-07-05 08:12 | disposition home or self-care (01) ==
LOC: ORWHC2ENDO 06:02
PROVIDERS: ATTEND Internal Medicine Gastroenterology
DX: K92.1 Melena (principal); K44.9 Diaphragmatic hernia without obstruction or gangrene; K31.9 Disease of stomach and duodenum, unspecified; K29.60 Other gastritis without bleeding; I25.10 Atherosclerotic heart disease of native coronary artery without angina pectoris; Z79.82 Long term (current) use of aspirin; Z79.02 Long term (current) use of antithrombotics/antiplatelets; Z95.5 Presence of coronary angioplasty implant and graft
CPT/HCPCS: 43239; 88305; J2704

== ENCOUNTER 2021-07-14 04:51 | Observation (INO) | payer MEDICARE, OTHER ==
--- NOTE | 2021-07-14 04:57 | ED ---
Chest Pain HPI - General Stated Complaint: Chest Pain,Headache Time Seen by Provider: 07/14/21 04:53 Source: RN notes reviewed, old records reviewed - History of Present Illness Initial Comments: This is a 65-year-old male to the emergency department for evaluation patient's a poor strain secondary to inability to communicate and hearing. states patient is having multiple issues lately altered mental status not acting ap propriately complaining of chest pain as well as abdominal pain. Patient states he currently does have chest pain and abdominal pain. MD Complaint: chest pain, other (AVILA, Weakness) -: week(s) Onset: during exertion Pain Location: left chest Pain Radiation: none Severity: moderate Severity scale (1-10): 5 Quality: tightness Consistency: constant, intermittent Improves With: nothing Worsens With: nothing Other Symptoms: cough Treatments Prior to Arrival: none - Related Data Home Medications Medication Instructions Recorded Confirmed Isosorbide Mononitrate [Imdur] 30 mg PO DAILY 08/09/14 07/05/21 Nitroglycerin Sl Tabs [Nitrostat] 0.4 mg SUBLINGUAL Q5M PRN 08/09/14 07/05/21 lisinopriL [Zestril] 20 mg PO BID 09/20/15 07/05/21 Aspirin 81 mg PO DAILY 08/11/17 07/04/21 Metoprolol Tartrate [Lopressor] 25 mg PO BID 05/01/18 07/05/21 Levothyroxine Sodium [Synthroid] 112 mcg PO DAILY 01/24/21 07/05/21 glipiZIDE [Glucotrol] 5 mg PO BID 01/24/21 07/05/21 Atorvastatin Calcium [Lipitor] 10 mg PO HS 05/23/21 07/05/21 Cholecalciferol [Vitamin D3 (25 25 mcg PO DAILY 06/11/21 07/05/21 Mcg = 1000 Iu)] Escitalopram [Lexapro] 10 mg PO DAILY 06/11/21 07/05/21 Gideon-3 Fatty Acids/Fish Oil [Fish 1 cap PO DAILY 06/11/21 07/05/21 Oil 1,000 mg Softgel] Pantoprazole Sodium 40 mg PO DAILY 06/11/21 07/05/21 Vitamin B Complex 1 cap PO DAILY 06/11/21 07/05/21 hydrOXYzine HCL [Atarax] 50 mg PO HS PRN 06/11/21 07/05/21 traZODone HCL 100 mg PO HS 06/11/21 07/05/21 Albuterol Inhaler [Ventolin Hfa 1 puff INHALATION DAILY PRN 07/04/21 07/05/21 Inhaler] Valproic Acid [Depakene] 500 mg PO BID 07/04/21 07/05/21 Previous Rx's Medication Instructions Recorded Clopidogrel [Plavix] 75 mg PO DAILY tab 01/29/21 Psyllium Husk 100% [Metamucil 6 gm PO BID #60 packet 06/12/21 Packet] Allergies Allergy/AdvReac Type Severity Reaction Status Date / Time ciprofloxacin Allergy Rash/Hives Verified 07/05/21 06:44 fluticasone propionate Allergy Rash/Hives Verified 07/05/21 06:44 [From Flonase] metformin Allergy Rash/Hives Verified 07/05/21 06:44 metformin HCl Allergy Rash/Hives Verified 07/05/21 06:44 [From Glucophage] morphine Allergy Unknown Verified 07/05/21 06:44 Review of Systems ROS Statement: Those systems with pertinent positive or pertinent negative responses have been documented in the HPI. ROS Other: All systems not noted in ROS Statement are negative. EKG Findings - EKG Comments: EKG Findings:: EKG shows sinus rhythm 77 IA 186 QRS 172 QTC 513 Past Medical History Past Medical History: Asthma, Coronary Artery Disease (CAD), Chest Pain / Angina, Diabetes Mellitus, GERD/Reflux, Hearing Disorder / Deafness, Hyperlipidemia, Hypertension, Memory Impairment, Myocardial Infarction (NE), Osteoarthritis (OA), Pneumonia, Seizure Disorder, Thyroid Disorder Additional Past Medical History / Comment(s): tinnitus, recent chest pain & admission to [facility] on Thursday, last seizures 3-4 yrs ago Last Myocardial Infarction Date:: january History of Any Multi-Drug Resistant Organisms: None Reported Past Surgical History: Coronary Bypass/CABG, Heart Catheterization With Stent, Hernia Repair, Orthopedic Surgery, Tonsillectomy Additional Past Surgical History / Comment(s): left hand, rt eye surgery, rt s houlder repair x2, bilat hernia repair, rt foot sx, colonoscopy, 5 VESSEL CABG IN 2009, LOST 4 FINGERS ON LEFT HAND AT 15 YEARS OF AGE, arthroscopic right knee surg. Past Anesthesia/Blood Transfusion Reactions: No Reported Reaction Date of Last Stent Placement:: 2020 Smoking Status: Former smoker - Past Family History Mother Family Medical History: Diabetes Mellitus, Hypertension Father Additional Family Medical History / Comment(s): four way bypass General Exam Limitations: altered mental status General appearance: alert, in no apparent distress Head exam: Present: atraumatic, normocephalic, normal inspection Eye exam: Present: normal appearance, PERRL, EOMI. Absent: scleral icterus, conjunctival injection, periorbital swelling ENT exam: Present: normal exam, mucous membranes moist Neck exam: Present: normal inspection. Absent: tenderness, meningismus, lymph adenopathy Respiratory exam: Present: normal lung sounds bilaterally. Absent: respiratory distress, wheezes, rales, rhonchi, stridor Cardiovascular Exam: Present: regular rate, normal rhythm, normal heart sounds. Absent: systolic murmur, diastolic murmur, rubs, gallop, clicks GI/Abdominal exam: Present: soft, normal bowel sounds. Absent: distended, tenderness, guarding, rebound, rigid Extremities exam: Present: normal inspection, full ROM, normal capillary refill. Absent: tenderness, pedal edema, joint swelling, calf tenderness Back exam: Present: normal inspection Neurological exam: Present: alert, oriented X3, CN II-XII intact Psychiatric exam: Present: normal affect, normal mood Skin exam: Present: warm, dry, intact, normal color. Absent: rash Course Vital Signs 07/14/21 04:58 Temperature 97.6 F Pulse Rate 74 Respiratory 16 Rate Blood Pressure 163/62 O2 Sat by Pulse 99 Oximetry - Reevaluation(s) Reevaluation #1: 07/14/21 06:08 Medical record is reviewed Reevaluation #2: 07/14/21 06:08 Patient remains with some confusion here in the ER with persistent chest pain Disposition Clinical Impression: Altered mental status, Chest pain, Acute exacerbation of chronic obstructive airways disease Disposition: ADMITTED IP TO THIS HOSP Condition: Undetermined Is patient prescribed a controlled substance at d/c from ED?: No Referrals: Marilia Sharma DO [Primary Care Provider] - 1-2 days
[2021-07-14 05:13] LABS: Glucose,Whole Blood 150 mg/dL (75-99)
[2021-07-14 05:24] LABS: Basophils # (A) 0.1 k/uL (0-0.2); Basophils % (A) 1 %; Eosinophils # (A) 0.7 k/uL (0-0.7); Eosinophils % (A) 10 %; HCT 43.8 % (39.0-53.0); Lymphocytes # (A) 1.9 k/uL (1.0-4.8); Lymphocytes % (A) 28 %; MCH 31.6 pg (25.0-35.0); MCHC 34.2 g/dL (31.0-37.0); MCV 92.5 fL (80.0-100.0); Monocytes # (A) 0.5 k/uL (0-1.0); Monocytes % (A) 7 %; Neutrophils # (A) 3.4 k/uL (1.3-7.7); Neutrophils % (A) 51 %; Platelet Count 179 k/uL (150-450); RBC 4.73 m/uL (4.30-5.90); RDW 13.8 % (11.5-15.5); WBC 6.7 k/uL (3.8-10.6)
[2021-07-14 05:33] LABS: Partial Thromboplastin Time 24.4 sec (22.0-30.0); Prothrombin Time 10.5 sec (9.0-12.0)
[2021-07-14 05:34] LABS: Albumin 3.7 g/dL (3.5-5.0); Calcium 8.9 mg/dL (8.4-10.2); Magnesium 1.9 mg/dL (1.6-2.3); Total Bilirubin 0.3 mg/dL (0.2-1.3); Total Protein 6.3 g/dL (6.3-8.2)
--- NOTE | 2021-07-14 05:35 | XR ---
EXAMINATION TYPE: XR chest 2V DATE OF EXAM: 07/14/2021 COMPARISON: 05/23/2021 HISTORY: Chest pain TECHNIQUE: FINDINGS: Heart is normal. Lungs are clear of consolidation. There are no hilar masses. There are charlie rnal wires. Costophrenic angles are clear. Bony thorax is intact. IMPRESSION: No active cardiopulmonary disease. No adverse change.
--- NOTE | 2021-07-14 06:03 | CT ---
EXAMINATION TYPE: CT brain wo con DATE OF EXAM: 07/14/2021 COMPARISON: 05/06/2018 HISTORY: AMS CT DLP: 1131.4 mGycm Automated exposure control for dose reduction was used. There is cerebral cortical atrophy. There is no mass effect nor midline shift. There is no sign of in tracranial hemorrhage. The calvarium is intact. Skull base is intact. IMPRESSION: Cerebral atrophy. No acute intracranial abnormality. No change.
[2021-07-14] MEDS ORDERED: ASPIRIN 81 MG PO STA (06:05)
[2021-07-14] MEDS ORDERED: NITROGLYCERIN SL TABS 0.4 MG TAB SUBLINGUAL PRN (06:05)
[2021-07-14] MEDS ORDERED: HYDROmorphone 1 MG/ML 1 ML SYRINGE IVP PRN (06:06)
[2021-07-14] MEDS ORDERED: ONDANSETRON 4 MG/2 ML VIAL IVP PRN (06:06)
[2021-07-14] MEDS: SODIUM CHLORIDE 0.9% 1,000 ML IV SCH ×7 (06:30→18:34)
--- NOTE | 2021-07-14 08:06 | US ---
EXAMINATION TYPE: US gallbladder DATE OF EXAM: 07/14/2021 COMPARISON: CT May 23, 2021 CLINICAL HISTORY: pain. Pain. Hx gallstones. EXAM MEASUREMENTS: Liver Length: 12.2 cm Gallbladder Wall: 0.27 cm Right Kidney: 10.4 x 5.2 x 5.4 cm Limited due to body habitus and overlying bowel gas. Pancreas: Obscured. Liver: Limited due to gas. Most images taken intercostally. Appears coarse in echotexture. Gallbladder: Seen best in LLD. Hyperechoic area seen within measurin.9 x 2.0 x 0.9 cm. Evidence for sonographic Junior's sign: Patient feels pain while scanning over the gallbladder. CBD: Not visualized. Right Kidney: No hydronephrosis or masses seen. Prominent pyramids. IMPRESSION: 1. Limited exam due to body habitus and overlying bowel gas. 2. Cholelithiasis without other sonographic evidence of acute cholecystitis. If there is ongoing cli nical concern a nuclear medicine HIDA scan may be obtained.
[2021-07-14 09:17] LABS: Glucose,Whole Blood 108 mg/dL (75-99)
[2021-07-14 10:45] LABS: Appearance,Urine Clear (Clear); Bilirubin,Urine Negative (Negative); Blood,Urine Negative (Negative); Color,Urine Yellow; Glucose,Urine (UA) Negative (Negative); Ketones,Urine Negative (Negative); Leukocyte Esterase,Urine Negative (Negative); Nitrite,Urine Negative (Negative); Protein,Urine Negative (Negative); Specific Gravity,Urine 1.007 (1.001-1.035); Urobilinogen,Urine <2.0 mg/dL (<2.0)
[2021-07-14] MEDS: VALPROIC ACID ORAL SOLN 250 MG/5 ML CUP PO SCH ×2 (11:15→19:48)
[2021-07-14] MEDS: PANTOPRAZOLE 40 MG TABLET PO SCH (11:15)
[2021-07-14] MEDS: ESCITALOPRAM 10 MG TAB PO SCH (11:15)
[2021-07-14] MEDS: ISOSORBIDE MONONITRATE ER 30 MG TAB.ER.24H PO SCH (11:15)
[2021-07-14] MEDS: LEVOTHYROXINE 112 MCG TAB PO SCH (11:15)
[2021-07-14] MEDS: CLOPIDOGREL 75 MG TAB PO SCH (11:15)
[2021-07-14] MEDS: lisinopriL 20 MG TAB PO SCH ×2 (11:15→19:48)
[2021-07-14] MEDS: METOPROLOL TARTRATE 25 MG TAB PO SCH ×2 (11:15→19:47)
--- NOTE | 2021-07-14 11:16 | P.CNNES ---
History of Present Illness Consult date: 07/14/21 Requesting physician: Castro Caicedo Reason for Consult: altered mental status History of Present Illness: This is a 65-year-old gentleman with medical history of seizure, dementia, deafness over left ear and very hard of hearing of right ear, hypertension, hyperlipidemia, diabetes mellitus, coronary artery disease status post stent, CABG presented emergency department on 07/14/2021 because of altered mental sta tus and chest pain as well as abdominal pain. According to the patient yesterday he stated that his sugar was as low as 60s and then he had an episode of confusion and was having abdominal pain that's what made him come to the hospital. Patient stated that his sugar level has been bile for last several weeks and denies take in more medication than he had 2 or any recent the modification of his medication. He denied any jerk in of any extremities, urinary or bowel incontinence or tongue bite. He stated that he hasn't had a seizure in a while. He denies of any fevers. He follows up with Dr. Gordon (neurologist) and was last seen about a month ago according to the patient. Patient is compliant with Depakote 500 mg 1 tablet twice a day for seizures. Patient stated that he continues to have abdominal pain. I spoke to the patient's daughter via phone (Jelena), stated that the patient the was confused for 10 minutes after taking a nap in which he didn't know the patient's daughters name as well as and his computer last for 10 minutes and then resolved. She did state that the he notified them that his sugar was low at in the morning and it was in the 70s but he notified me it was in the 60s and she thinks that he took candy. During the episode of confusion she denied to the patient had any jerk in of any extremities, urinary or bowel incontinence or tongue bite foaming around the mouth. She did state that the patient has a episodes in the past of also similar to this where he was confused. They did not check his sugar yesterday and the she stated that the patient the checks his sugar on his own in his room. Patient daughter that denied to the patient had any focal deficits. She stated that the patient has gallstones and he supposed to have surgery on 07/25/2021. Some of the patient's home medication consist of: Valproic acid 500 mg 1 tablet twice a day, aspirin 81 mg daily, Plavix 75 mg daily, Lipitor 10 mg daily at bedtime, vitamin B complex, Synthroid, Lexapro, lisinopril, Protonix, metoprolol, trazodone, glipizide, vitamin D3. Some other workup in the hospital consisted of: Initial vital signs was blood pressure 163/62, heart rate of 74, respiratory of 16, temperature of 97.6 Fahrenheit oral and pulse ox of 99% room air. Since the patient has been the hospital the patient has been afebrile. CBC with differential is unremarkable. Chemistry panel is initial POC glucose is 150 which is slightly elevated and sodium is 136 which is just minimally decreased but not remarkable otherwise rest of the chemistry panel is unremarkable. Creatinine is 1.24, calcium is 8.9, magnesium 1.9, AST of 25 ALT of 14 which is within normal limits. CT of the head is reported as cerebral atrophy. No acute intracranial abnormality. No change. I personally reviewed the CT of the head and there is no intraparenchymal bleed, acute or subacute ischemia or mass effect. Feathers the patient has a minor atrophy over the bilateral frontal region and that this was seen last in 2018 and there is no change. He was seen by Dr. iPnto (neuro-hospitalist) in our facility on 05/07/2018 and was consulted for seizure. In his impression and he stated the patient has seizure disorder as well as dementia. He stated that that it's unclear the patient had true tonic-clonic seizure but concerning the that he had loss of time and this is the second episode of reported seizure. Questionable post ictal state. And he did not have any seizure activity in the past. Therefore the patient was started on Depakote 500 mg 1 tablet twice a day by him. Please refer to his note for further details. Patient had an EEG in our facility on 04/2018 for seizure and it's reported that it's within normal limits. Review of Systems Review of system: The 12 point system was reviewed and apparent positive and negative per HPI. Past Medical History Past Medical History: Asthma, Coronary Artery Disease (CAD), Chest Pain / Angina, Diabetes Mellitus, GERD/Reflux, Hearing Disorder / Deafness, Hyperlipidemia, Hypertension, Memory Impairment, Myocardial Infarction ([place]), Osteoarthritis (OA), Pneumonia, Seizure Disorder, Thyroid Disorder Additional Past Medical History / Comment(s): tinnitus, recent chest pain & admission to [facility] on Thursday, last seizures 3-4 yrs ago Last Myocardial Infarction Date:: january History of Any Multi-Drug Resistant Organisms: None Reported Past Surgical History: Coronary Bypass/CABG, Heart Catheterization With Stent, Hernia Repair, Orthopedic Surgery, Tonsillectomy Additional Past Surgical History / Comment(s): left hand, rt eye surgery, rt shoulder repair x2, bilat hernia repair, rt foot sx, colonoscopy, 5 VESSEL CABG IN 2009, LOST 4 FINGERS ON LEFT HAND AT 15 YEARS OF AGE, arthroscopic right knee surg. Past Anesthesia/Blood Transfusion Reactions: No Reported Reaction Date of Last Stent Placement:: 2020 Smoking Status: Former smoker - Past Family History Mother Family Medical History: Diabetes Mellitus, Hypertension Father Additional Family Medical History / Comment(s): four way bypass Medications and Allergies Home Medications Medication Instructions Recorded Confirmed Type Isosorbide Mononitrate [Imdur] 30 mg PO DAILY 08/09/14 07/14/21 History Nitroglycerin Sl Tabs [Nitrostat] 0.4 mg SUBLINGUAL Q5M PRN 08/09/14 07/14/21 History lisinopriL [Zestril] 20 mg PO BID 09/20/15 07/14/21 History Aspirin 81 mg PO DAILY 08/11/17 07/14/21 History Metoprolol Tartrate [Lopressor] 25 mg PO BID 05/01/18 07/14/21 History Levothyroxine Sodium [Synthroid] 112 mcg PO DAILY 01/24/21 07/14/21 History glipiZIDE [Glucotrol] 5 mg PO BID 01/24/21 07/14/21 History Clopidogrel [Plavix] 75 mg PO DAILY tab 01/29/21 07/14/21 Rx Atorvastatin Calcium [Lipitor] 10 mg PO HS 05/23/21 07/14/21 History Cholecalciferol [Vitamin D3 (25 25 mcg PO DAILY 06/11/21 07/14/21 History Mcg = 1000 Iu)] Escitalopram [Lexapro] 10 mg PO DAILY 06/11/21 07/14/21 History [place]-3 Fatty Acids/Fish Oil [Fish 1 cap PO DAILY 06/11/21 07/14/21 History Oil 1,000 mg Softgel] Pantoprazole Sodium 40 mg PO DAILY 06/11/21 07/14/21 History Vitamin B Complex 1 cap PO DAILY 06/11/21 07/14/21 History hydrOXYzine HCL [Atarax] 50 mg PO HS PRN 06/11/21 07/14/21 History traZODone HCL 100 mg PO HS 06/11/21 07/14/21 History Valproic Acid [Depakene] 500 mg PO BID 07/04/21 07/14/21 History Allergies Allergy/AdvReac Type Severity Reaction Status Date / Time ciprofloxacin Allergy Rash/Hives Verified 07/05/21 06:44 fluticasone propionate Allergy Rash/Hives Verified 07/05/21 06:44 [From Flonase] metformin Allergy Rash/Hives Verified 07/05/21 06:44 metformin HCl Allergy Rash/Hives Verified 07/05/21 06:44 [From Glucophage] morphine Allergy Unknown Verified 07/05/21 06:44 Physical Examination - Vital Signs Vital Signs: Vital Signs Temp Pulse Pulse Resp BP BP Pulse Ox 07/14/21 08:25 67 18 07/14/21 08:05 98.1 F 67 18 160/99 98 07/14/21 06:28 64 16 129/65 97 07/14/21 04:58 97.6 F 74 16 163/62 99 Intake and Output 07/13/21 07/14/21 07/14/21 22:59 06:59 14:59 Other: Voiding Method Toilet Weight 75.296 kg GENERAL: The patient is lying in bed and is not in acute distress. CHEST: The heart rate is regular rate rhythm. No murmurs to auscultation. LUNG: Clear to auscultation bilaterally no wheezing noted throughout. Not labored breathing. ABDOMEN/GI: Bowel sounds present in all 4 quadrants. No tenderness to palpation throughout. NEUROLOGICAL: Higher mental function: The patient is awake, alert, oriented to self, place and time. Patient is following commands. No aphasia and no neglect. Cranial nerves: The pupils are round, equal and reactive to light and accommodation. Visual hurley are full to confrontation throughout. Extraocular movement is intact no nystagmus is noted. Facial sensation is normal to touch throughout. The facial strength is normal throughout. Hearing is severely decreased over the right and deaf over left (old) to hand rub. Tongue is midline and moved [id number] without any difficulty. No dysarthria is noted. Shoulder shrug is normal bilaterally. Motor: The strength is 5 over 5 throughout. Normal tone and bulk. Cerebellum: Normal finger to nose bilaterally. Sensation: Sensation is normal to touch throughout. Reflexes (right/left): 2+ throughout except ankles are 1+ bilaterally. Plantars are mute bilaterally. Results - Laboratory Findings CBC and BMP: 07/14/21 04:49 07/14/21 05:17 Abnormal Lab Findings: Abnormal Labs 07/14/21 07/14/21 05:11 05:17 Sodium 136 L Glucose 164 H POC Glucose (mg/dL) 150 H Assessment and Plan Assessment: Transient encephalopathy (per daughter lasting 10 minutes) seems metabolic. Seems likely due to episode of hypoglycemia (per patient it was in 60's but according to daughter he had few episode similar to this but he checks his sugars on his own). History of seizure (on Depakote since 2018 and is compliant with medication) Dementia Abdominal pain with history of gall stones Deafness over the left ear and very hard of hearing over the right. Diabetes Mellitus with a sugar slightly elevated in our facility (per according to patient it has been labile for several weeks) Hypertension that is controlled currently History of coronary artery disease status post stent and history of CABG History of hyperlipidemia Plan: I a routine ordered an EEG. Continue patient's home medication Depakote 500 mg 1 tablet twice a day. Ordered TSH, vitamin B12, folate level, hemoglobin A1c. Lipid panel is ordered by the ED team is pending MRI cannot be obtained since patient has a clip according to the daughter behind his eye. From a neurologic perspective the this episode does not seem like a stroke. Every 4 hours neuro checks. Placed on seizure precautions seizure pad. On cardiac monitoring Cardiology is consulted. We'll defer the rest of the medical management to primary team. Upon discharge the patient and needs to follow-up with his neurologist as an outpatient within 2-3 weeks (Dr. Gordon). Plan was discussed with the patient and his daughter (Jelena via phone). Thank you for the consultation. Dr. Lara will provide neurology coverage starting tomorrow AM. Roderick Sherman M.D. Neuro-hospitalist Time with Patient: Greater than 30
--- NOTE | 2021-07-14 11:40 | P.CRDCN ---
History of Present Illness Consult date: 07/14/21 History of present illness: This is a 65-year-old gentleman with history of coronary artery disease with a previous bypass surgery with the SILVER graft to the LAD, vein graft to the diagonal, OM1 and OM 2 and PDA in 2008. Patient also has diabetes hypertension and dyslipidemia. He follows with Dr. Armstrong. This patient was brought into the hospital with concern for episodes of confusion. Patient was also complaining of some chest pain on the left side which last only a few seconds. Patient has extreme deafness and also dementia hydrolyze the information is reliable. He also complains of nausea and abdominal discomfort. At the time of my examination is not having significant pain, chest pains. His EKG showed right bundle branch block. His cardiac enzymes 2 are negative at this point I don't think we are dealing with any acute ischemic syndrome. He is being evaluated by neurology for periods of confusion. Patient apparently had an endoscopy by gastroenterology for symptoms of abdominal pain. The details are not available. May need a follow-up with gastroenterology as surgical colleagues regarding his abdominal pain. No further cardiac workup at this time. If patient remains stable he could be discharged home and have follow-up with Dr. Armstrong Review of Systems As per the chart Past Medical History Past Medical History: Asthma, Coronary Artery Disease (CAD), Chest Pain / Angina, Diabetes Mellitus, GERD/Reflux, Hearing Disorder / Deafness, Hyperlipidemia, Hypertension, Memory Impairment, Myocardial Infarction ([place]), Osteoarthritis (OA), Pneumonia, Seizure Disorder, Thyroid Disorder Additional Past Medical History / Comment(s): tinnitus, recent chest pain & admission to [facility] on Thursday, last seizures 3-4 yrs ago Last Myocardial Infarction Date:: january History of Any Multi-Drug Resistant Organisms: None Reported Past Surgical History: Coronary Bypass/CABG, Heart Catheterization With Stent, Hernia Repair, Orthopedic Surgery, Tonsillectomy Additional Past Surgical History / Comment(s): left hand, rt eye surgery, rt shoulder repair x2, bilat hernia repair, rt foot sx, colonoscopy, 5 VESSEL CABG IN 2008, LOST 4 FINGERS ON LEFT HAND AT 15 YEARS OF AGE, arthroscopic right knee surg. Past Anesthesia/Blood Transfusion Reactions: No Reported Reaction Date of Last Stent Placement:: 2020 Smoking Status: Former smoker - Past Family History Mother Family Medical History: Diabetes Mellitus, Hypertension Father Additional Family Medical History / Comment(s): four way bypass Medications and Allergies Home Medications Medication Instructions Recorded Confirmed Type Isosorbide Mononitrate [Imdur] 30 mg PO DAILY 08/09/14 07/14/21 History Nitroglycerin Sl Tabs [Nitrostat] 0.4 mg SUBLINGUAL Q5M PRN 08/09/14 07/14/21 History lisinopriL [Zestril] 20 mg PO BID 09/20/15 07/14/21 History Aspirin 81 mg PO DAILY 08/11/17 07/14/21 History Metoprolol Tartrate [Lopressor] 25 mg PO BID 05/01/18 07/14/21 History Levothyroxine Sodium [Synthroid] 112 mcg PO DAILY 01/24/21 07/14/21 History glipiZIDE [Glucotrol] 5 mg PO BID 01/24/21 07/14/21 History Clopidogrel [Plavix] 75 mg PO DAILY tab 01/29/21 07/14/21 Rx Atorvastatin Calcium [Lipitor] 10 mg PO HS 05/23/21 07/14/21 History Cholecalciferol [Vitamin D3 (25 25 mcg PO DAILY 06/11/21 07/14/21 History Mcg = 1000 Iu)] Escitalopram [Lexapro] 10 mg PO DAILY 06/11/21 07/14/21 History [place]-3 Fatty Acids/Fish Oil [Fish 1 cap PO DAILY 06/11/21 07/14/21 History Oil 1,000 mg Softgel] Pantoprazole Sodium 40 mg PO DAILY 06/11/21 07/14/21 History Vitamin B Complex 1 cap PO DAILY 06/11/21 07/14/21 History hydrOXYzine HCL [Atarax] 50 mg PO HS PRN 06/11/21 07/14/21 History traZODone HCL 100 mg PO HS 06/11/21 07/14/21 History Valproic Acid [Depakene] 500 mg PO BID 07/04/21 07/14/21 History Allergies Allergy/AdvReac Type Severity Reaction Status Date / Time ciprofloxacin Allergy Rash/Hives Verified 07/05/21 06:44 fluticasone propionate Allergy Rash/Hives Verified 07/05/21 06:44 [From Flonase] metformin Allergy Rash/Hives Verified 07/05/21 06:44 metformin HCl Allergy Rash/Hives Verified 07/05/21 06:44 [From Glucophage] morphine Allergy Unknown Verified 07/05/21 06:44 Physical Exam Vitals: Vital Signs Temp Pulse Pulse Resp BP BP Pulse Ox 07/14/21 08:25 67 18 07/14/21 08:05 98.1 F 67 18 160/99 98 07/14/21 06:28 64 16 129/65 97 07/14/21 04:58 97.6 F 74 16 163/62 99 Intake and Output 07/13/21 07/14/21 07/14/21 22:59 06:59 14:59 Other: Voiding Method Toilet Weight 75.296 kg 75.296 kg GENERAL EXAM: Patient is alert and oriented and doesn't appear to be in any acute distress HEENT: Normocephalic. Normal reaction of pupils, equal size, normal range of extraocular motion. No erythema or exudates in the throat. NECK: No masses, no nuchal rigidity. CHEST: No chest wall deformity. LUNGS: Equal air entry with no crackles or wheeze. HEART: S1 and S2 normal with no audible mumurs or gallops. Regular rhythm, femorals equal on both sides.. ABDOMEN: No hepatosplenomegaly, normal bowel sounds, no guarding or rigidity. SKIN: No rashes CENTRAL NERVOUS SYSTEM: No focal deficits. EXTREMITIES: No cyanosis, clubbing or edema. Results 07/14/21 04:49 07/14/21 05:17 Cardiac Enzymes 07/14/21 07/14/21 07/14/21 Range/Units 05:17 05:17 08:41 AST 25 (17-59) U/L Troponin I <0.012 <0.012 (0.000-0.034) ng/mL Coagulation 07/14/21 Range/Units 05:17 PT 10.5 (9.0-12.0) sec APTT 24.4 (22.0-30.0) sec CBC 07/14/21 Range/Units 04:49 WBC 6.7 (3.8-10.6) k/uL RBC 4.73 (4.30-5.90) m/uL Hgb 15.0 (13.0-17.5) gm/dL Hct 43.8 (39.0-53.0) % Plt Count 179 (150-450) k/uL Comprehensive Metabolic Panel 07/14/21 Range/Units 05:17 Sodium 136 L (137-145) mmol/L Potassium 4.0 (3.5-5.1) mmol/L Chloride 104 (98-107) mmol/L Carbon Dioxide 22 (22-30) mmol/L BUN 14 (9-20) mg/dL Creatinine 1.24 (0.66-1.25) mg/dL Glucose 164 H (74-99) mg/dL Calcium 8.9 (8.4-10.2) mg/dL AST 25 (17-59) U/L ALT 14 (4-49) U/L Alkaline Phosphatase 47 (38-126) U/L Total Protein 6.3 (6.3-8.2) g/dL Albumin 3.7 (3.5-5.0) g/dL Current Medications Generic Name Dose Route Start Last Admin Trade Name Freq PRN Reason Stop Dose Admin Albuterol/Ipratropium 3 ml 07/14/21 06:09 Ipratropium-Albuterol 3 Ml Neb INHALATION RT-QID PRN Shortness Of Breath Or Wheezing Aspirin 325 mg 07/15/21 09:00 Aspirin 325 Mg Tab PO DAILY JEVON Atorvastatin Calcium 10 mg 07/14/21 21:00 Atorvastatin 10 Mg Tab PO HS JEVON Clopidogrel Bisulfate 75 mg 07/14/21 11:00 07/14/21 11:15 Clopidogrel 75 Mg Tab PO 75 mg DAILY JEVON Administration Escitalopram Oxalate 10 mg 07/14/21 11:00 07/14/21 11:15 Escitalopram 10 Mg Tab PO 10 mg DAILY JEVON Administration Hydromorphone HCl 1 mg 07/14/21 06:06 Hydromorphone 1 Mg/Ml 1 Ml Syringe IVP Q3HR PRN Severe Pain Sodium Chloride 1,000 mls @ 100 mls/hr 07/14/21 06:15 07/14/21 06:30 Saline 0.9% IV Not Given .Q10H JEVON Sodium Chloride 1,000 mls @ 130 mls/hr 07/14/21 06:15 07/14/21 06:33 Saline 0.9% IV 130 mls/hr .Q7H42M JEVON Administration Insulin Aspart 0 unit 07/14/21 12:30 Insulin Aspart (Novolog) 100 Unit/Ml Vial SQ ACHS JEVON Protocol Isosorbide Mononitrate 30 mg 07/14/21 11:00 07/14/21 11:15 Isosorbide Mononitrate Er 30 Mg Tab.Er.24h PO 30 mg DAILY JEVON Administration Levothyroxine Sodium 112 mcg 07/14/21 11:00 07/14/21 11:15 Levothyroxine 112 Mcg Tab PO 112 mcg 0630 JEVON Administration Lisinopril 20 mg 07/14/21 11:00 07/14/21 11:15 Lisinopril 20 Mg Tab PO 20 mg BID JEVON Administration Metoprolol Tartrate 25 mg 07/14/21 11:00 07/14/21 11:15 Metoprolol Tartrate 25 Mg Tab PO 25 mg BID JEVON Administration Naloxone HCl 0.2 mg 07/14/21 06:06 Naloxone 0.4 Mg/Ml 1 Ml Vial IV Q2M PRN Opioid Reversal Nitroglycerin 0.4 mg 07/14/21 06:05 Nitroglycerin Sl Tabs 0.4 Mg Tab SUBLINGUAL Q5M PRN Chest Pain Ondansetron HCl 4 mg 07/14/21 06:06 Ondansetron 4 Mg/2 Ml Vial IVP Q8HR PRN Nausea And Vomiting Pantoprazole Sodium 40 mg 07/14/21 11:00 07/14/21 11:15 Pantoprazole 40 Mg Tablet PO 40 mg DAILY JEVON Administration Valproic Acid 500 mg 07/14/21 11:00 07/14/21 11:15 Valproic Acid Oral Soln 250 Mg/5 Ml Cup PO 500 mg BID JEVON Administration Intake and Output 07/13/21 07/14/21 07/14/21 22:59 06:59 14:59 Other: Voiding Method Toilet Weight 75.296 kg 75.296 kg Patient Weight 07/15/21 06:59 Weight 75.296 kg 07/14/21 04:49 07/14/21 05:17 EKG Interpretations (text) Sinus rhythm with right bundle-branch block Assessment and Plan (1) Chest pain Current Visit: Yes Status: Acute Code(s): R07.9 - CHEST PAIN, UNSPECIFIED SNOMED Code(s): 58119485 (2) Abdominal pain Current Visit: No Status: Acute Code(s): R10.9 - UNSPECIFIED ABDOMINAL PAIN SNOMED Code(s): 76568640 (3) Coronary artery disease involving coronary bypass graft of [place] heart Current Visit: No Status: Acute Code(s): I25.810 - ATHEROSCLEROSIS OF CABG W/O ANGINA PECTORIS SNOMED Code(s): 684771687 (4) Seizure disorder Current Visit: No Status: Acute Code(s): G40.909 - EPILEPSY, UNSP, NOT INTRACTABLE, WITHOUT STATUS EPILEPTICUS SNOMED Code(s): 389363055 Plan: His main concern now seemed of abdominal pain and nausea. Patient has history of pancreatitis. Consider GI surgical consult. His chest pain was transient and is free of any chest pain at this time. Enzymes are negative and EKG did not show any acute changes. Unless patient has any recurrence of typical chest pain, no further cardiac workup at this time. Follow-up with Dr. Armstrong
[2021-07-14 11:58] LABS: Glucose,Whole Blood 95 mg/dL (75-99)
[2021-07-14] MEDS: INSULIN ASPART (NovoLOG) 100 UNIT/ML VIAL SQ SCH ×3 (12:14→21:39)
[2021-07-14 13:36] LABS: T4, Free (Free Thyroxine) 1.86 ng/dL (0.78-2.19)
[2021-07-14 16:13] LABS: Glucose,Whole Blood 159 mg/dL (75-99)
--- NOTE | 2021-07-14 17:00 | CT ---
EXAMINATION TYPE: CT abdomen wo con DATE OF EXAM: 07/14/2021 COMPARISON: 08/09/2014 HISTORY: abd pain CT DLP: 468.5 mGycm Automated exposure control for dose reduction was used. There is some mild atelectasis at the posterior lung bases. Heart size is normal. There is coronary a rtery calcification. There is no pleural effusion. There is no pericardial effusion. Liver spleen sto mach pancreas appear intact. There are numerous calcified gallstones. The bile ducts are not dilated. There is no adrenal mass. Kidneys have normal size. There is left side mild hydronephrosis and hydrou reter. No definite ureteral calculus seen. Urinary bladder is large and measures almost 16 cm in magen th. There is no free fluid in the pelvis. There is no inguinal hernia. Prostate measures 5 cm. There is no mesenteric edema. There is no ascites or free air. There is no bowel obstruction. Appendi x appears normal. Right kidney shows no sign of obstruction. The lumbar vertebra have normal alignment. There is multilevel spondylotic changes with spur formatio n. Facet joints are intact. The bony pelvis is intact. Hip joints are intact. IMPRESSION: There is left-sided hydronephrosis and hydroureter. No obstructing calculus seen. This could relate t o chronic bladder outlet obstruction. There is dilated urinary bladder. Bladder increased compared to old exam. No renal stone seen. Nonopaque stone or recently passed stone is possible. There is some atelectasis and fibrotic changes at the lung bases similar to old exam.
[2021-07-14 17:05] LABS: Folate, Serum 18.5 ng/mL
--- NOTE | 2021-07-14 18:17 | P.HPIM ---
History of Present Illness H&P Date: 07/14/21 Chief Complaint: Chest pain Patient is a 65-year-old male with a known history of coronary artery disease status post CABG, stent placement, hypertension, hyperlipidemia, diabetes type 2 [id number], memory impairment, history of [place], hypothyroidism and face history of smoking presents to ER with complaints of chest pain, abdominal pain. Patient states that he has been having intermittent chest pains mainly in the lower retrosternal and epigastric region and also left lower quadrant abdominal pains. Chest pain feels like tightness and someone sitting on the chest. Associated with mild shortness of breath. No nausea vomiting or diaphoresis. No radiation of the pain. No headache or dizziness or lightheadedness. According to his patient has been having altered mental status. His blood pressure is getting low to 62 at home. Patient feels shaky at the time. Denied any loss of consciousness. No prior history of seizures. Denied any fever or chills. No cough or sputum production. No leg swelling. No headache or dizziness or lightheadedness. Denied any diarrhea or bloody stools. Patient was admitted to hospital for evaluation. EKG showed sinus rhythm right bundle branch block. Chest x-ray showed no active cardiopulmonary disease. No adverse change. CT head showed cerebral atrophy. No acute intracranial abnormality. No change. Laboratory data showed WBC 6.7 hemoglobin 15.0 and platelets 179 Sodium 136 potassium 4.0 chloride 104 BUN 14 and creatinine 1.24 and blood sugar is 164 on admission. AST 25 ALT 14 alk phos 47 troponin 2 negative and lipase level 250 ProBNP 68 Ultrasound of the abdomen showed cholelithiasis without other sonographic evidence of acute cholecystitis. Review of Systems Constitutional: Patient denies any fever or chills . No generalized weakness or weight loss. Abdomen: Patient denied nausea vomiting and diarrhea. Patient does have abdominal pain abdominal pain. Cardiovascular: He does complain of retrosternal chest pain, mild shortness breath. No palpitations no leg swelling. Respiratory: patient denied any cough is from production. No shortness of breath Neurologic: Patient denied any numbness or tingling headache. Musculoskeletal: Patient denies any complaints of joint swelling or deformity. Skin: Negative Psychiatric: Negative Endocrine: No heat or cold intolerance. No recent weight gain. Genitourinary: No dysuria or hematuria. All other 14 point ROS negative except the above Past Medical History Past Medical History: Asthma, Coronary Artery Disease (CAD), Chest Pain / Angina, Diabetes Mellitus, GERD/Reflux, Hearing Disorder / Deafness, Hyperlipidemia, Hypertension, Memory Impairment, Myocardial Infarction ([place]), Osteoarthritis (OA), Pneumonia, Seizure Disorder, Thyroid Disorder Additional Past Medical History / Comment(s): tinnitus, recent chest pain & admission to [facility] on Thursday, last seizures 3-4 yrs ago Last Myocardial Infarction Date:: january History of Any Multi-Drug Resistant Organisms: None Reported Past Surgical History: Coronary Bypass/CABG, Heart Catheterization With Stent, Hernia Repair, Orthopedic Surgery, Tonsillectomy Additional Past Surgical History / Comment(s): left hand, rt eye surgery, rt shoulder repair x2, bilat hernia repair, rt foot sx, colonoscopy, 5 VESSEL CABG IN 2008, LOST 4 FINGERS ON LEFT HAND AT 15 YEARS OF AGE, arthroscopic right knee surg. Past Anesthesia/Blood Transfusion Reactions: No Reported Reaction Date of Last Stent Placement:: 2020 Smoking Status: Former smoker - Past Family History Mother Family Medical History: Diabetes Mellitus, Hypertension Father Additional Family Medical History / Comment(s): four way bypass Medications and Allergies Home Medications Medication Instructions Recorded Confirmed Type Isosorbide Mononitrate [Imdur] 30 mg PO DAILY 08/09/14 07/14/21 History Nitroglycerin Sl Tabs [Nitrostat] 0.4 mg SUBLINGUAL Q5M PRN 08/09/14 07/14/21 History lisinopriL [Zestril] 20 mg PO BID 09/20/15 07/14/21 History Aspirin 81 mg PO DAILY 08/11/17 07/14/21 History Metoprolol Tartrate [Lopressor] 25 mg PO BID 05/01/18 07/14/21 History Levothyroxine Sodium [Synthroid] 112 mcg PO DAILY 01/24/21 07/14/21 History glipiZIDE [Glucotrol] 5 mg PO BID 01/24/21 07/14/21 History Clopidogrel [Plavix] 75 mg PO DAILY tab 01/29/21 07/14/21 Rx Atorvastatin Calcium [Lipitor] 10 mg PO HS 05/23/21 07/14/21 History Cholecalciferol [Vitamin D3 (25 25 mcg PO DAILY 06/11/21 07/14/21 History Mcg = 1000 Iu)] Escitalopram [Lexapro] 10 mg PO DAILY 06/11/21 07/14/21 History [place]-3 Fatty Acids/Fish Oil [Fish 1 cap PO DAILY 06/11/21 07/14/21 History Oil 1,000 mg Softgel] Pantoprazole Sodium 40 mg PO DAILY 06/11/21 07/14/21 History Vitamin B Complex 1 cap PO DAILY 06/11/21 07/14/21 History hydrOXYzine HCL [Atarax] 50 mg PO HS PRN 06/11/21 07/14/21 History traZODone HCL 100 mg PO HS 06/11/21 07/14/21 History Valproic Acid [Depakene] 500 mg PO BID 07/04/21 07/14/21 History Allergies Allergy/AdvReac Type Severity Reaction Status Date / Time ciprofloxacin Allergy Rash/Hives Verified 07/05/21 06:44 fluticasone propionate Allergy Rash/Hives Verified 07/05/21 06:44 [From Flonase] metformin Allergy Rash/Hives Verified 07/05/21 06:44 metformin HCl Allergy Rash/Hives Verified 07/05/21 06:44 [From Glucophage] morphine Allergy Unknown Verified 07/05/21 06:44 Physical Exam Vitals: Vital Signs Temp Pulse Pulse Resp BP BP Pulse Ox 07/14/21 08:25 67 18 07/14/21 08:05 98.1 F 67 18 160/99 98 07/14/21 06:28 64 16 129/65 97 07/14/21 04:58 97.6 F 74 16 163/62 99 Intake and Output 07/13/21 07/14/21 07/14/21 22:59 06:59 14:59 Other: Voiding Method Toilet Weight 75.296 kg 75.296 kg PHYSICAL EXAMINATION: Patient is lying in the bed comfortably, no acute distress, awake alert and oriented.. HEENT: Normocephalic. Neck is supple. Pupils reactive. Nostrils clear. Oral cavity is moist. Neck reveals no JVD, carotid bruits, or thyromegaly. CHEST EXAMINATION: Trachea is central. Symmetrical expansion. Lung hurley clear to auscultation and percussion. CARDIAC: Normal S1, S2 with no gallops. No murmurs ABDOMEN: Soft. Bowel sounds normal. No organomegaly. No abdominal bruits. Extremities: reveal no edema. No clubbing or cyanosis Neurologically awake, alert, oriented x3 with well-coordinated movements. No focal deficits noted Skin: No rash or skin lesions. Psychiatric: Coperative. Nonsuicidal Musculoskeletal: No joint swelling or deformity. Normal range of motion. Results CBC & Chem 7: 07/14/21 04:49 07/14/21 05:17 Labs: Abnormal Lab Results - Last 24 Hours (Table) 07/14/21 07/14/21 07/14/21 Range/Units 05:11 05:17 09:13 Sodium 136 L (137-145) mmol/L Glucose 164 H (74-99) mg/dL POC Glucose (mg/dL) 150 H 108 H (75-99) mg/dL Thrombosis Risk Factor Assmnt - DVT/VTE Prophylaxis DVT/VTE Prophylaxis: Pharmacologic Prophylaxis ordered - Choose All That Apply Any of the Below Risk Factors Present?: Yes Each Factor Represents 1 point: Obesity (BMI >25) Other Risk Factors: Yes Each Risk Factor Represents 2 Points: Age 61-74 years Other congenital or acquired thrombophilia - If yes, enter type in comment: No Thrombosis Risk Factor Assessment Total Risk Factor Score: 3 Thrombosis Risk Factor Assessment Level: Moderate Risk Assessment and Plan Assessment: Atypical chest pain. Likely GI related. Ruled out ACS. Mild acute pancreatitis with lipase level 250 Transient altered mental status likely due to episodes of hypoglycemia. Blood sugar dropping down to 62 at home. Likely due to poor oral intake and glipizide History of seizures Left lower quadrant abdominal pain. Cholelithiasis and patient was supposed to follow as an outpatient for cholecystectomy. Diabetes type 2 [id number] Hearing disorder/deafness Hypertension Hyperlipidemia Hypothyroidism Coronary artery disease history of CABG DVT prophylaxis with heparin subcu Plan: Patient will be continued on telemetry monitoring. Serial EKG and troponin 3 negative. Chest pain is unlikely cardiac origin. Due to complaints of left lower quadrant abdominal pain CT of abdomen pelvis was ordered. Altered mental status at home is likely due to hypoglycemic episodes. Glipizide will be on hold and patient will be started on different hypoglycemic agent if continues to be hyperglycemic. Follow-up A1c level. EEG was ordered as per neurology recommendations rule seizures.. Patient had a prior history of seizures. Continue with neuro checks. Continue with aspirin, statins, Plavix improved, lisinopril and metoprolol. Continue with PPI and symptomatic management for nausea. Gentle IV hydration. Follow up closely. Time with Patient: Greater than 30
[2021-07-14] MEDS: TAMSULOSIN 0.4 MG CAP.ER.24H PO SCH (18:30)
[2021-07-14 19:10] LABS: Hemoglobin A1C 6.8 % (4.0-6.0)
[2021-07-14] MEDS: ATORVASTATIN 10 MG TAB PO SCH (19:47)
[2021-07-14 20:09] LABS: Glucose,Whole Blood 120 mg/dL (75-99)
[2021-07-14] MEDS: NALOXONE 0.4 MG/ML 1 ML VIAL IV PRN ×3 (20:28→21:11)
[2021-07-14] MEDS ORDERED: SODIUM CHLORIDE 0.9% 500 ML 500 ML IV ONE (21:35)
--- NOTE | 2021-07-14 21:42 | P.EN ---
A team note RN found this patient hypotensive. A team called upon evaluating patient , he is asymptomatic, Alert oriented to time place and person. denies any chest pain or trouble breathing, denies feeling dizzy . he is getting ready to sleep as its getting close to his regular bed time. he is concerned about his kidneys though. vital signs, BP 79/64 right arm, HR 64, oxygen sat 96% lungs fine inspiartory rales at lung bases. no leg edema patient is fully awake and appropriate. hypotension, asymptomatic monitor vital sings NS 0.9% 500 cc bolus IV supportive care
[2021-07-15] MEDS: LEVOTHYROXINE 112 MCG TAB PO SCH (05:38)
[2021-07-15 07:19] LABS: Glucose,Whole Blood 107 mg/dL (75-99)
[2021-07-15] MEDS: PANTOPRAZOLE 40 MG TABLET PO SCH (07:36)
[2021-07-15] MEDS: ISOSORBIDE MONONITRATE ER 30 MG TAB.ER.24H PO SCH (07:36)
[2021-07-15] MEDS: CLOPIDOGREL 75 MG TAB PO SCH (07:36)
[2021-07-15] MEDS: ESCITALOPRAM 10 MG TAB PO SCH (07:36)
[2021-07-15] MEDS: ASPIRIN 325 MG TAB PO SCH (07:36)
[2021-07-15] MEDS: INSULIN ASPART (NovoLOG) 100 UNIT/ML VIAL SQ SCH ×4 (07:37→22:01)
[2021-07-15] MEDS: METOPROLOL TARTRATE 25 MG TAB PO SCH ×2 (07:37→20:18)
[2021-07-15] MEDS: lisinopriL 20 MG TAB PO SCH ×2 (07:37→20:18)
[2021-07-15] MEDS: VALPROIC ACID ORAL SOLN 250 MG/5 ML CUP PO SCH ×2 (07:37→20:17)
[2021-07-15 08:54] LABS: Basophils # (A) 0.05 X 10*3/uL (0.00-0.10); Basophils % (A) 0.6 %; Eosinophils # (A) 0.11 X 10*3/uL (0.04-0.35); Eosinophils % (A) 1.4 %; HCT 41.2 % (39.6-50.0); HGB 13.5 g/dL (13.0-17.0); Lymphocytes % (A) 17.5 %; MCH 30.6 pg (27.0-32.0); MCHC 32.8 g/dL (32.0-37.0); MCV 93.4 fL (80.0-97.0); Mean Platelet Volume 11.4 fL (9.5-12.2); Monocytes # (A) 0.49 X 10*3/uL (0.20-1.00); Monocytes % (A) 6.1 %; Neutrophils # (A) 5.88 X 10*3/uL (1.80-7.70); Neutrophils % (A) 73.8 %; Platelet Count 180 X 10*3/uL (140-440); RBC 4.41 X 10*6/uL (4.40-5.60); RDW 13.2 % (11.5-14.5); WBC 7.98 X 10*3/uL (4.50-10.00)
[2021-07-15 09:35] LABS: African American GFR (CKD) 51.3 (60.0-200.0); Albumin 3.8 g/dL (3.80-4.90); Albumin/Globulin Ratio 1.81 (1.60-3.17); Anion Gap 10.8 mmol/L (4.00-12.00); BUN/Creat Ratio 11.25 Ratio (12.00-20.00); Calcium 8.6 mg/dL (8.7-10.3); Carbon Dioxide 23.2 mmol/L (21.6-31.8); Chol/HDL Ratio 6.13; Globulin 2.1 g/dL (1.6-3.3); LDL Cholesterol,Calculated 88.2 mg/dL (0.0-131.0); Magnesium 1.6 mg/dL (1.5-2.4); Non-African American GFR(CKD) 44.2 (60.0-200.0); Phosphorus 4.4 mg/dL (2.4-5.1); Potassium 4.6 mmol/L (3.5-5.5); Total Bilirubin 0.5 mg/dL (0.2-1.2); Total Protein 5.9 g/dL (6.2-8.2); VLDL Calculation 29.8 mg/dL (5.00-40.00)
--- NOTE | 2021-07-15 09:37 | P.PN ---
Subjective Progress Note Date: 07/15/21 This gentleman was admitted to the hospital mainly with abdominal discomfort and nausea and also brief episodes of chest pain. Patient still complains of abdominal pain, nausea. Patient had a computed tomography scan of the abdomen yesterday and was noted to have hydronephrosis. Patient also had calcified gallstones which are multiple without any evidence of dilatation of the common bile duct. He denies any chest pain or shortness of breath. Last night patient had an episode of hypotension requiring some IV fluids. His vital signs are stable. This morning. Lungs are clear. Heart is regular. From cardiac standpoint patient seems to be stable. May need further evaluation of abdominal pain. Objective - Vital Signs Vital signs: Vital Signs Temp 97.7 F 07/15/21 07:00 Pulse 62 07/15/21 07:00 Resp 18 07/15/21 07:00 BP 144/70 07/15/21 07:00 Pulse Ox 97 07/15/21 07:00 Intake & Output 07/14/21 07/15/21 07/15/21 18:59 06:59 18:59 Intake Total 150 Output Total 300 Balance -150 Weight 75.296 kg Intake: Oral 150 Output: Urine 300 Other: Voiding Method Toilet Urinal Urinal # Voids 3 1 - Exam GENERAL EXAM: Patient is alert and oriented and doesn't appear to be in any acute distress HEENT: Normocephalic. Normal reaction of pupils, equal size, normal range of extraocular motion. No erythema or exudates in the throat. NECK: No masses, no nuchal rigidity. CHEST: No chest wall deformity. LUNGS: Equal air entry with no crackles or wheeze. HEART: S1 and S2 normal with no audible mumurs or gallops. Regular rhythm, femorals equal on both sides.. ABDOMEN: Soft SKIN: No rashes CENTRAL NERVOUS SYSTEM: No focal deficits. EXTREMITIES: No cyanosis, clubbing or edema. - Labs CBC & Chem 7: 07/15/21 03:57 07/15/21 03:57 Labs: Abnormal Lab Results - Last 24 Hours (Table) 07/14/21 07/14/21 07/14/21 Range/Units 12:00 12:00 16:07 Immature Gran # (0.00-0.04) X 10*3/uL Creatinine (0.6-1.5) mg/dL Est GFR (CKD-EPI)AfAm (60.0-200.0) Est GFR (CKD-EPI)NonAf (60.0-200.0) BUN/Creatinine Ratio (12.00-20.00) Ratio Glucose (70-110) mg/dL POC Glucose (mg/dL) 159 H (75-99) mg/dL Hemoglobin A1c 6.8 H (4.0-6.0) % Calcium (8.7-10.3) mg/dL Total Protein (6.2-8.2) g/dL HDL Cholesterol (40.0-60.0) mg/dL TSH 0.256 L (0.465-4.680) mIU/L 07/14/21 07/15/21 07/15/21 Range/Units 20:08 03:57 03:57 Immature Gran # 0.05 H (0.00-0.04) X 10*3/uL Creatinine 1.6 H (0.6-1.5) mg/dL Est GFR (CKD-EPI)AfAm 51.3 L (60.0-200.0) Est GFR (CKD-EPI)NonAf 44.2 L (60.0-200.0) BUN/Creatinine Ratio 11.25 L (12.00-20.00) Ratio Glucose 146 H (70-110) mg/dL POC Glucose (mg/dL) 120 H (75-99) mg/dL Hemoglobin A1c (4.0-6.0) % Calcium 8.6 L (8.7-10.3) mg/dL Total Protein 5.9 L (6.2-8.2) g/dL HDL Cholesterol 23.0 L (40.0-60.0) mg/dL TSH (0.465-4.680) mIU/L 07/15/21 Range/Units 07:05 Immature Gran # (0.00-0.04) X 10*3/uL Creatinine (0.6-1.5) mg/dL Est GFR (CKD-EPI)AfAm (60.0-200.0) Est GFR (CKD-EPI)NonAf (60.0-200.0) BUN/Creatinine Ratio (12.00-20.00) Ratio Glucose (70-110) mg/dL POC Glucose (mg/dL) 107 H (75-99) mg/dL Hemoglobin A1c (4.0-6.0) % Calcium (8.7-10.3) mg/dL Total Protein (6.2-8.2) g/dL HDL Cholesterol (40.0-60.0) mg/dL TSH (0.465-4.680) mIU/L Assessment and Plan (1) Chest pain Current Visit: Yes Status: Acute Code(s): R07.9 - CHEST PAIN, UNSPECIFIED SNOMED Code(s): 77718501 (2) Abdominal pain Current Visit: No Status: Acute Code(s): R10.9 - UNSPECIFIED ABDOMINAL PAIN SNOMED Code(s): 17523380 (3) Coronary artery disease involving coronary bypass graft of [place] heart Current Visit: No Status: Acute Code(s): I25.810 - ATHEROSCLEROSIS OF CABG W/O ANGINA PECTORIS SNOMED Code(s): 652536840 (4) Seizure disorder Current Visit: No Status: Acute Code(s): G40.909 - EPILEPSY, UNSP, NOT INTRACTABLE, WITHOUT STATUS EPILEPTICUS SNOMED Code(s): 853572355 Plan: His main concern now seemed of abdominal pain and nausea. Patient has history of pancreatitis. Consider GI surgical consult. His chest pain was transient and is free of any chest pain at this time. Enzymes are negative and EKG did not show any acute changes. Unless patient has any recurrence of typical chest pain, no further cardiac workup at this time. Follow-up with Dr. Armstrong. 07/15/2021: Patient remains stable from cardiac standpoint. Patient had an unexplained hypotension episode last night. Seemed to be responded to fluids. Still complaining of abdominal pain with findings of hydronephrosis on the computed tomography scan. Patient also has multiple calcified gallstones. May need further evaluation for abdominal pain.
--- NOTE | 2021-07-15 12:24 | P.GSCN ---
History of Present Illness Consult date: 07/15/21 Reason for Consult: Left hydronephrosis Requesting physician: Jaspal Chao History of present illness: The patient is a 65-year-old white male admitted with atypical chest pain. CT of the abdomen and pelvis is shown mild left hydroureteronephrosis, along with bladder distention up to the umbilicus. The patient denies any prior history of UTIs or urolithiasis. However, he states that he has experienced difficulty voiding since 2008, and that this has worsened in the past year. Specifically, he reports hesitancy and a weak urinary stream. He occasionally experiences intermittency and strains to void. He occasionally experiences dysuria. He denies hematuria. He occasionally experiences urge incontinence. He reports nocturia 2-3. Review of Systems - Cardiovascular Reports chest pain - Respiratory Reports dyspnea - Gastrointestinal Denies nausea, Denies vomiting - Genitourinary Reports as per HPI Past Medical History Past Medical History: Asthma, Coronary Artery Disease (CAD), Chest Pain / Angina, Diabetes Mellitus, GERD/Reflux, Hearing Disorder / Deafness, Hyperlipidemia, Hypertension, Memory Impairment, Myocardial Infarction ([place]), Osteoarthritis (OA), Pneumonia, Seizure Disorder, Thyroid Disorder Additional Past Medical History / Comment(s): tinnitus, recent chest pain & admission to [facility] on Thursday, last seizures 3-4 yrs ago Last Myocardial Infarction Date:: january History of Any Multi-Drug Resistant Organisms: None Reported Past Surgical History: Coronary Bypass/CABG, Heart Catheterization With Stent, Hernia Repair, Orthopedic Surgery, Tonsillectomy Additional Past Surgical History / Comment(s): left hand, rt eye surgery, rt shoulder repair x2, bilat hernia repair, rt foot sx, colonoscopy, 5 VESSEL CABG IN 2008, LOST 4 FINGERS ON LEFT HAND AT 15 YEARS OF AGE, arthroscopic right knee surg. Past Anesthesia/Blood Transfusion Reactions: No Reported Reaction Date of Last Stent Placement:: 2020 Smoking Status: Former smoker - Past Family History Mother Family Medical History: Diabetes Mellitus, Hypertension Father Additional Family Medical History / Comment(s): four way bypass Medications and Allergies Home Medications Medication Instructions Recorded Confirmed Type Isosorbide Mononitrate [Imdur] 30 mg PO DAILY 08/09/14 07/14/21 History Nitroglycerin Sl Tabs [Nitrostat] 0.4 mg SUBLINGUAL Q5M PRN 08/09/14 07/14/21 History lisinopriL [Zestril] 20 mg PO BID 09/20/15 07/14/21 History Aspirin 81 mg PO DAILY 08/11/17 07/14/21 History Metoprolol Tartrate [Lopressor] 25 mg PO BID 05/01/18 07/14/21 History Levothyroxine Sodium [Synthroid] 112 mcg PO DAILY 01/24/21 07/14/21 History glipiZIDE [Glucotrol] 5 mg PO BID 01/24/21 07/14/21 History Clopidogrel [Plavix] 75 mg PO DAILY tab 01/29/21 07/14/21 Rx Atorvastatin Calcium [Lipitor] 10 mg PO HS 05/23/21 07/14/21 History Cholecalciferol [Vitamin D3 (25 25 mcg PO DAILY 06/11/21 07/14/21 History Mcg = 1000 Iu)] Escitalopram [Lexapro] 10 mg PO DAILY 06/11/21 07/14/21 History [place]-3 Fatty Acids/Fish Oil [Fish 1 cap PO DAILY 06/11/21 07/14/21 History Oil 1,000 mg Softgel] Pantoprazole Sodium 40 mg PO DAILY 06/11/21 07/14/21 History Vitamin B Complex 1 cap PO DAILY 06/11/21 07/14/21 History hydrOXYzine HCL [Atarax] 50 mg PO HS PRN 06/11/21 07/14/21 History traZODone HCL 100 mg PO HS 06/11/21 07/14/21 History Valproic Acid [Depakene] 500 mg PO BID 07/04/21 07/14/21 History Allergies Allergy/AdvReac Type Severity Reaction Status Date / Time ciprofloxacin Allergy Rash/Hives Verified 07/05/21 06:44 fluticasone propionate Allergy Rash/Hives Verified 07/05/21 06:44 [From Flonase] metformin Allergy Rash/Hives Verified 07/05/21 06:44 metformin HCl Allergy Rash/Hives Verified 07/05/21 06:44 [From Glucophage] morphine Allergy Unknown Verified 07/05/21 06:44 Surgical - Exam Vital Signs Temp Pulse Resp BP Pulse Ox 97.6 F 74 16 163/62 99 07/14/21 04:58 07/14/21 04:58 07/14/21 04:58 07/14/21 04:58 07/14/21 04:58 - General well developed, well nourished, no distress - Respiratory normal respiratory effort - Abdomen Abdomen: soft, non tender, no guarding, no rigid, no rebound - Genitourinary normal penis with no external lesions, testicles non-tender - Rectum Rectum: normal sphincter tone, no masses, other (Prostate mildly enlarged and smooth) - Psychiatric oriented to time, oriented to person, oriented to place, speech is normal, memory intact Results - Labs 07/15/21 03:57 07/15/21 03:57 Abnormal Lab Results - Last 24 Hours (Table) 07/14/21 07/14/21 07/14/21 Range/Units 12:00 12:00 16:07 Immature Gran # (0.00-0.04) X 10*3/uL Creatinine (0.6-1.5) mg/dL Est GFR (CKD-EPI)AfAm (60.0-200.0) Est GFR (CKD-EPI)NonAf (60.0-200.0) BUN/Creatinine Ratio (12.00-20.00) Ratio Glucose (70-110) mg/dL POC Glucose (mg/dL) 159 H (75-99) mg/dL Hemoglobin A1c 6.8 H (4.0-6.0) % Calcium (8.7-10.3) mg/dL Total Protein (6.2-8.2) g/dL HDL Cholesterol (40.0-60.0) mg/dL TSH 0.256 L (0.465-4.680) mIU/L 07/14/21 07/15/21 07/15/21 Range/Units 20:08 03:57 03:57 Immature Gran # 0.05 H (0.00-0.04) X 10*3/uL Creatinine 1.6 H (0.6-1.5) mg/dL Est GFR (CKD-EPI)AfAm 51.3 L (60.0-200.0) Est GFR (CKD-EPI)NonAf 44.2 L (60.0-200.0) BUN/Creatinine Ratio 11.25 L (12.00-20.00) Ratio Glucose 146 H (70-110) mg/dL POC Glucose (mg/dL) 120 H (75-99) mg/dL Hemoglobin A1c (4.0-6.0) % Calcium 8.6 L (8.7-10.3) mg/dL Total Protein 5.9 L (6.2-8.2) g/dL HDL Cholesterol 23.0 L (40.0-60.0) mg/dL TSH (0.465-4.680) mIU/L 07/15/21 Range/Units 07:05 Immature Gran # (0.00-0.04) X 10*3/uL Creatinine (0.6-1.5) mg/dL Est GFR (CKD-EPI)AfAm (60.0-200.0) Est GFR (CKD-EPI)NonAf (60.0-200.0) BUN/Creatinine Ratio (12.00-20.00) Ratio Glucose (70-110) mg/dL POC Glucose (mg/dL) 107 H (75-99) mg/dL Hemoglobin A1c (4.0-6.0) % Calcium (8.7-10.3) mg/dL Total Protein (6.2-8.2) g/dL HDL Cholesterol (40.0-60.0) mg/dL TSH (0.465-4.680) mIU/L Diabetes panel 07/14/21 07/15/21 Range/Units 12:00 03:57 Sodium 137 (135-145) mmol/L Potassium 4.6 (3.5-5.5) mmol/L Chloride 103 (96-109) mmol/L Carbon Dioxide 23.2 (21.6-31.8) mmol/L BUN 18.0 (9.0-27.0) mg/dL Creatinine 1.6 H (0.6-1.5) mg/dL Glucose 146 H (70-110) mg/dL Hemoglobin A1c 6.8 H (4.0-6.0) % Calcium 8.6 L (8.7-10.3) mg/dL AST 19 (14-35) U/L ALT 14 (10-49) U/L Alkaline Phosphatase 47 (41-126) U/L Total Protein 5.9 L (6.2-8.2) g/dL Albumin 3.80 (3.80-4.90) g/dL Triglycerides 149.0 (0.0-149.0) mg/dL HDL Cholesterol 23.0 L (40.0-60.0) mg/dL Thyroid panel 07/14/21 Range/Units 12:00 TSH 0.256 L (0.465-4.680) mIU/L Calcium panel 07/15/21 Range/Units 03:57 Calcium 8.6 L (8.7-10.3) mg/dL Phosphorus 4.4 (2.4-5.1) mg/dL Albumin 3.80 (3.80-4.90) g/dL Pituitary panel 07/14/21 07/15/21 Range/Units 12:00 03:57 Sodium 137 (135-145) mmol/L Potassium 4.6 (3.5-5.5) mmol/L Chloride 103 (96-109) mmol/L Carbon Dioxide 23.2 (21.6-31.8) mmol/L BUN 18.0 (9.0-27.0) mg/dL Creatinine 1.6 H (0.6-1.5) mg/dL Glucose 146 H (70-110) mg/dL Calcium 8.6 L (8.7-10.3) mg/dL TSH 0.256 L (0.465-4.680) mIU/L Adrenal panel 07/15/21 Range/Units 03:57 Sodium 137 (135-145) mmol/L Potassium 4.6 (3.5-5.5) mmol/L Chloride 103 (96-109) mmol/L Carbon Dioxide 23.2 (21.6-31.8) mmol/L BUN 18.0 (9.0-27.0) mg/dL Creatinine 1.6 H (0.6-1.5) mg/dL Glucose 146 H (70-110) mg/dL Calcium 8.6 L (8.7-10.3) mg/dL Total Bilirubin 0.5 (0.2-1.2) mg/dL AST 19 (14-35) U/L ALT 14 (10-49) U/L Alkaline Phosphatase 47 (41-126) U/L Total Protein 5.9 L (6.2-8.2) g/dL Albumin 3.80 (3.80-4.90) g/dL - Imaging CT scan - abdomen: report reviewed, image reviewed Assessment and Plan (1) Unspecified hydronephrosis Current Visit: Yes Status: Acute Code(s): N13.30 - UNSPECIFIED HYDRONEPHROSIS SNOMED Code(s): 40206801 Plan: I had a lengthy discussion with the patient regarding his mild left hydronephrosis, voiding symptoms, and possible incomplete bladder emptying. If indeed he is confirmed to be emptying his bladder incompletely, I would consider this the likely cause of the hydronephrosis. A postvoid residual will be checked, and if excessive a Campbell catheter will be placed. If this turns out to be the case, renal ultrasound can be obtained later this week to determine whether or not the hydronephrosis resolves. Time with Patient: Greater than 30
[2021-07-15 12:30] LABS: Glucose,Whole Blood 100 mg/dL (75-99)
[2021-07-15 17:27] LABS: Glucose,Whole Blood 115 mg/dL (75-99)
--- NOTE | 2021-07-15 17:34 | P.PN ---
Subjective Progress Note Date: 07/15/21 Patient was initially seen by Dr. Roderick Sherman. Please refer to his note for details. 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 Patient has history of seizure disorder, currently on Depakote, follows up with Dr. Gordon. Patient had an episode of hypoglycemia with blood sugars of 70s. Patient is hard of hearing. He was seen by Dr. Pinto (neuro-hospitalist) in our facility on 05/07/2018 and was consulted for seizure. In his impression and he stated the patient has seizure disorder as well as dementia. He stated that that it's unclear the patient had true tonic-clonic seizure but concerning the that he had loss of time and this is the second episode of reported seizure. Questionable post ictal state. And he did not have any seizure activity in the past. Therefore the patient was started on Depakote 500 mg 1 tablet twice a day by him. Please refer to his note for further details. Patient had an EEG in our facility on 04/2018 for seizure and it's reported that it's within normal limits. Objective - Vital Signs Vital signs: Vital Signs Temp 98.4 F 07/15/21 14:57 Pulse 63 07/15/21 14:57 Resp 18 07/15/21 14:57 BP 122/64 07/15/21 14:57 Pulse Ox 93 L 07/15/21 14:57 Intake & Output 07/14/21 07/15/21 07/15/21 18:59 06:59 18:59 Intake Total 150 Output Total 300 Balance -150 Weight 75.296 kg Intake: Oral 150 Output: Urine 300 Other: Voiding Method Toilet Urinal Urinal # Voids 3 1 1 - Exam GENERAL: The patient is lying in bed and is not in acute distress. CHEST: The heart rate is regular rate rhythm. No murmurs to auscultation. LUNG: Clear to auscultation bilaterally no wheezing noted throughout. Not labored breathing. ABDOMEN/GI: Bowel sounds present in all 4 quadrants. No tenderness to palpation throughout. NEUROLOGICAL: Higher mental function: The patient is awake, alert, oriented to self, place and time. Patient is following commands. No aphasia and no neglect. Cranial nerves: The pupils are round, equal and reactive to light and accommodation. Visual hurley are full to confrontation throughout. Extraocular movement is intact no nystagmus is noted. Facial sensation is normal to touch throughout. The facial strength is normal throughout. Hearing is severely decreased over the right and deaf over left (old) to hand rub. Tongue is midline and moved [id number] without any difficulty. No dysarthria is noted. Shoulder shrug is normal bilaterally. Motor: The strength is 5 over 5 throughout. Normal tone and bulk. Patient has lost forefingers from work-related injury since age 15 years of age. Cerebellum: Normal finger to nose bilaterally. Sensation: Sensation is normal to touch throughout. Reflexes (right/left): 1+ in the upper limbs, 2+ in the lower limbs . Plantars are mute bilaterally. - Labs CBC & Chem 7: 07/15/21 03:57 07/15/21 03:57 Labs: Abnormal Lab Results - Last 24 Hours (Table) 07/14/21 07/14/21 07/14/21 Range/Units 12:00 16:07 20:08 Immature Gran # (0.00-0.04) X 10*3/uL Creatinine (0.6-1.5) mg/dL Est GFR (CKD-EPI)AfAm (60.0-200.0) Est GFR (CKD-EPI)NonAf (60.0-200.0) BUN/Creatinine Ratio (12.00-20.00) Ratio Glucose (70-110) mg/dL POC Glucose (mg/dL) 159 H 120 H (75-99) mg/dL Hemoglobin A1c 6.8 H (4.0-6.0) % Calcium (8.7-10.3) mg/dL Total Protein (6.2-8.2) g/dL HDL Cholesterol (40.0-60.0) mg/dL 07/15/21 07/15/21 07/15/21 Range/Units 03:57 03:57 07:05 Immature Gran # 0.05 H (0.00-0.04) X 10*3/uL Creatinine 1.6 H (0.6-1.5) mg/dL Est GFR (CKD-EPI)AfAm 51.3 L (60.0-200.0) Est GFR (CKD-EPI)NonAf 44.2 L (60.0-200.0) BUN/Creatinine Ratio 11.25 L (12.00-20.00) Ratio Glucose 146 H (70-110) mg/dL POC Glucose (mg/dL) 107 H (75-99) mg/dL Hemoglobin A1c (4.0-6.0) % Calcium 8.6 L (8.7-10.3) mg/dL Total Protein 5.9 L (6.2-8.2) g/dL HDL Cholesterol 23.0 L (40.0-60.0) mg/dL 07/15/21 Range/Units 12:29 Immature Gran # (0.00-0.04) X 10*3/uL Creatinine (0.6-1.5) mg/dL Est GFR (CKD-EPI)AfAm (60.0-200.0) Est GFR (CKD-EPI)NonAf (60.0-200.0) BUN/Creatinine Ratio (12.00-20.00) Ratio Glucose (70-110) mg/dL POC Glucose (mg/dL) 100 H (75-99) mg/dL Hemoglobin A1c (4.0-6.0) % Calcium (8.7-10.3) mg/dL Total Protein (6.2-8.2) g/dL HDL Cholesterol (40.0-60.0) mg/dL Assessment and Plan Assessment: Transient encephalopathy (per daughter lasting 10 minutes) seems metabolic. Seems likely due to episode of hypoglycemia (per patient it was in 60's but according to daughter he had few episode similar to this but he checks his sugars on his own). History of seizure (on Depakote since 2018 and is compliant with medication) Dementia per electronic records Abdominal pain with history of gall stones Deafness over the left ear and very hard of hearing over the right. Diabetes Mellitus with a sugar slightly elevated in our facility (per according to patient it has been labile for several weeks) Hypertension that is controlled currently History of coronary artery disease status post stent and history of CABG History of hyperlipidemia Plan: Await EEG. Continue patient's home medication Depakote 500 mg 1 tablet twice a day. TSH 0.256 which is slightly low, and free T4 is normal 1.86. Will defer IM to manage abnormal thyroid functions. Vitamin B12 675, folate 18.5, hemoglobin A1c 6.8. Lipid panel revealed cholesterol 141, LDL 88.2, HDL 23.0 and triglycerides 149 MRI cannot be obtained since patient has a clip according to the daughter behind his eye. From a neurologic perspective the this episode does not seem like a stroke. Every 4 hours neuro checks. Placed on seizure precautions seizure pad. On cardiac monitoring Cardiology is consulted. We'll defer the rest of the medical management to primary team. Upon discharge the patient and needs to follow-up with his neurologist as an outpatient within 2-3 weeks (Dr. Gordon).
[2021-07-15] MEDS: TAMSULOSIN 0.4 MG CAP.ER.24H PO SCH (18:04)
[2021-07-15] MEDS: ATORVASTATIN 10 MG TAB PO SCH (20:17)
[2021-07-15 21:31] LABS: Glucose,Whole Blood 181 mg/dL (75-99)
--- NOTE | 2021-07-15 23:19 | P.PN ---
Subjective Progress Note Date: 07/15/21 Principal diagnosis: Epigastric abdominal pain Left lower quadrant abdominal pain due to hydroureter Patient is a 65-year-old male with a known history of coronary artery disease status post CABG, stent placement, hypertension, hyperlipidemia, diabetes type 2 [id number], memory impairment, history of [place], hypothyroidism and face history of smoking presents to ER with complaints of chest pain, abdominal pain. Patient states that he has been having intermittent chest pains mainly in the lower retrosternal and epigastric region and also left lower quadrant abdominal pains. Chest pain feels like tightness and someone sitting on the chest. Associated with mild shortness of breath. No nausea vomiting or diaphoresis. No radiation of the pain. No headache or dizziness or lightheadedness. According to his patient has been having altered mental status. His blood pressure is getting low to 62 at home. Patient feels shaky at the time. Denied any loss of consciousness. No prior history of seizures. Denied any fever or chills. No cough or sputum production. No leg swelling. No headache or dizziness or lightheadedness. Denied any diarrhea or bloody stools. Patient was admitted to hospital for evaluation. EKG showed sinus rhythm right bundle branch block. Chest x-ray showed no active cardiopulmonary disease. No adverse change. CT head showed cerebral atrophy. No acute intracranial abnormality. No change. Laboratory data showed WBC 6.7 hemoglobin 15.0 and platelets 179 Sodium 136 potassium 4.0 chloride 104 BUN 14 and creatinine 1.24 and blood sugar is 164 on admission. AST 25 ALT 14 alk phos 47 troponin 2 negative and lipase level 250 ProBNP 68 07/15/2021 Patient is currently lying in the bed awake alert 1x3. Left lower quadrant ab dominal pain is better. Patient was seen by urology due to left hydroureter and recommends post void residual and repeat ultrasound later this week for resolution of hydronephrosis. Patient did have episode of hypotension with blood pressure upper 70s. Rapid response team was called.: Patient was given 500 cc fluid bolus. Blood pressure is improved now and currently blood pressure is 122/61 pulse 63 respiration 18 pulse ox 93% on 2 L oxygen via nasal cannula. Laboratory data showed WBC 7.9, globin 13.5 and platelets 180 BUN 89 creatinine 1.6 Blood sugar is controlled. Patient does have history of gallstones. Ultrasound showed no evidence of acute cholecystitis. Active Medications Generic Name Dose Route Start Last Admin Trade Name Freq PRN Reason Stop Dose Admin Albuterol/Ipratropium 3 ml 07/14/21 06:09 Ipratropium-Albuterol 3 Ml Neb INHALATION RT-QID PRN Shortness Of Breath Or Wheezing Aspirin 325 mg 07/15/21 09:00 07/15/21 07:36 Aspirin 325 Mg Tab PO 325 mg DAILY JEVON Administration Atorvastatin Calcium 10 mg 07/14/21 21:00 07/15/21 20:17 Atorvastatin 10 Mg Tab PO 10 mg HS JEVON Administration Clopidogrel Bisulfate 75 mg 07/14/21 11:00 07/15/21 07:36 Clopidogrel 75 Mg Tab PO 75 mg DAILY JEVON Administration Escitalopram Oxalate 10 mg 07/14/21 11:00 07/15/21 07:36 Escitalopram 10 Mg Tab PO 10 mg DAILY JEVON Administration Hydromorphone HCl 1 mg 07/14/21 06:06 07/14/21 19:48 Hydromorphone 1 Mg/Ml 1 Ml Syringe IVP 1 mg Q3HR PRN Administration Severe Pain Sodium Chloride 1,000 mls @ 75 mls/hr 07/14/21 06:15 07/14/21 18:34 Saline 0.9% IV 75 mls/hr .[id number] JEVON Administration Insulin Aspart 0 unit 07/14/21 12:30 07/15/21 22:01 Insulin Aspart (Novolog) 100 Unit/Ml Vial SQ 2 unit ACHS JEVON Administration Protocol Isosorbide Mononitrate 30 mg 07/14/21 11:00 07/15/21 07:36 Isosorbide Mononitrate Er 30 Mg Tab.Er.24h PO 30 mg DAILY JEVON Administration Levothyroxine Sodium 112 mcg 07/14/21 11:00 07/15/21 05:38 Levothyroxine 112 Mcg Tab PO 112 mcg 0630 JEVON Administration Lisinopril 20 mg 07/14/21 11:00 07/15/21 20:18 Lisinopril 20 Mg Tab PO 20 mg BID JEVON Administration Metoprolol Tartrate 25 mg 07/14/21 11:00 07/15/21 20:18 Metoprolol Tartrate 25 Mg Tab PO 25 mg BID JEVON Administration Naloxone HCl 0.2 mg 07/14/21 06:06 07/14/21 21:11 Naloxone 0.4 Mg/Ml 1 Ml Vial IV 0.2 mg Q2M PRN Administration Opioid Reversal Nitroglycerin 0.4 mg 07/14/21 06:05 Nitroglycerin Sl Tabs 0.4 Mg Tab SUBLINGUAL Q5M PRN Chest Pain Ondansetron HCl 4 mg 07/14/21 06:06 07/14/21 20:23 Ondansetron 4 Mg/2 Ml Vial IVP 4 mg Q8HR PRN Administration Nausea And Vomiting Pantoprazole Sodium 40 mg 07/14/21 11:00 07/15/21 07:36 Pantoprazole 40 Mg Tablet PO 40 mg DAILY JEVON Administration Tamsulosin HCl 0.4 mg 07/14/21 18:30 07/15/21 18:04 Tamsulosin 0.4 Mg Cap.Er.24h PO 0.4 mg PC-SUPPER JEVON Administration Valproic Acid 500 mg 07/14/21 11:00 07/15/21 20:17 Valproic Acid Oral Soln 250 Mg/5 Ml Cup PO 500 mg BID JEVON Administration Objective - Vital Signs Vital signs: Vital Signs Temp 97.5 F L 07/15/21 20:06 Pulse 72 07/15/21 20:06 Resp 20 07/15/21 20:06 BP 158/69 07/15/21 20:06 Pulse Ox 95 07/15/21 20:33 Intake & Output 07/15/21 07/15/21 07/16/21 06:59 18:59 06:59 Intake Total 150 Output Total 300 Balance -150 Intake: Oral 150 Output: Urine 300 Other: Voiding Method Urinal Urinal Toilet # Voids 1 1 1 - Exam PHYSICAL EXAMINATION: Patient is lying in the bed comfortably, no acute distress, awake alert and oriented.. HEENT: Normocephalic. Neck is supple. Pupils reactive. Nostrils clear. Oral cavity is moist. Neck reveals no JVD, carotid bruits, or thyromegaly. CHEST EXAMINATION: Trachea is central. Symmetrical expansion. Lung hurley clear to auscultation and percussion. CARDIAC: Normal S1, S2 with no gallops. No murmurs ABDOMEN: Soft. Bowel sounds normal. No organomegaly. No abdominal bruits. Extremities: reveal no edema. No clubbing or cyanosis Neurologically awake, alert, oriented x3 with well-coordinated movements. No focal deficits noted Skin: No rash or skin lesions. Psychiatric: Coperative. Nonsuicidal Musculoskeletal: No joint swelling or deformity. Normal range of motion. - Labs CBC & Chem 7: 07/15/21 03:57 07/15/21 03:57 Labs: Abnormal Lab Results - Last 24 Hours (Table) 07/15/21 07/15/21 07/15/21 Range/Units 03:57 03:57 07:05 Immature Gran # 0.05 H (0.00-0.04) X 10*3/uL Creatinine 1.6 H (0.6-1.5) mg/dL Est GFR (CKD-EPI)AfAm 51.3 L (60.0-200.0) Est GFR (CKD-EPI)NonAf 44.2 L (60.0-200.0) BUN/Creatinine Ratio 11.25 L (12.00-20.00) Ratio Glucose 146 H (70-110) mg/dL POC Glucose (mg/dL) 107 H (75-99) mg/dL Calcium 8.6 L (8.7-10.3) mg/dL Total Protein 5.9 L (6.2-8.2) g/dL HDL Cholesterol 23.0 L (40.0-60.0) mg/dL 07/15/21 07/15/21 07/15/21 Range/Units 12:29 17:26 21:30 Immature Gran # (0.00-0.04) X 10*3/uL Creatinine (0.6-1.5) mg/dL Est GFR (CKD-EPI)AfAm (60.0-200.0) Est GFR (CKD-EPI)NonAf (60.0-200.0) BUN/Creatinine Ratio (12.00-20.00) Ratio Glucose (70-110) mg/dL POC Glucose (mg/dL) 100 H 115 H 181 H (75-99) mg/dL Calcium (8.7-10.3) mg/dL Total Protein (6.2-8.2) g/dL HDL Cholesterol (40.0-60.0) mg/dL Assessment and Plan Assessment: Atypical chest pain. Likely GI related. Ruled out ACS. Mild acute pancreatitis with lipase level 250 Transient altered mental status likely due to episodes of hypoglycemia. Blood sugar dropping down to 62 at home. Likely due to poor oral intake and glipizide History of seizures Left lower quadrant abdominal pain. Cholelithiasis and patient was supposed to follow as an outpatient for cholecystectomy. Diabetes type 2 [id number] Hearing disorder/deafness Hypertension Hyperlipidemia Hypothyroidism Coronary artery disease history of CABG DVT prophylaxis with heparin subcu Plan: Patient will be continued on telemetry monitoring. Serial EKG and troponin 3 negative. Chest pain is unlikely cardiac origin. Due to complaints of left lower quadrant abdominal pain CT of abdomen pelvis was ordered. CT angiogram abdomen showed left-sided hydronephrosis and hydroureter. Serial bladder scans were ordered and urology has seen the patient. Altered mental status at home is likely due to hypoglycemic episodes. Glipizide will be on hold and patient will be started on different hypoglycemic agent if continues to be hyperglycemic. Follow-up A1c level. EEG was ordered as per neurology recommendations rule seizures.. Patient had a prior history of seizures. Continue with neuro check s. Continue with aspirin, statins, Plavix improved, lisinopril and metoprolol. Continue with PPI and symptomatic management for nausea. Gentle IV hydration. Follow up closely. Time with Patient: Greater than 30
[2021-07-15] MEDS ORDERED: traZODone HCL 100 MG TAB PO SCH (23:30)
[2021-07-16 02:35] VITALS: RESP 18
[2021-07-16] MEDS: LEVOTHYROXINE 112 MCG TAB PO SCH (05:01)
[2021-07-16] MEDS: SODIUM CHLORIDE 0.9% 1,000 ML IV SCH (05:01)
[2021-07-16 05:20] LABS: Glucose,Whole Blood 114 mg/dL (75-99)
[2021-07-16 07:02] LABS: Glucose,Whole Blood 97 mg/dL (75-99)
[2021-07-16] MEDS: INSULIN ASPART (NovoLOG) 100 UNIT/ML VIAL SQ SCH (07:20)
[2021-07-16] MEDS: VALPROIC ACID ORAL SOLN 250 MG/5 ML CUP PO SCH (07:23)
[2021-07-16] MEDS: METOPROLOL TARTRATE 25 MG TAB PO SCH (07:24)
[2021-07-16] MEDS: ISOSORBIDE MONONITRATE ER 30 MG TAB.ER.24H PO SCH (07:24)
[2021-07-16] MEDS: PANTOPRAZOLE 40 MG TABLET PO SCH (07:24)
[2021-07-16] MEDS: ESCITALOPRAM 10 MG TAB PO SCH (07:24)
[2021-07-16] MEDS: CLOPIDOGREL 75 MG TAB PO SCH (07:24)
[2021-07-16] MEDS: ASPIRIN 325 MG TAB PO SCH (07:24)
[2021-07-16] MEDS: lisinopriL 20 MG TAB PO SCH (07:24)
[2021-07-16] MEDS: IPRATROPIUM-ALBUTEROL 3 ML NEB INHALATION PRN ×2 (07:39→11:20)
[2021-07-16 07:40] VITALS: BP 171/75; TEMP 97.6
[2021-07-16 09:21] LABS: Basophils # (A) 0.07 X 10*3/uL (0.00-0.10); Basophils % (A) 0.9 %; Eosinophils # (A) 0.77 X 10*3/uL (0.04-0.35); Eosinophils % (A) 9.6 %; HCT 38.6 % (39.6-50.0); Lymphocytes # (A) 1.95 X 10*3/uL (0.90-5.00); Lymphocytes % (A) 24.3 %; MCH 30.7 pg (27.0-32.0); MCHC 33.7 g/dL (32.0-37.0); Mean Platelet Volume 11.5 fL (9.5-12.2); Monocytes # (A) 0.89 X 10*3/uL (0.20-1.00); Monocytes % (A) 11.1 %; Neutrophils # (A) 4.31 X 10*3/uL (1.80-7.70); Neutrophils % (A) 53.7 %; Platelet Count 164 X 10*3/uL (140-440); RBC 4.24 X 10*6/uL (4.40-5.60); RDW 13.1 % (11.5-14.5); WBC 8.02 X 10*3/uL (4.50-10.00)
[2021-07-16 09:52] LABS: African American GFR (CKD) 65.9 (60.0-200.0); Anion Gap 6.9 mmol/L (4.00-12.00); BUN/Creat Ratio 12.31 Ratio (12.00-20.00); Calcium 8.5 mg/dL (8.7-10.3); Carbon Dioxide 25.1 mmol/L (21.6-31.8); Non-African American GFR(CKD) 56.9 (60.0-200.0); Potassium 4.6 mmol/L (3.5-5.5)
[2021-07-16 11:29] VITALS: PULSE 62
--- NOTE | 2021-07-16 13:28 | P.PN ---
Subjective Progress Note Date: 07/16/21 04/15/2021: Patient is laying comfortably in the bed. Offers no complaints. Denies any focal numbness tingling. Denies headache or any problem with the vision. 04/14/2021: Patient was initially seen by Dr. Roderick Sherman. Please refer to his note for details. 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 Patient has history of seizure disorder, currently on Depakote, follows up with Dr. Gordon. Patient had an episode of hypoglycemia with blood sugars of 70s. Patient is hard of hearing. He was seen by Dr. Pinto (neuro-hospitalist) in our facility on 05/07/2018 and was consulted for seizure. In his impression and he stated the patient has seizure disorder as well as dementia. He stated that that it's unclear the patient had true tonic-clonic seizure but concerning the that he had loss of time and this is the second episode of reported seizure. Questionable post ictal state. And he did not have any seizure activity in the past. Therefore the patient was started on Depakote 500 mg 1 tablet twice a day by him. Please refer to his note for further details. Patient had an EEG in our facility on 04/2018 for seizure and it's reported that it's within normal limits. Objective - Vital Signs Vital signs: Vital Signs Temp 97.6 F 07/16/21 07:00 Pulse 64 07/16/21 11:20 Resp 18 07/16/21 07:00 BP 171/75 07/16/21 07:00 Pulse Ox 97 07/16/21 07:42 Intake & Output 07/15/21 07/16/21 07/16/21 18:59 06:59 18:59 Output Total 200 700 Balance -200 -700 Output: Urine 200 700 Uretheral (Campbell) 500 Other: Voiding Method Urinal Toilet Toilet # Voids 1 3 3 - Exam GENERAL: The patient is lying in bed and is not in acute distress. NEUROLOGICAL: Higher mental function: The patient is awake, alert, oriented to self, place and time. Patient is following commands. No aphasia and no neglect. Detailed examination deferred. - Labs CBC & Chem 7: 07/16/21 04:58 07/16/21 04:58 Labs: Abnormal Lab Results - Last 24 Hours (Table) 07/15/21 07/15/21 07/15/21 Range/Units 12:29 17:26 21:30 RBC (4.40-5.60) X 10*6/uL Hct (39.6-50.0) % Eosinophils # (0.04-0.35) X 10*3/uL Est GFR (CKD-EPI)NonAf (60.0-200.0) POC Glucose (mg/dL) 100 H 115 H 181 H (75-99) mg/dL Calcium (8.7-10.3) mg/dL 07/16/21 07/16/21 07/16/21 Range/Units 04:58 04:58 05:18 RBC 4.24 L (4.40-5.60) X 10*6/uL Hct 38.6 L (39.6-50.0) % Eosinophils # 0.77 H (0.04-0.35) X 10*3/uL Est GFR (CKD-EPI)NonAf 56.9 L (60.0-200.0) POC Glucose (mg/dL) 114 H (75-99) mg/dL Calcium 8.5 L (8.7-10.3) mg/dL Assessment and Plan Assessment: Transient encephalopathy (per daughter lasting 10 minutes) seems metabolic. Seems likely due to episode of hypoglycemia (per patient it was in 60's but according to daughter he had few episode similar to this but he checks his sugars on his own). History of seizure (on Depakote since 2018 and is compliant with medication) Dementia per electronic records Abdominal pain with history of gall stones Deafness over the left ear and very hard of hearing over the right. Diabetes Mellitus with a sugar slightly elevated in our facility (per according to patient it has been labile for several weeks) Hypertension that is controlled currently History of coronary artery disease status post stent and history of CABG History of hyperlipidemia Plan: Patient's mentation is back to baseline. Suspect altered mentation from metabolic reasons like hypoglycemia. Continue patient's home medication Depakote 500 mg 1 tablet twice a day. TSH 0.256 which is slightly low, and free T4 is normal 1.86. Will defer IM to manage abnormal thyroid functions. Vitamin B12 675, folate 18.5, hemoglobin A1c 6.8. Lipid panel revealed cholesterol 141, LDL 88.2, HDL 23.0 and triglycerides 149 MRI cannot be obtained since patient has a clip according to the daughter behind his eye. From a neurologic perspective the this episode does not seem like a stroke. Every 4 hours neuro checks. Placed on seizure precautions seizure pad. We'll defer the rest of the medical management to primary team. Upon discharge the patient and needs to follow-up with his neurologist as an outpatient within 2-3 weeks (Dr. Gordon). Neurologically clear.
--- NOTE | 2021-07-16 16:31 | P.PN ---
Progress Note - Text Progress Note Date: 07/16/21 No acute overnight events, indicates he's been able to void. But unsure if he is voiding to completion. Denies any gross hematuria or dysuria. Denies any flank pain. Discussed with him given his hydronephrosis, and previous urinary symptoms I do recommend obtaining a bladder scan, and if elevated he will need a catheter. -We'll obtain a PVR, greater than 300 mL, inserted Campbell catheter. -Can F/U with Dr Hu in 1-2 weeks
--- NOTE | 2021-07-17 23:03 | P.DS ---
Providers Date of admission: 07/14/21 06:05 Expected date of discharge: 07/16/21 Attending physician: Jaspal Chao Consults: 07/14/21 06:05 Consult Physician Routine Consulting Provider: Roderick Sherman Consult Reason/Comments: ams Do you want consulting provider notified?: Yes 07/14/21 18:20 Consult Physician Routine Consulting Provider: Jenaro Hu Consult Reason/Comments: Left-sided hydronephrosis. Do you want consulting provider notified?: Yes Primary care physician: Marilia Sharma [facility] Course: Epigastric abdominal pain Left lower quadrant abdominal pain due to hydroureter Patient is a 65-year-old male, of with a known history of coronary artery disease status post CABG, stent placement, hypertension, hyperlipidemia, diabetes type 2 [id number], memory impairment, history of AK, hypothyroidism and face history of smoking presents to ER with complaints of chest pain, abdominal pain. Patient states that he has been having intermittent chest pains mainly in the lower retrosternal and epigastric region and also left lower quadrant abdominal pains. Chest pain feels like tightness and someone sitting on the chest. Associated with mild shortness of breath. No nausea vomiting or diaphoresis. No radiation of the pain. No headache or dizziness or lightheadedness. According to his patient has been having altered mental status. His blood pressure is getting low to 62 at home. Patient feels shaky at the time. Denied any loss of consciousness. No prior history of seizures. Denied any fever or chills. No cough or sputum production. No leg swelling. No headache or dizziness or lightheadedness. Denied any diarrhea or bloody stools. Patient was admitted to hospital for evaluation. EKG showed sinus rhythm right bundle branch block. Chest x-ray showed no active cardiopulmonary disease. No adverse change. CT head showed cerebral atrophy. No acute intracranial abnormality. No change. Laboratory data showed WBC 6.7 hemoglobin 15.0 and platelets 179 Sodium 136 potassium 4.0 chloride 104 BUN 14 and creatinine 1.24 and blood sugar is 164 on admission. AST 25 ALT 14 alk phos 47 troponin 2 negative and lipase level 250 ProBNP 68 07/15/2021 Patient is currently lying in the bed awake alert 1x3. Left lower quadrant abdominal pain is better. Patient was seen by urology due to left hydroureter and recommends post void residual and repeat ultrasound later this week for resolution of hydronephrosis. Patient did have episode of hypotension with blood pressure upper 70s. Rapid response team was called.: Patient was given 500 cc fluid bolus. Blood pressure is improved now and currently blood pressure is 122/61 pulse 63 respiration 18 pulse ox 93% on 2 L oxygen via nasal cannula. Laboratory data showed WBC 7.9, globin 13.5 and platelets 180 BUN 89 creatinine 1.6 Blood sugar is controlled. Patient does have history of gallstones. Ultrasound showed no evidence of acute cholecystitis. July 16: Sitting up on bed. It was felt that patient's mental changes were due to hypoglycemia. Patient had not been eating well. Patient's Glucotrol is being cutback. Discussed with the patient and the caregiver at the bedside. No need for any further EEG. Discussed with neurology Dr. Austin. Questions answered. No need for an EEG. Patient refused Campbell catheter as advised by urology. He will follow-up with urology outpatient. Discussion and discharge planning more than 35 minutes Past medical history to include: Asthma, coronary artery disease with stent last one being January 2021, diabetes mellitus, GERD, hard of hearing, hypertension, hyperlipidemia, mild cognitive impairment, osteoarthritis, seizure disorder, hypothyroid, tinnitus. Last seizure was about 3-4 years ago. coronary bypass. Social history: . Stopped smoking 37 years ago. No alcohol. Family history: Hypertension, diabetes, coronary bypass Physical examination: VITAL SIGNS: 97.6, 56, 18, 134-73, and 7% on 2 L GENERAL: BMI 28.5, reclining in bed, comfortable EYES: Pupils equal. Conjunctiva normal. HEENT: External appearance of nose and ears normal, oral cavity grossly normal. NECK: JVD not raised; masses not palpable. HEART: First and second heart sounds are normal; no edema. LUNGS: Respiratory rate normal; clear to auscultation. ABDOMEN: Soft, no tenderness, no guarding rigidity, liver spleen not palpable, no masses palpable. PSYCH: Alert and oriented x3; mood and affect normal. MUSCULAR skeletal: Evidence of OA. Distal part of the left forefingers lost at the age of 15 excluding the thumb INVESTIGATIONS, reviewed in the clinical context: White count 8.0 hemoglobin 13 platelets 164 potassium 4.6 creatinine 1.3. Accu- Cheks 114, 97 Computed tomography scan of the abdomen without contrast: Left-sided hydronephrosis and hydroureter, possibly chronic EKG: RBBB pattern, sinus rhythm Computed tomography scan brain: Cerebral atrophy. Assessment plan: -Acute metabolic encephalopathy from hypoglycemia.: Improved -Coronary artery disease with stent in January 2021 Lopressor, Lipitor, Zestril, nitrates,, aspirin, Plavix -Diabetes mellitus type 2, on oral hypoglycemic. Uncontrolled with hypoglycemia Decrease glipizide to 5 mg daily. Daily Accu-Cheks. -GERD Pepcid when necessary -Hard of hearing -Chronic left-sided hydroureter, hydronephrosis, likely from blood outflow ob struction Patient refused Campbell catheter. Follow-up with urology -Hyperlipidemia Lipitor -Choledocholithiasis, asymptomatic Patient's due to's follow with [facility] outpatient -Essential hypertension Lopressor, Zestril -Mild cognitive impairment -Primary osteoarthritis Pain medications as needed -Epilepsy disorder with the last episode about 3-4 years ago Patient not any seizure medications Disposition: Home Patient Condition at Discharge: Undetermined Plan - Discharge Summary Discharge Rx Participant: No New Discharge Prescriptions: No Action Nitroglycerin Sl Tabs [Nitrostat] 0.4 mg SUBLINGUAL Q5M PRN PRN Reason: Chest Pain Isosorbide Mononitrate [Imdur] 30 mg PO DAILY lisinopriL [Zestril] 20 mg PO BID Aspirin 81 mg PO DAILY Metoprolol Tartrate [Lopressor] 25 mg PO BID Levothyroxine Sodium [Synthroid] 112 mcg PO DAILY Clopidogrel [Plavix] 75 mg PO DAILY tab Atorvastatin Calcium [Lipitor] 10 mg PO HS hydrOXYzine HCL [Atarax] 50 mg PO HS PRN PRN Reason: Anxiety [place]-3 Fatty Acids/Fish Oil [Fish Oil 1,000 mg Softgel] 1 cap PO DAILY Escitalopram [Lexapro] 10 mg PO DAILY Cholecalciferol [Vitamin D3 (25 Mcg = 1000 Iu)] 25 mcg PO DAILY glipiZIDE [Glucotrol] 5 mg PO DAILY #0 Vitamin B Complex 1 cap PO DAILY traZODone HCL 100 mg PO HS Pantoprazole Sodium 40 mg PO DAILY Valproic Acid [Depakene] 500 mg PO BID Discharge Medication List Isosorbide Mononitrate [Imdur] 30 mg PO DAILY 08/09/14 [History] Nitroglycerin Sl Tabs [Nitrostat] 0.4 mg SUBLINGUAL Q5M PRN 08/09/14 [History] lisinopriL [Zestril] 20 mg PO BID 09/20/15 [History] Aspirin 81 mg PO DAILY 08/11/17 [History] Metoprolol Tartrate [Lopressor] 25 mg PO BID 05/01/18 [History] Levothyroxine Sodium [Synthroid] 112 mcg PO DAILY 01/24/21 [History] Clopidogrel [Plavix] 75 mg PO DAILY tab 01/29/21 [Rx] Atorvastatin Calcium [Lipitor] 10 mg PO HS 05/23/21 [History] Cholecalciferol [Vitamin D3 (25 Mcg = 1000 Iu)] 25 mcg PO DAILY 06/11/21 [History] Escitalopram [Lexapro] 10 mg PO DAILY 06/11/21 [History] [place]-3 Fatty Acids/Fish Oil [Fish Oil 1,000 mg Softgel] 1 cap PO DAILY 06/11/21 [History] Pantoprazole Sodium 40 mg PO DAILY 06/11/21 [History] Vitamin B Complex 1 cap PO DAILY 06/11/21 [History] hydrOXYzine HCL [Atarax] 50 mg PO HS PRN 06/11/21 [History] traZODone HCL 100 mg PO HS 06/11/21 [History] Valproic Acid [Depakene] 500 mg PO BID 07/04/21 [History] glipiZIDE [Glucotrol] 5 mg PO DAILY #0 07/16/21 [Rx] Follow up Appointment(s)/Referral(s): Jenaro Hu MD [STAFF PHYSICIAN] - 1 Week Marilia Sharma DO [Primary Care Provider] - 07/19/21 11:00 am Tomas Pinto MD [Medical Doctor] - 2 Weeks (PLEASE CALL TO SCHEDULE AN APPOINTMENT IN 2 WEEKS. OFFICE IS CLOSED AT TIME OF PATIENT'S DISCHARGE.) Patient Instructions/Handouts: Campbell Catheter Placement and Care (DC), Hypo glycemia in a Person with Diabetes (DC), Hydronephrosis (DC), Encephalopathy (DC)
== END 2021-07-16 13:16 | disposition home or self-care (01) ==
LOC: EC 04:51 → 6NMEDSUR 06:05
PROVIDERS: ADMIT Hospitalist; ATTEND Hospitalist
DX: R10.13 Epigastric pain (principal); R10.32 Left lower quadrant pain; K85.90 Acute pancreatitis without necrosis or infection, unspecified; N13.4 Hydroureter; E11.649 Type 2 diabetes mellitus with hypoglycemia without coma; E03.9 Hypothyroidism, unspecified; E78.5 Hyperlipidemia, unspecified; F03.90 Unspecified dementia, unspecified severity, without behavioral disturbance, psychotic disturbance, mood disturbance, and anxiety; G40.909 Epilepsy, unspecified, not intractable, without status epilepticus; H91.90 Unspecified hearing loss, unspecified ear; H93.19 Tinnitus, unspecified ear; K80.50 Calculus of bile duct without cholangitis or cholecystitis without obstruction; I10 Essential (primary) hypertension; I25.10 Atherosclerotic heart disease of native coronary artery without angina pectoris; I25.2 Old myocardial infarction; I25.810 Atherosclerosis of coronary artery bypass graft(s) without angina pectoris; I45.10 Unspecified right bundle-branch block; J44.1 Chronic obstructive pulmonary disease with (acute) exacerbation; K21.9 Gastro-esophageal reflux disease without esophagitis; K80.20 Calculus of gallbladder without cholecystitis without obstruction; M19.90 Unspecified osteoarthritis, unspecified site; G93.41 Metabolic encephalopathy; N32.89 Other specified disorders of bladder; N39.41 Urge incontinence; Z53.20 Procedure and treatment not carried out because of patient's decision for unspecified reasons; Z79.02 Long term (current) use of antithrombotics/antiplatelets; Z79.4 Long term (current) use of insulin; Z79.82 Long term (current) use of aspirin; Z79.890 Hormone replacement therapy; Z79.899 Other long term (current) drug therapy; Z87.891 Personal history of nicotine dependence; Z95.5 Presence of coronary angioplasty implant and graft
CPT/HCPCS: 96361 ×2; 96374; 96375; 99285; 36415; 94640 ×2; 94760 ×2; 93005; 84439; 83880; 80061; 80053 ×2; 80048; 84443; 82607; 82746; 83690; 83735 ×2; 84100; 84484; 85025 ×3; 85610; 85730; 81003; 83036; 71046; 76705; 70450; 74150; G0378 ×3; J2310; J2405; J1170

== ENCOUNTER → 2021-08-02 | Outpatient (CLI) | payer MEDICARE, OTHER ==
--- NOTE | 2021-08-02 15:11 | US ---
EXAMINATION TYPE: US kidneys/renal and bladder DATE OF EXAM: 08/02/2021 COMPARISON: CLINICAL HISTORY: N13.30 Unspecified hydronephrosis. Left side pain. Hx hydronephrosis EXAM MEASUREMENTS: Right Kidney: 10.0 x 4.3 x 5.3 cm Left Kidney: 10.4 x 4.1 x 5.3 cm Right Kidney: No hydronephrosis or masses seen Left Kidney: No hydronephrosis or masses seen Bladder: Distended. Irregular bladder wall. Debris visualized. Bilateral Jets not seen There is no evidence for hydronephrosis at this point in time. No nephrolithiasis is seen. No venessa s are identified. IMPRESSION: Diffuse urinary bladder wall irregularity may reflect underlying chronic cystitis. Correlate clinical ly.
== END | disposition home or self-care (01) ==
LOC: RADUSWWP 12:55
PROVIDERS: ATTEND Urology
DX: N32.89 Other specified disorders of bladder (principal)
CPT/HCPCS: 76770

== ENCOUNTER → 2021-08-29 | Outpatient (CLI) | payer MEDICARE, OTHER ==
--- NOTE | 2021-08-29 11:57 | FL ---
EXAMINATION TYPE: FL barium swallow w video DATE OF EXAM: 08/29/2021 CLINICAL HISTORY: 65-year-old male R05 cough, Dysphagia. TECHNIQUE: Deglutition study is performed utilizing thin liquid barium, honey and nectar thick liqui d barium, barium thick applesauce, and barium coated cracker. Total fluoroscopy time: 1 minute 29 seconds. Total images: None. Real-time fluoroscopy support was provided to speech pathology. COMPARISON: None. FINDINGS: The oral and pharyngeal phases show satisfactory initiation and propagation with all modalities teste d. Normal mastication is seen with solid modalities tested. There is no evidence of penetration or aspiration with any modality tested. Mild vallecular residuals are present. There is increase in the prevertebral soft tissue thickness at the level of the hypopharynx. IMPRESSION: 1. No evidence for penetration or aspiration. Mild vallecular residuals are noted. 2. Some prevertebral soft tissue thickening at the level of the hypopharynx. This may reflect retroph aryngeal course of the ICAs. Further contrast enhanced CT neck evaluation recommended to exclude othe r abnormality. Please refer to speech therapist notes for further details if necessary.
== END | disposition home or self-care (01) ==
LOC: RADUSWWP 11:12
PROVIDERS: ATTEND Internal Medicine Critical Care Medicine
DX: R13.10 Dysphagia, unspecified (principal); R05 Cough
CPT/HCPCS: 74230

== ENCOUNTER → 2023-06-16 | Outpatient (CLI) | payer MEDICARE ==
--- NOTE | 2023-06-16 12:13 | CT ---
EXAMINATION TYPE: CT lumbar spine wo con CT DLP: 1005 mGycm, Automated exposure control for dose reduction was used. 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 Soft tissue and bone windows in coronal and sagittal planes were obtained and reviewed. Contrast used: none. Oral contrast used: none. FINDINGS: Alignment: There are 5 lumbar type vertebral bodies within normal alignment. Bone: No evidence of fracture is identified. Multilevel degeneration changes of the spine with osteo phyte formation disc space narrowing Schmorl's nodes and disc space narrowing. Scattered facet arthro tao is present. Discs: T12-L1: No spinal canal or neural foraminal stenosis is identified. L1-L2: No spinal canal or neural foraminal stenosis is identified. L2-L3: Facet joint arthropathy and disc bulging result with mild spinal canal stenosis and moderate m ild left neural foraminal stenosis. L3-L4: Facet joint arthropathy and disc bulging result with moderate spinal canal stenosis and modera te to severe right and mild left neural foraminal stenosis. L4-L5: Facet joint arthropathy and disc bulging result with mild to moderate spinal canal stenosis a nd moderate right and mild to moderate left neural foraminal stenosis. L5-S1: Facet joint arthropathy and disc bulging result with mild spinal canal stenosis and moderate t o severe right and moderate left neural foraminal stenosis. Other: Atherosclerosis of the arterial vasculature. Trabeculated urinary bladder partially visualized . Surgical clips in the gallbladder fossa. IMPRESSION: 1. No evidence for spinal fracture. 2. Moderate to severe degeneration changes of the spine with varying degrees of neural foraminal sten osis and spinal canal stenosis at as described above.
== END | disposition home or self-care (01) ==
LOC: RADCTMAIN 10:31
PROVIDERS: ATTEND Physical Medicine & Rehabilitation
DX: M47.816 Spondylosis without myelopathy or radiculopathy, lumbar region (principal); M99.73 Connective tissue and disc stenosis of intervertebral foramina of lumbar region; M43.16 Spondylolisthesis, lumbar region; M51.36 Other intervertebral disc degeneration, lumbar region
CPT/HCPCS: 72131

== ENCOUNTER 2023-07-06 10:13 | Emergency (ER) | payer MEDICARE ==
[2023-07-06 10:49] VITALS: RESP 18
[2023-07-06] MEDS ORDERED: KETOROLAC 15 MG/ML 1 ML VIAL IVP STA (11:12)
[2023-07-06] MEDS ORDERED: SODIUM CHLORIDE 0.9% 1,000 ML IV STA (11:12)
[2023-07-06] MEDS ORDERED: METOCLOPRAMIDE 5 MG/ML 2 ML VIAL IVP STA (11:12)
[2023-07-06] MEDS ORDERED: diphenhydrAMINE 50 MG/ML 1 ML VIAL IVP STA (11:12)
[2023-07-06] MEDS ORDERED: DEXAMETHASONE SOD PHOSPHATE 10 MG/ML 1 ML VIAL IVP STA (11:12)
--- NOTE | 2023-07-06 11:36 | ED ---
Headache HPI - General Chief Complaint: Headache Stated Complaint: Head Pain,no injury/Mental Health Time Seen by Provider: 07/06/23 10:57 Source: patient, family, RN notes reviewed Mode of arrival: wheelchair Limitations: no limitations - History of Present Illness Initial Comments: This is a 67-year-old male who presents to the emergency department for headaches. Patient states that these are largely in the frontal region and he states that he feels like his head is going to explode. They've been present over the last 1-2 weeks and he has been unable to sleep due to the pain. He is taking ibuprofen and [place] at home with no relief in symptoms. He does have tinnitus, but states that this is a long-standing issue for him. He does already wear hearing aids due to problems with hearing loss. Unsure if this is any worse. He does feel like his vision occasionally gets blurry as a result of these headaches. He would not describe this as the worst headache of his life, but denies ever experiencing headaches like this before. Denies any recent imaging of his brain. Denies any fevers, chills, sore throat, cough, dyspnea, chest pain, palpitations, abdominal pain, nausea, vomiting, diarrhea, or back pain. MD Complaint: headache - Related Data Home Medications Medication Instructions Recorded Confirmed Isosorbide Mononitrate [Imdur] 30 mg PO DAILY 08/09/14 07/14/21 Nitroglycerin Sl Tabs [Nitrostat] 0.4 mg SUBLINGUAL Q5M PRN 08/09/14 07/14/21 lisinopriL [Zestril] 20 mg PO BID 09/20/15 07/14/21 Aspirin 81 mg PO DAILY 08/11/17 07/14/21 Metoprolol Tartrate [Lopressor] 25 mg PO BID 05/01/18 07/14/21 Levothyroxine Sodium [Synthroid] 112 mcg PO DAILY 01/24/21 07/14/21 Atorvastatin Calcium [Lipitor] 10 mg PO HS 05/23/21 07/14/21 Cholecalciferol [Vitamin D3 (25 25 mcg PO DAILY 06/11/21 07/14/21 Mcg = 1000 Iu)] Escitalopram [Lexapro] 10 mg PO DAILY 06/11/21 07/14/21 [place]-3 Fatty Acids/Fish Oil [Fish 1 cap PO DAILY 06/11/21 07/14/21 Oil 1,000 mg Softgel] Pantoprazole Sodium 40 mg PO DAILY 06/11/21 07/14/21 Vitamin B Complex 1 cap PO DAILY 06/11/21 07/14/21 hydrOXYzine HCL [Atarax] 50 mg PO HS PRN 06/11/21 07/14/21 traZODone HCL 100 mg PO HS 06/11/21 07/14/21 Valproic Acid [Depakene] 500 mg PO BID 07/04/21 07/14/21 Previous Rx's Medication Instructions Recorded Clopidogrel [Plavix] 75 mg PO DAILY tab 01/29/21 glipiZIDE [Glucotrol] 5 mg PO DAILY #0 07/16/21 Allergies Allergy/AdvReac Type Severity Reaction Status Date / Time ciprofloxacin Allergy Rash/Hives Verified 07/05/21 06:44 fluticasone propionate Allergy Rash/Hives Verified 07/05/21 06:44 [From Flonase] meperidine [From Demerol] Allergy Unknown Verified 07/06/23 10:50 metformin Allergy Rash/Hives Verified 07/05/21 06:44 metformin HCl Allergy Rash/Hives Verified 07/05/21 06:44 [From Glucophage] morphine Allergy Unknown Verified 07/05/21 06:44 Review of Systems ROS Statement: Those systems with pertinent positive or pertinent negative responses have been documented in the HPI. ROS Other: All systems not noted in ROS Statement are negative. Past Medical History Past Medical History: Asthma, Coronary Artery Disease (CAD), Chest Pain / Angina, Diabetes Mellitus, GERD/Reflux, Hearing Disorder / Deafness, Hyperlipidemia, Hypertension, Memory Impairment, Myocardial Infarction (NH), Osteoarthritis (OA), Pneumonia, Seizure Disorder, Thyroid Disorder Additional Past Medical History / Comment(s): tinnitus, recent chest pain & admission to [facility] on Thursday, last seizures 3-4 yrs ago Last Myocardial Infarction Date:: january History of Any Multi-Drug Resistant Organisms: None Reported Past Surgical History: Coronary Bypass/CABG, Heart Catheterization With Stent, Hernia Repair, Orthopedic Surgery, Tonsillectomy Additional Past Surgical History / Comment(s): left hand, rt eye surgery, rt shoulder repair x2, bilat hernia repair, rt foot sx, colonoscopy, 5 VESSEL CABG IN 2009, LOST 4 FINGERS ON LEFT HAND AT 15 YEARS OF AGE, arthroscopic right knee surg. gallbladder, bilateral ankle Past Anesthesia/Blood Transfusion Reactions: No Reported Reaction Date of Last Stent Placement:: 2020 Past Psychological History: No Psychological Hx Reported Smoking Status: Former smoker Past Alcohol Use History: None Reported Past Drug Use History: None Reported - Past Family History Mother Family Medical History: Diabetes Mellitus, Hypertension Father Additional Family Medical History / Comment(s): four way bypass General Exam Limitations: no limitations General appearance: alert, in no apparent distress Head exam: Present: atraumatic, normocephalic, normal inspection Eye exam: Present: normal appearance, PERRL, EOMI. Absent: scleral icterus, conjunctival injection, periorbital swelling ENT exam: Present: TM's normal bilaterally, normal external ear exam Respiratory exam: Present: normal lung sounds bilaterally. Absent: respiratory distress, wheezes, rales, rhonchi, stridor Cardiovascular Exam: Present: regular rate, normal rhythm, normal heart sounds. Absent: systolic murmur, diastolic murmur, rubs, gallop, clicks Neurological exam: Present: alert, oriented X3, CN II-XII intact Psychiatric exam: Present: normal affect, normal mood Skin exam: Present: warm, dry, intact, normal color. Absent: rash Course Vital Signs 07/06/23 07/06/23 07/06/23 10:39 13:00 14:58 Temperature 97.8 F 97.7 F Pulse Rate 64 62 59 L Respiratory 18 18 18 Rate Blood Pressure 122/70 141/75 148/72 O2 Sat by Pulse 96 94 L 97 Oximetry Medical Decision Making - Medical Decision Making This is a 67-year-old male who presents to the emergency department for headaches. Was pt. sent in by a medical professional or institution? @ -No Did you speak to anyone other than the patient for history? @ -No Did you review nursing and triage notes? @ -Yes, and I agree, it is accurate with regards to the patient's symptoms. Were old charts reviewed? @ -No Differential Diagnosis? @ -Differential Headache: Migraine, tension, cluster, carbon monoxide, central venous thrombosis, pension karma temporal arteritis, acute closure glaucoma, intercranial hemorrhage, mastoiditis, sinusitis, head injury, this is not meant to be an all-inclusive list. EKG interpreted by me (3pts min.)? @ -Not obtained X-rays interpreted by me (1pt min.)? @ -Not obtained CT interpreted by me (1pt min.)? @ -Computed tomography scan of the brain obtained. My interpretation identifies no evidence of an acute intracranial hemorrhage or mass effect. U/S interpreted by me (1pt. min.)? @ -Not obtained What testing was considered but not performed? (CT, X-rays, U/S, labs)? Why? @ -None What meds were considered but not given? Why? @ -None Did you discuss the management of the patient with other professionals? @ -No Did you reconcile home meds? @ -No Was smoking cessation discussed for >3mins.? @ -No Was critical care preformed (if so, how long)? @ -No Were there social determinants of health that impacted care today? How? (Homelessness, low income, unemployed, alcoholism, drug addiction, transportation, low edu. Level, literacy, decrease access to med. care, skilled nursing, rehab)? @ -No Was there de-escalation of care discussed even if they declined? (Discuss DNR or withdrawal of care, Hospice)? @ -No What co-morbidities impacted this encounter? (DM, HTN, Smoking, COPD, CAD, Cancer, CVA, Hep., AIDS, mental health diagnosis, sleep apnea, morbid obesity)? @ -CAD, DM, HLD, HTN, memory impairment Was patient admitted / discharged? @ -Discharged. Lab work obtained with findings suggestive of dehydration. Computed tomography scan of the brain obtained revealing no acute process. His pain was well controlled in the emergency department and he was given a liter bolus of IV fluids for the dehydration. The family had initially requested a psychiatric evaluation for reasons that are not entirely clear. However, they ended up not wanting to wait for this to occur and requested discharge home. Patient was not exhibiting any suicidal or homicidal ideations. He also denied any feelings of depression. Patient was discharged home in stable condition. Advised ibuprofen and Tylenol as needed for pain relief and follow-up with his primary care provider. Undiagnosed new problem with uncertain prognosis? @ -None Drug Therapy requiring intensive monitoring for toxicity (Heparin, Nitro, Insulin, Cardizem)? @ -None Were any procedures done? @ -None Diagnosis/symptom? @ -Headache, dehydration Acute, or Chronic, or Acute on Chronic? @ -Acute Uncomplicated (without systemic symptoms) or Complicated (systemic symptoms)? @ -Uncomplicated Side effects of treatment? @ -None Exacerbation, Progression, or Severe Exacerbation] @ -Not applicable Poses a threat to life or bodily function? @ -No Return precautions reviewed in depth, the patient is instructed to return to the emergency department with any new, worsening, or concerning symptoms. Patient verbalized understanding. This case was discussed in detail with the attending ED physician, Dr. Schmid. Presentation, findings, and treatment plan discussed in detail as well. - Lab Data Result diagrams: 07/06/23 11:24 07/06/23 11:24 Lab Results 07/06/23 07/06/23 07/06/23 Range/Units 11:24 11:24 11:24 WBC 6.9 (3.8-10.6) k/uL RBC 4.22 L (4.30-5.90) m/uL Hgb 13.9 (13.0-17.5) gm/dL Hct 40.9 (39.0-53.0) % MCV 97.0 (80.0-100.0) fL MCH 32.9 (25.0-35.0) pg MCHC 33.9 (31.0-37.0) g/dL RDW 13.4 (11.5-15.5) % Plt Count 142 L (150-450) k/uL MPV 8.4 Neutrophils % 54 % Lymphocytes % 32 % Monocytes % 7 % Eosinophils % 5 % Basophils % 0 % Neutrophils # 3.7 (1.3-7.7) k/uL Lymphocytes # 2.2 (1.0-4.8) k/uL Monocytes # 0.5 (0-1.0) k/uL Eosinophils # 0.3 (0-0.7) k/uL Basophils # 0.0 (0-0.2) k/uL ESR 8 (0-15) mm/hr Sodium 135 L (137-145) mmol/L Potassium 4.7 (3.5-5.1) mmol/L Chloride 100 (98-107) mmol/L Carbon Dioxide 26 (22-30) mmol/L Anion Gap 9 mmol/L BUN 27 H (9-20) mg/dL Creatinine 1.27 H (0.66-1.25) mg/dL Est GFR (CKD-EPI)AfAm 67 (>60 ml/min/1.73 sqM) Est GFR (CKD-EPI)NonAf 58 (>60 ml/min/1.73 sqM) Glucose 221 H (74-99) mg/dL Lactic Ac Sepsis Rflx Plasma Lactic Acid Martin 2.4 H* (0.7-2.0) mmol/L Calcium 9.0 (8.4-10.2) mg/dL Total Bilirubin 0.5 (0.2-1.3) mg/dL AST 25 (17-59) U/L ALT 23 (4-49) U/L Alkaline Phosphatase 45 (38-126) U/L C-Reactive Protein <0.5 (<1.0) mg/dL Total Protein 7.1 (6.3-8.2) g/dL Albumin 4.2 (3.5-5.0) g/dL TSH 1.400 (0.465-4.680) mIU/L Serum Alcohol <10 mg/dL Influenza Type A (PCR) (Not Detectd) Influenza Type B (PCR) (Not Detectd) RSV (PCR) (Not Detectd) SARS-CoV-2 (PCR) (Not Detectd) 07/06/23 07/06/23 Range/Units 11:24 12:25 WBC (3.8-10.6) k/uL RBC (4.30-5.90) m/uL Hgb (13.0-17.5) gm/dL Hct (39.0-53.0) % MCV (80.0-100.0) fL MCH (25.0-35.0) pg MCHC (31.0-37.0) g/dL RDW (11.5-15.5) % Plt Count (150-450) k/uL MPV Neutrophils % % Lymphocytes % % Monocytes % % Eosinophils % % Basophils % % Neutrophils # (1.3-7.7) k/uL Lymphocytes # (1.0-4.8) k/uL Monocytes # (0-1.0) k/uL Eosinophils # (0-0.7) k/uL Basophils # (0-0.2) k/uL ESR (0-15) mm/hr Sodium (137-145) mmol/L Potassium (3.5-5.1) mmol/L Chloride (98-107) mmol/L Carbon Dioxide (22-30) mmol/L Anion Gap mmol/L BUN (9-20) mg/dL Creatinine (0.66-1.25) mg/dL Est GFR (CKD-EPI)AfAm (>60 ml/min/1.73 sqM) Est GFR (CKD-EPI)NonAf (>60 ml/min/1.73 sqM) Glucose (74-99) mg/dL Lactic Ac Sepsis Rflx Y Plasma Lactic Acid Martin (0.7-2.0) mmol/L Calcium (8.4-10.2) mg/dL Total Bilirubin (0.2-1.3) mg/dL AST (17-59) U/L ALT (4-49) U/L Alkaline Phosphatase (38-126) U/L C-Reactive Protein (<1.0) mg/dL Total Protein (6.3-8.2) g/dL Albumin (3.5-5.0) g/dL TSH (0.465-4.680) mIU/L Serum Alcohol mg/dL Influenza Type A (PCR) Not Detected (Not Detectd) Influenza Type B (PCR) Not Detected (Not Detectd) RSV (PCR) Not Detected (Not Detectd) SARS-CoV-2 (PCR) Not Detected (Not Detectd) - Radiology Data Radiology results: report reviewed, image reviewed Disposition Clinical Impression: Headache, Dehydration Disposition: HOME SELF-CARE Instructions (If sedation given, give patient instructions): Acute Headache (ED) Additional Instructions: Return to the emergency department with any new, worsening, or concerning symptoms. Alternate with ibuprofen and Tylenol as needed for any additional headaches. Follow up with your primary care provider in 1-2 days. Is patient prescribed a controlled substance at d/c from ED?: No Referrals: Marilia Sharma DO [Primary Care Provider] - 1-2 days
[2023-07-06 11:58] LABS: Basophils % (A) 0 %; Eosinophils # (A) 0.3 k/uL (0-0.7); Eosinophils % (A) 5 %; HCT 40.9 % (39.0-53.0); HGB 13.9 gm/dL (13.0-17.5); Lymphocytes # (A) 2.2 k/uL (1.0-4.8); Lymphocytes % (A) 32 %; MCH 32.9 pg (25.0-35.0); MCHC 33.9 g/dL (31.0-37.0); Mean Platelet Volume 8.4; Monocytes # (A) 0.5 k/uL (0-1.0); Monocytes % (A) 7 %; Neutrophils # (A) 3.7 k/uL (1.3-7.7); Neutrophils % (A) 54 %; Platelet Count 142 k/uL (150-450); RBC 4.22 m/uL (4.30-5.90); RDW 13.4 % (11.5-15.5); WBC 6.9 k/uL (3.8-10.6)
[2023-07-06 12:08] LABS: ALT 23 U/L (4-49); AST 25 U/L (17-59); African American GFR (CKD) 67 (>60 ml/min/1.73 sqM); Albumin 4.2 g/dL (3.5-5.0); Alcohol <10 mg/dL; Alkaline Phosphatase 45 U/L (38-126); Anion Gap 9 mmol/L; Blood Urea Nitrogen 27 mg/dL (9-20); Carbon Dioxide 26 mmol/L (22-30); Chloride 100 mmol/L (98-107); Glucose 221 mg/dL (74-99); Non-African American GFR(CKD) 58 (>60 ml/min/1.73 sqM); Potassium 4.7 mmol/L (3.5-5.1); Sodium 135 mmol/L (137-145); Total Bilirubin 0.5 mg/dL (0.2-1.3); Total Protein 7.1 g/dL (6.3-8.2)
[2023-07-06 12:35] LABS: C Reactive Protein <0.5 mg/dL (<1.0)
[2023-07-06] MEDS ORDERED: HYDROmorphone 1 MG/ML 1 ML SYRINGE IVP STA (13:05)
[2023-07-06] MEDS ORDERED: ACETAMINOPHEN TAB 500 MG TAB PO STA (13:05)
--- NOTE | 2023-07-06 13:08 | CT ---
EXAMINATION TYPE: CT brain wo con DATE OF EXAM: 07/06/2023 COMPARISON: 07/14/2021 HISTORY: headache CT DLP: 1155.9 mGycm Automated exposure control for dose reduction was used. FINDINGS: Mild to moderate generalized degenerative change of the greater frontal lobe component stable prior e xam. No midline shift or mass effect. Punctate calcification in the right basal ganglia is stable with no evidence of acute intracranial hemorrhage or mass effect. Prominent cisterna magna. The orbits are stable in appearance from previous surgery involving the rig ht orbit. Hypoaeration of the mastoid air cells. Correlate for chronic mastoiditis. No significant ch anges of sinusitis. Craniocervical junction is maintained. Calvarium and IMPRESSION: DEGENERATIVE CHANGE WITH NO EVIDENCE OF ACUTE INTRACRANIAL HEMORRHAGE OR MASS EFFECT.
[2023-07-06 13:36] LABS: Erythrocyte Sedimentation Rate 8 mm/hr (0-15)
[2023-07-06 15:01] VITALS: BP 148/72; PULSE 59; TEMP 97.7
== END 2023-07-06 15:09 | disposition home or self-care (01) ==
LOC: EC 10:13
DX: E86.0 Dehydration (principal); E11.9 Type 2 diabetes mellitus without complications; J45.909 Unspecified asthma, uncomplicated; I25.10 Atherosclerotic heart disease of native coronary artery without angina pectoris; E78.5 Hyperlipidemia, unspecified; K21.9 Gastro-esophageal reflux disease without esophagitis; I10 Essential (primary) hypertension; I25.2 Old myocardial infarction; E07.9 Disorder of thyroid, unspecified; Z87.891 Personal history of nicotine dependence; Z79.82 Long term (current) use of aspirin; Z79.890 Hormone replacement therapy; Z79.899 Other long term (current) drug therapy; Z95.1 Presence of aortocoronary bypass graft; Z88.6 Allergy status to analgesic agent; Z88.5 Allergy status to narcotic agent; Z88.8 Allergy status to other drugs, medicaments and biological substances; Z20.822 Contact with and (suspected) exposure to COVID-19
CPT/HCPCS: 36415; 80053; 85652; 84443; 83605; 85025; 86140; 87636; 70450; 99284; 96374; 96375 ×4; 96361; G0480; J1200; J1100; J2765; J1170; J1885; 80320

== ENCOUNTER → 2023-08-08 | Outpatient (CLI) | payer MEDICARE ==
[2023-08-08 18:42] LABS: BUN/Creat Ratio 11.93 Ratio (12.00-20.00); Blood Urea Nitrogen 17.9 mg/dL (9.0-27.0); Chol/HDL Ratio 5.07 Ratio; Glucose 175 mg/dL (70-110); LDL Cholesterol,Calculated 72.2 mg/dL (0.0-131.0)
[2023-08-08 18:43] LABS: ALT 21 U/L (10-49); AST 18 U/L (14-35); Albumin 4.1 d/dL (3.8-4.9); Albumin/Globulin Ratio 1.78 Ratio (1.60-3.17); Alkaline Phosphatase 46 U/L (41-126); Calcium 9.5 mg/dL (8.7-10.3); Carbon Dioxide 24.4 mmol/L (21.6-31.8); Chloride 102 mmol/L (96-109); Globulin 2.3 d/dL (1.6-3.3); Sodium 139 mmol/L (135-145); Total Bilirubin 0.4 mg/dL (0.3-1.2); Total Protein 6.4 d/dL (6.2-8.2)
[2023-08-08 22:59] LABS: Microalbumin Creatinine Ratio <14 mg/g Cr (0-30); Urine Creatinine 84.7 mg/dL (39.0-259.0)
== END | disposition home or self-care (01) ==
LOC: LABWHC1 08:35
PROVIDERS: ATTEND Internal Medicine Endocrinology, Diabetes & Metabolism
DX: E11.65 Type 2 diabetes mellitus with hyperglycemia (principal); E78.2 Mixed hyperlipidemia
CPT/HCPCS: 36415; 80053; 80061; 82043; 82570; 83036; 84443

== ENCOUNTER → 2023-12-17 | Outpatient (CLI) | payer MEDICARE ==
--- NOTE | 2023-12-17 12:38 | CT ---
EXAMINATION TYPE: CT lumbar spine wo con CT DLP: 700 mGycm, Automated exposure control for dose reduction was used. DATE OF EXAM: 12/17/2023 12:14 PM COMPARISON: 06/16/2023. CLINICAL INDICATION:Male, 68 years old with history of DDD; PHH, lower back pain TECHNIQUE: Multiple axial images were obtained from the midportion of T11 through the sacroiliac fiona nts. Soft tissue and bone windows in coronal and sagittal planes were obtained and reviewed. 3-D ref ormats of the bones were created on a separate workstation and submitted for review. Contrast used: mL of , (None, if empty). Oral contrast used: (None, if empty). FINDINGS: Alignment: There are 5 lumbar type vertebral bodies within normal alignment. Bone: Multilevel degeneration changes throughout the spine with osteophyte formation disc space narro wing, vacuum disc phenomenon and facet joint arthropathy. Discs: T12-L1: No spinal canal or neural foraminal stenosis is identified. L1-L2: No spinal canal or neural foraminal stenosis is identified. L2-L3: Facet joint arthropathy and disc bulging result without significant spinal canal stenosis or n eural foraminal stenosis. L3-L4: Right central disc extrusion suggested series 7 image 45 with moderate spinal canal stenosis a nd moderate bilateral neural foraminal stenosis. There is inferior migration up to 9 mm . L4-L5: Facet joint arthropathy and disc bulging result with moderate spinal canal stenosis and modera te left and moderate to severe right bilateral neural foraminal stenosis. L5-S1: Facet joint arthropathy and disc bulging result with mild spinal canal stenosis and moderate b ilateral neural foraminal stenosis. Other: Cystic lesion in the pelvis that represent degenerative bladder with bladder diverticula prese nt. Multiple colonic diverticula are present. IMPRESSION: 1. No evidence for spinal fracture. 2. L3-L4: Right central disc extrusionwith moderate spinal canal stenosis and inferior migration disc material. Findings similar to 06/16/2023. 3. Moderate multilevel degeneration of the spine with spinal canal stenosis worse at L4-L5 with at le ast moderate spinal canal stenosis. Findings similar to 06/16/2023.
--- NOTE | 2023-12-17 13:05 | CT ---
EXAMINATION TYPE: CT hip RT wo con CT DLP: 468 mGycm, Automated exposure control for dose reduction was used. DATE OF EXAM: 12/17/2023 12:16 PM COMPARISON: Extremity radiograph same day. CT 05/23/2021. CLINICAL INDICATION:Male, 68 years old with history of degenerative joint disease; PHH, right hip rufino n TECHNIQUE: Axial images were obtained of the CT hip RT wo con, Additional coronal and sagittal reform atted images and soft tissue and bone window were obtained for review. 3-D reconstruction was created on a separate workstation. Contrast used: mL of , (None if empty) Oral contrast used: (None if empty) FINDINGS: There is no evidence of fracture, subluxation, or dislocation. No significant soft tissue swelling or joint effusion is identified. No focal muscular atrophy or edema is identified. No radiop aque foreign body identified. Mild osteophyte formation with joint space narrowing of the right hip. No evidence of fracture. Mild to moderate degeneration changes of the spine. Urinary bladder demonstrates septation superior aspect . Mild degeneration changes of the sacroiliac joints bilaterally with osteophyte formation. Hernia repair anchors noted on the left pelvic anterior wall. Severe atherosclerosis of the arterial vasculature. Scattered colonic diverticula. IMPRESSION: 1. No evidence of fracture. 2. Mild right hip osteoarthrosis. 3. Septation within the bladder superior wall possibly relating to bladder diverticula. Similar to 2 021.
== END | disposition home or self-care (01) ==
LOC: RADCTMAIN 11:03
PROVIDERS: ATTEND Psychiatry & Neurology Neurology
DX: M16.11 Unilateral primary osteoarthritis, right hip (principal); M48.061 Spinal stenosis, lumbar region without neurogenic claudication; M51.36 Other intervertebral disc degeneration, lumbar region
CPT/HCPCS: 72131

== ENCOUNTER 2024-01-21 08:35 | Observation (INO) | payer MEDICARE ==
--- NOTE | 2024-01-21 09:06 | ED ---
Chest Pain HPI - General Chief Complaint: Chest Pain Stated Complaint: Cough Time Seen by Provider: 01/21/24 08:50 Source: patient, family Mode of arrival: ambulatory Limitations: no limitations - History of Present Illness Initial Comments: 68-year-old male with past medical history of coronary artery disease status post bypass who presents to the emergency department reporting chest pain x 1 week with shortness of breath. States he has generalized achiness with the feeling that he "got hit by a bus". He does have a prescription for nitro at home. States that he took a dose a few days ago without any improvement in his symptoms. Patient admits to a cough. Admits nausea without vomiting. Patient has previous coronary artery bypass grafting as well as stent placement. Last stent was placed in 2020. No other alleviating, precipitating modifying factors - Related Data Home Medications Medication Instructions Recorded Confirmed Isosorbide Mononitrate [Imdur] 30 mg PO DAILY 08/09/14 01/21/24 Nitroglycerin Sl Tabs [Nitrostat] 0.4 mg SUBLINGUAL Q5M PRN 08/09/14 01/21/24 lisinopriL [Zestril] 20 mg PO BID 09/20/15 01/21/24 Aspirin 81 mg PO DAILY 08/11/17 01/21/24 Metoprolol Tartrate [Lopressor] 25 mg PO BID 05/01/18 01/21/24 Levothyroxine Sodium [Synthroid] 112 mcg PO DAILY 01/24/21 01/21/24 Cholecalciferol [Vitamin D3 (25 25 mcg PO BID 06/11/21 01/21/24 Mcg = 1000 Iu)] Pantoprazole Sodium 40 mg PO DAILY 06/11/21 01/21/24 traZODone HCL 100 mg PO HS 06/11/21 01/21/24 Valproic Acid [Depakene] 500 mg PO BID@0900,1500 07/04/21 01/21/24 Alfuzosin HCl [Alfuzosin HCl ER] 10 mg PO HS 01/21/24 01/21/24 Atorvastatin [Lipitor] 20 mg PO HS 01/21/24 01/21/24 Docusate Sodium [Dok] 100 mg PO BID PRN 01/21/24 01/21/24 Fish Oil/Dha/Epa [Fish Oil 1,200 1 cap PO DAILY 01/21/24 01/21/24 mg Fish Oil] HYDROcodone/APAP 5-325MG [[place] 1 tab PO DAILY PRN 01/21/24 01/21/24 5-325] Ibuprofen [Motrin] 600 mg PO Q8HR PRN 01/21/24 01/21/24 Ondansetron Odt [Zofran Odt] 4 mg PO Q8HR PRN 01/21/24 01/21/24 Repaglinide [Prandin] 1 mg PO BID 01/21/24 01/21/24 Valproic Acid [Depakene] 250 mg PO HS 01/21/24 01/21/24 tiZANidine [Zanaflex] 4 mg PO Q8HR PRN 01/21/24 01/21/24 Allergies Allergy/AdvReac Type Severity Reaction Status Date / Time ciprofloxacin Allergy Rash/Hives Verified 01/21/24 09:31 fluticasone propionate Allergy Rash/Hives Verified 01/21/24 09:31 [From Flonase] meperidine [From Demerol] Allergy Unknown Verified 01/21/24 09:31 metformin Allergy Rash/Hives Verified 01/21/24 09:31 metformin HCl Allergy Rash/Hives Verified 01/21/24 09:31 [From Glucophage] morphine Allergy Unknown Verified 01/21/24 09:31 Review of Systems ROS Statement: Those systems with pertinent positive or pertinent negative responses have been documented in the HPI. ROS Other: All systems not noted in ROS Statement are negative. Past Medical History Past Medical History: Asthma, Coronary Artery Disease (CAD), Chest Pain / Angina, Diabetes Mellitus, GERD/Reflux, Hearing Disorder / Deafness, Hyperlipidemia, Hypertension, Memory Impairment, Myocardial Infarction (NV), Osteoarthritis (OA), Pneumonia, Seizure Disorder, Thyroid Disorder Additional Past Medical History / Comment(s): tinnitus, recent chest pain & admission to [facility] on Thursday, last seizures 3-4 yrs ago Last Myocardial Infarction Date:: january History of Any Multi-Drug Resistant Organisms: None Reported Past Surgical History: Coronary Bypass/CABG, Heart Catheterization With Stent, Hernia Repair, Orthopedic Surgery, Tonsillectomy Additional Past Surgical History / Comment(s): left hand, rt eye surgery, rt shoulder repair x2, bilat hernia repair, rt foot sx, colonoscopy, 5 VESSEL CABG IN 2009, LOST 4 FINGERS ON LEFT HAND AT 15 YEARS OF AGE, arthroscopic right knee surg. gallbladder, bilateral ankle Past Anesthesia/Blood Transfusion Reactions: No Reported Reaction Date of Last Stent Placement:: 2020 Past Psychological History: No Psychological Hx Reported Smoking Status: Former smoker Past Alcohol Use History: None Reported Past Drug Use History: None Reported - Past Family History Mother Family Medical History: Diabetes Mellitus, Hypertension Father Additional Family Medical History / Comment(s): four way bypass General Exam Limitations: no limitations General appearance: alert, in no apparent distress Head exam: Present: atraumatic, normocephalic, normal inspection Eye exam: Present: normal appearance, PERRL, EOMI. Absent: scleral icterus, conjunctival injection, periorbital swelling ENT exam: Present: normal exam, mucous membranes moist Neck exam: Present: normal inspection. Absent: tenderness, meningismus, lymphadenopathy Respiratory exam: Present: normal lung sounds bilaterally. Absent: respiratory distress, wheezes, rales, rhonchi, stridor Cardiovascular Exam: Present: regular rate, normal rhythm, normal heart sounds. Absent: systolic murmur, diastolic murmur, rubs, gallop, clicks GI/Abdominal exam: Present: soft, normal bowel sounds. Absent: distended, tenderness, guarding, rebound, rigid Extremities exam: Present: normal inspection, full ROM, normal capillary refill. Absent: tenderness, pedal edema, joint swelling, calf tenderness Back exam: Present: normal inspection Neurological exam: Present: alert, oriented X3, CN II-XII intact Psychiatric exam: Present: normal affect, normal mood Skin exam: Present: warm, dry, intact, normal color. Absent: rash Course Vital Signs 01/21/24 01/21/24 01/21/24 08:49 09:05 11:01 Temperature 97.6 F Pulse Rate 72 70 63 Respiratory 20 16 18 Rate Blood Pressure 82/51 106/57 93/76 O2 Sat by Pulse 97 95 98 Oximetry Chest Pain MDM - MDM Was pt. sent in by a medical professional or institution (, PA, SUPERVISOR EXTRUDING DEPARTMENT, urgent care, hospital, or detention...) When possible be specific @ -No Did you speak to anyone other than the patient for history (EMS, parent, family, police, friend...)? What history was obtained from this source @ -With the patient's Did you review nursing and triage notes (agree or disagree)? Why? @ -I reviewed and agree with nursing and triage notes Were old charts reviewed (outside hosp., previous admission, EMS record, old EKG, old radiological studies, urgent care reports/EKG's, detention records)? Report findings @ -I reviewed patient's records from 2020 where patient had heart catheterization and stent placement Differential Diagnosis (chest pain, altered mental status, abdominal pain women, abdominal pain men, vaginal bleeding, weakness, fever, dyspnea, syncope, headache, dizziness, GI bleed, back pain, seizure, CVA, palpatations, mental health, musculoskeletal)? @ -Differential Chest Pain: Stable Angina, Unstable Angina, STEMI, NSTEMI Aortic Dissection, Pneumothorax, Musculoskeletal, Esophageal Spasm GERD, Cholecystitis, Pancreatitis, Zoster, this is not meant to be an all-inclusive list. EKG interpreted by me (3pts min.). @ -Yes and demonstrates sinus rhythm with a rate of 63. IA interval 186. QRS 173. QTc of 414. Right bundle branch block. No acute ST segment elevations X-rays interpreted by me (1pt min.). @ -Yes and demonstrates no acute process CT interpreted by me (1pt min.). @ -None done U/S interpreted by me (1pt. min.). @ -None done What testing was considered but not performed or refused? (CT, X-rays, U/S, labs)? Why? @ -None What meds were considered but not given or refused? Why? @ -None Did you discuss the management of the patient with other professionals (professionals i.e. , PA, SUPERVISOR [employer]MENT, lab, RT, psych nurse, social service agency director, graphic pre press trades worker, teacher, ict customer support officer, case maker)? Give summary @ -Spoke with Dr. Thompson will admit the patient Was smoking cessation discussed for >3mins.? @ -No Was critical care preformed (if so, how long)? @ -No Were there social determinants of health that impacted care today? How? (Homelessness, low income, unemployed, alcoholism, drug addiction, transportation, low edu. Level, literacy, decrease access to med. care, long-term, rehab)? @ -No Was there de-escalation of care discussed even if they declined (Discuss DNR or withdrawal of care, Hospice)? DNR status @ -No What co-morbidities impacted this encounter? (DM, HTN, Smoking, COPD, CAD, Cancer, CVA, ARF, Chemo, Hep., AIDS, mental health diagnosis, sleep apnea, morbid obesity)? @ -Coronary artery disease status post bypass Was patient admitted / discharged? Hospital course, mention meds given and route, prescriptions, significant lab abnormalities, going to OR and other pertinent info. @ -Upon arrival patient was placed into room 5. Thorough history and physical exam was performed. IV access was established and laboratory studies are conducted. Patient is swabbed for the viral panel. Chest x-ray was performed. Upon return the results they are negative at this time. Did recommend admission due to advanced cardiac history with chest pain. Patient was agreeable to this. Spoke with Dr. thompson for admission Undiagnosed new problem with uncertain prognosis? @ -Yes Drug Therapy requiring intensive monitoring for toxicity (Heparin, Nitro, Insulin, Cardizem)? @ -No Were any procedures done? @ -No Diagnosis/symptom? @ -Acute chest pain, possible ACS, history of coronary artery disease status post bypass Acute, or Chronic, or Acute on Chronic? @ -Acute Uncomplicated (without systemic symptoms) or Complicated (systemic symptoms)? @ -Complicated Side effects of treatment? @ -No Exacerbation, Progression, or Severe Exacerbation? @ -No Poses a threat to life or bodily function? How? (Chest pain, USA, NV, pneumonia, PE, COPD, DKA, ARF, appy, cholecystitis, CVA, Diverticulitis, Homicidal, Suicidal, threat to staff... and all critical care pts) @ -No Disposition Clinical Impression: Chest pain Disposition: ADMITTED IP TO THIS HOSP Condition: Stable Is patient prescribed a controlled substance at d/c from ED?: No Time of Disposition: 10:26 Decision to Admit Reason: Admit from EC Decision Date: 01/21/24 Decision Time: 10:26
[2024-01-21] MEDS: ASPIRIN 81 MG PO STA (09:09)
[2024-01-21] MEDS: SODIUM CHLORIDE 0.9% 500 ML 500 ML IV STA (09:10)
[2024-01-21 09:19] LABS: Basophils # (A) 0.1 k/uL (0-0.2); Basophils % (A) 1 %; Eosinophils # (A) 0.7 k/uL (0-0.7); Eosinophils % (A) 8 %; HCT 41.8 % (39.0-53.0); Lymphocytes # (A) 2.4 k/uL (1.0-4.8); Lymphocytes % (A) 29 %; MCH 32.4 pg (25.0-35.0); MCHC 33.5 g/dL (31.0-37.0); MCV 96.6 fL (80.0-100.0); Mean Platelet Volume 8.7; Monocytes # (A) 0.7 k/uL (0-1.0); Monocytes % (A) 8 %; Neutrophils # (A) 4.4 k/uL (1.3-7.7); Neutrophils % (A) 53 %; Platelet Count 169 k/uL (150-450); RBC 4.33 m/uL (4.30-5.90); RDW 13.6 % (11.5-15.5); WBC 8.3 k/uL (3.8-10.6)
--- NOTE | 2024-01-21 09:22 | XR ---
EXAMINATION TYPE: XR chest 2V DATE OF EXAM: 01/21/2024 COMPARISON: 07/14/2021 HISTORY: 68-year-old male with chest pain TECHNIQUE: PA and lateral views FINDINGS: Median sternotomy wires are present with postoperative clips. Heart normal size. Strandy atelectasis of the left base. Some atelectatic calcifications throughout the aorta. No consolidation or pleural e ffusion. IMPRESSION: Post-CABG changes. No acute process seen.
[2024-01-21 09:28] LABS: Partial Thromboplastin Time 23.8 sec (22.0-30.0); Prothrombin Time 10.6 sec (10.0-12.5)
[2024-01-21 09:34] LABS: ALT 23 U/L (4-49); AST 27 U/L (17-59); African American GFR (CKD) 53 (>60 ml/min/1.73 sqM); Albumin 3.8 g/dL (3.5-5.0); Alkaline Phosphatase 46 U/L (38-126); Anion Gap 6 mmol/L; Blood Urea Nitrogen 30 mg/dL (9-20); Carbon Dioxide 27 mmol/L (22-30); Chloride 104 mmol/L (98-107); Glucose 126 mg/dL (74-99); Lipase 274 U/L (23-300); Magnesium 1.8 mg/dL (1.6-2.3); Non-African American GFR(CKD) 46 (>60 ml/min/1.73 sqM); Sodium 137 mmol/L (137-145); Total Bilirubin 0.6 mg/dL (0.2-1.3); Total Protein 6.4 g/dL (6.3-8.2)
[2024-01-21 09:42] LABS: NT-Pro-B-Type Natriuretic Pept 50 pg/mL
[2024-01-21] MEDS ORDERED: NALOXONE 0.4 MG/ML 1 ML VIAL IV PRN (10:26)
[2024-01-21] MEDS ORDERED: ONDANSETRON ODT 4 MG TAB PO PRN (10:31)
[2024-01-21] MEDS ORDERED: HYDROcodone/APAP 5-325MG 1 EACH TAB PO PRN (10:31)
[2024-01-21] MEDS ORDERED: tiZANidine 4 MG TAB PO PRN (10:31)
[2024-01-21] MEDS ORDERED: DOCUSATE 100 MG CAP PO PRN (10:31)
[2024-01-21 11:10] VITALS: RESP 18
[2024-01-21] MEDS: SODIUM CHLORIDE 0.9% 1,000 ML IV SCH (11:53)
--- NOTE | 2024-01-21 13:30 | P.HPIM ---
History of Present Illness H&P Date: 01/21/24 History of present illness; patient 68-year-old gentleman past medical history significant for coronary artery disease s/p CABG, hypothyroidism, hypertension brought to the ER because of chest pain. Patient stated for the last week he has been noticing that he was having left-sided chest pressure, constant, nonradiating. There was no aggravating or relieving factor associated with this chest pain. Patient was complaining of occasional shortness of breath on exertion. There is no complaint of palpitation. Patient denies any fever but was complaining of chills. Patient complains of generalized lethargy and weakness. There was no complaint of swelling of feet. No complaint of orthopnea or PND. Because of the symptoms, patient came to the ER Initial lab work done in the ER showed WBC 8.3, hemoglobin 14, platelet count 169, sodium 139, potassium 5, BUN 30, creatinine 1.53, glucose 126, troponin 0.012 Influenza A not detected Influenza B not detected RSV not detected COVID-19 not detected EKG done in the ER showed heart rate of 63, no ST segment elevation or depression seen, no T-wave inversions seen. Chest x-ray done in the ER no acute process seen Patient admitted to internal medicine service REVIEW OF SYSTEMS: CONSTITUTIONAL: No fever, no malaise, no fatigue. HEENT: No recent visual problems or hearing problems. Denied any sore throat. CARDIOVASCULAR: As mentioned in HPI PULMONARY: As mentioned HPI GASTROINTESTINAL: No diarrhea, no nausea, no vomiting, no abdominal pain. NEUROLOGICAL: No headaches, no weakness, no numbness. HEMATOLOGICAL: Denies any bleeding or petechiae. GENITOURINARY: Denies any burning micturition, frequency, or urgency. MUSCULOSKELETAL/RHEUMATOLOGICAL: Denies any joint pain, swelling, or any muscle pain. ENDOCRINE: Denies any polyuria or polydipsia. The rest of the 14-point review of systems is negative. PHYSICAL EXAMINATION: GENERAL: The patient is alert and oriented x3, not in any acute distress. Well developed, well nourished. HEENT: Pupils are round and equally reacting to light. EOMI. No scleral icterus. No conjunctival pallor. Normocephalic, atraumatic. No pharyngeal erythema. No thyromegaly. CARDIOVASCULAR: S1 and S2 present. No murmurs, rubs, or gallops. PULMONARY: Chest is clear to auscultation, no wheezing or crackles. ABDOMEN: Soft, nontender, nondistended, normoactive bowel sounds. No palpable organomegaly. MUSCULOSKELETAL: No joint swelling or deformity. EXTREMITIES: No cyanosis, clubbing, or pedal edema. NEUROLOGICAL: Gross neurological examination did not reveal any focal deficits. SKIN: No rashes. Assessment and plan Chest pain, rule out acute coronary syndrome History of coronary artery disease s/p CABG Hypertension Hyperlipidemia Hypothyroidism Monitor vital signs Monitor CBC Monitor CMP Continue telemetry monitoring Trend troponins. Ordered 2D echo Continue aspirin, Lipitor Continue Synthroid Continue Imdur Resume home meds consult cardiology Labs and medication were reviewed.. Continue same treatment. Continue with symptomatic treatment. Resume home medication. Monitor labs and vitals. DVT and GI prophylaxis. Further recommendations as per clinical course of the p atient Dictation was produced using [employer] dictation software. please excuse any grammatical, word or spelling errors. Past Medical History Past Medical History: Asthma, Coronary Artery Disease (CAD), Chest Pain / Angina, Diabetes Mellitus, GERD/Reflux, Hearing Disorder / Deafness, Hyperlipidemia, Hypertension, Memory Impairment, Myocardial Infarction ([place]), Osteoarthritis (OA), Pneumonia, Seizure Disorder, Thyroid Disorder Additional Past Medical History / Comment(s): tinnitus, recent chest pain & admission to [facility] on Thursday, last seizures 3-4 yrs ago Last Myocardial Infarction Date:: january History of Any Multi-Drug Resistant Organisms: None Reported Past Surgical History: Coronary Bypass/CABG, Heart Catheterization With Stent, Hernia Repair, Orthopedic Surgery, Tonsillectomy Additional Past Surgical History / Comment(s): left hand, rt eye surgery, rt shoulder repair x2, bilat hernia repair, rt foot sx, colonoscopy, 5 VESSEL CABG IN 2009, LOST 4 FINGERS ON LEFT HAND AT 15 YEARS OF AGE, arthroscopic right knee surg. gallbladder, bilateral ankle Past Anesthesia/Blood Transfusion Reactions: No Reported Reaction Date of Last Stent Placement:: 2020 Past Psychological History: No Psychological Hx Reported Smoking Status: Former smoker Past Alcohol Use History: None Reported Past Drug Use History: None Reported - Past Family History Mother Family Medical History: Diabetes Mellitus, Hypertension Father Additional Family Medical History / Comment(s): four way bypass Medications and Allergies Home Medications Medication Instructions Recorded Confirmed Type Isosorbide Mononitrate [Imdur] 30 mg PO DAILY 08/09/14 01/21/24 History Nitroglycerin Sl Tabs [Nitrostat] 0.4 mg SUBLINGUAL Q5M PRN 08/09/14 01/21/24 History lisinopriL [Zestril] 20 mg PO BID 09/20/15 01/21/24 History Aspirin 81 mg PO DAILY 08/11/17 01/21/24 History Metoprolol Tartrate [Lopressor] 25 mg PO BID 05/01/18 01/21/24 History Levothyroxine Sodium [Synthroid] 112 mcg PO DAILY 01/24/21 01/21/24 History Cholecalciferol [Vitamin D3 (25 25 mcg PO BID 06/11/21 01/21/24 History Mcg = 1000 Iu)] Pantoprazole Sodium 40 mg PO DAILY 06/11/21 01/21/24 History traZODone HCL 100 mg PO HS 06/11/21 01/21/24 History Valproic Acid [Depakene] 500 mg PO BID@0900,1500 07/04/21 01/21/24 History Alfuzosin HCl [Alfuzosin HCl ER] 10 mg PO HS 01/21/24 01/21/24 History Atorvastatin [Lipitor] 20 mg PO HS 01/21/24 01/21/24 History Docusate Sodium [Dok] 100 mg PO BID PRN 01/21/24 01/21/24 History Fish Oil/Dha/Epa [Fish Oil 1,200 1 cap PO DAILY 01/21/24 01/21/24 History mg Fish Oil] HYDROcodone/APAP 5-325MG [[place] 1 tab PO DAILY PRN 01/21/24 01/21/24 History 5-325] Ibuprofen [Motrin] 600 mg PO Q8HR PRN 01/21/24 01/21/24 History Ondansetron Odt [Zofran Odt] 4 mg PO Q8HR PRN 01/21/24 01/21/24 History Repaglinide [Prandin] 1 mg PO BID 01/21/24 01/21/24 History Valproic Acid [Depakene] 250 mg PO HS 01/21/24 01/21/24 History tiZANidine [Zanaflex] 4 mg PO Q8HR PRN 01/21/24 01/21/24 History Allergies Allergy/AdvReac Type Severity Reaction Status Date / Time ciprofloxacin Allergy Rash/Hives Verified 01/21/24 09:31 fluticasone propionate Allergy Rash/Hives Verified 01/21/24 09:31 [From Flonase] meperidine [From Demerol] Allergy Unknown Verified 01/21/24 09:31 metformin Allergy Rash/Hives Verified 01/21/24 09:31 metformin HCl Allergy Rash/Hives Verified 01/21/24 09:31 [From Glucophage] morphine Allergy Unknown Verified 01/21/24 09:31 Physical Exam Vitals: Vital Signs Temp Pulse Resp BP Pulse Ox 01/21/24 11:01 63 18 93/76 98 01/21/24 09:05 70 16 106/57 95 01/21/24 08:49 97.6 F 72 20 82/51 97 Intake and Output 01/20/24 01/21/24 01/21/24 22:59 06:59 14:59 Other: Weight 73.936 kg Results CBC & Chem 7: 01/21/24 09:11 01/21/24 09:11 Labs: Abnormal Lab Results - Last 24 Hours (Table) 01/21/24 Range/Units 09:11 BUN 30 H (9-20) mg/dL Creatinine 1.53 H (0.66-1.25) mg/dL Glucose 126 H (74-99) mg/dL
[2024-01-21] MEDS ORDERED: VALPROIC ACID ORAL SOLN 250 MG/5 ML CUP PO SCH ×2 (15:00→21:00)
[2024-01-21 15:16] VITALS: BP 120/60; PULSE 75; TEMP 98.2
[2024-01-21] MEDS ORDERED: CHOLECALCIFEROL 25 MCG (1000 IU) TABLET PO SCH (21:00)
[2024-01-21] MEDS ORDERED: METOPROLOL TARTRATE 25 MG TAB PO SCH (21:00)
[2024-01-21] MEDS ORDERED: lisinopriL 20 MG TAB PO SCH (21:00)
[2024-01-21] MEDS ORDERED: traZODone HCL 100 MG TAB PO SCH (21:00)
[2024-01-21] MEDS ORDERED: ATORVASTATIN 20 MG TAB PO SCH (21:00)
[2024-01-21] MEDS ORDERED: TAMSULOSIN 0.4 MG CAP.ER.24H PO SCH (21:00)
[2024-01-21] MEDS ORDERED: REPAGLINIDE 1 MG TAB PO SCH (21:00)
[2024-01-22] MEDS ORDERED: LEVOTHYROXINE 112 MCG TAB PO SCH (06:30)
[2024-01-22] MEDS ORDERED: PANTOPRAZOLE 40 MG TABLET PO SCH (07:30)
[2024-01-22] MEDS ORDERED: NON FORMULARY DRUG (Fish Oil/Dha/Epa [Fish Oil 1,200 Mg Fish Oil] 1 EACH Capsule) PO SCH (09:00)
[2024-01-22] MEDS ORDERED: ISOSORBIDE MONONITRATE ER 30 MG TAB.ER.24H PO SCH (09:00)
[2024-01-22] MEDS ORDERED: ASPIRIN 81 MG PO SCH (09:00)
--- NOTE | 2024-01-22 09:39 | P.DS ---
Providers Date of admission: 01/21/24 10:28 Expected date of discharge: 01/21/24 Attending physician: Antoni Waddell Consults: 01/21/24 10:26 Consult Physician Urgent Consulting Provider: [facility] Consult Reason/Comments: acutes chest pain Do you want consulting provider notified?: Yes Primary care physician: Marilia Sharma [place] [facility] Course: Discharge diagnoses; Chest pain, rule out acute coronary syndrome History of coronary artery disease s/p CABG Hypertension Hyperlipidemia Hypothyroidism Hospital course; patient 68-year-old gentleman past medical history significant for coronary artery disease s/p CABG, hypothyroidism, hypertension brought to the ER because of chest pain. Patient stated for the last week he has been noticing that he was having left-sided chest pressure, constant, nonradiating. There was no aggravating or relieving factor associated with this chest pain. Patient was complaining of occasional shortness of breath on exertion. There is no complaint of palpitation. Patient denies any fever but was complaining of chills. Patient complains of generalized lethargy and weakness. There was no complaint of swelling of feet. No complaint of orthopnea or PND. Because of the symptoms, patient came to the ER Initial lab work done in the ER showed WBC 8.3, hemoglobin 14, platelet count 169, sodium 139, potassium 5, BUN 30, creatinine 1.53, glucose 126, troponin 0.012 Influenza A not detected Influenza B not detected RSV not detected COVID-19 not detected EKG done in the ER showed heart rate of 63, no ST segment elevation or dep ression seen, no T-wave inversions seen. Chest x-ray done in the ER no acute process seen Patient admitted to internal medicine service Patient was evaluated cardiology, they ordered 2D echo and an ischemic workup. Patient decided that he does not want to take part in further treatment and wanted to leave AGAINST MEDICAL ADVICE. Patient was counseled against leaving the hospital but at this time patient is adamant on going home, patient signed AMA papers and left. Dictation was produced using [employer] dictation software. please excuse any grammatical, word or spelling errors. Patient Condition at Discharge: Stable Plan - Discharge Summary New Discharge Prescriptions: No Action Nitroglycerin Sl Tabs [Nitrostat] 0.4 mg SUBLINGUAL Q5M PRN PRN Reason: Chest Pain Isosorbide Mononitrate [Imdur] 30 mg PO DAILY lisinopriL [Zestril] 20 mg PO BID Aspirin 81 mg PO DAILY Metoprolol Tartrate [Lopressor] 25 mg PO BID Levothyroxine Sodium [Synthroid] 112 mcg PO DAILY Cholecalciferol [Vitamin D3 (25 Mcg = 1000 Iu)] 25 mcg PO BID Ondansetron Odt [Zofran Odt] 4 mg PO Q8HR PRN PRN Reason: Nausea And Vomiting Docusate Sodium [Dok] 100 mg PO BID PRN PRN Reason: Constipation Ibuprofen [Motrin] 600 mg PO Q8HR PRN PRN Reason: Pain Atorvastatin [Lipitor] 20 mg PO HS traZODone HCL 100 mg PO HS Pantoprazole Sodium 40 mg PO DAILY Valproic Acid [Depakene] 500 mg PO BID@0900,1500 tiZANidine [Zanaflex] 4 mg PO Q8HR PRN PRN Reason: Muscle Spasm HYDROcodone/APAP 5-325MG [[place] 5-325] 1 tab PO DAILY PRN PRN Reason: Pain Fish Oil/Dha/Epa [Fish Oil 1,200 mg Fish Oil] 1 cap PO DAILY Valproic Acid [Depakene] 250 mg PO HS Repaglinide [Prandin] 1 mg PO BID Alfuzosin HCl [Alfuzosin HCl ER] 10 mg PO HS Discharge Medication List Isosorbide Mononitrate [Imdur] 30 mg PO DAILY 08/09/14 [History] Nitroglycerin Sl Tabs [Nitrostat] 0.4 mg SUBLINGUAL Q5M PRN 08/09/14 [History] lisinopriL [Zestril] 20 mg PO BID 09/20/15 [History] Aspirin 81 mg PO DAILY 08/11/17 [History] Metoprolol Tartrate [Lopressor] 25 mg PO BID 05/01/18 [History] Levothyroxine Sodium [Synthroid] 112 mcg PO DAILY 01/24/21 [History] Cholecalciferol [Vitamin D3 (25 Mcg = 1000 Iu)] 25 mcg PO BID 06/11/21 [History] Pantoprazole Sodium 40 mg PO DAILY 06/11/21 [History] traZODone HCL 100 mg PO HS 06/11/21 [History] Valproic Acid [Depakene] 500 mg PO BID@0900,1500 07/04/21 [History] Alfuzosin HCl [Alfuzosin HCl ER] 10 mg PO HS 01/21/24 [History] Atorvastatin [Lipitor] 20 mg PO HS 01/21/24 [History] Docusate Sodium [Dok] 100 mg PO BID PRN 01/21/24 [History] Fish Oil/Dha/Epa [Fish Oil 1,200 mg Fish Oil] 1 cap PO DAILY 01/21/24 [History] HYDROcodone/APAP 5-325MG [[place] 5-325] 1 tab PO DAILY PRN 01/21/24 [History] Ibuprofen [Motrin] 600 mg PO Q8HR PRN 01/21/24 [History] Ondansetron Odt [Zofran Odt] 4 mg PO Q8HR PRN 01/21/24 [History] Repaglinide [Prandin] 1 mg PO BID 01/21/24 [History] Valproic Acid [Depakene] 250 mg PO HS 01/21/24 [History] tiZANidine [Zanaflex] 4 mg PO Q8HR PRN 01/21/24 [History] Follow up Appointment(s)/Referral(s): Anabell Anthony, EAN [REFERRING] - 1-2 days Discharge Disposition: LEFT AGAINST MEDICAL ADVICE
== END 2024-01-21 14:52 | disposition left against medical advice (07) ==
LOC: EC 08:35 → 6NMEDSUR 10:28
PROVIDERS: ADMIT Hospitalist; ATTEND Hospitalist
DX: R07.89 Other chest pain (principal); I25.10 Atherosclerotic heart disease of native coronary artery without angina pectoris; Z53.29 Procedure and treatment not carried out because of patient's decision for other reasons; I10 Essential (primary) hypertension; E78.5 Hyperlipidemia, unspecified; I45.10 Unspecified right bundle-branch block; R05.9 Cough, unspecified; R06.02 Shortness of breath; R68.83 Chills (without fever); R53.1 Weakness; R53.83 Other fatigue; E03.9 Hypothyroidism, unspecified; Z11.52 Encounter for screening for COVID-19; Z11.59 Encounter for screening for other viral diseases; Z79.82 Long term (current) use of aspirin; Z79.890 Hormone replacement therapy; Z79.899 Other long term (current) drug therapy; Z88.1 Allergy status to other antibiotic agents; Z88.5 Allergy status to narcotic agent; Z88.8 Allergy status to other drugs, medicaments and biological substances; Z95.1 Presence of aortocoronary bypass graft; Z95.5 Presence of coronary angioplasty implant and graft; Z87.891 Personal history of nicotine dependence
CPT/HCPCS: 96360; 96361; 99285; 36415; 93005; 80164; 83880; 80053; 83690; 83735; 84484; 85025; 85610; 85730; 87636; 71046; G0378

== ENCOUNTER → 2024-04-01 | Outpatient (CLI) | payer MEDICARE ==
--- NOTE | 2024-04-01 13:01 | US ---
EXAMINATION TYPE: US kidneys/renal and bladder DATE OF EXAM: 04/01/2024 COMPARISON: US 2020 CLINICAL INDICATION: Male, 68 years old with history of N13.30 UNSPECIFIED HYDRONEPHROSIS; EXAM MEASUREMENTS: Right Kidney: 10.0 x 4.2 x 5.3 cm Left Kidney: 10.9 x 5.6 x 4.5 cm Right Kidney: No hydronephrosis or masses seen Left Kidney: No hydronephrosis or masses seen Bladder: irregular wall Bilateral Jets seen: no IMPRESSION: 1. Irregular andujar within the partially distended urinary bladder. Additional workup is recommended. 2. Kidneys as visualized appear within normal limits.
== END | disposition home or self-care (01) ==
LOC: RADUSWWP 12:19
PROVIDERS: ATTEND Urology
DX: N32.89 Other specified disorders of bladder (principal); N13.30 Unspecified hydronephrosis
CPT/HCPCS: 76770

== ENCOUNTER → 2024-04-11 | Outpatient (CLI) | payer MEDICARE ==
[2024-04-11 13:47] LABS: African American GFR (CKD) 59 (>60 ml/min/1.73 sqM); Blood Urea Nitrogen 29 mg/dL (9-20); Non-African American GFR(CKD) 51 (>60 ml/min/1.73 sqM)
--- NOTE | 2024-04-11 15:21 | CT ---
EXAMINATION TYPE: CT brain wo con CT DLP: 1116 mGycm, Automated exposure control for dose reduction was used. DATE OF EXAM: 04/11/2024 2:15 PM COMPARISON: CT brain 08/05/2023. CLINICAL INDICATION:Male, 68 years old with history of I65.29 OCCLUSION AND STENOSIS, headache, hx of cerebral vascular accident TECHNIQUE: Brain: Axial CT images of the brain were obtained with coronal and sagittal reformats created and rev iewed. Contrast used: None. Oral contrast used: None. FINDINGS: Brain: Extra-axial spaces: No abnormal extra-axial fluid collections. Ventricular system: Dilated ventricles and sulci consistent with involutional change. Cerebral parenchyma: No acute intraparenchymal hemorrhage or mass effect. The addison-white junction is well differentiated. Scattered hypoattenuating areas are seen within the white matter. Cerebellum: Unremarkable. Mass effect: No evidence of midline shift. Intracranial vasculature: unremarkable Soft tissues: Normal. Calvarium/osseous structures: No depressed skull fracture. Paranasal sinuses and mastoid air cells: Mild scattered paranasal sinus disease. Visualized orbits: Orbital contents are intact. IMPRESSION: Age related involutional and chronic small vessel ischemic change without acute intracranial process seen at this time.
== END | disposition home or self-care (01) ==
LOC: RADCTMAIN 12:42
PROVIDERS: ATTEND Psychiatry & Neurology Neurology
DX: I67.82 Cerebral ischemia (principal); I65.29 Occlusion and stenosis of unspecified carotid artery; Z86.73 Personal history of transient ischemic attack (TIA), and cerebral infarction without residual deficits
CPT/HCPCS: 82565; 84520; 70450; 70498; 36415; Q9967

== ENCOUNTER 2024-09-01 22:30 | Observation (INO) | payer MEDICARE ==
--- NOTE | 2024-09-01 22:48 | ED ---
General Adult HPI - General Chief complaint: Chest Pain Stated complaint: Chest Pain Time Seen by Provider: 09/01/24 22:35 Source: patient, EMS Mode of arrival: EMS Limitations: no limitations - History of Present Illness Initial comments: Patient is a 68-year-old gentleman with a past medical history of coronary artery disease, diabetes presenting today for palpitations and chest pain. This morning he was sitting at his desk on his computer when he began to feel his hearing in his chest and chest pressure like someone "was sitting on his chest. He took a sublingual nitroglycerin and the pain resolved. Again this evening patient had a similar pain and "fluttering" after eating ice cream. He states he felt very cold and chilled as well as nauseous. He denies any episodes of emesis, no diarrhea, no abdominal pain or black or bloody stools. He denies cough or hemoptysis. No lower extremity swelling. Is on aspirin continued from his blood thinner but is unsure why. Stress test back in March was reportedly unremarkable. Patient unsure of his last cardiac cath. He is or chills. Denies shortness of breath currently. - Related Data Home Medications Medication Instructions Recorded Confirmed Isosorbide Mononitrate [Imdur] 30 mg PO DAILY 08/09/14 09/02/24 Nitroglycerin Sl Tabs [Nitrostat] 0.4 mg SUBLINGUAL Q5M PRN 08/09/14 09/02/24 lisinopriL [Zestril] 20 mg PO PC-BID 09/20/15 09/02/24 Aspirin 81 mg PO DAILY 08/11/17 09/02/24 Metoprolol Tartrate [Lopressor] 25 mg PO BID 05/01/18 09/02/24 Levothyroxine Sodium [Synthroid] 112 mcg PO PC-SUPPER 01/24/21 09/02/24 Pantoprazole Sodium 40 mg PO DAILY 06/11/21 09/02/24 traZODone HCL 100 mg PO HS 06/11/21 09/02/24 Valproic Acid [Depakene] 500 mg PO PC-BID 07/04/21 09/02/24 Atorvastatin [Lipitor] 20 mg PO DAILY 01/21/24 09/02/24 Repaglinide [Prandin] 1 mg PO DAILY 01/21/24 09/02/24 Valproic Acid [Depakene] 250 mg PO HS 01/21/24 09/02/24 Tamsulosin HCl [Flomax] 0.4 mg PO PC-BID 09/02/24 09/02/24 Allergies Allergy/AdvReac Type Severity Reaction Status Date / Time ciprofloxacin Allergy Rash/Hives Verified 09/02/24 08:15 fluticasone propionate Allergy Rash/Hives Verified 09/02/24 08:15 [From Flonase] meperidine [From Demerol] Allergy Unknown Verified 09/02/24 08:15 metformin Allergy Rash/Hives Verified 09/02/24 08:15 metformin HCl Allergy Rash/Hives Verified 09/02/24 08:15 [From Glucophage] morphine Allergy Unknown Verified 09/02/24 08:15 Review of Systems ROS Statement: Those systems with pertinent positive or pertinent negative responses have been documented in the HPI. ROS Other: All systems not noted in ROS Statement are negative. Past Medical History Past Medical History: Asthma, Coronary Artery Disease (CAD), Chest Pain / Angina, Diabetes Mellitus, GERD/Reflux, Hearing Disorder / Deafness, Hyperlipidemia, Hypertension, Memory Impairment, Myocardial Infarction ([place]), Osteoarthritis ([place]), Pneumonia, Seizure Disorder, Thyroid Disorder Additional Past Medical History / Comment(s): tinnitus, recent chest pain & admission to [facility] on Thursday, last seizures 3-4 yrs ago Last Myocardial Infarction Date:: january History of Any Multi-Drug Resistant Organisms: None Reported Past Surgical History: Coronary Bypass/CABG, Heart Catheterization With Stent, Hernia Repair, Orthopedic Surgery, Tonsillectomy Additional Past Surgical History / Comment(s): left hand, rt eye surgery, rt shoulder repair x2, bilat hernia repair, rt foot sx, colonoscopy, 5 VESSEL CABG IN 2009, LOST 4 FINGERS ON LEFT HAND AT 15 YEARS OF AGE, arthroscopic right knee surg. gallbladder, bilateral ankle Past Anesthesia/Blood Transfusion Reactions: No Reported Reaction Date of Last Stent Placement:: 2020 Past Psychological History: No Psychological Hx Reported Smoking Status: Former smoker Past Alcohol Use History: None Reported Past Drug Use History: None Reported - Past Family History Mother Family Medical History: Diabetes Mellitus, Hypertension Father Additional Family Medical History / Comment(s): four way bypass General Exam - General Exam Comments Initial Comments: PE: CONSTITUTIONAL: No apparent distress, well appearing SKIN: Warm, dry, no jaundice, hives or petechiae EYES: Pupils are equally round, extraocular movements intact without nystagmus, clear conjunctiva, non-icteric sclera HENT: Normocephalic, atraumatic, moist mucus membranes, oropharynx clear without exudates NECK: , Full range of motion, normal appearance PULMONARY: Clear to auscultation without wheezes, rhonchi, or rales, normal excursion, no accessory muscle use and no stridor CARDIOVASCULAR: Regular rate, rhythm, normal S1 and S2. No appreciated murmurs, rubs or gallops. Strong radial pulses with intact distal perfusion. No lower extremity edema GASTROINTESTINAL: Soft, active bowel sounds throughout, non-tender, non- distended, no palpable masses, no rebound or guarding. No hepatosplenomegaly GENITOURINARY: MUSCULOSKELETAL: Extremities have no gross deformity, no edema, redness, or swelling. No calf swelling NEUROLOGIC:_a/o x 3, GCS 15, normal mentation and speech. Moves all extremities x 4 without motor or sensory deficit PSYCHIATRIC:_normal mood and affect, thought process is clear and linear Limitations: no limitations Course Vital Signs 09/01/24 09/01/24 09/02/24 22:33 23:30 03:51 Temperature 97.8 F Pulse Rate 67 63 68 Respiratory 18 18 18 Rate Blood Pressure 181/93 129/82 171/84 O2 Sat by Pulse 97 96 94 L Oximetry 09/02/24 09/02/24 09/02/24 08:49 12:27 17:02 Temperature Pulse Rate 69 60 65 Respiratory 18 20 20 Rate Blood Pressure 137/62 173/78 160/76 O2 Sat by Pulse 94 L 99 96 Oximetry 09/02/24 19:47 Temperature Pulse Rate 76 Respiratory 20 Rate Blood Pressure 154/82 O2 Sat by Pulse 96 Oximetry EKG Findings - EKG Comments: EKG Findings:: Sinus rhythm, rate 62 bpm, IA interval 163 ms, QRS duration 177 ms, QT/QTc 440/445 ms, normal axis, no new ST elevations or depressions when compared to EKG performed on 01/21/2024 Medical Decision Making - Medical Decision Making Was pt. sent in by a medical professional or institution (, PA, CENTRIFUGE OPERATOR, urgent care, hospital, or long-term...) When possible be specific @ -No Did you speak to anyone other than the patient for history (EMS, parent, family, police, friend...)? What history was obtained from this source @ -No Did you review nursing and triage notes (agree or disagree)? Why? @ -I reviewed and agree with nursing and triage notes- Reviewed triage note states patient complains of chest pain that started after eating ice cream this evening resolved to dose of nitro, patient has extensive cardiac history stent placed in 2017 stress test in spring was clear Were old charts reviewed (outside hosp., previous admission, EMS record, old EKG, old radiological studies, urgent care reports/EKG's, long-term records)? Report findings @ -Medical records reviewed, reviewed EKG performed in January of this year, compared to today's, no send no significant changes from prior Differential Diagnosis (chest pain, altered mental status, abdominal pain women, abdominal pain men, vaginal bleeding, weakness, fever, dyspnea, syncope, headache, dizziness, GI bleed, back pain, seizure, CVA, palpatations, mental health, musculoskeletal)? @Differential Chest Pain: Stable Angina, Unstable Angina, STEMI, NSTEMI Aortic Dissection, pericarditis, pleurisy, chostochondirits, Pneumothorax, Musculoskeletal, Esophageal Spasm GERD, Cholecystitis, Pancreatitis, Zoster, this is not meant to be an all- inclusive list. EKG interpreted by me (3pts min.). @ -As above X-rays interpreted by me (1pt min.). @ -No cardiomegaly, consolidations, pleural effusions are normal throughout CT interpreted by me (1pt min.). @ -None done What testing was considered but not performed or refused? (CT, X-rays, U/S, labs)? Why? @ -None What meds were considered but not given or refused? Why? @ Morphine for pain control for pancreatits, declined by patient Did you discuss the management of the patient with other professionals (professionals i.e. , PA, CENTRIFUGE OPERATOR, lab, RT, psych nurse, certified social workers in health care, metal crafts teacher, teacher, mobile patrol officer, telephonic nurse case manager)? Give summary @ -No Was smoking cessation discussed for >3mins.? @ -No Was critical care preformed (if so, how long)? @ -No Were there social determinants of health that impacted care today? How? (Homelessness, low income, unemployed, alcoholism, drug addiction, tr ansportation, low edu. Level, literacy, decrease access to med. care, usp, rehab)? @ -No Was there de-escalation of care discussed even if they declined (Discuss DNR or withdrawal of care, Hospice)? @ -No What co-morbidities impacted this encounter? (DM, HTN, Smoking, COPD, CAD, Cancer, CVA, ARF, Chemo, Hep., AIDS, mental health diagnosis, sleep apnea, morbid obesity)? @ -CAD, DM, Was patient admitted / discharged? Hospital course, mention meds given and route, prescriptions, significant lab abnormalities, going to OR and other pertinent info. @ -Admission-patient is a 68-year-old gentleman past medical history CAD, diabetes, presenting today for palpitations chest pain, chest pain relieved with nitroglycerin. On arrival patient denies chest pain. He is well-appearing and in no acute distress. Lungs clear to auscultation bilaterally, normal S1-S2 on cardiac exam, 2+ radial pulses palpated, no lower extremity edema. Plan for cardiac workup is in addition to chest x-ray, lipase amylase. Patient agreeable plan. 324 mg of aspirin ordered. Lab significant for elevated lipase of 328. On my reassessment patient does have epigastric tenderness to palpation. He politely declines pain medications. Will additionally order additional IV fluids. Ultrasound ordered to ensure no evidence of choledocholithiasis. Chest x-ray read by radiologist with new left basilar linear opacity favoring atelectasis. Discussed with patient plan for admission, pt agreeable with POC. Patient admitted to Dr. Jermain gray. Undiagnosed new problem with uncertain prognosis? @ -No Drug Therapy requiring intensive monitoring for toxicity (Heparin, Nitro, Insulin, Cardizem)? @ -No Were any procedures done? @ -No Diagnosis/symptom? @ -Acute pancreatitis Chest pain Acute, or Chronic, or Acute on Chronic? @acute Uncomplicated (without systemic symptoms) or Complicated (systemic symptoms)? @ -complicated Side effects of treatment? @ -No Exacerbation, Progression, or Severe Exacerbation? @ -No Poses a threat to life or bodily function? How? (Chest pain, [place], [place], pneumonia, PE, COPD, DKA, ARF, appy, cholecystitis, CVA, Diverticulitis, Homicidal, Suicidal, threat to staff... and all critical care pts) @ -Yes - Lab Data Result diagrams: 09/03/24 02:34 09/03/24 02:34 Lab Results 09/01/24 09/01/24 09/01/24 Range/Units 22:48 22:48 22:48 WBC 7.1 (3.8-10.6) k/uL RBC 4.26 L (4.30-5.90) m/uL Hgb 13.4 (13.0-17.5) gm/dL Hct 40.5 (39.0-53.0) % MCV 95.0 (80.0-100.0) fL MCH 31.4 (25.0-35.0) pg MCHC 33.0 (31.0-37.0) g/dL RDW 13.9 (11.5-15.5) % Plt Count 152 (150-450) k/uL MPV 7.8 Neutrophils % 48 % Lymphocytes % 34 % Monocytes % 8 % Eosinophils % 7 % Basophils % 0 % Neutrophils # 3.4 (1.3-7.7) k/uL Lymphocytes # 2.4 (1.0-4.8) k/uL Monocytes # 0.6 (0-1.0) k/uL Eosinophils # 0.5 (0-0.7) k/uL Basophils # 0.0 (0-0.2) k/uL PT 11.0 (10.0-12.5) sec INR 1.0 (<1.2) APTT 22.4 (22.0-30.0) sec D-Dimer 0.45 (<0.60) mg/L FEU Sodium 136 L (137-145) mmol/L Potassium 4.1 (3.5-5.1) mmol/L Chloride 106 (98-107) mmol/L Carbon Dioxide 26 (22-30) mmol/L Anion Gap 4 mmol/L BUN 15 (9-20) mg/dL Creatinine 1.11 (0.66-1.25) mg/dL Est GFR (CKD-EPI)AfAm 78 (>60 ml/min/1.73 sqM) Est GFR (CKD-EPI)NonAf 68 (>60 ml/min/1.73 sqM) Glucose 124 H (74-99) mg/dL Calcium 8.3 L (8.4-10.2) mg/dL Magnesium 1.7 (1.6-2.3) mg/dL Total Bilirubin 0.7 (0.2-1.3) mg/dL AST 27 (17-59) U/L ALT 16 (4-49) U/L Alkaline Phosphatase 37 L (38-126) U/L Troponin I (0.000-0.034) ng/mL NT-Pro-B Natriuret Pep 272 pg/mL Total Protein 6.4 (6.3-8.2) g/dL Albumin 3.8 (3.5-5.0) g/dL Amylase 76 (30-110) U/L Lipase 328 H (23-300) U/L 09/01/ Range/Units 22:48 WBC (3.8-10.6) k/uL RBC (4.30-5.90) m/uL Hgb (13.0-17.5) gm/dL Hct (39.0-53.0) % MCV (80.0-100.0) fL MCH (25.0-35.0) pg MCHC (31.0-37.0) g/dL RDW (11.5-15.5) % Plt Count (150-450) k/uL MPV Neutrophils % % Lymphocytes % % Monocytes % % Eosinophils % % Basophils % % Neutrophils # (1.3-7.7) k/uL Lymphocytes # (1.0-4.8) k/uL Monocytes # (0-1.0) k/uL Eosinophils # (0-0.7) k/uL Basophils # (0-0.2) k/uL PT (10.0-12.5) sec INR (<1.2) APTT (22.0-30.0) sec D-Dimer (<0.60) mg/L FEU Sodium (137-145) mmol/L Potassium (3.5-5.1) mmol/L Chloride (98-107) mmol/L Carbon Dioxide (22-30) mmol/L Anion Gap mmol/L BUN (9-20) mg/dL Creatinine (0.66-1.25) mg/dL Est GFR (CKD-EPI)AfAm (>60 ml/min/1.73 sqM) Est GFR (CKD-EPI)NonAf (>60 ml/min/1.73 sqM) Glucose (74-99) mg/dL Calcium (8.4-10.2) mg/dL Magnesium (1.6-2.3) mg/dL Total Bilirubin (0.2-1.3) mg/dL AST (17-59) U/L ALT (4-49) U/L Alkaline Phosphatase (38-126) U/L Troponin I <0.012 (0.000-0.034) ng/mL NT-Pro-B Natriuret Pep pg/mL Total Protein (6.3-8.2) g/dL Albumin (3.5-5.0) g/dL Amylase (30-110) U/L Lipase (23-300) U/L Disposition Clinical Impression: Pancreatitis, Chest pain Disposition: ADMITTED IP TO THIS HOSP Condition: Stable
[2024-09-01] MEDS: ASPIRIN 81 MG PO STA (22:49)
[2024-09-01] MEDS: SODIUM CHLORIDE 0.9% 500 ML 500 ML IV STA (23:01)
[2024-09-01] MEDS: MAGNESIUM SULFATE-D5W PMX 1 GM in DEXTROSE/WATER 1 100ML.BAG IVPB SCH (23:01)
[2024-09-01 23:02] LABS: ALT 16 U/L (4-49); AST 27 U/L (17-59); African American GFR (CKD) 78 (>60 ml/min/1.73 sqM); Albumin 3.8 g/dL (3.5-5.0); Alkaline Phosphatase 37 U/L (38-126); Amylase 76 U/L (30-110); Anion Gap 4 mmol/L; Blood Urea Nitrogen 15 mg/dL (9-20); Calcium 8.3 mg/dL (8.4-10.2); Carbon Dioxide 26 mmol/L (22-30); Chloride 106 mmol/L (98-107); Glucose 124 mg/dL (74-99); Lipase 328 U/L (23-300); Magnesium 1.7 mg/dL (1.6-2.3); Non-African American GFR(CKD) 68 (>60 ml/min/1.73 sqM); Potassium 4.1 mmol/L (3.5-5.1); Sodium 136 mmol/L (137-145); Total Bilirubin 0.7 mg/dL (0.2-1.3); Total Protein 6.4 g/dL (6.3-8.2)
[2024-09-01 23:03] LABS: Basophils % (A) 0 %; Eosinophils # (A) 0.5 k/uL (0-0.7); Eosinophils % (A) 7 %; HCT 40.5 % (39.0-53.0); HGB 13.4 gm/dL (13.0-17.5); Lymphocytes # (A) 2.4 k/uL (1.0-4.8); Lymphocytes % (A) 34 %; MCH 31.4 pg (25.0-35.0); Mean Platelet Volume 7.8; Monocytes # (A) 0.6 k/uL (0-1.0); Monocytes % (A) 8 %; Neutrophils # (A) 3.4 k/uL (1.3-7.7); Neutrophils % (A) 48 %; Platelet Count 152 k/uL (150-450); RBC 4.26 m/uL (4.30-5.90); RDW 13.9 % (11.5-15.5); WBC 7.1 k/uL (3.8-10.6)
[2024-09-01 23:10] LABS: NT-Pro-B-Type Natriuretic Pept 272 pg/mL
[2024-09-01 23:14] LABS: Partial Thromboplastin Time 22.4 sec (22.0-30.0)
[2024-09-02] MEDS ORDERED: MAG HYDROX/AL HYDROX/SIMETH 30 ML CUP PO PRN (01:00)
--- NOTE | 2024-09-02 01:11 | US ---
EXAM: US Abdomen Limited, Right Upper Quadrant CLINICAL HISTORY: ITS.REASON US Reason: elevated lipase, RUQ US cholecystectomy. TECHNIQUE: Real-time ultrasound of the right upper quadrant with image documentation. COMPARISON: US Abdomen Limited RUQ dated 07/14/2021 FINDINGS: Limitations: Limited evaluation due to overlying bowel gas. Liver: Unremarkable. No mass. No intrahepatic bile duct dilation. Gallbladder: Absent gallbladder/interval cholecystectomy. Negative sonographic Junior's sign. Common bile duct: Obscured by overlying bowel gas. Pancreas: Pancreas obscured by bowel gas. Right kidney: Unremarkable. No stones. No hydronephrosis. The right kidney measures 10.5 cm in length. IMPRESSION: No acute findings in the right upper quadrant.
[2024-09-02] MEDS: SODIUM CHLORIDE 0.9% 500 ML 500 ML IV ONE (01:14)
[2024-09-02] MEDS ORDERED: ACETAMINOPHEN TAB 325 MG TAB PO PRN (01:52)
[2024-09-02] MEDS ORDERED: ONDANSETRON 4 MG/2 ML VIAL IVP PRN (01:52)
[2024-09-02] MEDS ORDERED: NALOXONE 0.4 MG/ML 1 ML VIAL IV PRN (01:52)
[2024-09-02] MEDS ORDERED: CALCIUM CARBONATE 500 MG CHEWABLE PO PRN (01:52)
[2024-09-02 03:12] LABS: Glucose,Whole Blood 125 mg/dL (70-110)
[2024-09-02] MEDS: SODIUM CHLORIDE 0.9% 1,000 ML IV SCH (03:12)
[2024-09-02] MEDS ORDERED: DEXTROSE 50% SYRINGE 50 ML IVP PRN ×2 (03:51)
--- NOTE | 2024-09-02 03:54 | P.HPIM ---
History of Present Illness H&P Date: 09/02/24 History of present illness; Jose Eduardo Rodriguez 68-year-old male with CAD, CABG, diabetes mellitus type 2, GERD, hypertension, hearing loss and seizures presents with new onset chest pain. Patient states chest pain began yesterday at noon was located substernally and characterize as a pressure-like sensation lasting for 5 minutes. This occurred after eating a meal. Later in the evening patient had a similar type pain lasting for an hour also after a meal and had associated chills and described fluttering and nausea. He states that he took home nitroglycerin which did not relieve his pain, and subsequently called ambulance and pain was alleviated with nitroglycerin and aspirin. He continues to report mild chest discomfort with chills. He also is reporting progressive constipation, acid reflux and dysphagia with solids. Patient reports absence of fever, weight loss, diaphoresis, dyspnea, cough, nausea, vomiting, diarrhea, abdominal pain, weakness, myalgia, dizziness, headache, and dysuria. Initial lab work done in the ER showed WBC 7.1, hemoglobin 13.4, platelets 152, D-dimer 0.45, sodium 136, potassium 4.1, chloride 106, bicarb 26, BUN 15, creatinine 1.11, glucose 124, calcium 8.3, ALP 37, troponin negative, BNP 272, lipase 328, amylase 76. EKG done in the ER independently interpreted showed heart rate of 62, no ST segment elevation or depression seen, no T-wave inversions seen. Similar to previous EKG in 2023. Chest x-ray done independently interpreted in the ER showed no acute findings Abdominal ultrasound with no acute process Patient admitted to internal medicine service. REVIEW OF SYSTEMS: All Systems reviewed, pertinent positives and negatives noted in HPI. All other symptoms are negative. PHYSICAL EXAMINATION: Vitals reviewed GENERAL: No acute distress. Well developed, well nourished. HEENT: Hearing loss. Pupils are round and equally reacting to light. EOMI. No scleral icterus. Normocephalic, atraumatic. No pharyngeal erythema. No thyromegaly. CARDIOVASCULAR: S1 and S2 present. No murmurs, rubs, or gallops. PULMONARY: Chest is clear to auscultation, no wheezing or crackles. ABDOMEN: Soft, nontender, nondistended, normoactive bowel sounds. No palpable organomegaly. MUSCULOSKELETAL: Sternal tenderness. No apparent joint swelling and deformities. EXTREMITIES: 4 fingers amputated on left hand. No apparent cyanosis, clubbing, or pedal edema. NEUROLOGICAL: The patient is alert and oriented x3, Gross neurological examination did not reveal any focal deficits. SKIN: No apparent rashes. Labs reviewed Imaging reviewed Assessment and plan Jose Eduardo Rodriguez 68-year-old male with CAD, CABG, diabetes mellitus type 2, GERD, hypertension, hearing loss and seizures presents with new onset chest pain. #Chest pain -Troponin 3 times negative, D-dimer negative Begin cardiac monitoring -Ordered TSH with reflex T4, HbA1c, Lipid panel -given aspirin 325, start 81mg qd -c/w Crestor 20 mg (home dose) #Elevated lipase, no clear etiology No current abdominal symptoms on antiepileptic medications Will continue to monitor #Dysphagia #Nausea #GERD -Continue famotidine and begin omeprazole Continue Zofran and Maalox and Tums as needed Recommend outpatient follow-up with GI #Constipation Begin Senokot as needed #Diabetes mellitus, type 2 #Hyperglycemia Begin Accu-Cheks and low-dose sliding scale, monitor for hypoglycemia Pending HbA1c Chronic Medical Conditions # Essential hypertension - Resume home medication once verified #Stable angina Resume home medications once verified #Seizure disorder Resume home medication once verified #Hyperlidemia - Resume home medication once verified #Hypothyroidism - Resume home Synthroid once verified F: IV NS 75 cc/h E: Replete as needed N: N.p.o. E: None DVT ppx: Subcu heparin Code status: Full code Anticipated discharge place: Home Anticipated discharge time: Today or tomorrow Dictation was produced using [employer] dictation software. Please excuse any grammatical, word or spelling errors. Past Medical History Past Medical History: Asthma, Coronary Artery Disease (CAD), Chest Pain / Angina, Diabetes Mellitus, GERD/Reflux, Hearing Disorder / Deafness, Hyperlipidemia, Hypertension, Memory Impairment, Myocardial Infarction ([place]), Osteoarthritis (OA), Pneumonia, Seizure Disorder, Thyroid Disorder Additional Past Medical History / Comment(s): tinnitus, recent chest pain & admission to [facility] on Thursday, last seizures 3-4 yrs ago Last Myocardial Infarction Date:: january History of Any Multi-Drug Resistant Organisms: None Reported Past Surgical History: Coronary Bypass/CABG, Heart Catheterization With Stent, Hernia Repair, Orthopedic Surgery, Tonsillectomy Additional Past Surgical History / Comment(s): left hand, rt eye surgery, rt shoulder repair x2, bilat hernia repair, rt foot sx, colonoscopy, 5 VESSEL CABG IN 2009, LOST 4 FINGERS ON LEFT HAND AT 15 YEARS OF AGE, arthroscopic right knee surg. gallbladder, bilateral ankle Past Anesthesia/Blood Transfusion Reactions: No Reported Reaction Date of Last Stent Placement:: 2020 Past Psychological History: No Psychological Hx Reported Smoking Status: Former smoker Past Alcohol Use History: None Reported Past Drug Use History: None Reported - Past Family History Mother Family Medical History: Diabetes Mellitus, Hypertension Father Additional Family Medical History / Comment(s): four way bypass Medications and Allergies Home Medications Medication Instructions Recorded Confirmed Type Isosorbide Mononitrate [Imdur] 30 mg PO DAILY 08/09/14 01/21/24 History Nitroglycerin Sl Tabs [Nitrostat] 0.4 mg SUBLINGUAL Q5M PRN 08/09/14 01/21/24 History lisinopriL [Zestril] 20 mg PO BID 09/20/15 01/21/24 History Aspirin 81 mg PO DAILY 08/11/17 01/21/24 History Metoprolol Tartrate [Lopressor] 25 mg PO BID 05/01/18 01/21/24 History Levothyroxine Sodium [Synthroid] 112 mcg PO DAILY 01/24/21 01/21/24 History Cholecalciferol [Vitamin D3 (25 25 mcg PO BID 06/11/21 01/21/24 History Mcg = 1000 Iu)] Pantoprazole Sodium 40 mg PO DAILY 06/11/21 01/21/24 History traZODone HCL 100 mg PO HS 06/11/21 01/21/24 History Valproic Acid [Depakene] 500 mg PO BID@0900,1500 07/04/21 01/21/24 History Alfuzosin HCl [Alfuzosin HCl ER] 10 mg PO HS 01/21/24 01/21/24 History Atorvastatin [Lipitor] 20 mg PO HS 01/21/24 01/21/24 History Docusate Sodium [Dok] 100 mg PO BID PRN 01/21/24 01/21/24 History Fish Oil/Dha/Epa [Fish Oil 1,200 1 cap PO DAILY 01/21/24 01/21/24 History mg Fish Oil] HYDROcodone/APAP 5-325MG [[place] 1 tab PO DAILY PRN 01/21/24 01/21/24 History 5-325] Ibuprofen [Motrin] 600 mg PO Q8HR PRN 01/21/24 01/21/24 History Ondansetron Odt [Zofran Odt] 4 mg PO Q8HR PRN 01/21/24 01/21/24 History Repaglinide [Prandin] 1 mg PO BID 01/21/24 01/21/24 History Valproic Acid [Depakene] 250 mg PO HS 01/21/24 01/21/24 History tiZANidine [Zanaflex] 4 mg PO Q8HR PRN 01/21/24 01/21/24 History Allergies Allergy/AdvReac Type Severity Reaction Status Date / Time ciprofloxacin Allergy Rash/Hives Verified 01/21/24 09:31 fluticasone propionate Allergy Rash/Hives Verified 01/21/24 09:31 [From Flonase] meperidine [From Demerol] Allergy Unknown Verified 01/21/24 09:31 metformin Allergy Rash/Hives Verified 01/21/24 09:31 metformin HCl Allergy Rash/Hives Verified 01/21/24 09:31 [From Glucophage] morphine Allergy Unknown Verified 01/21/24 09:31 Physical Exam Vitals: Vital Signs Temp Pulse Resp BP Pulse Ox 09/01/24 23:30 63 18 129/82 96 09/01/24 22:33 97.8 F 67 18 181/93 97 Intake and Output 09/01/24 09/01/24 09/02/24 14:59 22:59 06:59 Other: Weight 75.75 kg Results CBC & Chem 7: 09/01/24 22:48 09/01/24 22:48 Labs: Abnormal Lab Results - Last 24 Hours (Table) 09/01/24 09/01/24 Range/Units 22:48 22:48 RBC 4.26 L (4.30-5.90) m/uL Sodium 136 L (137-145) mmol/L Glucose 124 H (74-99) mg/dL Calcium 8.3 L (8.4-10.2) mg/dL Alkaline Phosphatase 37 L (38-126) U/L Lipase 328 H (23-300) U/L
[2024-09-02] MEDS: tiZANidine 4 MG TAB PO STA (04:09)
[2024-09-02] MEDS: traZODone HCL 50 MG TAB PO SCH (04:09)
[2024-09-02 08:06] LABS: Glucose,Whole Blood 148 mg/dL (70-110)
[2024-09-02] MEDS: INSULIN ASPART (NovoLOG) 100 UNIT/ML VIAL SQ SCH (08:11)
[2024-09-02] MEDS: PANTOPRAZOLE 40 MG TABLET PO SCH (08:40)
[2024-09-02] MEDS: FAMOTIDINE 20 MG TAB PO SCH (08:40)
[2024-09-02] MEDS: ASPIRIN 81 MG PO SCH (08:40)
[2024-09-02] MEDS: HEPARIN SODIUM,PORCINE 5,000 UNIT/ML 1 ML VIAL SQ SCH (08:40)
[2024-09-02] MEDS: ATORVASTATIN 20 MG TAB PO SCH (08:42)
--- NOTE | 2024-09-02 09:27 | XR ---
EXAMINATION TYPE: XR chest 2V DATE OF EXAM: 09/01/2024 COMPARISON: Chest x-ray January 21, 2024 HISTORY: Chest pain TECHNIQUE: Frontal and lateral views of the chest are obtained. FINDINGS: Overlying sternal wires and mediastinal clips are redemonstrated. New left basilar linear o pacity. Right lung is clear. The cardiac silhouette size is upper limits of normal. The osseous st ructures are intact. IMPRESSION: There is new left basilar linear opacity favoring atelectasis. [facility], , 09/01/2024 10:59 PM
[2024-09-02 09:28] LABS: Chol/HDL Ratio 5.67 Ratio; LDL Cholesterol,Calculated 50.1 mg/dL (0.0-131.0)
[2024-09-02] MEDS ORDERED: PANTOPRAZOLE 40 MG TABLET PO SCH (09:30)
[2024-09-02] MEDS: ISOSORBIDE MONONITRATE ER 30 MG TAB.ER.24H PO SCH (09:52)
[2024-09-02] MEDS: lisinopriL 20 MG TAB PO SCH (09:52)
[2024-09-02] MEDS: METOPROLOL TARTRATE 25 MG TAB PO SCH (09:52)
[2024-09-02] MEDS: TAMSULOSIN 0.4 MG CAP.ER.24H PO SCH (09:52)
[2024-09-02] MEDS: VALPROIC ACID ORAL SOLN 250 MG/5 ML CUP PO SCH ×2 (09:53→09:58)
--- NOTE | 2024-09-02 11:07 | P.PN ---
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 He presented to the emergency department on 09/01/2024 secondary to reports of chest pain and fluttering/racing heart. Patient reports experiencing a pressure-like pain to midsternal chest radiating into left anterior chest accompanied by feeling that his heart was fluttering or racing. Upon arrival to our facility, patient underwent evaluation in the emergency department. Vital signs upon arrival show blood pressure 181/93, heart rate 67, respiratory rate 18, temp 97.8 F, and SpO2 of 97% on room air. EKG was completed showing normal sinus rhythm with a right bundle branch block at 62 bpm. Chest x-ray showing mild left basilar linear opacity favoring atelectasis. Labs were completed and reviewed. CBC unremarkable. Coagulation profile normal findings. D-dimer was 0.45. BMP unremarkable. Blood glucose 124. Magnesium was slightly low at 1.7. Liver profile showing low alkaline phosphatase of 37 otherwise normal findings. Troponin was negative at less than 0.012 and proBNP was 272. Lipase was minimally elevated at 328. Secondary to elevated lipase patient also underwent abdominal ultrasound in the emergency department which was negative for acute process. Patient admitted under our services with consultation to cardiology. Troponins were trended at less than 0.012 x 3 draws. Physical exam: Patient was seen and evaluated in the emergency department in room 1. He reports currently chest pain is resolved but continues to have transient episodes where he feels as though his heart is racing/fluttering. He denies having any shortness of breath or any other complaints at this time. Vital signs reviewed and stable. General: Nontoxic, no distress and appears stated age. Derm: Skin warm and dry, normal coloration for ethnicity. Head: Atraumatic, normocephalic and symmetric. Hard of hearing. Eyes: EOM's intact, no lid lag, and anicteric sclera Mouth: no lip lesions, mucus membranes moist Cardiovascular: regular rate and rhythm with normal S1S2, systolic murmur, positive posterior tibial pulses bilaterally, and cap refill < 2 seconds. Lungs: Respirations even, regular, and unlabored on room air. Lungs CTA bilaterally, no rhonchi, no rales, no wheezing, and no accessory muscle usage. Abdominal: soft, nontender to palpation, no guarding, no appreciable organomegaly Ext: ROM intact. No gross muscle atrophy, no edema, no contractures. 4 fingers amputated on left hand. Neuro: Speech clear, face symmetrical and CN II-XII grossly intact with no noted focal neuro deficits Psych: Alert and oriented to person, place, time, and situation. Appropriate and pleasant affect. Assessment and Plan of Care: Chest pain and palpitations, acute coronary event ruled out History of CAD status post CABG x 5 Hypertension Hyperlipidemia -Cardiology consulted, appreciate recommendations -Telemetry monitoring -Troponins were trended resulting at less than 0.012 x 3 draws. - Lipid profile showing elevated triglycerides of 252 and high VLDL of 50.40 with low HDL of 21.50. -TSH was normal findings at 2.790. -Cardiac diet -Continue daily medication regimen with aspirin 81 mg daily, atorvastatin 20 mg daily, isosorbide mononitrate 30 mg daily, lisinopril 20 mg twice daily, and metoprolol 25 mg twice daily. -Echocardiogram to be completed Hypothyroidism -Continue daily medication regimen with levothyroxine 112 mcg daily. BPH -Continue Flomax 0.4 mg twice daily. Seizure disorder -Continue daily medication regimen with Depakote 500 mg each morning and 750 mg nightly. -Maintain seizure precautions and order placed for valproic acid level. Data and imaging reviewed: -Labs reviewed. Troponins were trended at less than 0.012 x 3 draws. CBC showi ng bicytopenia with hemoglobin of 12.6 and platelet count of 141. BMP unremarkable. Blood glucose 132. Liver profile showing low alkaline phosphatase of 37. Lipase normal findings at 242. Lipid profile showing elevated triglycerides of 252 and high VLDL of 50.40 with low HDL of 21.50. TSH was normal findings at 2.790. -Vital signs reviewed. Blood pressure 137/62, heart rate 69, respiratory rate 18, and SpO2 of 94% on room air. CODE STATUS: Full code DVT prophylaxis: Heparin Anticipated discharge date: 24 to [address]: Home Patient was seen independently by Nurse Pracitioner. This document was prepared using [employer] dictation software. Please allow for errors in driver messenger, while rare they do occur. I reviewed the documentation as provided by the APRIL above, who is the original author of this note. I agree with the documented assessment and plan, with the following changes: none Objective - Vital Signs Vital signs: Vital Signs Temp 97.8 F 09/01/24 22:33 Pulse 69 09/02/24 08:49 Resp 18 09/02/24 08:49 BP 137/62 09/02/24 08:49 Pulse Ox 94 L 09/02/24 08:49 FiO2 Intake & Output 09/01/24 09/02/24 09/02/24 18:59 06:59 18:59 Weight 75.75 kg - Labs CBC & Chem 7: 09/03/24 02:34 09/03/24 02:34 Labs: Abnormal Lab Results - Last 24 Hours (Table) 09/01/24 09/01/24 09/02/24 Range/Units 22:48 22:48 03:08 RBC 4.26 L (4.30-5.90) m/uL Sodium 136 L (137-145) mmol/L Glucose 124 H (74-99) mg/dL POC Glucose (mg/dL) 125 H (70-110) mg/dL Calcium 8.3 L (8.4-10.2) mg/dL Alkaline Phosphatase 37 L (38-126) U/L Lipase 328 H (23-300) U/L 09/02/24 Range/Units 08:04 RBC (4.30-5.90) m/uL Sodium (137-145) mmol/L Glucose (74-99) mg/dL POC Glucose (mg/dL) 148 H (70-110) mg/dL Calcium (8.4-10.2) mg/dL Alkaline Phosphatase (38-126) U/L Lipase (23-300) U/L
[2024-09-02 12:20] LABS: Glucose,Whole Blood 134 mg/dL (70-110)
[2024-09-02 12:24] LABS: HCT 37.1 % (39.0-53.0); HGB 12.6 gm/dL (13.0-17.5); MCH 31.9 pg (25.0-35.0); MCHC 33.8 g/dL (31.0-37.0); MCV 94.4 fL (80.0-100.0); Mean Platelet Volume 8.5; Platelet Count 141 k/uL (150-450); RBC 3.94 m/uL (4.30-5.90); WBC 5.5 k/uL (3.8-10.6)
[2024-09-02 12:28] VITALS: RESP 20
[2024-09-02 12:35] LABS: ALT 14 U/L (4-49); AST 20 U/L (17-59); African American GFR (CKD) 78 (>60 ml/min/1.73 sqM); Albumin 3.2 g/dL (3.5-5.0); Albumin/Globulin Ratio 1.4; Alkaline Phosphatase 37 U/L (38-126); Anion Gap 4 mmol/L; Blood Urea Nitrogen 11 mg/dL (9-20); Calcium 8.2 mg/dL (8.4-10.2); Carbon Dioxide 27 mmol/L (22-30); Chloride 106 mmol/L (98-107); Globulin 2.3 g/dL; Glucose 132 mg/dL (74-99); Lipase 242 U/L (23-300); Non-African American GFR(CKD) 68 (>60 ml/min/1.73 sqM); Potassium 4.9 mmol/L (3.5-5.1); Sodium 137 mmol/L (137-145); Total Bilirubin 0.5 mg/dL (0.2-1.3); Total Protein 5.5 g/dL (6.3-8.2)
[2024-09-02 17:01] LABS: Glucose,Whole Blood 101 mg/dL (70-110)
[2024-09-02] MEDS: LEVOTHYROXINE 112 MCG TAB PO SCH (18:15)
[2024-09-02 20:36] LABS: Glucose,Whole Blood 186 mg/dL (70-110)
[2024-09-02] MEDS: traZODone HCL 100 MG TAB PO SCH (21:35)
[2024-09-03 06:02] LABS: Glucose,Whole Blood 88 mg/dL (70-110)
[2024-09-03 07:56] VITALS: BP 171/79; PULSE 84; TEMP 97.7
[2024-09-03 09:26] LABS: Basophils # (A) 0.07 X 10*3/uL (0.00-0.10); Eosinophils # (A) 0.55 X 10*3/uL (0.04-0.35); Eosinophils % (A) 8.2 %; HCT 36.4 % (39.6-50.0); HGB 12.3 g/dL (13.0-17.0); Lymphocytes # (A) 2.17 X 10*3/uL (0.90-5.00); Lymphocytes % (A) 32.3 %; MCH 32.2 pg (27.0-32.0); MCHC 33.8 g/dL (32.0-37.0); MCV 95.3 FL (80.0-97.0); Mean Platelet Volume 11.6 FL (9.5-12.2); Monocytes # (A) 0.67 X 10*3/uL (0.20-1.00); NRBC Per 100 WBC 0 X 10*3/uL (0.00-0.01); Neutrophils # (A) 3.23 X 10*3/uL (1.80-7.70); Neutrophils % (A) 48.1 %; Platelet Count 151 X 10*3/uL (140-440); RBC 3.82 X 10*6/uL (4.40-5.60); RDW 13.2 % (11.5-14.5); WBC 6.72 X 10*3/uL (4.50-10.00)
[2024-09-03 09:37] LABS: ALT 16 U/L (10-49); AST 21 U/L (14-35); Albumin 3.5 g/dL (3.8-4.9); Albumin/Globulin Ratio 1.75 Ratio (1.60-3.17); Alkaline Phosphatase 42 U/L (41-126); BUN/Creat Ratio 8.45 Ratio (12.00-20.00); Blood Urea Nitrogen 9.3 mg/dL (9.0-27.0); Calcium 8.5 mg/dL (8.7-10.3); Carbon Dioxide 22.5 mmol/L (21.6-31.8); Chloride 108 mmol/L (96-109); Glucose 105 mg/dL (70-110); Potassium 4.4 mmol/L (3.5-5.5); Sodium 141 mmol/L (135-145); Total Bilirubin 0.3 mg/dL (0.3-1.2); Total Protein 5.5 g/dL (6.2-8.2)
[2024-09-03] MEDS: SENNOSIDES 8.6 MG TAB PO PRN (10:37)
--- NOTE | 2024-09-03 11:04 | P.PN ---
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 He presented to the emergency department on 09/01/2024 secondary to reports of chest pain and fluttering/racing heart. Patient reports experiencing a pressure-like pain to midsternal chest radiating into left anterior chest accompanied by feeling that his heart was fluttering or racing. Upon arrival to our facility, patient underwent evaluation in the emergency department. Vital signs upon arrival show blood pressure 181/93, heart rate 67, respiratory rate 18, temp 97.8 F, and SpO2 of 97% on room air. EKG was completed showing normal sinus rhythm with a right bundle branch block at 62 bpm. Chest x-ray showing mild left basilar linear opacity favoring atelectasis. Labs were completed and reviewed. CBC unremarkable. Coagulation profile normal findings. D-dimer was 0.45. BMP unremarkable. Blood glucose 124. Magnesium was slightly low at 1.7. Liver profile showing low alkaline phosphatase of 37 otherwise normal findings. Troponin was negative at less than 0.012 and proBNP was 272. Lipase was minimally elevated at 328. Secondary to elevated lipase patient also underwent abdominal ultrasound in the emergency department which was negative for acute process. Patient admitted under our services with consultation to cardiology. Troponins were trended at less than 0.012 x 3 draws. Physical exam: Patient was seen and evaluated this morning. He currently reports resolution of palpitations and chest pain. 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 Patient reports just feeling tired today otherwise denies any complaints at time of assessment. Vital signs reviewed and stable. General: Nontoxic, no distress and appears stated age. Derm: Skin warm and dry, normal coloration for ethnicity. Head: Atraumatic, normocephalic and symmetric. Hard of hearing. Eyes: EOM's intact, no lid lag, and anicteric sclera Mouth: no lip lesions, mucus membranes moist Cardiovascular: regular rate and rhythm with normal S1S2, systolic murmur, positive posterior tibial pulses bilaterally, and cap refill < 2 seconds. Lungs: Respirations even, regular, and unlabored on room air. Lungs CTA bilaterally, no rhonchi, no rales, no wheezing, and no accessory muscle usage. Abdominal: soft, nontender to palpation, no guarding, no appreciable organomegaly Ext: ROM intact. No gross muscle atrophy, no edema, no contractures. 4 fingers amputated on left hand. Neuro: Speech clear, face symmetrical and CN II-XII grossly intact with no noted focal neuro deficits Psych: Alert and oriented to person, place, time, and situation. Appropriate and pleasant affect. Assessment and Plan of Care: Chest pain and palpitations, acute coronary event ruled out History of CAD status post CABG x 5 Hypertension Hyperlipidemia -Cardiology consulted, appreciate recommendations -Telemetry monitoring -Troponins were trended resulting at less than 0.012 x 3 draws. - Lipid profile showing elevated triglycerides of 252 and high VLDL of 50.40 with low HDL of 21.50. -TSH was normal findings at 2.790. -Cardiac diet -Continue daily medication regimen with aspirin 81 mg daily, atorvastatin 20 mg daily, isosorbide mononitrate 30 mg daily, lisinopril 20 mg twice daily, and metoprolol 25 mg twice daily. -Echocardiogram has been completed and currently pending report. Hypothyroidism -Continue daily medication regimen with levothyroxine 112 mcg daily. BPH -Continue Flomax 0.4 mg twice daily. Seizure disorder -Continue daily medication regimen with Depakote 500 mg each morning and 750 mg nightly. -Maintain seizure precautions. -Valproic acid level therapeutic at 56.6. Data and imaging reviewed: -Morning labs reviewed. CBC showing stable normocytic anemia with hemoglobin of 12.3. BMP unremarkable. Blood glucose 105. Liver profile unremarkable with the exception of low albumin of 3.5. Valproic acid level therapeutic at 56.6. -Vital signs reviewed. Blood pressure elevated this morning prior to medication administration currently blood pressure 171/79, heart rate 84, respiratory rate 20, temp 97.7 F, and SpO2 of 96% on room air. CODE STATUS: Full code DVT prophylaxis: Heparin Anticipated discharge date: 24 to 48 hours, pending recommendations from cardiology Anticipated discharge place: Home Patient was seen independently by Nurse Pracitioner. This document was prepared using [employer] dictation software. Please allow for errors in qm consultant, while rare they do occur. I reviewed the documentation as provided by the APRIL above, who is the original author of this note. I agree with the documented assessment and plan, with the following changes: none Objective - Vital Signs Vital signs: Vital Signs Temp 97.7 F 09/03/24 07:25 Pulse 84 09/03/24 07:25 Resp 20 09/03/24 07:25 BP 171/79 09/03/24 07:25 Pulse Ox 96 09/03/24 07:25 FiO2 Intake & Output 09/02/24 09/03/24 09/03/24 18:59 06:59 18:59 Weight 75.75 kg Other: Voiding Method Toilet - Labs CBC & Chem 7: 09/03/24 02:34 09/03/24 02:34 Labs: Abnormal Lab Results - Last 24 Hours (Table) 09/02/24 09/02/24 09/02/24 Range/Units 04:47 04:49 11:52 RBC 3.94 L (4.30-5.90) m/uL Hgb 12.6 L (13.0-17.5) gm/dL Hct 37.1 L (39.0-53.0) % Plt Count 141 L (150-450) k/uL Glucose (74-99) mg/dL POC Glucose (mg/dL) (70-110) mg/dL Hemoglobin A1c 7.5 H (<=6.0) % Calcium (8.4-10.2) mg/dL Alkaline Phosphatase (38-126) U/L Total Protein (6.3-8.2) g/dL Albumin (3.5-5.0) g/dL Triglycerides 252.00 H (0.00-149.00) mg/dL VLDL Cholesterol, Calc 50.40 H (5.00-40.00) mg/dL HDL Cholesterol 21.50 L (40.00-60.00) mg/dL 09/02/24 09/02/24 09/02/24 Range/Units 11:55 12:19 20:08 RBC (4.30-5.90) m/uL Hgb (13.0-17.5) gm/dL Hct (39.0-53.0) % Plt Count (150-450) k/uL Glucose 132 H (74-99) mg/dL POC Glucose (mg/dL) 134 H 186 H (70-110) mg/dL Hemoglobin A1c (<=6.0) % Calcium 8.2 L (8.4-10.2) mg/dL Alkaline Phosphatase 37 L (38-126) U/L Total Protein 5.5 L (6.3-8.2) g/dL Albumin 3.2 L (3.5-5.0) g/dL Triglycerides (0.00-149.00) mg/dL VLDL Cholesterol, Calc (5.00-40.00) mg/dL HDL Cholesterol (40.00-60.00) mg/dL
[2024-09-03 11:36] LABS: Glucose,Whole Blood 239 mg/dL (70-110)
--- NOTE | 2024-09-03 12:52 | P.DS ---
Providers Date of admission: 09/02/24 01:54 Expected date of discharge: 09/03/24 Attending physician: Constance Aly MD Consults: 09/02/24 15:08 Consult Physician Routine Consulting Provider: Ayana Magdaleno Consult Reason/Comments: CP Do you want consulting provider notified?: Yes Primary care physician: Marilia Guerrero [facility] Course: Discharge Diagnosis: Chest pain and palpitations, acute coronary event ruled out. EKG sinus mechanism. Troponins were trended all negative at less than 0.012 x 3 draws. proBNP 272. Patient was evaluated by commercial fisherman, echocardiogram was completed. Cardiology clearing patient from cardiac perspective recommending outpatient follow-up in their office. Patient to obtain echocardiogram results from cardiology office as they are not available at time of discharge. History of CAD status post CABG x 5. Continue daily medication regimen with aspirin 81 mg daily, atorvastatin 20 mg daily, isosorbide mononitrate 30 mg daily, lisinopril 20 mg twice daily, and metoprolol 25 mg twice daily. Hypertension. Continue daily medication regimen with isosorbide mononitrate 30 mg daily, lisinopril 20 mg twice daily, and metoprolol 25 mg twice daily. Hyperlipidemia. Continue daily medication regimen with atorvastatin 20 mg daily. Hypothyroidism. Continue daily medication regimen with levothyroxine 112 mcg daily. BPH. Continue Flomax 0.4 mg twice daily. Seizure disorder. Continue daily medication regimen with Depakote 500 mg each morning and 750 mg nightly. Maintain seizure precautions.Valproic acid level therapeutic at 56.6. 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 He presented to the emergency department on 09/01/2024 secondary to reports of chest pain and fluttering/racing heart. Patient reports experiencing a pressure-like pain to midsternal chest radiating into left anterior chest accompanied by feeling that his heart was fluttering or racing. Upon arrival to our facility, patient underwent evaluation in the emergency department. Vital signs upon arrival show blood pressure 181/93, heart rate 67, respiratory rate 18, temp 97.8 F, and SpO2 of 97% on room air. EKG was completed showing normal sinus rhythm with a right bundle branch block at 62 bpm. Chest x-ray showing mild left basilar linear opacity favoring atelectasis. Labs were completed and reviewed. CBC unremarkable. Coagulation profile normal findings. D-dimer was 0.45. BMP unremarkable. Blood glucose 124. Magnesium was slightly low at 1.7. Liver profile showing low alkaline phosphatase of 37 otherwise normal findings. Troponin was negative at less than 0.012 and proBNP was 272. Lipase was minimally elevated at 328. Secondary to elevated lipase patient also underwent abdominal ultrasound in the emergency department which was negative for acute process. Patient admitted under our services with consultation to cardiology. Troponins were trended at less than 0.012 x 3 draws. Echocardiogram was completed. Patient had full resolution of previous reported chest pain and palpitations. He was evaluated by commercial fisherman clearing patient from cardiac perspective for discharge with no changes to medication regimen recommended. Echocardiogram report not available at time of discharge, patient to [facility]up [facility] to discuss results at outpatient follow-up visit. Again patient reports full resolution of previous reported chest pain and palpitations and denies any other complaints. Patient medically optimized and cleared for discharge at this time. Patient to follow-up outpatient with PCP in 1 to 2 days and with commercial fisherman in 1 week. Physical exam: Vital signs reviewed and stable. General: Nontoxic, no distress and appears stated age. Derm: Skin warm and dry, normal coloration for ethnicity. Head: Atraumatic, normocephalic and symmetric. Hard of hearing. Eyes: EOM's intact, no lid lag, and anicteric sclera Mouth: no lip lesions, mucus membranes moist Cardiovascular: regular rate and rhythm with normal S1S2, systolic murmur, positive posterior tibial pulses bilaterally, and cap refill < 2 seconds. Lungs: Respirations even, regular, and unlabored on room air. Lungs CTA bilaterally, no rhonchi, no rales, no wheezing, and no accessory muscle usage. Abdominal: soft, nontender to palpation, no guarding, no appreciable organomegaly Ext: ROM intact. No gross muscle atrophy, no edema, no contractures. 4 fingers amputated on left hand. Neuro: Speech clear, face symmetrical and CN II-XII grossly intact with no noted focal neuro deficits Psych: Alert and oriented to person, place, time, and situation. Appropriate and pleasant affect. A total of 35 minutes of time were spent preparing this complex discharge summary. Pt was discharged on 09/03/2024 at 12:09 PM. Patient was seen independently by Nurse Practitioner. This document was prepared using [employer] dictation software. Please allow for errors in digital content specialist while rare they do occur. I reviewed the documentation as provided by the APRIL above, who is the original author of this note. I agree with the documented assessment and plan, with the following changes: none Patient Condition at Discharge: Stable Plan - Discharge Summary Discharge Rx Participant: No New Discharge Prescriptions: Continue Nitroglycerin Sl Tabs [Nitrostat] 0.4 mg SUBLINGUAL Q5M PRN PRN Reason: Chest Pain Isosorbide Mononitrate [Imdur] 30 mg PO DAILY lisinopriL [Zestril] 20 mg PO PC-BID Aspirin 81 mg PO DAILY Metoprolol Tartrate [Lopressor] 25 mg PO BID Levothyroxine Sodium [Synthroid] 112 mcg PO PC-SUPPER Atorvastatin [Lipitor] 20 mg PO DAILY Tamsulosin HCl [Flomax] 0.4 mg PO PC-BID traZODone HCL 100 mg PO HS Pantoprazole Sodium 40 mg PO DAILY Valproic Acid [Depakene] 500 mg PO PC-BID Valproic Acid [Depakene] 250 mg PO HS Repaglinide [Prandin] 1 mg PO DAILY Discharge Medication List Isosorbide Mononitrate [Imdur] 30 mg PO DAILY 08/09/14 [History] Nitroglycerin Sl Tabs [Nitrostat] 0.4 mg SUBLINGUAL Q5M PRN 08/09/14 [History] lisinopriL [Zestril] 20 mg PO PC-BID 09/20/15 [History] Aspirin 81 mg PO DAILY 08/11/17 [History] Metoprolol Tartrate [Lopressor] 25 mg PO BID 05/01/18 [History] Levothyroxine Sodium [Synthroid] 112 mcg PO PC-SUPPER 01/24/21 [History] Pantoprazole Sodium 40 mg PO DAILY 06/11/21 [History] traZODone HCL 100 mg PO HS 06/11/21 [History] Valproic Acid [Depakene] 500 mg PO PC-BID 07/04/21 [History] Atorvastatin [Lipitor] 20 mg PO DAILY 01/21/24 [History] Repaglinide [Prandin] 1 mg PO DAILY 01/21/24 [History] Valproic Acid [Depakene] 250 mg PO HS 01/21/24 [History] Tamsulosin HCl [Flomax] 0.4 mg PO PC-BID 09/02/24 [History] Follow up Appointment(s)/Referral(s): Marlon Pickard MD [STAFF PHYSICIAN] - 1 Week (Office is closed at time of discharge. Please call for follow-up appointment.) Marilia Sharma DO [Primary Care Provider] - 1-2 days (Office is closed at time of discharge. Please call for follow-up appointment.) Patient Instructions/Handouts: Chest Pain (DC) Activity/Diet/Wound Care/Special Instructions: Activity: As tolerated. Take breaks as needed. Diet: Heart healthy and carb consistent diet. Avoid salts, or foods with hidden salts such as canned or boxed foods and frozen dinners. Extra salt makes your heart work harder and traps the fluid in your body for longer. Special Instructions: Take all of your medications as directed and remember to keep all of your doctor's appointments and follow-up as needed. Will need to follow-up with [facility] office for follow up appointment and they can discuss your echocardiogram results at visit, as these results are not available at time of discharge. Thank you for allowing us to participate in your care, it was truly a pleasure having you for our patient!!! . Discharge Disposition: HOME SELF-CARE
--- NOTE | 2024-09-03 13:09 | CA ---
Transthoracic Echo Report Name: Jose Eduardo Rodriguez Age: 68 Gender: M : 1955 Exam Date: 09/03/2024 09:56 Exam Location: [facility] Ht (in): 64 Wt (lb): 167 Ordering Physician: Ronny Marin Attending/Referring Phys: [employer] Crane Operator Palma Cote RDCS Procedure CPT: Indications: eval function and structure Cardiac Hx: Technical Quality: Technically difficult study Contrast 1: Definity Total Dose (mL): 2 Contrast 2: Total Dose (mL): MEASUREMENTS (Male / Female) Normal Values 2D ECHO LV Diastolic Diameter PLAX 4.1 cm 4.2 - 5.9 / 3.9 - 5.3 cm LV Systolic Diameter PLAX 1.9 cm IVS Diastolic Thickness 1.2 cm 0.6 - 1.0 / 0.6 - 0.9 cm LVPW Diastolic Thickness 1.5 cm 0.6 - 1.0 / 0.6 - 0.9 cm LV Relative Wall Thickness 0.6 RV Internal Dim ED PLAX 3.1 cm LA Volume 42.6 cm??? 18 - 58 / 22 - 52 cm??? LA Volume Index 22.8 cm???/m??? 16 - 28 cm???/m??? M-MODE Aortic Root Diameter MM 3.1 cm LA Systolic Diameter MM 4.3 cm LA Ao Ratio MM 1.4 AV Cusp Separation MM 1.5 cm DOPPLER AV Peak Velocity 130.9 cm/s AV Peak Gradient 6.9 mmHg AV Mean Velocity 97.6 cm/s AV Mean Gradient 4.1 mmHg AV Velocity Time Integral 31.6 cm LVOT Peak Velocity 99.7 cm/s LVOT Peak Gradient 4.0 mmHg LVOT Velocity Time Integral 26.7 cm MV Area PHT 3.5 cm??? Mitral E Point Velocity 115.6 cm/s Mitral A Point Velocity 91.3 cm/s Mitral E to A Ratio 1.3 MV Deceleration Time 214.8 ms MV E' Velocity 6.6 cm/s Mitral E to MV E' Ratio 17.4 TR Peak Velocity 252.1 cm/s TR Peak Gradient 25.4 mmHg Right Ventricular Systolic Press 30.4 mmHg FINDINGS Left Ventricle Mildly increased septal wall thickness. Left ventricular cavity size normal. No obvious regional wall motion abnormalities. Abnormal (paradoxical) septal motion consistent with postoperative state. Left ventricular ejection fraction is estimated at 50-55 %. Grade 1 diastolic dysfunction. Right Ventricle Normal right ventricular size and function. Right ventricular systolic pressure within normal limits. Right Atrium Normal right atrial size. Left Atrium Normal left atrial size. Mitral Valve Structurally normal mitral valve. Mitral valve thickened. Mild mitral annular calcification. Mild mitral regurgitation. Aortic Valve Trileaflet aortic valve. No aortic valve stenosis or regurgitation. Tricuspid Valve Structurally normal tricuspid valve. Mild tricuspid regurgitation. Pulmonic Valve Structurally normal pulmonic valve. Pericardium No pericardial effusion. Aorta Normal size aortic root and proximal ascending aorta. CONCLUSIONS Indication: Chest pain, abnormal EKG with right bundle branch block pattern Impression Technically difficult study with suboptimal acoustic windows Preserved LV size and systolic function Normal RV size and function Prominent posterior pericardial stripe, possible chronic pericarditis without effusion Previewed by: Dr. Marlon Pickard MD (Electronically Signed) Final Date: 03 September 2024 13:08
--- NOTE | 2024-09-03 13:58 | P.CRDCN ---
History of Present Illness Consult date: 09/03/24 Consult reason: chest pain History of present illness: The patient is a 68-year-old male who presented to the emergency room with chest discomfort. He states this started on evening after dinner. He describes it as midsternal, aching sensation. It has since resolved. DIAGNOSTICS: EKG shows sinus mechanism with right bundle branch block Chest x-ray shows left basilar linear opacity favoring atelectasis Echocardiogram shows LV function at 50 to 55% with prominent posterior pericardial stripe, possible chronic pericarditis Lexiscan from February 2024 (in office) shows no ischemia Lab data: WBC 6.7, hemoglobin 12.3, hematocrit 36.4, platelet 151, sodium 141, potassium 4.4, BUN 9.3, creatinine 1.1, AST 21, ALT 16, hemoglobin A1c 7.5,, triglycerides 252, LDL 50, HDL 21, amylase 76, lipase 328 REVIEW OF SYSTEMS: No fever or chills. No cough or expectoration. No diaphoresis. Patient denies headache, dizziness, blurred vision, double vision. Patient denies any stomach discomfort. No nausea, vomiting. No hematochezia. No hematemesis. Denies any black stools or blood in his stools. Denies dysuria or hematuria. No muscle weakness or numbness. PHYSICAL EXAMINATION: This is a 68-year-old male in no apparent distress at the time of my examination. HEENT: Head is atraumatic, normocephalic. Pupils are equal, round. Sclerae anict elle. Conjunctivae are clear. Mucous membranes of the mouth are moist. Neck is supple. There is no jugular venous distention. No carotid bruit is heard. CHEST EXAMINATION: Lungs are clear to auscultation. No chest wall tenderness is noted on palpation or with deep breathing. HEART EXAMINATION: Heart regular rate and rhythm. S1, S2 heard. No murmurs, gallops or rub. ABDOMEN: Soft, nontender. Bowel sounds are heard. No organomegaly noted. EXTREMITIES: 2+ peripheral pulses with no evidence of peripheral edema and no calf tenderness noted. NEUROLOGIC EXAMINATION: Patient is awake, alert and oriented x3. FINAL ASSESSMENT AND PLAN: Chest discomfort, ACS workup unremarkable History of coronary artery disease with prior CABG Hypertension Hyperlipidemia PLAN: Resume home cardiac medications Outpatient follow-up with primary bible reader Dr. Armstrong I am dictating on behalf of Dr Marlon Pickard's history/physical and assessment/plan. Past Medical History Past Medical History: Asthma, Coronary Artery Disease (CAD), Chest Pain / Angina, Diabetes Mellitus, GERD/Reflux, Hearing Disorder / Deafness, Hyperlipidemia, Hypertension, Memory Impairment, Myocardial Infarction ([place]), Osteoarthritis (OA), Pneumonia, Seizure Disorder, Thyroid Disorder Additional Past Medical History / Comment(s): tinnitus, recent chest pain & admi ssion to [facility] on Thursday, last seizures 3-4 yrs ago Last Myocardial Infarction Date:: january History of Any Multi-Drug Resistant Organisms: None Reported Past Surgical History: Cholecystectomy, Coronary Bypass/CABG, Heart Catheterization With Stent, Hernia Repair, Orthopedic Surgery, Tonsillectomy Additional Past Surgical History / Comment(s): left hand, rt eye surgery, rt shoulder repair x2, bilat hernia repair, rt foot sx, colonoscopy, 5 VESSEL CABG IN 2008, LOST 4 FINGERS ON LEFT HAND AT 15 YEARS OF AGE, arthroscopic right knee surg. gallbladder, bilateral ankle Past Anesthesia/Blood Transfusion Reactions: No Reported Reaction Date of Last Stent Placement:: 2020 Past Psychological History: No Psychological Hx Reported Smoking Status: Former smoker Past Alcohol Use History: None Reported Additional Past Alcohol Use History / Comment(s): quit smoking 40 yrs ago Past Drug Use History: None Reported - Past Family History Mother Family Medical History: Diabetes Mellitus, Hypertension Father Additional Family Medical History / Comment(s): four way bypass Medications and Allergies Home Medications Medication Instructions Recorded Confirmed Type Isosorbide Mononitrate [Imdur] 30 mg PO DAILY 08/09/14 09/02/24 History Nitroglycerin Sl Tabs [Nitrostat] 0.4 mg SUBLINGUAL Q5M PRN 08/09/14 09/02/24 History lisinopriL [Zestril] 20 mg PO PC-BID 09/20/15 09/02/24 History Aspirin 81 mg PO DAILY 08/11/17 09/02/24 History Metoprolol Tartrate [Lopressor] 25 mg PO BID 05/01/18 09/02/24 History Levothyroxine Sodium [Synthroid] 112 mcg PO PC-SUPPER 01/24/21 09/02/24 History Pantoprazole Sodium 40 mg PO DAILY 06/11/21 09/02/24 History traZODone HCL 100 mg PO HS 06/11/21 09/02/24 History Valproic Acid [Depakene] 500 mg PO PC-BID 07/04/21 09/02/24 History Atorvastatin [Lipitor] 20 mg PO DAILY 01/21/24 09/02/24 History Repaglinide [Prandin] 1 mg PO DAILY 01/21/24 09/02/24 History Valproic Acid [Depakene] 250 mg PO HS 01/21/24 09/02/24 History Tamsulosin HCl [Flomax] 0.4 mg PO PC-BID 09/02/24 09/02/24 History Allergies Allergy/AdvReac Type Severity Reaction Status Date / Time ciprofloxacin Allergy Rash/Hives Verified 09/02/24 08:15 fluticasone propionate Allergy Rash/Hives Verified 09/02/24 08:15 [From Flonase] meperidine [From Demerol] Allergy Unknown Verified 09/02/24 08:15 metformin Allergy Rash/Hives Verified 09/02/24 08:15 metformin HCl Allergy Rash/Hives Verified 09/02/24 08:15 [From Glucophage] morphine Allergy Unknown Verified 09/02/24 08:15 Physical Exam Vitals: Vital Signs Temp Pulse Pulse Resp BP BP Pulse Ox 09/03/24 07:25 97.7 F 84 20 171/79 96 09/03/24 02:00 97.3 F L 63 145/68 93 L 09/02/24 20:00 97.6 F 83 200/80 94 L 09/02/24 19:47 76 20 154/82 96 09/02/24 17:02 65 20 160/76 96 Intake and Output 09/02/24 09/03/24 09/03/24 22:59 06:59 14:59 Other: Voiding Method Toilet Weight 75.75 kg Results 09/03/24 02:34 09/03/24 02:34 Cardiac Enzymes 09/03/24 Range/Units 02:34 AST 21 (14-35) U/L CBC 09/03/24 Range/Units 02:34 WBC 6.72 (4.50-10.00) X 10*3/uL RBC 3.82 L (4.40-5.60) X 10*6/uL Hgb 12.3 L (13.0-17.0) g/dL Hct 36.4 L (39.6-50.0) % Plt Count 151 (140-440) X 10*3/uL Comprehensive Metabolic Panel 09/03/24 Range/Units 02:34 Sodium 141 (135-145) mmol/L Potassium 4.4 (3.5-5.5) mmol/L Chloride 108 (96-109) mmol/L Carbon Dioxide 22.5 (21.6-31.8) mmol/L BUN 9.3 (9.0-27.0) mg/dL Creatinine 1.1 (0.6-1.5) mg/dL Glucose 105 (70-110) mg/dL Calcium 8.5 L (8.7-10.3) mg/dL AST 21 (14-35) U/L ALT 16 (10-49) U/L Alkaline Phosphatase 42 (41-126) U/L Total Protein 5.5 L (6.2-8.2) g/dL Albumin 3.5 L (3.8-4.9) g/dL Intake and Output 09/02/24 09/03/24 09/03/24 22:59 06:59 14:59 Other: Voiding Method Toilet Weight 75.75 kg 09/03/24 02:34 09/03/24 02:34
== END 2024-09-03 13:21 | disposition home or self-care (01) ==
LOC: EC 22:30 → 6NMEDSUR 09-02 01:54 → 4SSUR 09-02 14:12
PROVIDERS: ADMIT Internal Medicine; ATTEND Internal Medicine
DX: I25.118 Atherosclerotic heart disease of native coronary artery with other forms of angina pectoris (principal); R00.2 Palpitations; K85.90 Acute pancreatitis without necrosis or infection, unspecified; R74.8 Abnormal levels of other serum enzymes; R13.10 Dysphagia, unspecified; K59.00 Constipation, unspecified; E11.65 Type 2 diabetes mellitus with hyperglycemia; I10 Essential (primary) hypertension; K21.9 Gastro-esophageal reflux disease without esophagitis; E78.5 Hyperlipidemia, unspecified; G40.909 Epilepsy, unspecified, not intractable, without status epilepticus; E03.9 Hypothyroidism, unspecified; N40.0 Benign prostatic hyperplasia without lower urinary tract symptoms; D64.9 Anemia, unspecified; I25.2 Old myocardial infarction; Z87.891 Personal history of nicotine dependence; Z95.5 Presence of coronary angioplasty implant and graft; Z79.82 Long term (current) use of aspirin; Z79.890 Hormone replacement therapy; Z79.899 Other long term (current) drug therapy; Z88.1 Allergy status to other antibiotic agents; Z88.5 Allergy status to narcotic agent; Z82.49 Family history of ischemic heart disease and other diseases of the circulatory system
CPT/HCPCS: 96361 ×2; 96372 ×3; 96365; 96366; 99285; 36415; 93005; 85379; 80164; 83880; 80061; 80053 ×3; 84443; 82150; 83690 ×2; 83735; 84484 ×2; 85025 ×2; 85027; 85610; 85730; 83036; 71046; 76705; G0378 ×3; C8929; J1644 ×2; Q9957; J3475; 93306

== ENCOUNTER 2025-01-25 19:29 | Emergency (ER) | payer MEDICARE ==
[2025-01-25 19:39] VITALS: TEMP 97.8
[2025-01-25 20:59] LABS: Glucose,Whole Blood 152 mg/dL (70-110)
--- NOTE | 2025-01-25 21:08 | ED ---
ENT HPI - General Chief complaint: ENT Stated complaint: memory loss Time Seen by Provider: 01/25/25 19:46 Source: patient Mode of arrival: ambulatory Limitations: no limitations - History of Present Illness Initial comments: 69-year-old male presenting with chief complaint of tinnitus and hearing loss. Patient has chronic hearing loss and tinnitus which has been gradually worsening over the years. Patient was seen at the creative arts therapist today and was told that he needs new hearing aids, however this is not financially possible for him and his family at this time. Patient was getting frustrated with his symptoms today and made a comment about harming himself because of it. Family states that because of that they brought him in here to the ER. He denies any injury or trauma. No pain. No bleeding or discharge from the ear. No plan to harm himself. No homicidal ideation. No dizziness or headache. - Related Data Home Medications Medication Instructions Recorded Confirmed Isosorbide Mononitrate [Imdur] 30 mg PO DAILY 08/09/14 09/02/24 Nitroglycerin Sl Tabs [Nitrostat] 0.4 mg SUBLINGUAL Q5M PRN 08/09/14 09/02/24 lisinopriL [Zestril] 20 mg PO PC-BID 09/20/15 09/02/24 Aspirin 81 mg PO DAILY 08/11/17 09/02/24 Metoprolol Tartrate [Lopressor] 25 mg PO BID 05/01/18 09/02/24 Levothyroxine Sodium [Synthroid] 112 mcg PO PC-SUPPER 01/24/21 09/02/24 Pantoprazole Sodium 40 mg PO DAILY 06/11/21 09/02/24 traZODone HCL 100 mg PO HS 06/11/21 09/02/24 Valproic Acid [Depakene] 500 mg PO PC-BID 07/04/21 09/02/24 Atorvastatin [Lipitor] 20 mg PO DAILY 01/21/24 09/02/24 Repaglinide [Prandin] 1 mg PO DAILY 01/21/24 09/02/24 Valproic Acid [Depakene] 250 mg PO HS 01/21/24 09/02/24 Tamsulosin HCl [Flomax] 0.4 mg PO PC-BID 09/02/24 09/02/24 Allergies Allergy/AdvReac Type Severity Reaction Status Date / Time ciprofloxacin Allergy Rash/Hives Verified 01/25/25 19:39 fluticasone propionate Allergy Rash/Hives Verified 01/25/25 19:39 [From Flonase] meperidine [From Demerol] Allergy Unknown Verified 01/25/25 19:39 metformin Allergy Rash/Hives Verified 01/25/25 19:39 metformin HCl Allergy Rash/Hives Verified 01/25/25 19:39 [From Glucophage] morphine Allergy Unknown Verified 01/25/25 19:39 Review of Systems ROS Statement: Those systems with pertinent positive or pertinent negative responses have been documented in the HPI. ROS Other: All systems not noted in ROS Statement are negative. Past Medical History Past Medical History: Asthma, Coronary Artery Disease (CAD), Chest Pain / Angina, Diabetes Mellitus, GERD/Reflux, Hearing Disorder / Deafness, Hyperlipidemia, Hypertension, Memory Impairment, Myocardial Infarction ([place]), Osteoarthritis ([place]), Pneumonia, Seizure Disorder, Thyroid Disorder Additional Past Medical History / Comment(s): tinnitus, recent chest pain & admission to [facility] on Thursday, last seizures 3-4 yrs ago Last Myocardial Infarction Date:: january History of Any Multi-Drug Resistant Organisms: None Reported Past Surgical History: Coronary Bypass/CABG, Heart Catheterization With Stent, Hernia Repair, Orthopedic Surgery, Tonsillectomy Additional Past Surgical History / Comment(s): left hand, rt eye surgery, rt shoulder repair x2, bilat hernia repair, rt foot sx, colonoscopy, 5 VESSEL CABG IN 2008, LOST 4 FINGERS ON LEFT HAND AT 15 YEARS OF AGE, arthroscopic right knee surg. gallbladder, bilateral ankle Past Anesthesia/Blood Transfusion Reactions: No Reported Reaction Date of Last Stent Placement:: 2020 Past Psychological History: No Psychological Hx Reported Smoking Status: Former smoker Past Alcohol Use History: None Reported Past Drug Use History: None Reported - Past Family History Mother Family Medical History: Diabetes Mellitus, Hypertension Father Additional Family Medical History / Comment(s): four way bypass General Exam Limitations: no limitations General appearance: alert, in no apparent distress Head exam: Present: atraumatic, normocephalic, normal inspection Eye exam: Present: normal appearance, EOMI Expanded Ear exam: Present: normal external inspection TM/Canal exam: Foreign Body: Right TM (Soft covering to hearing aid in the right ear canal) Neck exam: Present: normal inspection. Absent: meningismus Respiratory exam: Absent: respiratory distress Cardiovascular Exam: Present: regular rate Neurological exam: Present: alert, oriented X3 Expanded Patient oriented to: Present: person, place, time Speech: Present: fluid speech Eye Response: (4) open spontaneously Motor Response: (6) obeys commands Verbal Response: (5) oriented Jesus Total: 15 Psychiatric exam: Present: normal affect, normal mood. Absent: homicidal ideation, suicidal ideation Skin exam: Present: warm, dry, normal color Course Vital Signs 01/25/25 19:34 Temperature 97.8 F Pulse Rate 68 Respiratory 18 Rate Blood Pressure 154/78 O2 Sat by Pulse 97 Oximetry Medical Decision Making - Medical Decision Making Was pt. sent in by a medical professional or institution (, PA, FIRE LOSS PREVENTION ENGINEER, urgent care, hospital, or [facility]...) When possible be specific @ -No Did you speak to anyone other than the patient for history (EMS, parent, family, police, friend...)? What history was obtained from this source @ - and daughter Did you review nursing and triage notes (agree or disagree)? Why? @ -I reviewed and agree with nursing and triage notes Were old charts reviewed (outside hosp., previous admission, EMS record, old EKG, old radiological studies, urgent care reports/EKG's, [facility] records)? Report findings @ -No old charts were reviewed Differential Diagnosis (chest pain, altered mental status, abdominal pain women, abdominal pain men, vaginal bleeding, weakness, fever, dyspnea, syncope, headache, dizziness, GI bleed, back pain, seizure, CVA, palpatations, mental health, musculoskeletal)? @ -Differential includes chronic hearing loss, and foreign body, perforation, otitis media, all-inclusive list EKG interpreted by me (3pts min.). @ -As above X-rays interpreted by me (1pt min.). @ -None done CT interpreted by me (1pt min.). @ -None done U/S interpreted by me (1pt. min.). @ -None done What testing was considered but not performed or refused? (CT, X-rays, U/S, labs)? Why? @ -None What meds were considered but not given or refused? Why? @ -None Did you discuss the management of the patient with other professionals (professionals i.e. , PA, FIRE LOSS PREVENTION ENGINEER, lab, RT, psych nurse, family welfare social work professor, law writer, teacher, airline pilot/first officer, case resource manager)? Give summary @ -No Was smoking cessation discussed for >3mins.? @ -No Was critical care preformed (if so, how long)? @ -No Were there social determinants of health that impacted care today? How? (Homelessness, low income, unemployed, alcoholism, drug addiction, transportation, low edu. Level, literacy, decrease access to med. care, halfway, rehab)? @ -No Was there de-escalation of care discussed even if they declined (Discuss DNR or withdrawal of care, Hospice)? DNR status @ -No What co-morbidities impacted this encounter? (DM, HTN, Smoking, COPD, CAD, Cancer, CVA, ARF, Chemo, Hep., AIDS, mental health diagnosis, sleep apnea, morbid obesity)? @ -None Was patient admitted / discharged? Hospital course, mention meds given and route, prescriptions, significant lab abnormalities, going to OR and other pertinent info. @ -69-year-old male with chronic hearing loss and tinnitus presenting with chief complaint of hearing loss and tinnitus. Patient states that he is just very fed up with his symptoms. He had an creative arts therapist appointment today and there are interventions possible, however those are not financially possible at this time. Patient is accompanied by his and daughter. Daughter states that the patient made a comment about harming himself today because of his frustration with his hearing loss and tinnitus. On exam patient does have the soft Of a hearing aid stuck in his right ear which I did remove. No evidence of any perforation or effusion, no cerumen impaction. Patient denies any suicidal ideation or plan at this time. No homicidal ideation. Patient states that he made a comment in a moment of frustration but absolutely does not have any real thoughts or intentions of harming himself. He is alert and oriented x 3. I discussed the patient's condition with his family. I explained that they can fill out a petition to have him evaluated by psychiatry if they see fit. Family states they feel comfortable bringing him home at this time. Follow-up with PCP. Report back to ER with any new or worsening symptoms. Discussed return parameters and answered all questions. Patient conveyed verbal understanding and agreed to the plan. I discussed this case in detail with my attending Dr. Elizondo Undiagnosed new problem with uncertain prognosis? @ -No Drug Therapy requiring intensive monitoring for toxicity (Heparin, Nitro, Insulin, Cardizem)? @ -No Were any procedures done? @ -No Diagnosis/symptom? @ -Foreign body of the ear canal Acute, or Chronic, or Acute on Chronic? @ -Acute Uncomplicated (without systemic symptoms) or Complicated (systemic symptoms)? @ -Uncomplicated Side effects of treatment? @ -No Exacerbation, Progression, or Severe Exacerbation? @ -No Poses a threat to life or bodily function? How? (Chest pain, [place], [place], pneumonia, PE, COPD, DKA, ARF, appy, cholecystitis, CVA, Diverticulitis, Homicidal, Suicidal, threat to staff... and all critical care pts) @ -No Diagnosis/symptom? @Chronic hearing loss and tinnitus Acute, or Chronic, or Acute on Chronic? @Chronic Uncomplicated (without systemic symptoms) or Complicated (systemic symptoms)? @Complicated Side effects of treatment? @None Exacerbation, Progression, or Severe Exacerbation] @No Disposition Clinical Impression: Foreign body in ear, Hearing loss of aging, Bilateral tinnitus Disposition: HOME SELF-CARE Condition: Good Instructions (If sedation given, give patient instructions): Hearing Loss (ED) Additional Instructions: Follow-up with your PCP and creative arts therapist. Report back to ER with any new or worsening symptoms. You may bring the patient back at any time for mental health evaluation. Is patient prescribed a controlled substance at d/c from ED?: No Referrals: Marilia Sharma DO [Primary Care Provider] - 1-2 days Time of Disposition: 21:08
[2025-01-25 21:31] VITALS: BP 135/85; PULSE 73; RESP 16
== END 2025-01-25 21:31 | disposition home or self-care (01) ==
LOC: EC 19:29
DX: T16.1XXA Foreign body in right ear, initial encounter (principal); H93.13 Tinnitus, bilateral; H91.91 Unspecified hearing loss, right ear; Z87.891 Personal history of nicotine dependence; Z88.5 Allergy status to narcotic agent; Z88.8 Allergy status to other drugs, medicaments and biological substances; Z88.1 Allergy status to other antibiotic agents; W44.9XXA Unspecified foreign body entering into or through a natural orifice, initial encounter
CPT/HCPCS: 36415; 99283

== ENCOUNTER → 2025-05-08 | Outpatient (CLI) | payer MEDICARE ==
[2025-05-08 15:24] LABS: Basophils # (A) 0.07 X 10*3/uL (0.00-0.10); Basophils % (A) 0.9 %; Eosinophils # (A) 0.57 X 10*3/uL (0.04-0.35); Eosinophils % (A) 6.9 %; HCT 46.7 % (39.6-50.0); HGB 15.3 g/dL (13.0-17.0); Lymphocytes # (A) 2.37 X 10*3/uL (0.90-5.00); Lymphocytes % (A) 28.8 %; MCH 31.7 pg (27.0-32.0); MCHC 32.8 g/dL (32.0-37.0); MCV 96.9 FL (80.0-97.0); Mean Platelet Volume 11.5 FL (9.5-12.2); Monocytes # (A) 0.84 X 10*3/uL (0.20-1.00); Monocytes % (A) 10.2 %; NRBC Per 100 WBC 0 X 10*3/uL (0.00-0.01); Neutrophils # (A) 4.34 X 10*3/uL (1.80-7.70); Neutrophils % (A) 52.8 %; Platelet Count 152 X 10*3/uL (140-440); RBC 4.82 X 10*6/uL (4.40-5.60); RDW 13.2 % (11.5-14.5); WBC 8.22 X 10*3/uL (4.50-10.00)
[2025-05-08 16:04] LABS: Chol/HDL Ratio 5.37 Ratio
[2025-05-08 16:05] LABS: ALT 27 U/L (10-49); AST 20 U/L (14-35); Albumin 4.4 g/dL (3.8-4.9); Albumin/Globulin Ratio 1.91 Ratio (1.60-3.17); Alkaline Phosphatase 53 U/L (41-126); BUN/Creat Ratio 11.77 Ratio (12.00-20.00); Blood Urea Nitrogen 15.3 mg/dL (9.0-27.0); Calcium 9.5 mg/dL (8.7-10.3); Chloride 105 mmol/L (96-109); Globulin 2.3 g/dL (1.6-3.3); Glucose 141 mg/dL (70-110); LDL Cholesterol,Calculated 80.4 mg/dL (0.0-131.0); Potassium 5.2 mmol/L (3.5-5.5); Sodium 142 mmol/L (135-145); Total Bilirubin 0.4 mg/dL (0.3-1.2); Total Protein 6.7 g/dL (6.2-8.2)
== END | disposition home or self-care (01) ==
LOC: LABWHC1 08:38
PROVIDERS: ATTEND Family Medicine
DX: I10 Essential (primary) hypertension (principal); E78.2 Mixed hyperlipidemia; E11.65 Type 2 diabetes mellitus with hyperglycemia
CPT/HCPCS: 36415; 80053; 80061; 83036; 84443; 85025